=== PATIENT | female | born 1970 | race Caucasian/White ===

== ENCOUNTER 2019-04-25 20:12 | Emergency (ER) | payer OTHER ==
[~2019-04-25] VITALS: Ht 162.6 cm; Wt 77.1 kg
--- OUTSIDE RECORDS SUMMARY | ~2019-04-25 | XMS | Encounter Summary ---
Demographics + + + | Address | [address] | | | [place] [address] | + + + | Home Phone | | + + + | Preferred Language | Unknown | + + + | Marital Status | | + + + | Orthodox Affiliation | Unknown | + + + | Race | Unknown | + + + | Ethnic Group | Unknown | + + + Author + + + | Author | [facility] | | | and Srikanthana | + + + | Organization | [facility] | | | and Srikanthana | + + + | Address | Unknown | + + + | Phone | Unavailable | + + + Support + + + + + | Name | Relationship | Address | Phone | + + + + + | Arthur Mcduffie | ECON | [address] [facility] | | | | | [place] | | | | | [address] | | + + + + + | Uma Arellano | ECON | [address] | | | | | [place] [address] | | + + + + + Care Team Providers + +------+ + | Care Fish And Wildlife Biologist Name | Role | Phone | + +------+ + | Cuong Joe MD | PCP | | + +------+ + Reason for Visit + + + | Reason | Comments | + + + | Medication | | | Management | | + + + Encounter Details +--------+---------+ + + + | Date | Type | Department | Care Team | Description | +--------+---------+ + + + | 03/17/ | Office | [facility] | Cuong Joe, | Optic neuritis, | | 2019 | Visit | [facility] | [address] | right (Primary Dx) | | | | [address] | [place] | | | | | [place] | [address] | | | | | [address] | | | | | | [phone] | | | +--------+---------+ + + + Social History + +-------+ +--------+------+ | Tobacco Use | Types | Packs/Day | Years | Date | | | | | Used | | + +-------+ +--------+------+ | Never Smoker | | | | | + +-------+ +--------+------+ + +---+---+---+ | Smokeless Tobacco: | | | | | Never Used | | | | + +---+---+---+ + + +---------+ + | Alcohol Use | Drinks/Week | oz/Week | Comments | + + +---------+ + | Yes | | | Occasionally. 1 | | | | | drink once per month | | | | | or less. | + + +---------+ + + + + | Sex Assigned at | Date Recorded | | | | + + + | Not on file | | + + + + + + + | Job Start Date | Occupation | Industry | + + + + | Not on file | Not on file | Not on file | + + + + + + + + | Travel History | Travel Start | Travel End | + + + + + + | No recent travel history available. | + + documented as of this encounter Last Filed Vital Signs + + + + + | Vital Sign | Reading | Time Taken | Comments | + + + + + | Blood Pressure | 132/70 | 03/17/2019 4:12 PM | | | | | PST | | + + + + + | Pulse | 100 | 03/17/2019 4:12 PM | | | | | PST | | + + + + + | Temperature | 36.4 C (97.6 F) | 03/17/2019 4:12 PM | | | | | PST | | + + + + + | Respiratory Rate | 18 | 03/17/2019 4:12 PM | | | | | PST | | + + + + + | Oxygen Saturation | 97% | 03/17/2019 4:12 PM | | | | | PST | | + + + + + | Inhaled Oxygen | - | - | | | Concentration | | | | + + + + + | Weight | 77.3 kg (170 lb 6.7 | 03/17/2019 4:12 PM | | | | oz) | PST | | + + + + + | Height | - | - | | + + + + + | Body Mass Index | 29.25 | 03/07/2019 7:25 PM | | | | | PST | | + + + + + documented in this encounter Patient Instructions Patient Instructions Cuong Jeo MD - 03/17/2019 4:15 PM PSTKeep up the great work! Finish the prednisone as prescribed. I will follow-up with you regarding my conversation with Dr Caraballo - whether they want you to have a lumbar puncture prior to the appointment or to just wait until they evaluated. Recheck thyroid levels in April. Electronically signed by Cuong Joe MD at 019 5:10 PM PST documented in this encounter Progress Notes Cuong Joe MD - 03/17/2019 4:15 PM PSTFormatting of this note might be different fr om the original. Subjective: Patient ID: Tammy Mcduffie is a 48 y.o. female who is here today for Medication Man agement HPI She completed solumedrol and is taking prednisone as prescribed. Tolerating well without o bvious side effects. Her vision is "90% back." Eye pain almost completely resolved. Just mild pain if she forcefully looks up and to the right. She is caring for her stepfather who is dying of end stage cancer. So not getting much sle ep due to caregiving. He does have hospice. Her siblings and aunt are supportive. She sees Dr Brown 03/23/19 She returns to work tomorrow. No fever, paranoia, heartburn. Patient's medications, allergies, past medical, surgical, social and family histories were obtained and reviewed as appropriate. Current Outpatient Medications on File Prior to Visit Medication Sig Dispense Refill Elastic Bandages & Supports (KNEE BRACE) [facility] CTI PCL Knee Brace. GEE 99 months 1 each 0 levothyroxine (SYNTHROID) 75 mcg tablet Take 1 tablet by mouth every morning (before br eakfast). For low thyroid 60 tablet 0 predniSONE (DELTASONE) 10 mg tablet Starting 03/12/19: Take 7 tablets by mouth daily fo r 11 days, then take 2 tablets by mouth daily for 1 day, then take 1 tablet by mouth for 2 d ays, then stop 81 tablet 0 No current facility-administered medications on file prior to visit. Review of Systems Objective: BP 132/70 | Pulse 100 | Temp 36.4 C (97.6 F) (Temporal) | Resp 18 | Wt 77.3 kg (170 lb 6.7 oz) | LMP 02/25/2019 | SpO2 97% | No | BMI 29.25 kg/m Physical Exam Constitutional: Very pleasant, well developed, NAD Eyes: EOM are normal. Right eye exhibits no discharge. Left eye exhibits no discharge. Psychiatric: She has a normal mood and affect. Her behavior is normal. Thought content norm al. Assessment & Plan: 1. Optic neuritis, right: Improving s/p Solumedrol 1000 mg daily x 5 days (first dose was 03/07/19) and prednisone taper. Possibly postinfectious. No h/o DM. - Again educated on optic neuritis, treatment, complications, risk of recurrence, increase d risk of MS - Finish prednisone taper as prescribed: 1 mg/kg/day x 11 days, then 20 mg x 1 day, then 10 mg x 2 days, then stop. - I will reach out to [facility] to see if they desire LP prior to appointment and i f so, which labs. Art Joe MD documented in this e ncounter Plan of Treatment +--------+ + + + + | Date | Type | Specialty | Care Team | Description | +--------+ + + + + | 04/29/ | Hospital | Radiology | Cuong Joe, | | | 2019 | Encounter | | [address] | | | | | | [place] | | | | | | [address] | | | | | | | | +--------+ + + + + | 04/29/ | Appointment | Radiology | Cuong Joe, | | | 2019 | | | MD [address] | | | | | | [place], [place] | | | | | | [address] | | | | | | | | +--------+ + + + + | 05/11/ | Office | Neurology | Reina Caraballo, | | | 2019 | Visit | | [address] | | | | | | [place], [place] | | | | | | [address] | | | | | | [phone] | | | | | | | | +--------+ + + + + documented as of this encounter Visit Diagnoses + + | Diagnosis | + + | Optic neuritis, right - Primary Optic neuritis, unspecified | + + documented in this encounter
--- OUTSIDE RECORDS SUMMARY | ~2019-04-25 | XMS | Encounter Summary ---
Demographics + + + | Address | [address] | | | [place] [address] | + + + | Home Phone | | + + + | Preferred Language | Unknown | + + + | Marital Status | | + + + | Mandaeism Affiliation | Unknown | + + + | Race | Unknown | + + + | Ethnic Group | Unknown | + + + Author + + + | Author | [facility] | | | and Srikanthana | + + + | Organization | [facility] | | | and Srikanthana | + + + | Address | Unknown | + + + | Phone | Unavailable | + + + Support + + + + + | Name | Relationship | Address | Phone | + + + + + | Arthur Mcduffie | ECON | [address] [facility] | | | | | [place] | | | | | [address] | | + + + + + | Uma Arellano | ECON | [address] [facility] | | | | | [place] [address] | | + + + + + Care Team Providers + +------+ + | Care Direct Marketing Representative Name | Role | Phone | + +------+ + | No, Physician | PCP | Unavailable | + +------+ + Reason for Visit + + + | Reason | Comments | + + + | Pharyngitis | room 1/ sore throat x 3 days | + + + Encounter Details +--------+---------+ + + + | Date | Type | Department | Care Team | Description | +--------+---------+ + + + | 02/18/ | Office | [facility] | Luisa Torres | Dameonroyumiko (Primary | | 2011 | Visit | [facility] [address] | DO [address] | Dx) | | | | [facility] | [place], [place] | | | | | [place], [place] | [address] | | | | | [address] | | | | | | [phone] | | | +--------+---------+ + + + [...] Comments | + + +---------+ + | Not Asked | | | | + + +---------+ + + + [...] + + + | Blood Pressure | 121/78 | 02/19/2012 10:57 AM | | | | | PDT | | + + + + + | Pulse | 76 | 02/19/2012 10:57 AM | | | | | PDT | | + + + + + | Temperature | 37.3 C (99.2 F) | 02/19/2012 10:57 AM | | | | | PDT | | + + + + + | Respiratory Rate | 16 | 02/19/2012 10:57 AM | | | | | PDT | | + + + + + | Oxygen Saturation | 97% | 02/19/2012 10:57 AM | | | | | PDT | | + + + + + | Inhaled Oxygen | - | - | | | Concentration | | | | + + + + + | Weight | 74.8 kg (165 lb) | 02/19/2012 10:57 AM | | | | | PDT | | + + + + + | Height | 160 cm (5' 3") | 02/19/2012 10:57 AM | | | | | PDT | | + + + + + | Body Mass Index | 29.23 | 02/19/2012 10:57 AM | | | | | PDT | | + + + + + documented in this encounter Patient Instructions Patient Instructions Luisa Torres MD - 02/19/2012 11:28 AM PDTStrep negative Rx for amoxil and flonase sent to pharmacy Stay well hydrated A M PDT documented in this encounter Progress Notes Luisa Torres MD - 02/19/2012 1:43 PM PDTFormatting of this note might be diffe rent from the original. Subjective: Patient ID: Tammy Mcduffie is a 41 y.o. female. Pharyngitis This is a new problem. The current episode started in the past 7 days. The problem has been gradually worsening. Neither side of throat is experiencing more pain than the other. There has been no fever. The pain is at a severity of 1/10. The pain is mild. Associated symptoms include coughing and a hoarse voice. Pertinent negatives include no abdominal pain, congest ion, ear pain, headaches, shortness of breath or trouble swallowing. She has had exposure to strep. She has tried nothing for the symptoms. The treatment provided no relief. Patient's medications, allergies, past medical, surgical, social and family histories were reviewed and updated as appropriate. Review of Systems HENT: Positive for hoarse voice. Negative for ear pain, congestion and trouble swallowing. Respiratory: Positive for cough. Negative for shortness of breath. Cardiovascular: Negative. Gastrointestinal: Negative. Negative for abdominal pain. Genitourinary: Negative. Neurological: Negative. Negative for headaches. Psychiatric/Behavioral: Negative. Objective: Physical Exam Constitutional: She is oriented to person, place, and time. She appears well-developed and well-nourished. HENT: Right Ear: Tympanic membrane normal. Left Ear: Tympanic membrane normal. Nose: Nose normal. Mouth/Throat: Posterior oropharyngeal erythema present. No tonsillar abscesses. Cardiovascular: Regular rhythm. Pulmonary/Chest: Effort normal and breath sounds normal. Neurological: She is alert and oriented to person, place, and time. Skin: Skin is warm and dry. Assessment: pharyngitis Plan: Patient Instructions Strep negative Rx for amoxil and flonase sent to pharmacy Stay well hydrated documented in this encounter Plan of Treatment +--------+ + + + + | Date | Type | Specialty | Care Team | Description | +--------+ + + + + | 04/29/ | Hospital | Radiology | Cuong Joe, | | | 2019 | Encounter | | MD [address] | | | | | | [place] | | | | | | [address] | | | | | | | | +--------+ + + + + | 04/29/ | Appointment | Radiology | Cuong Joe, | | | 2019 | | | MD [address] | | | | | | [place] | | | | | | [address] | | | | | | | | +--------+ + + + + | 05/11/ | Office | Neurology | Reina Caraballo, | | | 2019 | Visit | | MD [address] | | | | | | [address] [place] | | | | | | [address] | | | | | | [phone] | | | | | | | | +--------+ + + + + documented as of this encounter Procedures + +--------+ + + + | Procedure Name | Priori | Date/Time | Associated Diagnosis | Comments | | | ty | | | | + +--------+ + + + | POCT RAPID STREP A | Routin | 02/19/2012 | Sorethroat | Results for this | | SCREEN | e | 11:16 AM | | procedure are in the | | | | PDT | | results section. | + +--------+ + + + documented in this encounter Results POCT Rapid Strep A Screen (02/19/2012 11:16 AM PDT) + + + + + + | Component | Value | Ref Range | Performed | Pathologist | | | | | At | Signature | + + + + + + | Rapid Strep | Negative | Negative | | | | A Screen | | | | | + + + + + + | Internal QC | Acceptable | (none) | | | + + + + + + + + | Specimen | + + | Respiratory sample | | (specimen) | + + documented in this encounter Visit Diagnoses + + | Diagnosis | + + | Sorethroat - Primary Acute pharyngitis | + + documented in this encounter
--- OUTSIDE RECORDS SUMMARY | ~2019-04-25 | XMS | Encounter Summary ---
Demographics + + + | Address | [address] | | | [place] [address] | + + + | Home Phone | | + + + | Preferred Language | Unknown | + + + | Marital Status | | + + + | Buddhism Affiliation | Unknown | + + + | Race | Unknown | + + + | Ethnic Group | Unknown | + + + Author + + + | Author | [facility] | | | and Srikanthana | + + + | Organization | [facility] | | | and Srikanthana | + + + | Address | Unknown | + + + | Phone | Unavailable | + + + Support + + + + + | Name | Relationship | Address | Phone | + + + + + | Arthur Mcduffie | ECON | [address] [facility] | | | | | [place] | | | | | [address] | | + + + + + | Uma Arellano | ECON | [address] | | | | | [place] [address] | | + + + + + Care Team Providers + +------+ + | Care Body Mechanic Name | Role | Phone | + +------+ + | Cuong Joe MD | PCP | | + +------+ + Reason for Visit +--------+ + | Reason | Comments | +--------+ + | Other | | +--------+ + Encounter Details +--------+ + + + + | Date | Type | Department | Care Team | Description | +--------+ + + + + | 09/13/ | Telephone | [facility] | Nick Cerrato | Other | | 2013 | | ORTHOPEDIC SURGERY | MD [address] [facility] | | | | | [address] [facility] | [place] | | | | | [place] | [address] | | | | | [address] | | | | | | [phone] | | | +--------+ + + + + Social History + +-------+ [...] | | | | drink once per | | | | | month. | + + +---------+ + + + [...] + + documented as of this encounter Plan of Treatment +--------+ + + + + | Date | Type | Specialty | Care Team | Description | +--------+ + + + + | 04/29/ | Hospital | Radiology | Cuong Joe, | | | 2019 | Encounter | | MD [address] | | | | | | [place] | | | | | | [address] | | | | | | | | +--------+ + + + + | 04/29/ | Appointment | Radiology | Cuong Joe, | | | 2019 | | | MD [address] | | | | | | [place] | | | | | | [address] | | | | | | | | +--------+ + + + + | 05/11/ | Office | Neurology | Reina Caraballo, | | | 2019 | Visit | | MD [address] | | | | | | [place] | | | | | | [address] | | | | | | [phone] | | | | | | | | +--------+ + + + + documented as of this encounter Visit Diagnoses Not on filedocumented in this encounter"
--- OUTSIDE RECORDS SUMMARY | ~2019-04-25 | XMS | Encounter Summary ---
Demographics + + + | Address | [address] | | | [place] [address] | + + + | Home Phone | | + + + | Preferred Language | Unknown | + + + | Marital Status | | + + + | Sabianism Affiliation | Unknown | + + + | Race | Unknown | + + + | Ethnic Group | Unknown | + + + Author + + + | Author | [facility] | | | and Srikanthana | + + + | Organization | [facility] | | | and Srikanthana | + + + | Address | Unknown | + + + | Phone | Unavailable | + + + Support + + + + + | Name | Relationship | Address | Phone | + + + + + | Arthur Mcduffie | ECON | [address] [facility] | | | | | [place] | | | | | [address] | | + + + + + | Uma Arellano | ECON | [address] [facility] | | | | | [place] [address] | | + + + + + Care Team Providers + +------+ + | Care Dairy Supplies Sales Representative Name | Role | Phone | + +------+ + | Cunog Joe MD | PCP | | + +------+ + Reason for Visit + + + | Reason | Comments | + + + | Lab Order | to Dr. Joe | + + + Encounter Details +--------+ + + + + | Date | Type | Department | Care Team | Description | +--------+ + + + + | 03/28/ | Telephone | [facility] | Darwin Sahu, | Lab Order (to | | 2019 | | NEUROLOGY [address] Heel Seat Flap Stapler | [place]) | | | | [place] | | | | | | [place], [place] | | | | | | [address] | | | | | | [phone] | | | +--------+ + + + [...] [place] | | | | | | [address] | | | | | | | | +--------+ + + + + | 04/29/ | Appointment | Radiology | Cuong Joe, | | | 2019 | | | [address] | | | | | | [place] | | | | | | [address] | | | | | | | | +--------+ + + + + | 05/11/ | Office | Neurology | Reina Caraballo, | | 2019 | Visit | | MD [address] | | | | | | [address] [place] | | | | | | [address] | | | | | | [phone] | | | | | | | | +--------+ + + + + documented as of this encounter Visit Diagnoses Not on filedocumented in this encounter"
--- OUTSIDE RECORDS SUMMARY | ~2019-04-25 | XMS | Encounter Summary ---
Demographics + + + | Address | [address] | | | [place] [address] | + + + | Home Phone | | + + + | Preferred Language | Unknown | + + + | Marital Status | | + + + | Rastafarian Affiliation | Unknown | + + + | Race | Unknown | + + + | Ethnic Group | Unknown | + + + Author + + + | Author | [facility] | | | and Srikanthana | + + + | Organization | [facility] | | | and Srikanth[place] | + + + | Address | Unknown | + + + | Phone | Unavailable | + + + Support + + + + + | Name | Relationship | Address | Phone | + + + + + | Arthur Mcduffie | ECON | [address] [facility] | | | | | [place] | | | | | [address] | | + + + + + | Uma Arellano | ECON | [address] | | | | | [place] [address] | | + + + + + Care Team Providers + +------+ + | Care Composition Floor Layer Name | Role | Phone | + +------+ + | Cuong Joe MD | PCP | | + +------+ + Reason for Visit +--------+ + | Reason | Comments | +--------+ + | DME | | +--------+ + Encounter Details +--------+ + + + + | Date | Type | Department | Care Team | Description | +--------+ + + + + | 08/11/ | Telephone | [facility] | Cuong Joe, | DME | | 2019 | | [facility] | [address] | | | | | [address] | [place] | | | | | [place] | [address] | | | | | [address] | | | | | | [phone] | | | +--------+ + + + [...] [place] | | | | | | [address] | | | | | | | | +--------+ + + + + | 04/29/ | Appointment | Radiology | Cuong Joe, | | | 2019 | | | MD [address] | | | | | | [place] | | | | | | [address] | | | | | | | | +--------+ + + + + | 05/11/ | Office | Neurology | Reina Caraballo, | | | 2019 | Visit | | MD [address] | | | | | | [place] | | | | | | [address] | | | | | | [phone] | | | | | | | | +--------+ + + + + documented as of this encounter Visit Diagnoses Not on filedocumented in this encounter"
--- OUTSIDE RECORDS SUMMARY | ~2019-04-25 | XMS | Encounter Summary ---
Demographics + + + | Address | [address] | | | [place] [address] | + + + | Home Phone | | + + + | Preferred Language | Unknown | + + + | Marital Status | | + + + | Jain Affiliation | Unknown | + + + | Race | Unknown | + + + | Ethnic Group | Unknown | + + + Author + + + | Author | [facility] | | | and Srikanthana | + + + | Organization | [facility] | | | and Srikanth[place] | + + + | Address | Unknown | + + + | Phone | Unavailable | + + + Support + + + + + | Name | Relationship | Address | Phone | + + + + + | Arthur Mcduffie | ECON | [address] [facility] | | | | | [place] | | | | | [address] | | + + + + + | Uma Arellano | ECON | [address] [facility] | | | | | [place] [address] | | + + + + + Care Team Providers + +------+ + | Care Interpretive Program Coordinator Name | Role | Phone | + +------+ + | Cuong Joe MD | PCP | | + +------+ + Reason for Referral Evaluate & Treat (Routine) +--------+ + + + + + | Status | Reason | Specialty | Diagnoses / | Referred By | Referred To | | | | | Procedures | Contact | Contact | +--------+ + + + + + | Closed | Specialty | Orthopedic | Diagnoses | [place], | [facility] | | | Services | Surgery | Wrist pain, | Cuong Corrales MD | Orthopedic | | | Required | | right | [address] | [address] | [address] | | | | | | [place], [place] | [place], | | | | | | [address] | [place] | | | | | | Phone: | [address] | | | | | | [phone] | Phone: | | | | | | Fax: | [phone] | | | | | | [phone] | Fax: | | | | | | | [phone] | +--------+ + + + + + Reason for Visit + + + | Reason | Comments | + + + | Wrist Pain | | + + + Encounter Details +--------+---------+ + + + | Date | Type | Department | Care Team | Description | +--------+---------+ + + + | 11/09/ | Office | [facility] | Cuong Joe, | Wrist pain, right | | 2013 | Visit | [facility] | [address] | (Primary Dx) | | | | [address] | [place] | | | | | [place] | [address] | | | | | [address] | | | | | | [phone] | | | +--------+---------+ + + + [...] + + + | Blood Pressure | 118/80 | 11/09/2013 8:59 AM | | | | | PDT | | + + + + + | Pulse | 64 | 11/09/2013 8:59 AM | | | | | PDT | | + + + + + | Temperature | 36.9 C (98.4 F) | 11/09/2013 8:59 AM | | | | | PDT | | + + + + + | Respiratory Rate | 16 | 11/09/2013 8:59 AM | | | | | PDT | | + + + + + | Oxygen Saturation | - | - | | + + + + + | Inhaled Oxygen | - | - | | | Concentration | | | | + + + + + | Weight | 79.1 kg (174 lb 4.8 | 11/09/2013 8:59 AM | | | | oz) | PDT | | + + + + + | Height | - | - | | + + + + + | Body Mass Index | 30.88 | 09/15/2013 4:31 PM | | | | | PDT | | + + + + + documented in this encounter Patient Instructions Patient Instructions Cuong Joe MD - 11/09/2013 9:19 AM PDTBP 118/80 | Pulse 64 | T emp 36.9 C (98.4 F) (Temporal) | Resp 16 | Wt 79.062 kg (174 lb 4.8 oz) | LMP 10/24/2013 documented in this encounter Progress Notes Cuong Joe MD - 11/09/2013 9:08 AM PDTFormatting of this note might be different fr om the original. Subjective: Patient ID: Tammy Mcduffie is a 43 y.o. female here for right wrist pain HPI Her right wrist pain is unchanged. She has been wearing a wrist brace without any improvem ent. Pain is only present with certain movements - ulnar deviation, wrist extension, typing . Also worse in the morning. Pressure on the ulnar aspect aggravates the pain. No pain if she is not using wrists or avoids certain movements. No clicking, popping, swelling, weakn ess. No new injuries. Patient's medications, allergies, past medical, surgical, social and family histories were reviewed and updated as appropriate. Review of Systems See HPI BP 118/80 | Pulse 64 | Temp 36.9 C (98.4 F) (Temporal) | Resp 16 | Wt 79.062 kg (174 lb 4.8 oz) | LMP 10/24/2013 Objective: Physical Exam Constitutional: Very pleasant, well developed, NAD Musculoskeletal: No wrist deformity. Mild tenderness along extensor carpi ulnaris. Mild pain with ext mariel ulnar and radial abduction. Negative quincy test, compression testing. 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 XR Right Wrist: No radiographic evidence of fracture or dislocation. Assessment: Tammy was seen today for wrist pain. Diagnoses and associated orders for this visit: Wrist pain, right: Chronic, has not improved with immobilization and rest x 4 weeks. No s igns of fracture. She is right handed. Appreciate orthopedic's evaluation. - * [facility] Orthopedic Surgery - AMB Referral Art Joe MD ANCraiCarlita arevalo LP N - 11/09/2013 8:55 AM PDTPatient is here for a follow-up on her wrist pain. documented in this encounter Plan of Treatment [...] [place] | | | | | | [address] | | | | | | | | +--------+ + + + + | 04/29/ | Appointment | Radiology | Cuong Joe, | | | 2019 | | | MD [address] | | | | | | [place] | | | | | | [address] | | | | | | | | +--------+ + + + + | 05/11/ | Office | Neurology | Reina Caraballo, | | | 2019 | Visit | | MD [address] | | | | | | [address] [place], [place] | | | | | | [address] | | | | | | [phone] | | | | | | | | +--------+ + + + + + + +--------+ + + | Name | Type | Priori | Associated Diagnoses | Order Schedule | | | | ty | | | + + +--------+ + + | * [facility] [place] | Outpatient | Routin | Wrist pain, right | Ordered: 11/09/2013 | | Orthopedic Surgery - | Referral | e | | | | AMB Referral | | | | | + + +--------+ + + documented as of this encounter Results XR Wrist Right 3 + Vw (11/09/2013 9:43 AM PDT) + + | Specimen | + + | | + + + + + | Narrative | Performed At | + + + | XR WRIST RIGHT 3 + VW. 11/09/2013 9:43 AM HISTORY: Chronic | MISCELANIOUS | | ulnar sided wrist pain. Suspect tendonitis. . COMPARISON: None | LAB | | available. FINDINGS: Joint spaces and alignment are maintained, | | | without evidence of fracture or dislocation. The overlying soft | | | tissues are unremarkable. IMPRESSION - No radiographic | | | evidence of fracture or dislocation. Dictated and Signed by: Dony | | | MD Bro Electronically signed: 11/09/2013 11:36 AM | | + + + + + | Procedure Note | + + | Howard, Rad Results In - 11/09/2013 11:39 AM PDT XR WRIST RIGHT 3 + VW. 11/09/2013 9:43 | | AMHISTORY: Chronic ulnar sided wrist pain. Suspect tendonitis. . COMPARISON: None | | available.FINDINGS:Joint spaces and alignment are maintained, without evidence of | | fracture ordislocation. The overlying soft tissues are unremarkable.IMPRESSION -No | | radiographic evidence of fracture or dislocation.Dictated and Signed by: Dony | | MD Bro Electronically signed: 11/09/2013 11:36 AM | |FINDINGS: | |Joint spaces and alignment are maintained, without evidence of fracture or | |dislocation. The overlying soft tissues are unremarkable. | | | | | |IMPRESSION - | |No radiographic evidence of fracture or dislocation. | | | |Dictated and Signed by: Dony Crabtree MD | | Electronically signed: 11/09/2013 11:36 AM | + + + +---------+ + + | Performing | Address | City/State/Zipcode | Phone Number | | Organization | | | | + +---------+ + + | [facility] LAB | | | [phone] | + +---------+ + + | MISCELANIOUS LAB | | | [phone] | + +---------+ + + documented in this encounter Visit Diagnoses + + | Diagnosis | + + | Wrist pain, right - Primary Pain in joint, forearm | + + documented in this encounter"
--- OUTSIDE RECORDS SUMMARY | ~2019-04-25 | XMS | Encounter Summary ---
Demographics + + + | Address | [address] | | | [place] [address] | + + + | Home Phone | | + + + | Preferred Language | Unknown | + + + | Marital Status | | + + + | Methodist Affiliation | Unknown | + + + | Race | Unknown | + + + | Ethnic Group | Unknown | + + + Author + + + | Author | [facility] | | | and Srikanthana | + + + | Organization | [facility] | | | and Srikanthana | + + + | Address | Unknown | + + + | Phone | Unavailable | + + + Support + + + + + | Name | Relationship | Address | Phone | + + + + + | Arthur Mcduffie | ECON | [address] [facility] | | | | | [place] | | | | | [address] | | + + + + + | Uma Arellano | ECON | [address] [facility] | | | | | [place] [address] | | + + + + + Care Team Providers + +------+ + | Care Biological Inspector Name | Role | Phone | + +------+ + | Cuong Joe MD | PCP | | + +------+ + Encounter Details +--------+ + + + + | Date | Type | Department | Care Team | Description | +--------+ + + + + | 03/28/ | Orders Only | [facility] | Cuong Joe, | Optic neuritis, | | 2019 | | [facility] [place] | [address] | right; Multiple | | | | [address] | [place] | sclerosis (HCC) | | | | [place] | [address] | | | | | [address] | | | | | | [phone] | | | +--------+ + + + [...] Radiology | Cuong Joe, | | | 2020 | Encounter | | MD [address]ina [address] | | | | | | [place] | | | | | | [address] | | | | | | | | +--------+ + + + + | 04/29/ | Appointment | Radiology | Cuong Joe, | | | 2019 | | | [address] | | | | | | [place] | | | | | | [address] | | | | | | | | +--------+ + + + + | 05/11/ | Office | Neurology | Reina Caraballo, | | | 2019 | Visit | | MD [address] | | | | | | [address] [place] | | | | | | [address] | | | | | | [phone] | | | | | | | | +--------+ + + + + documented as of this encounter Visit Diagnoses + + | Diagnosis | + + | Optic neuritis, right Optic neuritis, unspecified | + + | Multiple sclerosis (HCC) Multiple sclerosis | + + documented in this encounter"
--- OUTSIDE RECORDS SUMMARY | ~2019-04-25 | XMS | Encounter Summary ---
Demographics + + + | Address | [address] | | | [place] [address] | + + + | Home Phone | | + + + | Preferred Language | Unknown | + + + | Marital Status | | + + + | Restoration Affiliation | Unknown | + + + | Race | Unknown | + + + | Ethnic Group | Unknown | + + + Author + + + | Author | [facility] | | | and Srikanthana | + + + | Organization | [facility] | | | and Srikanth[place] | + + + | Address | Unknown | + + + | Phone | Unavailable | + + + Support + + + + + | Name | Relationship | Address | Phone | + + + + + | Arthur Mcduffie | ECON | [address] | | | | | [place] | | | | | [address] | | + + + + + | Uma Arellano | ECON | [address] [facility] | | | | | [place] [address] | | + + + + + Care Team Providers + +------+ + | Care Show Jumping Instructor Name | Role | Phone | + +------+ + PCP | Unavailable | + +------+ + Encounter Details +--------+ + + + + | Date | Type | Department | Care Team | Description | +--------+ + + + + | 10/27/ | Hospital | [facility] | Александр Sebastian, | | | 1996 | Encounter | MED CTR GENERIC OP | [id number] | | | | | CONV DEPT [address] | [place] | | | | | [place], | [place] [address] | | | | | [place] [address] | [phone] | | | | | [phone] | | | +--------+ + + + + Social History + +-------+ +--------+------+ | Tobacco Use | Types | Packs/Day | Years | Date | | | | | Used | | + +-------+ +--------+------+ | Never Assessed | | | | | + +-------+ +--------+------+ + + + | Sex Assigned at [...] [place] | | | | | | [address] | | | | | | | | +--------+ + + + + | 04/29/ | Appointment | Radiology | Cuong Joe, | | | 2019 | | | MD [address] | | | | | | [place] | | | | | | [address] | | | | | | | | +--------+ + + + + | 05/11/ | Office | Neurology | Reina Caraballo, | | | 2019 | Visit | | MD [address] | | | | | | [place] | | | | | | [address] | | | | | | [phone] | | | | | | | | +--------+ + + + + documented as of this encounter Visit Diagnoses Not on filedocumented in this encounter"
--- OUTSIDE RECORDS SUMMARY | ~2019-04-25 | XMS | Encounter Summary ---
Demographics + + + | Address | [address] | | | [place] [address] | + + + | Home Phone | | + + + | Preferred Language | Unknown | + + + | Marital Status | | + + + | Baptism Affiliation | Unknown | + + + | Race | Unknown | + + + | Ethnic Group | Unknown | + + + Author + + + | Author | [facility] | | | and Srikanthana | + + + | Organization | [facility] | | | and Srikanthana | + + + | Address | Unknown | + + + | Phone | Unavailable | + + + Support + + + + + | Name | Relationship | Address | Phone | + + + + + | Arthur Mcduffie | ECON | [address] [facility] | | | | | [place] | | | | | [address] | | + + + + + | Uma Arellano | ECON | [address] [facility] | | | | | [place] [address] | | + + + + + Care Team Providers + +------+ + | Care Quality Assurance Supervisor Final Name | Role | Phone | + +------+ + | Cuong Joe MD | PCP | | + +------+ + Reason for Visit Evaluate & Treat (Routine) + +--------+ + + + + | Status | Reason | Specialty | Diagnoses / | Referred By | Referred To | | | | | Procedures | Contact | Contact | + +--------+ + + + + | Authorized | | Infusion | Diagnoses | [place], | [facility] | | | | Therapy | Optic | Oneil | Infusion [address] | | | | | neuritis, | Edward | [address] | | | | | right DrWilly | MD Dominick | [place], | | | | | Tatyana | [address] | [place] [address] | | | | | Solumedrol | [facility] | Phone: | | | | | IV X 4 Days | [place] | [phone] | | | | | Optic | [address] | Fax: | | | | | Neuritis | Phone: | [phone] | | | | | Procedures | [phone] | | | | | | [place] | Fax: | | | | | | METHYLPREDNI | [phone] | | | | | | SOLONE | | | | | | | INJECTION, | | | | | | | 125 MG [address] | | | | | | | INJECTION,TH | | | | | | | ERAP/PROPH/D | | | | | | | IAROBERT, IM | | | | | | | OR SUBCUT | | | | | | | [facility] OP INF | | | + +--------+ + + + + Encounter Details +--------+ + + + + | Date | Type | Department | Care Team | Description | +--------+ + + + + | 03/28/ | Hospital | [facility] | Cuong Joe, | Optic neuritis, | | 2019 | Encounter | MED CTR OP INFUSION | MD [address] | right (Primary Dx) | | | | [address] | [place] | | | | | [place] | [address] | | | | | [address] | | | | | | [phone] | | | +--------+ + + + [...] this encounter Last Filed Vital Signs + +---------+ + + | Vital Sign | Reading | Time Taken | Comments | + +---------+ + + | Blood Pressure | 138/83 | 03/28/2019 5:20 PM | | | | | PST | | + +---------+ + + | Pulse | 70 | 03/28/2019 5:20 PM | | | | | PST | | + +---------+ + + | Temperature | - | - | | + +---------+ + + | Respiratory Rate | 16 | 03/28/2019 5:20 PM | | | | | PST | | + +---------+ + + | Oxygen Saturation | 100% | 03/28/2019 3:29 PM | | | | | PST | | + +---------+ + + | Inhaled Oxygen | - | - | | | Concentration | | | | + +---------+ + + | Weight | - | - | | + +---------+ + + | Height | - | - | | + +---------+ + + | Body Mass Index | - | - | | + +---------+ + + documented in this encounter Medications at Time of Discharge + + + +---------+ + + | Medication | Sig | Dispensed | Refills | Start | End Date | | | | | | Date | | + + + +---------+ + + | cholecalciferol | Take 2 tablets by | 180 | 3 | 03/28/20 | | | (VITAMIN D-3) 25 mcg | mouth Daily. Vitamin | each | | 19 | | | (1,000 units) | D supplement. | | | | | | tabletIndications: | | | | | | | Optic neuritis, | | | | | | | right, Multiple | | | | | | | sclerosis (HCC) | | | | | | + + + +---------+ + + | Elastic Bandages & | CTI PCL Knee Brace. | 1 each | 0 | 08/12/19 | | | Supports (KNEE | GEE 99 months | | | 19 | | | BRACE) | | | | | | | MISCIndications: PCL | | | | | | | injury, left, | | | | | | | sequela | | | | | | + + + +---------+ + + | levothyroxine | Take 1 tablet by | 90 | 3 | 03/28/20 | | | (SYNTHROID) 75 mcg | mouth every morning | tablet | | 19 | | | tabletIndications: | (before breakfast). | | | | | | Postoperative | For low thyroid | | | | | | hypothyroidism | | | | | | + + + +---------+ + + | methylPREDNISolone | Follow package | 21 | 0 | 03/28/20 | | | (MEDROL DOSEPAK) 4 | directions. | tablet | | 19 | | | mg | | | | | | | tabletIndications: | | | | | | | Optic neuritis, | | | | | | | right, Multiple | | | | | | | sclerosis (HCC) | | | | | | + + + +---------+ + + documented as of this encounter Progress Notes Dianna Brooke RN - 03/28/2019 3:15 PM PSTFormatting of this note might be diffe rent from the original. Vitals: 03/28/19 1529 03/28/19 1720 BP: 138/78 138/83 Pulse: 70 70 Resp: 16 16 SpO2: 100% Administrations This Visit methylPREDNISolone sodium succinate (solu-MEDROL) 1,000 mg in sodium chloride 0.9% 250 mL IVPB Admin Date 03/28/2019 Action New Bag Dose 1000 mg Rate 266 mL/hr Route Intravenous Administered By Dianna Brooke RN Monitored throughout treatment; treatment completed without untoward effects from medicatio n noted. Next visit tomorrow 1200. Verbalizes understanding of plan of care. VS stable. Disc harged ambulatory to home in stable condition. Electronically signed by: Dianna Brooke RN 03/28/2019 5:22 PM Dianna Villegas RN - 03/28 3:15 PM PST Vitals: 03/28/19 1529 BP: 138/78 Pulse: 70 Resp: 16 Tammy Benitezmatthew received into room 440, independent ambulation accompanied by self. States here for steroid infusion. Reports no change in condition, plan of care since last MD visit. Alert, oriented x 4, cooperative. Electronically signed by: Dianna Brooke RN 03/28/2019 3:40 PM documented in this encounter Plan of Treatment +--------+ + + + + | Date | Type | Specialty | Care Team | Description | +--------+ + + + + | 04/29/ | Hospital | Radiology | Cuong Joe, | | | 2019 | Encounter | | MD [address] | | | | | | [place] | | | | | | [address] | | | | | | | | +--------+ + + + + | 04/29/ | Appointment | Radiology | Cuong Joe, | | | 2019 | | | MD [address] | | | | | | [place] | | | | | | [address] | | | | | | | | +--------+ + + + + | 05/11/ | Office | Neurology | Renia Caraballo, | | | 2019 | Visit | | MD [address] | | | | | | [place], [place] | | | | | | [address] | | | | | | [phone] | | | | | | | | +--------+ + + + + documented as of this encounter Visit Diagnoses + + | Diagnosis | + + | Optic neuritis, right - Primary Optic neuritis, unspecified | + + documented in this encounter Administered Medications + +---------+ + +-------+------+ | Medication Order | MAR | Action | Dose | Rate | Site | | | Action | Date | | | | + +---------+ + +-------+------+ | methylPREDNISolone sodium | New Bag | 03/28/20 | 1,000 mg | 266 | | | succinate (solu-MEDROL) 1,000 mg | | 19 4:11 | | mL/hr | | | in sodium chloride 0.9% 250 mL | | PM PST | | | | | IVPB 1,000 mg, Intravenous, | | | | | | | Administer over 60 Minutes, ONCE, | | | | | | | 03/28/19 at 1545, For 1 dose | | | | | | + +---------+ + +-------+------+ +---+---+ | | | +---+---+ documented in this encounter"
--- OUTSIDE RECORDS SUMMARY | ~2019-04-25 | XMS | Encounter Summary ---
Demographics + + + | Address | [address] | | | [place] [address] | + + + | Home Phone | | + + + | Preferred Language | Unknown | + + + | Marital Status | | + + + | Quaker Affiliation | Unknown | + + + | Race | Unknown | + + + | Ethnic Group | Unknown | + + + Author + + + | Author | [facility] | | | and Srikanthana | + + + | Organization | [facility] | | | and Srikanthana | + + + | Address | Unknown | + + + | Phone | Unavailable | + + + Support + + + + + | Name | Relationship | Address | Phone | + + + + + | Arthur Mcduffie | ECON | [address] | | | | | [place] | | | | | [address] | | + + + + + | Uma Arellano | ECON | [address] [facility] [facility] | | | | | [place] [address] | | + + + + + Care Team Providers + +------+ + | Care Final Cleaner Name | Role | Phone | + [...] | | neuritis, | Edward | [address] | | | | | right DrWilly | MD Dominick | [place], | | | | | Tatyana | [address] | [place] [address] | | | | | Solumedrol | [facility] | Phone: | | | | | IV X 4 Days | [place] | [phone] | | | | | Optic | [address] | Fax: | | | | | Neuritis | Phone: | [phone] | | | | | Procedures | [phone] | | | | | | [place] | Fax: | | | | | | METHYLPREDNI | [phone] | | | | | | SOLONE | | | | | | | INJECTION, | | | | | | | 125 MG [place] | | | | | | | [...] | +--------+ + + + + | 03/09/ | Hospital | [facility] | Oneil Rosas | Optic neuritis, | | 2019 | Encounter | MED [facility] OP INFUSION | Fredrick Tan MD | right (Primary Dx) | | | | [address] | [address] | | | | | [place] | [place] | | | | | [address] | [phone] | | | | | [phone] | | | +--------+ + + + [...] + + + | Blood Pressure | 132/67 | 03/09/2019 12:57 PM | | | | | PST | | + + + + + | Pulse | 69 | 03/09/2019 12:57 PM | | | | | PST | | + + + + + | Temperature | 36.4 C (97.5 F) | 03/09/2019 12:57 PM | | | | | PST | | + + + + + | Respiratory Rate | 18 | 03/09/2019 12:57 PM | | | | | PST | | + + + + + | Oxygen Saturation | 98% | 03/09/2019 12:57 PM | | | | | PST | | + + + + + | Inhaled Oxygen | - | - | | | Concentration | | | | + + + + + | Weight | - | - | | + + + + + | Height | - | - | | + + + + + | Body Mass Index | - | - | | + + + + + documented in this encounter Medications [...] + + + +---------+ + + | clonazePAM | Take 1 tablet by | 21 | 0 | 03/08/20 | | | (KLONOPIN) 0.5 mg | mouth nightly as | tablet | | 19 | 9 | | tabletIndications: | needed for Anxiety | | | | | | Optic neuritis, | or Insomnia for up | | | | | | right, Insomnia, | to 21 days. While on | | | | | | unspecified type | steroids | | | | | + + + +---------+ + + | levothyroxine | Take 1 tablet by | 60 | 0 | 03/03/20 | | | (SYNTHROID) 75 mcg | mouth every morning | tablet | | 19 | 9 | | tabletIndications: | (before breakfast). | | | | | | Postoperative | For low thyroid | | | | | | hypothyroidism | | | | | | + + + +---------+ + + | omeprazole | Take 1 capsule by | 21 | 0 | 03/08/20 | | | (PRILOSEC) 20 mg | mouth every morning | capsule | | 19 | 9 | | capsuleIndications: | (before breakfast) | | | | | | Gastroesophageal | for 21 days. To be | | | | | | reflux disease, | taken while on | | | | | | esophagitis presence | steroids | | | | | | not specified | | | | | | + + + +---------+ + + | predniSONE | Starting 03/12/19: | 81 | 0 | 03/08/20 | | | (DELTASONE) 10 mg | Take 7 tablets by | tablet | | 19 | 9 | | tabletIndications: | mouth daily for 11 | | | | | | Optic neuritis, | days, then take 2 | | | | | | right | tablets by mouth | | | | | | | daily for 1 day, | | | | | | | then take 1 tablet | | | | | | | by mouth for 2 days, | | | | | | | then stop | | | | | + + + +---------+ + + documented as of this encounter Progress Notes Marika Sevilla RN - 03/09/2019 11:00 AM PST Vitals: 03/09/19 1050 BP: 148/72 Pulse: 75 Temp: 36.4 C (97.5 F) TempSrc: Oral SpO2: 99% Administrations This Visit methylPREDNISolone sodium succinate (solu-MEDROL) 1,000 mg in sodium chloride 0.9% 250 mL IVPB Admin Date 03/09/2019 Action New Bag Dose 1000 mg Rate 266 mL/hr Route Intravenous Administered By Marika Sevilla RN Monitored throughout treatment; treatment completed without untoward effects from medicatio n noted. Next visit tomorrow. Verbalizes understanding of plan of care. VS stable. Discharge d ambulatory to home in stable condition. IV left in place at her request for tomorrows infu nadja Electronically signed by: Marika Sevilla RN 03/09/2019 12:47 PM Marika Govea RN - 1 05/09/2018 11:00 AM PST Vitals: 03/09/19 1050 BP: 148/72 Pulse: 75 Temp: 36.4 C (97.5 F) Tammy Chino Emmanuelmatthew received into room 441, independent ambulation . States here for Lynda umedrol infusion. Reports no change in condition, plan of care since last MD visit. Alert, o riented x 4, cooperative. Electronically signed by: Marika Sevilla RN 03/09/2019 11:03 AM documented in this enc ounter Plan of Treatment +--------+ + + + + | Date | Type | Specialty | Care Team | Description | +--------+ + + + + | 04/29/ | Hospital | Radiology | Cuong Joe, | | | 2019 | Encounter | | MD [address] | | | | | | [place] | | | | | | [address] | | | | | | | | +--------+ + + + + | 04/29/ | Appointment | Radiology | Cuong Joe, | | | 2019 | | | MD [address] | | | | | | [place] | | | | | | [address] | | | | | | | | +--------+ + + + + | 05/11/ | Office | Neurology | Reina Caraballo, | | | 2019 | Visit | | MD [address] | | | | | | [place] | | | | | | [address] | | | | | | [phone] | | | | | | | [...] | methylPREDNISolone sodium | New Bag | 03/09/20 | 1,000 mg | 266 | | | succinate (solu-MEDROL) 1,000 mg | | 19 11:33 | | mL/hr | | | in sodium chloride 0.9% 250 mL | | AM PST | | | | | IVPB 1,000 mg, Intravenous, | | | | | | | Administer over 60 Minutes, ONCE, | | | | | | | 03/09/19 at 1120, For 1 dose | | | | | | + +---------+ + +-------+------+ +---+---+ | | | +---+---+ documented in this encounter"
--- OUTSIDE RECORDS SUMMARY | ~2019-04-25 | XMS | Encounter Summary ---
Demographics + + + | Address | [address] | | | [place] [address] | + + + | Home Phone | | + + + | Preferred Language | Unknown | + + + | Marital Status | | + + + | Taoism Affiliation | Unknown | + + + | Race | Unknown | + + + | Ethnic Group | Unknown | + + + Author + + + | Author | [facility] | | | and Srikanthana | + + + | Organization | [facility] | | | and Srikanthana | + + + | Address | Unknown | + + + | Phone | Unavailable | + + + Support + + + + + | Name | Relationship | Address | Phone | + + + + + | Arthur Mcduffie | ECON | [address] [facility] | | | | | [place] | | | | | [address] | | + + + + + | Uma Arellano | ECON | [address] | | | | | [place] [address] | | + + + + + Care Team Providers + +------+ + | Care Carpet Inspector Name | Role | Phone | [...] | +--------+ + + + + | 08/26/ | Telephone | [facility] | Jared Wilson, | Other | | 2018 | | ORTHOPEDIC SURGERY | [address] [facility] | | | | | [address] [facility] | [place] | | | | | [place] | [address] | | | | | [address] | | | | | | [phone] | | | +--------+ + + + [...] [place] | | | | | | [address] | | | | | | | | +--------+ + + + + | 04/29/ | Appointment | Radiology | Cuong Joe, | | | 2019 | | | MD [address] | | | | | | [place] | | | | | | [address] | | | | | | | | +--------+ + + + + | 05/11/ | Office | Neurology | Reina Caraballo, | | | 2019 | Visit | | MD [address] | | | | | | [place] | | | | | | [address] | | | | | | [phone] | | | | | | | | +--------+ + + + + documented as of this encounter Visit Diagnoses Not on filedocumented in this encounter"
--- OUTSIDE RECORDS SUMMARY | ~2019-04-25 | XMS | Encounter Summary ---
Demographics + + + | Address | [address] | | | [place] [address] | + + + | Home Phone | | + + + | Preferred Language | Unknown | + + + | Marital Status | | + + + | Latter Day Affiliation | Unknown | + + + | Race | Unknown | + + + | Ethnic Group | Unknown | + + + Author + + + | Author | [facility] | | | and Srikanthana | + + + | Organization | [facility] | | | and Srikanthana | + + + | Address | Unknown | + + + | Phone | Unavailable | + + + Support + + + + + | Name | Relationship | Address | Phone | + + + + + | Arthur Mcduffie | ECON | [address] [facility] | | | | | [place] | | | | | [address] | | + + + + + | Uma Arellano | ECON | [address] [facility] | | | | | [place] [address] | | + + + + + Care Team Providers + +------+ + | Care Footwear Sales Leader Name | Role | Phone | + +------+ + | Cuong Joe MD | PCP | | + +------+ + Reason for Visit + + + | Reason | Comments | + + + | Referral | Neurology | | (PreAuthorization) | | + + + Encounter Details +--------+ + + + + | Date | Type | Department | Care Team | Description | +--------+ + + + + | 03/09/ | Telephone | [facility] | Cuong Joe, | Referral | | 2019 | | MEDICINE [place] | [address] | (PreAuthorization) | | | | [address] | [place], [place] | (Neurology) | | | | [place], [place] | [address] | | | | | [address] | | | | | | [phone] | | | +--------+ + + + [...] [place] | | | | | | [address] | | | | | | | | +--------+ + + + + | 04/29/ | Appointment | Radiology | Cuong Joe, | | | 2019 | | | MD [address] | | | | | | [place] | | | | | | [address] | | | | | | | | +--------+ + + + + | 05/11/ | Office | Neurology | Reina Caraballo, | | | 2019 | Visit | | MD [address] | | | | | | [place] | | | | | | [address] | | | | | | [phone] | | | | | | | | +--------+ + + + + documented as of this encounter Visit Diagnoses Not on filedocumented in this encounter"
--- OUTSIDE RECORDS SUMMARY | ~2019-04-25 | XMS | Encounter Summary ---
Demographics + + + | Address | [address] | | | [place] [address] | + + + | Home Phone | | + + + | Preferred Language | Unknown | + + + | Marital Status | | + + + | Yazdanism Affiliation | Unknown | + + + | Race | Unknown | + + + | Ethnic Group | Unknown | + + + Author + + + | Author | [facility] | | | and Srikanthana | + + + | Organization | [facility] | | | and Srikanthana | + + + | Address | Unknown | + + + | Phone | Unavailable | + + + Support + + + + + | Name | Relationship | Address | Phone | + + + + + | Arthur Mcduffie | ECON | [address] [facility] | | | | | [place] | | | | | [address] | | + + + + + | Uma Arellano | ECON | [address] [facility] | | | | | [place] [address] | | + + + + + Care Team Providers + +------+ + | Care Dental Sales Representative Name | Role | Phone | + +------+ + | Cuong Joe MD | PCP | | + +------+ + Reason for Visit + + + | Reason | Comments | + + + | Recall For Services | | | (DMST) | | + + + | Pap Test | | + + + Encounter Details +--------+ + + + + | Date | Type | Department | Care Team | Description | +--------+ + + + + | 07/12/ | Patient | [facility] | Cuong Joe, | Preventive | | 2019 | Outreach | MEDICINE [place] | [address] | Screening, Cervical | | | | [address] | [place] | Cancer Screening | | | | [place] | [address] | | | | | [address] | | | | | | [phone] | | | +--------+ + + + [...] [place] | | | | | | [address] | | | | | | | | +--------+ + + + + | 04/29/ | Appointment | Radiology | Cuong Joe, | | | 2019 | | | MD [address] | | | | | | [place] | | | | | | [address] | | | | | | | | +--------+ + + + + | 05/11/ | Office | Neurology | Reina Caraballo, | | | 2019 | Visit | | MD [address] | | | | | | [place], [place] | | | | | | [address] | | | | | | [phone] | | | | | | | | +--------+ + + + + documented as of this encounter Visit Diagnoses Not on filedocumented in this encounter"
--- OUTSIDE RECORDS SUMMARY | ~2019-04-25 | XMS | Encounter Summary ---
Demographics + + + | Address | [address] | | | [place] [address] | + + + | Home Phone | | + + + | Preferred Language | Unknown | + + + | Marital Status | | + + + | Buddhism Affiliation | Unknown | + + + | Race | Unknown | + + + | Ethnic Group | Unknown | + + + Author + + + | Author | [facility] | | | and Srikanthana | + + + | Organization | [facility] | | | and Srikanthana | + + + | Address | Unknown | + + + | Phone | Unavailable | + + + Support + + + + + | Name | Relationship | Address | Phone | + + + + + | Arthur Mcduffie | ECON | [address] [facility] | | | | | [place] | | | | | [address] | | + + + + + | Uma Arellano | ECON | [address] | | | | | [place] [address] | | + + + + + Care Team Providers + +------+ + | Care Java Software Engineer Name | Role | Phone | + +------+ + | Cuong Joe MD | PCP | | + +------+ + Reason for Visit +---------+ + | Reason | Comments | +---------+ + | Results | | +---------+ + Encounter Details +--------+ + + + + | Date | Type | Department | Care Team | Description | +--------+ + + + + | 09/21/ | Telephone | [facility] | Alba Rondon, | Results | | 2014 | | CARE [address] | MD [address] | | | | | [place] | [place] | | | | | [address] | [address] | | | | | [phone] | | | +--------+ + + + [...] [place] | | | | | | [address] | | | | | | | | +--------+ + + + + | 04/29/ | Appointment | Radiology | Cuong Joe, | | | 2019 | | | MD [address] | | | | | | [place] | | | | | | [address] | | | | | | | | +--------+ + + + + | 05/11/ | Office | Neurology | Reina Caraballo, | | | 2019 | Visit | | MD Arnel [address] | | | | | | [place] | | | | | | [address] | | | | | | [phone] | | | | | | | | +--------+ + + + + documented as of this encounter Visit Diagnoses Not on filedocumented in this encounter"
--- OUTSIDE RECORDS SUMMARY | ~2019-04-25 | XMS | Encounter Summary ---
Demographics + + + | Address | [address] | | | [place] [address] | + + + | Home Phone | | + + + | Preferred Language | Unknown | + + + | Marital Status | | + + + | Rastafari Affiliation | Unknown | + + + | Race | Unknown | + + + | Ethnic Group | Unknown | + + + Author + + + | Author | [facility] | | | and Srikanthana | + + + | Organization | [facility] | | | and Srikanthana | + + + | Address | Unknown | + + + | Phone | Unavailable | + + + Support + + + + + | Name | Relationship | Address | Phone | + + + + + | Arthur Mcduffie | ECON | [address] [facility] | | | | | [place] | | | | | [address] | | + + + + + | Uma Arellano | ECON | [address] [facility] | | | | | [place] [address] | | + + + + + Care Team Providers + +------+ + | Care Biological Lab Technician Name | Role | Phone | + +------+ + | Cuong Joe MD | PCP | | + +------+ + Reason for Visit + + + | Reason | Comments | + + + | Referral | | + + + Encounter Details +--------+ + + + + | Date | Type | Department | Care Team | Description | +--------+ + + + + | 11/23/ | Telephone | [facility] | Cuong Joe, | Referral | | 2013 | | MEDICINE [place] | [address] | | | | | [address] | [place] | | | | | [place] | [address] | | | | | [address] | | | | | | [phone] | | | +--------+ + + + [...] [place] | | | | | | [address] | | | | | | | | +--------+ + + + + | 04/29/ | Appointment | Radiology | Cuong Joe, | | | 2019 | | | MD [address] | | | | | | [place] | | | | | | [address] | | | | | | | | +--------+ + + + + | 05/11/ | Office | Neurology | Reina Caraballo, | | | 2019 | Visit | | MD Arnel [address] | | | | | | [place] | | | | | | [address] | | | | | | [phone] | | | | | | | | +--------+ + + + + documented as of this encounter Visit Diagnoses Not on filedocumented in this encounter"
--- OUTSIDE RECORDS SUMMARY | ~2019-04-25 | XMS | Encounter Summary ---
Demographics + + + | Address | [address] | | | [place] [address] | + + + | Home Phone | | + + + | Preferred Language | Unknown | + + + | Marital Status | | + + + | Oriental Orthodox Affiliation | Unknown | + + + | Race | Unknown | + + + | Ethnic Group | Unknown | + + + Author + + + | Author | [facility] | | | and Srikanthana | + + + | Organization | [facility] | | | and Srikanthana | + + + | Address | Unknown | + + + | Phone | Unavailable | + + + Support + + + + + | Name | Relationship | Address | Phone | + + + + + | Arthur Mcduffie | ECON | [address] [facility] [facility] | | | | | [place] | | | | | [address] | | + + + + + | Uma Arellano | ECON | [address] [facility] | | | | | [place] [address] | | + + + + + Care Team Providers + +------+ + | Care Electric Motor Repair Supervisor Name | Role | Phone | + +------+ + | Cuong Joe MD | PCP | | + +------+ + Reason for Visit + + + | Reason | Comments | + + + | Knee Problem | needs prescription for knee brace. Rm3 | + + + Encounter Details +--------+---------+ + + + | Date | Type | Department | Care Team | Description | +--------+---------+ + + + | 09/15/ | Office | [facility] | Colin Bender MD | Tear of PCL | | 2013 | Visit | CARE [address] | [address] | (posterior cruciate | | | | [place] | [place] [address] | ligament) of knee, | | | | [address] | [phone] | left, subsequent | | | | [phone] | | encounter (Primary | | | | | | Dx) | +--------+---------+ + + + Social History [...] + + + | Blood Pressure | 140/80 | 09/15/2013 4:31 PM | | | | | PDT | | + + + + + | Pulse | 87 | 09/15/2013 4:31 PM | | | | | PDT | | + + + + + | Temperature | 37.4 C (99.3 F) | 09/15/2013 4:31 PM | | | | | PDT | | + + + + + | Respiratory Rate | 16 | 09/15/2013 4:31 PM | | | | | PDT | | + + + + + | Oxygen Saturation | 99% | 09/15/2013 4:31 PM | | | | | PDT | | + + + + + | Inhaled Oxygen | - | - | | | Concentration | | | | + + + + + | Weight | 77.6 kg (171 lb) | 09/15/2013 4:31 PM | | | | | PDT | | + + + + + | Height | 160 cm (5' 3") | 09/15/2013 4:31 PM | | | | | PDT | | + + + + + | Body Mass Index | 30.29 | 09/15/2013 4:31 PM | | | | | PDT | | + + + + + documented in this encounter Progress Notes Colin Bender MD - 09/15/2013 4:37 PM PDT Subjective: Chief Complaint: Knee Problem Tammy is a 43 y.o. female who comes in for above concern. No other complaints. Patient's medications, allergies, past medical, surgical, social and family histories were reviewed and updated as appropriate. Objective: BP 140/80 | Pulse 87 | Temp 37.4 C (99.3 F) (Temporal) | Resp 16 | Ht 1.6 m (5' 3") | W t 77.565 kg (171 lb) | BMI 30.30 kg/m2 | SpO2 99% | ? No General Appearance: Alert, cooperative, no distress, appears stated age No effusion, knee pain free ROM Obvious considerable PCL laxity on L side. Assessment and Plans: Complete PCL tear Replacement brace prescribed. documented in this enc ounter Plan of [...] [place] | | | | | | [address] | | | | | | | | +--------+ + + + + | 04/29/ | Appointment | Radiology | Cuong Joe, | | | 2019 | | | MD [address] | | | | | | [place] | | | | | | [address] | | | | | | | | +--------+ + + + + | 05/11/ | Office | Neurology | Reina Caraballo, | | | 2019 | Visit | | MD [address]nel [address] | | | | | | [address] [place] | | | | | | [address] | | | | | | [phone] | | | | | | | | +--------+ + + + + documented as of this encounter Visit Diagnoses + + | Diagnosis | + + | Tear of PCL (posterior cruciate ligament) of knee, left, subsequent encounter - | | Primary | + + documented in this encounter
--- OUTSIDE RECORDS SUMMARY | ~2019-04-25 | XMS | Encounter Summary ---
Demographics + + + | Address | [address] | | | [place] [address] | + + + | Home Phone | | + + + | Preferred Language | Unknown | + + + | Marital Status | | + + + | Episcopalian Affiliation | Unknown | + + + | Race | Unknown | + + + | Ethnic Group | Unknown | + + + Author + + + | Author | [facility] | | | and Srikanthana | + + + | Organization | [facility] | | | and Srikanthana | + + + | Address | Unknown | + + + | Phone | Unavailable | + + + Support + + + + + | Name | Relationship | Address | Phone | + + + + + | Arthur Mcduffie | ECON | [address] | | | | | [place] | | | | | [address] | | + + + + + | Uma Arellano | ECON | [address] [facility] | | | | | [place] [address] | | + + + + + Care Team Providers + +------+ + | Care Diffuser Operator Name | Role | Phone | + +------+ + PCP | Unavailable | + +------+ + Encounter Details +--------+ + + + + | Date | Type | Department | Care Team | Description | +--------+ + + + + | 04/21/ | Hospital | [facility] | Александр Sebastian, | | | 1994 - | Encounter | [facility] | [address] | | | | | [facility] [address] | [place] | | | 04/22/ | | [place], | [place] [address] | | | 1994 | | [place] [address] | [phone] | | | | | [phone] | | | +--------+ + + + [...] [place] | | | | | | [address] | | | | | | | | +--------+ + + + + | 04/29/ | Appointment | Radiology | Cuong Joe, | | | 2019 | | | MD [address] | | | | | | [place] | | | | | | [address] | | | | | | | | +--------+ + + + + | 05/11/ | Office | Neurology | Reina Caraballo, | | | 2019 | Visit | | MD [address]nel [place] | | | | | | [place], [place] | | | | | | [address] | | | | | | [phone] | | | | | | | | +--------+ + + + + documented as of this encounter Visit Diagnoses Not on filedocumented in this encounter"
--- OUTSIDE RECORDS SUMMARY | ~2019-04-25 | XMS | Encounter Summary ---
Demographics + + + | Address | [address] | | | [place] [address] | + + + | Home Phone | | + + + | Preferred Language | Unknown | + + + | Marital Status | Unknown | + + + | Orthodox Affiliation | Unknown | + + + | Race | Unknown | + + + | Ethnic Group | Unknown | + + + Author + + + | Author | [facility] | + + + | Organization | [facility] | + + + | Address | Unknown | + + + | Phone | Unavailable | + + + Care Team Providers + +------+ + | Care Inventory Specialist Manager Name | Role | Phone | + +------+ + PCP | Unavailable | + +------+ + Reason for Visit + + + | Reason | Comments | + + + | Optic neuritis | | + + + Encounter Details +--------+ + + + + | Date | Type | Department | Care Team | Description | +--------+ + + + + | 03/07/ | Telephone | Neurology at | [place], | Optic neuritis | | 2019 | | [facility] & | MD Mario | | | | | [facility] [address] | [address] | | | | | [place] Mailcode: | [address] [place], | | | | | [facility] | [place] [address] | | | | | Health [facility], | [phone] | | | | | [facility] | | | | | | [place], [place] | | | | | | [address] | | | | | | [phone] | | | +--------+ + + + [...] as of this encounter Plan of Treatment Not on filedocumented as of this encounter Visit Diagnoses Not on filedocumented in this encounter"
--- OUTSIDE RECORDS SUMMARY | ~2019-04-25 | XMS | Encounter Summary ---
Demographics + + + | Address | [address] | | | [place] [address] | + + + | Home Phone | | + + + | Preferred Language | Unknown | + + + | Marital Status | | + + + | Mormon Affiliation | Unknown | + + + | Race | Unknown | + + + | Ethnic Group | Unknown | + + + Author + + + | Author | [facility] | | | and Srikanthana | + + + | Organization | [facility] | | | and Srikanthana | + + + | Address | Unknown | + + + | Phone | Unavailable | + + + Support + + + + + | Name | Relationship | Address | Phone | + + + + + | Arthur Mcduffie | ECON | [address] | | | | | [place] | | | | | [address] | | + + + + + | Uma Arellano | ECON | [address] [facility] | | | | | [place] [address] | | + + + + + Care Team Providers + +------+ + | Care Monotype Operator Name | Role | Phone | [...] + + | Closed | Specialty | Physical | Diagnoses | [place], | [facility] | | | Services | Therapy | Right | Cuong Corrales MD | [place] | | | Required | | shoulder | [address] | PHYSICAL | | | | | pain, | [address] [place] | THERAPY - | | | | | unspecified | [place] | [place] | | | | | chronicity | [id number] | [address] | | | | | | Phone: | IMAN PERDUE | | | | | | [phone] | 15 | | | | | | Fax: | [place] | | | | | | [phone] | [address] | | | | | | | Phone: | | | | | | | [phone] | | | | | | | Fax: | | | | | | | [phone] | +--------+ + + + + + Reason for Visit + + + | Reason | Comments | + + + | Shoulder Pain | | + + + | Knee Injury | | + + + Encounter Details +--------+---------+ + + + | Date | Type | Department | Care Team | Description | +--------+---------+ + + + | 03/02/ | Office | [facility] | Cuong Joe, | Right shoulder pain, | | 2017 | Visit | [facility] | [address] | unspecified | | | | [address] | [place] | chronicity (Primary | | | | [place] | [id number] | Dx); Left anterior | | | | [address] | | knee pain; | | | | [phone] | | Postoperative | | | | | | hypothyroidism; | | | | | | Preventative health | | | | | | care | +--------+---------+ + + + Social History [...] + + + | Blood Pressure | 112/80 | 03/02/2017 11:22 AM | | | | | PST | | + + + + + | Pulse | 76 | 03/02/2017 11:22 AM | | | | | PST | | + + + + + | Temperature | 37 C (98.6 F) | 03/02/2017 11:22 AM | | | | | PST | | + + + + + | Respiratory Rate | 16 | 03/02/2017 11:22 AM | | | | | PST | | + + + + + | Oxygen Saturation | 100% | 03/02/2017 11:22 AM | | | | | PST | | + + + + + | Inhaled Oxygen | - | - | | | Concentration | | | | + + + + + | Weight | 78.4 kg (172 lb 13.5 | 03/02/2017 11:22 AM | | | | oz) | PST | | + + + + + | Height | 162.6 cm (5' 4.02") | 03/02/2017 11:22 AM | | | | | PST | | + + + + + | Body Mass Index | 29.65 | 03/02/2017 11:22 AM | | | | | PST | | + + + + + documented in this encounter Patient Instructions Patient Instructions Cuong Joe MD - 03/02/2017 11:30 AM PSTStart physical therapy t o help your right shoulder pain. If the pain worsens or does not improve after 4-6 weeks of physical therapy - please get an x-ray of your shoulder (it has been ordered and you can coronado ve the XRay done at [facility]) Please stop by the lab for blood work in April as directed by Dr Lo. You need to be fasting - nothing to eat or drink other than water or black coffee for 10 hours. No alcoho l for 24 hours. documented in this encounter Progress Notes Cuong Joe MD - 03/02/2017 11:30 AM PSTFormatting of this note might be different fr om the original. Subjective: Patient ID: Tammy Mcduffie is a 46 y.o. female here for right shoulder pain, left k nee crunching. HPI ~6 weeks ago she developed right shoulder pain. Located anterior and radiated down front o f arm. Described as "like when my sciatica was irritated. Like a dull hurt." Rates 2/10 a t worst. Worse first thing in AM, particularly with sleeping arm across chest; lowering arm from a raised position. It is getting better. No injuries. No decreased ROM. She does coronado ve h/o neck pain for which she sees PT. She developed left knee crunching 1 month ago after doing a lot of home remodeling (removed carpet). No pain. Crunching is located below kneecap. Worse with standing from squatting position. No swelling, injury, weakness. She has h/o left PCL and MCL injury treated cons ervatively. Had goiter identified by Dr Sebastian. Right tali-thyroidectomy 5 months ago revealing follicu lar adenoma. She is taking levothyroxine 75 mcg daily as prescribed by Dr Lo. Patient's medications, allergies, past medical, surgical, social and family histories were obtained and reviewed as appropriate. Review of Systems Objective: BP 112/80 | Pulse 76 | Temp 37 C (98.6 F) (Temporal) | Resp 16 | Ht 1.626 m (5' 4.0 2") | Wt 78.4 kg (172 lb 13.5 oz) | SpO2 100% | BMI 29.65 kg/m Physical Exam Constitutional: Very pleasant, well developed, NAD Neck: Normal range of motion. Neck supple. Musculoskeletal: Right SHOULDER Observation/inspection: Effusion: no Ecchymosis: No Erythema: No Atrophy (rotator cuff): No Scapular winging: No Clavicular deformity: No AC deformity: no Palpation: No sternoclavicular joint tenderness No clavicle tenderness NO acromioclavicular tenderness No trapezius tenderness Mild bicepital groove tenderness No greater tuberosity Range of motion: Active Range of Motion: R L Abduction 170 170 Ext. Rotation 50 50 Int. Rotation T12 T12 Forward flexion 170 170 Strength: Abduction (supraspinatus): 5 External rotation (teres minor/infraspinatus): 5 Internal rotation (subscapularis): 5 Impingement Tests: Peacock: Weakly positive Empty can: Neg Biceps: Speed's: Neg Yergason's: NEg AC joint: Crossover: Neg Cervical spine: Spurling's: Neg Skin: No lesions identified; clean, dry, intact Neurologic: Sensation and motor strength is grossly normal and nonfocal Vascular: Radial pulses 2+, brisk capillary refill Left KNEE Observation/inspection: Effusion: No Atrophy (quadriceps): No Palpation: No medial joint line tenderness No lateral joint line tenderness No posterior tenderness No peripatellar tenderness No hamstring tenderness No pes anserine bursal tenderness No proximal fibular tenderness No patellar tendon tenderness or defect No quadricep tendon tenderness or defect No popliteal masses Range of motion: Hip IR: 35 degrees (nl 35 degrees) Hip ER: 45 degrees (nl 45 degrees) Knee extension-flexion: 0-135 degrees (nl 0-135 degrees) Ligaments: Anterior drawer: intact Posterior drawer: appears intact to my exam today MCL (0/30 degrees): Intact LCL: Intact Meniscus: Cherie's: Neg Patellar: Apprehension: Neg Neurologic: Sensation and motor strength is grossly normal and nonfocal Assessment: Tammy was seen today for shoulder pain and knee injury. Diagnoses and all orders for this visit: Right shoulder pain, unspecified chronicity: Possible subacromial bursitis or impingement. Does not seem to have significant biceps tendonitis on my exam today - Start PT - XR if worsens or does not improve - Educated on warning signs - XR Shoulder Right 2 + Vw; Future - Physical Therapy - Ambulatory Referral Left anterior knee pain: Suspect patellofemoral pain syndrome with no real pain - Monitor Postoperative hypothyroidism: Doing well - Continue levothyroxine and TSH monitoring per Dr Lo [facility] - Lipid Panel; Future Return in about 6 weeks (around 04/13/2017), or if symptoms worsen or fail to improve. Art Joe MD Ruby Gaitan LP N - 03/02/2017 11:30 AM PSTPatient is here to be evaluated for right shoulder pain. No know n injury, comes with certain movement but more after movement x6 wks. Complains of crunching sound in knee. No longer has a MCL or PCL documented in this encounter Plan of Treatment [...] [place] | | | | | | [address] | | | | | | | | +--------+ + + + + | 04/29/ | Appointment | Radiology | Cuong Joe, | | | 2019 | | | [address] | | | | | | [place], [place] | | | | | | [address] | | | | | | | | +--------+ + + + + | 05/11/ | Office | Neurology | Reina Caraballo, | | | 2019 | Visit | | [address] | | | | | | [address] [place], [place] | | | | | | [address] | | | | | | [phone] | | | | | | | | +--------+ + + + + + +---------+--------+ + + | Name | Type | Priori | Associated Diagnoses | Order Schedule | | | | ty | | | + +---------+--------+ + + | XR Shoulder Right 2 | Imaging | Routin | Right shoulder | Expected: | | + Vw | | e | pain, unspecified | 03/02/2017, Expires: | | | | | chronicity | 03/03/2018 | + +---------+--------+ + + + + +--------+ + + | Name | Type | Priori | Associated Diagnoses | Order Schedule | | | | ty | | | + + +--------+ + + | Physical Therapy - | Outpatient | Routin | Right shoulder | Ordered: 03/02/2017 | | Ambulatory Referral | Referral | e | pain, unspecified | | | | | | chronicity | | + + +--------+ + + documented as of this encounter Visit Diagnoses + + | Diagnosis | + + | Right shoulder pain, unspecified chronicity - Primary | + + | Left anterior knee pain Pain in joint, lower leg | + + | Postoperative hypothyroidism Postsurgical hypothyroidism | + + | Preventative health care Routine general medical examination at a [facility] | | facility | + + documented in this encounter
--- OUTSIDE RECORDS SUMMARY | ~2019-04-25 | XMS | Encounter Summary ---
Demographics + + + | Address | [address] | | | [place] [address] | + + + | Home Phone | | + + + | Preferred Language | Unknown | + + + | Marital Status | | + + + | Latter-Day Affiliation | Unknown | + + + | Race | Unknown | + + + | Ethnic Group | Unknown | + + + Author + + + | Author | [facility] | | | and [facility] | + + + | Organization | [facility] | | | and [facility] | + + + | Address | Unknown | + + + | Phone | Unavailable | + + + Support + + + + + | Name | Relationship | Address | Phone | + + + + + | Arthur Mcduffie | ECON | [address] [facility] | | | | | [place] | | | | | [address] | | + + + + + | Uma Arellano | ECON | [address] [facility] | | | | | [place] [address] | | + + + + + Care Team Providers + +------+ + | Care Entertainment Musician Name | Role | Phone | + +------+ + | Cuong Joe MD | PCP | | + +------+ + Reason for Visit Auth/Cert +--------+--------+ + + + + | Status | Reason | Specialty | Diagnoses / | Referred By | Referred To | | | | | Procedures | Contact | Contact | +--------+--------+ + + + + | | | | Diagnoses | | Teresita | | | | | | | Everett Del Valle MD | | | | | 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 | | [place], | | | | | thyroid | | [place] [address] | | | | | nodule and | | Phone: | | | | | without | | [phone] | | | | | thyroid | | Fax: | | | | | storm | | [phone] | | | | | Thyrotoxicos | | | | | | | is with | | | | | | | toxic single | | | | | | | thyroid | | | | | | | nodule and | | | | | | | without | | | | | | | thyroid | | | | | | | storm | | | | | | | [E05.10] | | | | | | | Procedures | | | | | | | NV THYROID | | | | | | | LOBECTOMY,UN | | | | | | | ILAT | | | +--------+--------+ + + + + Encounter Details +--------+---------+ + + + | Date | Type | Department | Care Team | Description | +--------+---------+ + + + | 10/15/ | Surgery | [facility] | Everett Lo | Right | | 2017 | | [facility] | MD Eligio [address] | [place]-Thyroidectomy | | | | [address] | [place] | | | | | [place] | [address] | | | | | [address] | | | | | | [phone] | | | +--------+---------+ + + + [...] + + + | Blood Pressure | 145/78 | 10/15/2016 2:46 PM | | | | | PDT | | + + + + + | Pulse | 69 | 10/15/2016 3:21 PM | | | | | PDT | | + + + + + | Temperature | 36.7 C (98.1 F) | 10/15/2016 1:51 PM | | | | | PDT | | + + + + + | Respiratory Rate | 14 | 10/15/2016 2:20 PM | | | | | PDT | | + + + + + | Oxygen Saturation | 97% | 10/15/2016 3:21 PM | | | | | PDT | | + + + + + | Inhaled Oxygen | - | - | | | Concentration | | | | + + + + + | Weight | 72.6 kg (160 lb) | 10/15/2016 10:17 AM | | | | | PDT | | + + + + + | Height | 162.6 cm (5' 4") | 10/15/2016 10:17 AM | | | | | PDT | | + + + + + | Body Mass Index | 27.46 | 10/15/2016 10:17 AM | | | | | PDT | | + + + + + documented in this encounter Discharge Instructions Instructions Lavinia Manning RN - 10/15/2016Formatting of this note might be different fr om the original. After Thyroid Surgery You should be able to get back to your normal life in a few weeks. Your doctor will monitor your recovery to be sure you re healing correctly and that your thyroid problem is under control. While you re healing Your surgeon may ask you not to get your incision area wet for a few days after your surger y. Avoid strenuous physical activity for a few weeks, and don t return to work until your doctor says it s OK. Within a week or so, you ll visit the surgeon or another health car e provider to have your incision checked. If you still have clips or sutures, they may be re moved then. Your incision will be red and raised at first, but it will probably flatten out and fade in about 6 months. After your surgery, you may need to take thyroid hormone pills. These pills replace the hormone that your thyroid used to make. Your doctor will adjust the dosage of this hormone until it s right for you. It's also possible that your parathyroi d glands don't work properly, and you may be asked to take calcium and/or vitamin D suppleme nts the first week or two after surgery. Back to feeling good After you re feeling better, the right care can keep you feeling good. If you ve been g iven thyroid hormone or other medicines, take your pills regularly to help keep your thyroid hormone at the right levels and your body running smoothly. See your doctor as directed for regular blood tests. These tests confirm that your hormone pills or medicines are still at a dose that s right for you. If you ve had treatment for cancer, regular exams help catc h it early if it returns. No matter what the cause, thyroid problems don t have to keep yo u from feeling good and doing what you like. When to call your doctor Contact your doctor right away if you have any of the following: Swelling at the incision site Bleeding at the incision site Warmth, redness, or tenderness at the incision site. These are signs of infection. Fever of100.4F (38C)for 24 hoursto 48 hours despite taking medicines like acet aminophen to decrease it A sore throat that continues beyond3 weeks Tingling or cramps in the hands, feet, or lips. These are signs of a problem with the pa rathyroid glands. Date Last Reviewed: 12/09/201319993392-6792 [employer]. [address] [place] [address], [place] [address]. All righ ts reserved. This information is not intended as a substitute for professional medical care. Always follow your healthcare professional's instructions. Follow Dr Cheek verbal instructions for post procedure dressing and wound care and showe ring. documented in this encounter Medications at Time of Discharge + + + +---------+ + + | Medication | Sig | Dispensed | Refills | Start | End Date | | | | | | Date | | + + + +---------+ + + | Calcium Carbonate | Take 2 tablets by | | 0 | | | | Antacid (TUMS ULTRA | mouth Daily. | | | | 9 | | 1000 PO)Indications: | | | | | | | Sacroiliac | | | | | | | dysfunction | | | | | | + + + +---------+ + + | | Take 1 tablet by | 30 | 0 | 10/16/19 | | | oxyCODONE-acetaminop | mouth every 4 hours | tablet | | 17 | 7 | | hen (PERCOCET) 5-325 | as needed for Pain. | | | | | | mg per tablet | | | | | | + + + +---------+ + + | | Take 1 tablet by | 30 | 0 | 10/16/19 | | | oxyCODONE-acetaminop | mouth every 4 hours | tablet | | 17 | 7 | | hen (PERCOCET) 5-325 | as needed for Pain. | | | | | | mg per tablet | | | | | | + + + +---------+ + + documented as of this encounter Plan of Treatment +--------+ + + + + | Date | Type | Specialty | Care Team | Description | +--------+ + + + + | 04/29/ | Hospital | Radiology | Cuong Joe, | | | 2020 | Encounter | | MD Angelina De La Cruz [address] | | | | | | [place] | | | | | | [id number] | | | | | | | | +--------+ + + + + | 04/29/ | Appointment | Radiology | Cuong Joe, | | | 2019 | | | [address] | | | | | | [place], [place] | | | | | | [address] | | | | | | | | +--------+ + + + + | 05/11/ | Office | Neurology | Reina Caraballo, | | | 2019 | Visit | | [address] | | | | | | [address] [place], [place] | | | | | | [address] | | | | | | [phone] | | | | | | | | +--------+ + + + + documented as of this encounter Procedures + +--------+ + + + | Procedure Name | Priori | Date/Time | Associated Diagnosis | Comments | | | ty | | | | + +--------+ + + + | THYROIDECTOMY | | 10/15/2016 | Thyrotoxicosis | | | | | 11:46 AM | with toxic single | | | | | PDT | thyroid nodule and | | | | | | without thyroid | | | | | | storm | | | | | | Thyrotoxicosis | | | | | | without thyroid | | | | | | storm, unspecified | | | | | | thyrotoxicosis type | | + +--------+ + + + | POCT TEST, | STAT | 10/15/2016 | | Results for this | | URINE, QUAL | | 11:34 AM | | procedure are in the | | | | PDT | | results section. | + +--------+ + + + | SURGICAL PATHOLOGY | Routin | 10/15/2016 | | Results for this | | EXAM | e | 12:00 AM | | procedure are in the | | | | PDT | | results section. | + +--------+ + + + documented in this encounter Results POCT Test, Urine, QUAL (10/15/2016 11:34 AM PDT) + + + + + + | Component | Value | Ref Range | Performed | Pathologist | | | | | At | Signature | + + + + + + | | Negative | Negative | | | | Test, | | | | | | Urine, POC | | | | | + + + + + + | Internal QC | Acceptable | Acceptable | | | + + + + + + | Specific | | 1.010, 1.015, | | | | [place], | | 1.020, 1.025 | | | | POC | | | | | + + + + + + | Lot Number | [id number] | | | | + + + + + + | Expiration | 03/10/2018 | | | | | Date | | | | | + + + + + + + + | Specimen | + + | Urine | + + Surgical Pathology Exam (10/15/2016 12:00 AM PDT) + + | Specimen | + + | | + + + + + | Narrative | Performed At | + + + | SPECIMEN(S): A RIGHT THYROID LOBE SPECIMEN SOURCE: AWilly RIGHT | [facility] | | THYROID LOBE CLINICAL HISTORY: E05.10 (Thyrotoxicosis with toxic | [facility] | | single thyroid nodule without thyrotoxic crisis or storm), E05.90 | | | (Thyrotoxicosis, unspecified without thyrotoxic crisis or storm) | | | FINAL PATHOLOGIC DIAGNOSIS: Thyroid, right lobe, excision: - | | | 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 (see comment) | | | - Size: 3 cm in greatest dimension. - Benign parathyroid | | | tissue present. COMMENT: The specimen is submitted in its entirety | | | to reveal a dominant encapsulated follicular nodule with large areas | | | of Hurthle cell change. There is no evidence of capsular or vascular | | | invasion. While some foci of vaguely papillary architecture are | | | identified, cytologic features of papillary thyroid carcinoma are not | | | seen. As part of [facility] Quality Improvement Program, | | | this case was reviewed by another member of our pathology staff. | | | CLR:AMILCAR:[place]:C2NR GROSS DESCRIPTION: The specimen is received in | | | formalin in a container labeled "Tammy Mcduffie, right thyroid | | | lobe, stitch larsen superior". Received is a single specimen consistent | | | with thyroid lobe that measures 4.1 x 2.5 x 2.5 cm. There is a | | | stitch at one aspect indicating superior. The specimen weighs 11 gm. | | | The specimen is inked black and serially sectioned to reveal a | | | dominant somewhat cystic nodular lesion which is well circumscribed | | | and appears to approach but not definitively involve the inked tissue | | | edges that occupies the mid to lower portion of the specimen and | | | measures 3 cm in greatest dimension. The specimen is submitted in | | | its entirety from superior to inferior in cassettes (A1-A7) with the | | | dominant nodule present in cassettes (A2-A7). CLR:[place] MICROSCOPIC | | | EXAMINATION: Histologic sections of all submitted blocks are examined | | | by light microscopy. These findings, together with the gross | | | examination, support the pathologic diagnosis. PERFORMING LABORATORY: | | | Tissue processing and slide preparation were performed by [facility] | | | [email or web address], [facility] [address], [place] [address] | | | (Health Sciences Manager: Keith Baer M.D.; IA#: [id number]). | | | Professional interpretation was performed by [facility], [address] | [address], [place] [address] (Health Sciences Manager: Keith | | | Mir Baer; RENEE#: [id number]). 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 | + + | Thyrotoxicosis without thyroid storm, unspecified thyrotoxicosis type | + + documented in this encounter Administered Medications + +--------+ +--------+------+------+ | Medication Order | MAR | Action | Dose | Rate | Site | | | Action | Date | | | | + +--------+ +--------+------+------+ | acetaminophen (TYLENOL) tablet | Given | 10/16/19 | 975 mg | | | | 975 mg 975 mg (rounded from | | 17 10:53 | | | | | 1,000 mg), Oral, ONCE, Wed | | AM PDT | | | | | 10/15/16 at 1045, For 1 dose, | | | | | | | Pre-op | | | | | | + +--------+ +--------+------+------+ + +---+ | | | + +---+ | albuterol 2.5 mg/3 mL nebulizer | | | solution 2.5 mg 2.5 mg, | | | Nebulization, ONCE PRN, Wheezing, | | | Starting 10/15/16 at 1328, | | | For 1 dose, Notify anesthesia if | | | patient is wheezing and does not | | | have a history of asthma or COPD | | | or current smoking., | | | Recovery/Phase I | | + +---+ | | | + +---+ + +-------+ +---------+---+ + | bupivacaine 0.25%-EPINEPHrine | Given | 10/16/19 | 7.5 mLs | | Surgical | | 1:200,000 injection PRN, | | 17 12:31 | | | Site | | Starting Thu10/15/16 at 1231, | | PM PDT | | | | | Intra-op | | | | | | + +-------+ +---------+---+ + + +---+ | | | + +---+ | dextrose 50% injection 12.5-25 | | | g 12.5-25 g, Intravenous, EVERY | | | 15 MIN PRN, Low Blood Sugar, Give | | | 12.5g (25 mL) IV if blood | | | glucose 50-69 mg/dL. Give 25g | | | (50 mL) IV if blood glucose < 50, | | | Starting Thu10/15/16 at 1016, | | | Repeat in 15 min if blood glucose | | | remains < 70 mg/dL. Repeat | | | blood glucose in 30 min once | | | blood glucose > 70., Pre-op | | + +---+ | | | + +---+ | dextrose 50% injection 12.5-25 | | | g 12.5-25 g, Intravenous, EVERY | | | 15 MIN PRN, Low Blood Sugar, For | | | hypoglycemia. Give 12.5g (25ml) | | | IV if blood glucose 50-69 | | | mg/dL. Give 25g (50ml) IV if | | | blood glucose < 50, Starting Wed | | | 10/15/16 at 1328, Give over 2 min. | | | Repeat in 15 min if blood | | | glucose remains < 70 mg/dL. | | | Repeat blood glucose in 30 min | | | once blood glucose > 70., | | | Recovery/Phase I | | + +---+ | | | + +---+ | ePHEDrine 50 mg/mL injection 5 | | | mg 5 mg, Intravenous, EVERY 5 | | | MIN PRN, if SBP <90., Starting | | | 10/15/16 at 1328, Hold if HR > | | | 100. Maximum total dose 20mg., | | | Recovery/Phase I | | + +---+ | | | + +---+ | glycopyrrolate (SANDRAINUL) | | | injection 0.2 mg 0.2 mg, | | | Intravenous, PRN, Bradycardia, | | | For HR <50, Starting 10/15/16 | | | at 1328, For 2 doses, May repeat | | | one time after 1min, | | | Recovery/Phase I | | + +---+ | | | + +---+ | HYDROmorphone (DILAUDID) | | | injection 0.2-0.5 mg 0.2-0.5 mg, | | | Intravenous, EVERY 5 MIN PRN, | | | Pain, Starting Thu10/15/16 at | | | 1328, Maximum total dose 4 mg. | | | PACU IV Narcotic Priority: Only | | | use fentanyl for immediate | | | post-op pain (one dose) or | | | breakthrough pain when any other | | | IV narcotics ordered have been | | | ineffective (if ordered). If | | | both morphine and hydromorphone | | | are ordered, use morphine first, | | | and use hydromorphone if morphine | | | ineffective., Recovery/Phase I | | + +---+ | | | + +---+ | labetalol (TRANDATE) 5 mg/mL | | | injection 5 mg 5 mg, | | | Intravenous, EVERY 5 MIN PRN, For | | | SBP > 180, DBP > 100, Starting | | | Thu10/15/16 at 1328, Hold if HR < | | | 60. Maximum total dose 300mg. | | | Notify anesthesia if patient | | | requires more than 50mg., | | | Recovery/Phase I | | + +---+ | | | + +---+ + +---------+ +---+-------+---+ | lactated ringers (LR) infusion | New Bag | 10/16/19 | | 100 | | | at 10-100 mL/hr, Intravenous, | | 17 2:10 | | mL/hr | | | CONTINUOUS, Starting Thu10/15/16 | | PM PDT | | | | | at 1045, TKO., Pre-op | | | | | | + +---------+ +---+-------+---+ +---------+ +--------+-------+ + | New Bag | 10/16/19 | 1,000 | 100 | Left Arm | | | 17 10:50 | mLs | mL/hr | | | | AM PDT | | | | +---------+ +--------+-------+ + +---+---+ | | | +---+---+ + +-------+ +------+---+---+ | ondansetron (ZOFRAN) injection | Given | 10/16/19 | 4 mg | | | | 4 mg 4 mg, Intravenous, ONCE | | 17 2:57 | | | | | PRN, Nausea, Starting Thu10/15/16 | | PM PDT | | | | | at 1328, For 1 dose, | | | | | | | Recovery/Phase I | | | | | | + +-------+ +------+---+---+ + +---+ | | | + +---+ | promethazine (PHENERGAN) (IV | | | ONLY) injection 6.25 mg 6.25 mg, | | | Intravenous, EVERY 15 MIN PRN, | | | Nausea, Vomiting, Starting Wed | | | 10/15/16 at 1328, For 4 doses, | | | TAKE PRECAUTIONS WHEN | | | ADMINISTERING Dilute to 10-20mL | | | with NS. Give over 2-3 minutes | | | into large vein. Use ondansetron | | | first if both are ordered., | | | Recovery/Phase I | | + +---+ | | | + +---+ documented in this encounter
--- OUTSIDE RECORDS SUMMARY | ~2019-04-25 | XMS | Encounter Summary ---
Demographics + + + | Address | [address] | | | [place] [address] | + + + | Home Phone | | + + + | Preferred Language | Unknown | + + + | Marital Status | | + + + | Methodist Affiliation | Unknown | + + + | Race | Unknown | + + + | Ethnic Group | Unknown | + + + Author + + + | Author | [facility] | | | and Srikanthana | + + + | Organization | [facility] | | | and Srikanthana | + + + | Address | Unknown | + + + | Phone | Unavailable | + + + Support + + + + + | Name | Relationship | Address | Phone | + + + + + | Arthur Mcduffie | ECON | [address] [facility] | | | | | [place] | | | | | [address] | | + + + + + | Uma Arellano | ECON | [address] [facility] | | | | | [place] [address] | | + + + + + Care Team Providers + +------+ + | Care Script Worker Name | Role | Phone | + +------+ + | Cuong Joe MD | PCP | | + +------+ + Reason for Visit + + + | Reason | Comments | + + + | Abdominal Pain | room 1/bloody diarrhea x 3 day | + + + Encounter Details +--------+---------+ + + + | Date | Type | Department | Care Team | Description | +--------+---------+ + + + | 09/19/ | Office | [facility] | Luisa Torres | Diarrhea (Primary | | 2014 | Visit | CARE [address] | DO Efrain Sosa | Dx) | | | | [place], [place] | [place], [place] | | | | | [address] | [address] | | | | | [phone] | | | +--------+---------+ + + + [...] + + + | Blood Pressure | 120/84 | 09/19/2014 10:41 AM | | | | | PDT | | + + + + + | Pulse | 77 | 09/19/2014 10:41 AM | | | | | PDT | | + + + + + | Temperature | 37.3 C (99.2 F) | 09/19/2014 10:41 AM | | | | | PDT | | + + + + + | Respiratory Rate | 12 | 09/19/2014 10:41 AM | | | | | PDT | | + + + + + | Oxygen Saturation | 99% | 09/19/2014 10:41 AM | | | | | PDT | | + + + + + | Inhaled Oxygen | - | - | | | Concentration | | | | + + + + + | Weight | 75.5 kg (166 lb 6.4 | 09/19/2014 10:41 AM | | | | oz) | PDT | | + + + + + | Height | - | - | | + + + + + | Body Mass Index | 29.48 | 09/15/2013 4:31 PM | | | | | PDT | | + + + + + documented in this encounter Patient Instructions Patient Instructions Luisa Torres MD - 09/19/2014 12:02 PM PDTPrescription for Bentyl and for Zofran sent to pharmacy in [place] Bentyl is anti-spasmodic and Zofran is for nausea Clear liquids and Carmella diet increase as tolerated Your blood work appears normal Your stool labs are pending We will notify you of any abnormal tests Should you have high fever or continuous severe abdominal pain or intractable vomiting or p ersistent bloody stool, go to the ER Call and set up follow-up with your primary care provider in a week documented in this encounter Progress Notes Luisa Torres MD - 09/20/2014 6:34 AM PDTFormatting of this note might be diffe rent from the original. Subjective: Patient ID: Tammy Mcduffie is a 44 y.o. female. HPI Comments: Pt here for several days of abdominal pain and diarrhea. She states it start ed out with stools every 30-60 minutes that persisted through the night. She states she is till stooling frequently but not as often and not as much each time. 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 She has had no vomiting but slight nausea. No appetite. No fever or chills. She has had no unusual food and no travel and no recent antibiotics. No one around her is sick. She has never had any intestinal pr oblems. She states that she has noted some blood but was on her period and doesn't know if that contributed. She is now having liquid stool with stringy red bits in it. No urinary s ymptoms Patient's medications, allergies, past medical, surgical, social and family histories were reviewed and updated as appropriate. Review of Systems All other systems reviewed and are negative. Objective: Physical Exam Constitutional: She is oriented to person, place, and time. She appears well-developed and well-nourished. Cardiovascular: Normal rate, regular rhythm and normal heart sounds. Pulmonary/Chest: Effort normal and breath sounds normal. Abdominal: Soft. She exhibits no distension. There is tenderness. There is no rebound and n o guarding. Very mild LLQ tenderness and very active bowel sounds. Rectal exam reveals no hemorroids Neurological: She is alert and oriented to person, place, and time. Skin: Skin is warm and dry. Psychiatric: She has a normal mood and affect. Nursing note and vitals reviewed. Assessment: Diarrhea Plan: Pt seen and examined and has relatively benign abdominal exam. She had labs that showed sl ight elevated WBC at 13 but no anemia. Rest of labs were normal. Was able to give stool sa mple that was guai postive. Stool sent for micro. Pt lives in [place] and wants to go h ome instead of waiting for micro. Pt was given rx for bentyl and zofran. Advised to stay w ell hydrated and have clear liquid diet for 24 then advance to BRAT diet as tolerated. We w ill notifiy her of any abnormal studies. If all studies are negative then it is likely iglesia l and will improve with time. If any worse symptoms, increased pain, hheavy bleeding or hig h fever, she should go to ER. Pt comfortable with plan documented in this encounter Plan of Treatment [...] [place] | | | | | | [address] | | | | | | | | +--------+ + + + + | 04/29/ | Appointment | Radiology | Cuong Joe, | | | 2019 | | | MD Angelina [facility] | | | | | | [facility] [place] | | | | | | [address] | | | | | | | | +--------+ + + + + | 05/11/ | Office | Neurology | Reina Caraballo, | | | 2019 | Visit | | [address] | | | | | | [place] | | | | | | [address] | | | | | | [phone] | | | | | | | | +--------+ + + + + documented as of this encounter Procedures + +--------+ + + + | Procedure Name | Priori | Date/Time | Associated Diagnosis | Comments | | | ty | | | | + +--------+ + + + | CAMPYLOBACTER | Routin | 09/19/2014 | Diarrhea | Results for this | | AG,QUAL | e | 11:23 AM | | procedure are in the | | | | PDT | | results section. | + +--------+ + + + | CULTURE, STOOL | Routin | 09/19/2014 | Diarrhea | Results for this | | RESULT | e | 11:23 AM | | procedure are in the | | | | PDT | | results section. | + +--------+ + + + | SHIGATOXIN 1 AND 2 | Routin | 09/19/2014 | Diarrhea | Results for this | | | e | 11:23 AM | | procedure are in the | | | | PDT | | results section. | + +--------+ + + + | CULTURE, STOOL | Routin | 09/19/2014 | Diarrhea | Results for this | | | e | 11:23 AM | | procedure are in the | | | | PDT | | results section. | + +--------+ + + + | CBC WITH | STAT | 09/19/2014 | Diarrhea | Results for this | | DIFFERENTIAL | | 11:20 AM | | procedure are in the | | | | PDT | | results section. | + +--------+ + + + | BASIC METABOLIC | STAT | 09/19/2014 | Diarrhea | Results for this | | PANEL | | 11:20 AM | | procedure are in the | | | | PDT | | results section. | + +--------+ + + + documented in this encounter Results Campylobacter Meet Whelan (09/19/2014 11:23 AM PDT) + + + + + + | Component | Value | Ref Range | Performed | Pathologist | | | | | At | Signature | + + + + + + | Campylobact | Negative | Negative | [facility] | | | er AG, Qual | | | [facility] | | | | | | MEDICAL | | | | | | CENTER - | | | | | | LABORATORY | | + + + + + + + + | Specimen | + + | Stool - Stool | | specimen (specimen) | + + + + + + + | Performing | Address | City/State/Zipcode | Phone Number | | Organization | | | | + + + + + | [facility] | [address] | [place] | [phone] | | [facility] | | [address] | | | - LABORATORY | | | | + + + + + Culture, Stool Result (09/19/2014 11:23 AM PDT) + + + + + + | Component | Value | Ref Range | Performed | Pathologist | | | | | At | Signature | + + + + + + | Culture | 3+ Shiga-toxin producing | | [facility] | | | | E.coliComment: Sent to | | [facility] | | | | [facility] for | | MEDICAL | | | | confirmation | | CENTER - | | | | | | LABORATORY | | + + + + + + + + | Specimen | + + | Stool - Stool | | specimen (specimen) | + + + + + | Narrative | Performed At | + + + | 10/06 Isolate | [facility] | | confirmed as E.coli 0157:H7 by ELEUTERIO, Shiga Toxin 2 positive by PCR. | [facility] | | [place] | [facility] | | | - LABORATORY | + + + + + + + + | Performing | Address | City/State/Zipcode | Phone Number | | Organization | | | | + + + + + | [facility] | [address] | [place] | [phone] | | [facility] | | [address] | | | - LABORATORY | | | | + + + + + Shigatoxin 1 and 2 (09/19/2014 11:23 AM PDT) + + + + + + | Component | Value | Ref Range | Performed | Pathologist | | | | | At | Signature | + + + + + + | Shigatoxin | Negative | Negative | [facility] | | | 1 | | | [facility] | | | | | | MEDICAL | | | | | | CENTER - | | | | | | LABORATORY | | + + + + + + | Shigatoxin | Negative | Negative | [facility] | | | 2 | | | [facility] | | | | | | MEDICAL | | | | | | CENTER - | | | | | | LABORATORY | | + + + + + + + + | Specimen | + + | Stool - Stool | | specimen (specimen) | + + + + + + + | Performing | Address | City/State/Zipcode | Phone Number | | Organization | | | | + + + + + | [facility] | [address] | [place] | [phone] | | [facility] | | [address] | | | - LABORATORY | | | | + + + + + Basic Metabolic Panel (09/19/2014 11:20 AM PDT) + + + + + + | Component | Value | Ref Range | Performed | Pathologist | | | | | At | Signature | + + + + + + | Na | 135 (L) | 136 - 149 | [facility] | | | | | mmol/L | [facility] | | | | | | MEDICAL | | | | | | CENTER - | | | | | | LABORATORY | | + + + + + + | K | 3.7 | 3.5 - 5.1 | [facility] | | | | | mmol/L | [facility] | | | | | | MEDICAL | | | | | | CENTER - | | | | | | LABORATORY | | + + + + + + | Cl | 100 | 98 - 109 mmol/L | [facility] | | | | | | [facility] | | | | | | MEDICAL | | | | | | CENTER - | | | | | | LABORATORY | | + + + + + + | CO2 | 26 | 24 - 31 mmol/L | [facility] | | | | | | [facility] | | | | | | MEDICAL | | | | | | CENTER - | | | | | | LABORATORY | | + + + + + + | Anion Gap | 9 | 3 - 16 mmol/L | [facility] | | | | | | [facility] | | | | | | MEDICAL | | | | | | CENTER - | | | | | | LABORATORY | | + + + + + + | Glucose | 111 (H) | 70 - 109 mg/dL | [facility] | | | | | | [facility] | | | | | | MEDICAL | | | | | | CENTER - | | | | | | LABORATORY | | + + + + + + | BUN | 7 | 7 - 18 mg/dL | [facility] | | | | | | [facility] | | | | | | MEDICAL | | | | | | CENTER - | | | | | | LABORATORY | | + + + + + + | Creatinine | 0.74 | 0.60 - 1.30 | [facility] | | | | | mg/dL | [facility] | | | | | | MEDICAL | | | | | | CENTER - | | | | | | LABORATORY | | + + + + + + | eGFR if not | >60Comment: GLOMERULAR | >=60 | [facility] | | | | FILTRATION | mL/min/1.73m2 | [facility] | | | [place] | RATE,ESTIMATED | | MEDICAL | | | | mL/min/1.51z5Lego than | | CENTER - | | | | 60 Chronic kidney | | LABORATORY | | | | disease,if found over a | | | | | | 3-month period.Less than | | | | | | 15 Kidney failureFor | | | | | | | | | | | | Americans,multiply the | | | | | | calculated GFR by 1.21. | | | | | | | | | | + + + + + + | Calcium | 9.1 | 8.3 - 10.5 | [facility] | | | | | mg/dL | [facility] | | | | | | MEDICAL | | | | | | CENTER - | | | | | | LABORATORY | | + + + + + + | BUN/Creatin | 9.5 | | [facility] | | | ine Ratio | | | [facility] | | | | | | MEDICAL | | | | | | CENTER - | | | | | | LABORATORY | | + + + + + + + + | Specimen | + + | Blood - Right upper | | arm structure (body | | structure) | + + + + + + + | Performing | Address | City/State/Zipcode | Phone Number | | Organization | | | | + + + + + | [facility] | [address] | [place] | [phone] | | [facility] | | [address] | | | - LABORATORY | | | | + + + + + CBC with Differential (09/19/2014 11:20 AM PDT) + + + + + + | Component | Value | Ref Range | Performed | Pathologist | | | | | At | Signature | + + + + + + | WBC | 13.9 (H) | 4.0 - 11.0 K/uL | [facility] | | | | | | [facility] | | | | | | MEDICAL | | | | | | CENTER - | | | | | | LABORATORY | | + + + + + + | RBC | 5.39 (H) | 3.70 - 5.20 | [facility] | | | | | M/uL | [facility] | | | | | | MEDICAL | | | | | | CENTER - | | | | | | LABORATORY | | + + + + + + | Hemoglobin | 12.7 | 11.5 - 16.0 | [facility] | | | | | g/dL | [facility] | | | | | | MEDICAL | | | | | | CENTER - | | | | | | LABORATORY | | + + + + + + | Hematocrit | 40.6 | 34.0 - 47.0 % | [facility] | | | | | | [facility] | | | | | | MEDICAL | | | | | | CENTER - | | | | | | LABORATORY | | + + + + + + | MCV | 75.4 (L) | 83.0 - 101.0 fL | [facility] | | | | | | [facility] | | | | | | MEDICAL | | | | | | CENTER - | | | | | | LABORATORY | | + + + + + + | MCH | 23.6 (L) | 28.0 - 35.0 pg | [facility] | | | | | | [facility] | | | | | | MEDICAL | | | | | | CENTER - | | | | | | LABORATORY | | + + + + + + | MCHC | 31.3 (L) | 32.0 - 36.0 | [facility] | | | | | g/dL | [facility] | | | | | | MEDICAL | | | | | | CENTER - | | | | | | LABORATORY | | + + + + + + | RDW-CV | 19.3 (H) | <15.0 % | [facility] | | | | | | [facility] | | | | | | MEDICAL | | | | | | CENTER - | | | | | | LABORATORY | | + + + + + + | Platelet | 291 | 140 - 440 K/uL | [facility] | | | Count | | | [facility] | | | | | | MEDICAL | | | | | | CENTER - | | | | | | LABORATORY | | + + + + + + | MPV | 8.9 | fL | [facility] | | | | | | [facility] | | | | | | MEDICAL | | | | | | CENTER - | | | | | | LABORATORY | | + + + + + + | % | 83.4 (H) | 45.0 - 82.0 % | [facility] | | | Neutrophils | | | [facility] | | | | | | MEDICAL | | | | | | CENTER - | | | | | | LABORATORY | | + + + + + + | % | 10.3 (L) | 20.0 - 45.0 % | [facility] | | | Lymphocytes | | | [facility] | | | | | | MEDICAL | | | | | | CENTER - | | | | | | LABORATORY | | + + + + + + | % Monocytes | 5.5 | 4.0 - 12.0 % | [facility] | | | | | | [facility] | | | | | | MEDICAL | | | | | | CENTER - | | | | | | LABORATORY | | + + + + + + | % | 0.3 | 0.0 - 5.0 % | [facility] | | | Eosinophils | | | [facility] | | | | | | MEDICAL | | | | | | CENTER - | | | | | | LABORATORY | | + + + + + + | % Basophils | 0.5 | 0.0 - 1.0 % | [facility] | | | | | | [facility] | | | | | | MEDICAL | | | | | | CENTER - | | | | | | LABORATORY | | + + + + + + | Absolute | 11.50 (H) | 1.80 - 8.50 | [facility] | | | Neutrophils | | K/uL | [facility] | | | | | | MEDICAL | | | | | | CENTER - | | | | | | LABORATORY | | + + + + + + | Absolute | 1.40 | 0.60 - 3.20 | [facility] | | | Lymphocytes | | K/uL | [facility] | | | | | | MEDICAL | | | | | | CENTER - | | | | | | LABORATORY | | + + + + + + | Absolute | 0.80 | 0.00 - 1.00 | [facility] | | | Monocytes | | K/uL | [facility] | | | | | | MEDICAL | | | | | | CENTER - | | | | | | LABORATORY | | + + + + + + | Absolute | 0.00 | 0.00 - 0.40 | [facility] | | | Eosinophils | | K/uL | [facility] | | | | | | MEDICAL | | | | | | CENTER - | | | | | | LABORATORY | | + + + + + + | Absolute | 0.10 | 0.00 - 0.10 | [facility] | | | Basophils | | K/uL | [facility] | | | | | | MEDICAL | | | | | | CENTER - | | | | | | LABORATORY | | + + + + + + + + | Specimen | + + | Blood - Right upper | | arm structure (body | | structure) | + + + + + + + | Performing | Address | City/State/Zipcode | Phone Number | | Organization | | | | + + + + + | [facility] | [address] | [place] | [phone] | | [facility] | | [address] | | | - LABORATORY | | | | + + + + + documented in this encounter Visit Diagnoses + + | Diagnosis | + + | Diarrhea - Primary | + + documented in this encounter"
--- OUTSIDE RECORDS SUMMARY | ~2019-04-25 | XMS | Encounter Summary ---
Demographics + + + | Address | [address] | | | [place] [address] | + + + | Home Phone | | + + + | Preferred Language | Unknown | + + + | Marital Status | | + + + | Roman Catholic Affiliation | Unknown | + + + | Race | Unknown | + + + | Ethnic Group | Unknown | + + + Author + + + | Author | [facility] | | | and S[facility]anth[facility] | + + + | Organization | [facility] | | | and S[facility]anth[facility] | + + + | Address | Unknown | + + + | Phone | Unavailable | + + + Support + + + + + | Name | Relationship | Address | Phone | + + + + + | Arthur Mcduffie | ECON | [address] | | | | | [place] | | | | | [address] | | + + + + + | mUa Arellano | ECON | [address] [facility] | | | | | [place] [address] | | + + + + + Care Team Providers + +------+ + | Care Lemon Grower Name | Role | Phone | + +------+ + PCP | Unavailable | + +------+ + Encounter Details +--------+ + + + + | Date | Type | Department | Care Team | Description | +--------+ + + + + | 05/15/ | Hospital | [facility] | Nick Cerrato | | | 2008 | Encounter | MED CTR XRAY [address] [facility] | | | | | [place] | [place], [place] | | | | | [place] [address] | [address] | | | | | [phone] | | | +--------+ + + + [...] [place] | | | | | | [address] | | | | | | | | +--------+ + + + + | 04/29/ | Appointment | Radiology | Cuong oJe, | | | 2019 | | | MD Angelina De La [address] | | | | | | [place] | | | | | | [address] | | | | | | | | +--------+ + + + + | 05/11/ | Office | Neurology | Reina Caraballo, | | | 2019 | Visit | | MD [address] | | | | | | [place], [place] | | | | | | [address] | | | | | | [phone] | | | | | | | | +--------+ + + + + documented as of this encounter Visit Diagnoses Not on filedocumented in this encounter"
--- OUTSIDE RECORDS SUMMARY | ~2019-04-25 | XMS | Encounter Summary ---
Demographics + + + | Address | [address] | | | [place] [address] | + + + | Home Phone | | + + + | Preferred Language | Unknown | + + + | Marital Status | | + + + | Yazidism Affiliation | Unknown | + + + | Race | Unknown | + + + | Ethnic Group | Unknown | + + + Author + + + | Author | [facility] | | | and Srikanthana | + + + | Organization | [facility] | | | and Srikanthana | + + + | Address | Unknown | + + + | Phone | Unavailable | + + + Support + + + + + | Name | Relationship | Address | Phone | + + + + + | Arthur Mcduffie | ECON | [address] [facility] | | | | | [place] | | | | | [address] | | + + + + + | Uma Arellano | ECON | [address] [facility] | | | | | [place] [address] | | + + + + + Care Team Providers + +------+ + | Care Monument Carver Name | Role | Phone | + [...] | | neuritis, | Edward | [address] | | | | | right DrWilly | MD Dominick | [place], | | | | | Tatyana | [address] | [place] [address] | | | | | Solumedrol | [facility] | Phone: | | | | | IV X 4 Days | [place] | [phone] | | | | | Optic | [address] | Fax: | | | | | Neuritis | Phone: | [phone] | | | | | Procedures | [phone] | | | | | | [place] | Fax: | | | | | | METHYLPREDNI | [phone] | | | | | | SOLONE | | | | | | | INJECTION, | | | | | | | 125 MG [place] | | | | | | | [...] | +--------+ + + + + | 03/30/ | Hospital | [facility] | Cuong Joe, | Optic neuritis, | | 2019 | Encounter | MED CTR OP INFUSION | MD [address]ina [address] | right (Primary Dx); | | | | [address] | [place] | Multiple sclerosis | | | | [place] | [address] | ([facility]); Screen for | | | | [address] | | sexually transmitted | | | | [phone] | | diseases | +--------+ + + + + Social [...] + + + | Blood Pressure | 134/79 | 03/30/2019 11:21 AM | | | | | PST | | + + + + + | Pulse | 70 | 03/30/2019 11:21 AM | | | | | PST | | + + + + + | Temperature | 35.6 C (96.1 F) | 03/30/2019 9:00 AM | | | | | PST | | + + + + + | Respiratory Rate | 16 | 03/30/2019 9:00 AM | | | | | PST | | + + + + + | Oxygen Saturation | 97% | 03/30/2019 11:21 AM | | | | | PST [...] encounter Progress Notes Marika Sevilla RN - 03/30/2019 10:00 AM PST Vitals: 03/30/19 0900 03/30/19 1121 BP: 137/78 134/79 Pulse: 75 70 Resp: 16 Temp: 35.6 C (96.1 F) TempSrc: Oral SpO2: 98% 97% Administrations This Visit methylPREDNISolone sodium succinate (solu-MEDROL) 1,000 mg in sodium chloride 0.9% 250 mL IVPB Admin Date 03/30/2019 Action New Bag Dose 1000 mg Rate 266 mL/hr Route Intravenous Administered By Hamida Klein RN Monitored throughout treatment; treatment completed without untoward effects from medicatio n noted. Therapy plan completed, no appts needed at this time. Verbalizes understanding of p mike of care. VS stable. Discharged ambulatory to home in stable condition. Electronically signed by: Marika Sevilla RN 03/30/2019 4:06 PM Marika Govea RN - 1 05/31/2018 10:00 AM PST Vitals: 03/30/19 0900 BP: 137/78 Pulse: 75 Resp: 16 Temp: 35.6 C (96.1 F) Tammy Mcduffie received into room 440, independent ambulation . States here for Lynda umedrol infusion. Reports no change in condition, plan of care since last MD visit. Alert, o riented x 4, cooperative. Electronically signed by: Marika Sevilla RN 03/30/2019 9:14 AM documented in this enc ounter Plan [...] [place] | | | | | | [id number] | | | | | | | | +--------+ + + + + | 04/29/ | Appointment | Radiology | Cuong Joe, | | | 2019 | | | [address] | | | | | | [place], [place] | | | | | | [address] | | | | | | | | +--------+ + + + + | 05/11/ | Office | Neurology | Reina Caraballo, | | | 2019 | Visit | | [address] | | | | | | [place], [place] | | | | | | [address] | | | | | | [phone] | | | | | | | | +--------+ + + + + documented as of this encounter Procedures + +--------+ + + + | Procedure Name | Priori | Date/Time | Associated Diagnosis | Comments | | | ty | | | | + +--------+ + + + | HIV AG/AB, 4TH GEN, | Routin | 03/30/2019 | Optic neuritis, | Results for this | | REFLEX | e | 9:46 AM | right Multiple | procedure are in the | | | | PST | sclerosis ([facility]) | results section. | | | | | Screen for sexually | | | | | | transmitted diseases | | + +--------+ + + + | ARI PANEL, QUANT | Routin | 03/30/2019 | Optic neuritis, | Results for this | | | e | 9:46 AM | right Multiple | procedure are in the | | | | PST | sclerosis ([facility]) | results section. | + +--------+ + + + | VITAMIN B-12 | Routin | 03/30/2019 | Optic neuritis, | Results for this | | | e | 9:46 AM | right Multiple | procedure are in the | | | | PST | sclerosis ([facility]) | results section. | + +--------+ + + + | VITAMIN D, | Routin | 03/30/2019 | Optic neuritis, | Results for this | | DEFICIENCY SCREEN | e | 9:46 AM | right Multiple | procedure are in the | | (25-HYDROXY) | | PST | sclerosis (HCC) | results section. | + +--------+ + + + | BORRELIA BURGDORFERI | Routin | 03/30/2019 | Optic neuritis, | Results for this | | AB, WESTERN BLOT | e | 9:46 AM | right Multiple | procedure are in the | | | | PST | sclerosis ([facility]) | results section. | + +--------+ + + + | DNA DOUBLE-STRANDED | Routin | 03/30/2019 | Optic neuritis, | Results for this | | AB, IGG | e | 9:46 AM | right Multiple | procedure are in the | | | | PST | sclerosis ([facility]) | results section. | + +--------+ + + + | RAPID PLASMA REAGIN, | Routin | 03/30/2019 | Optic neuritis, | Results for this | | QUAL | e | 9:46 AM | right Multiple | procedure are in the | | | | PST | sclerosis ([facility]) | results section. | | | | | Screen for sexually | | | | | | transmitted diseases | | + +--------+ + + + | ANGIOTENSIN I | Routin | 03/30/2019 | Optic neuritis, | Results for this | | CONVERTING ENZYME | e | 9:46 AM | right Multiple | procedure are in the | | | | PST | sclerosis ([facility]) | results section. | + +--------+ + + + | MISC LAB REFERRAL | Routin | 03/30/2019 | | Results for this | | | e | 9:45 AM | | procedure are in the | | | | PST | | results section. | + +--------+ + + + documented in this encounter Results Borrelia Burgdorferi Ab, w/Reflex to Western Blot (03/30/2019 9:46 AM PST) + + + + + + | Component | Value | Ref Range | Performed | Pathologist | | | | | At | Signature | + + + + + + | Lyme | <0.91Comment: | 0.00 - 0.90 ISR | REFERENCE | | | IgG/IgM EIA | | | LAB [facility] | | | | Negative | | - BKR | | | | <0.91 | | | | | | | | | | | | | | | | | | Equivocal 0.91 - | | | | | | 1.09 | | | | | | | | | | | | Positive | | | | | | >1.09 | | | | + + + + + + | Lyme | <0.80Comment: | 0.00 - 0.79 | REFERENCE | | | Disease Ab, | | index | LAB [facility] | | | Quant, IgM | Negative | | - BKR | | | | <0.80 | | | | | | | | | | | | | | | | | | Equivocal 0.80 - | | | | | | 1.19 | | | | | | | | | | | | Positive | | | | | | >1.19 IgM levels may | | | | | | peak at 3-6 weeks post | | | | | | infection, then | | | | | | gradually decline. | | | | + + + + + + + + | Specimen | + + | Blood | + + + + + | Narrative | Performed At | + + + | Performed at: 01 - [facility] [address], | REFERENCE LAB | | [place], [place] [id number] Plasterer Maintenance: Zach Patterson MD, Phone: | [facility] | | [phone] | | + + + + + + + + | Performing | Address | City/State/Zipcode | Phone Number | | Organization | | | | + + + + + | REFERENCE LAB | [address] | [place] [address] | [phone] | | [facility] | [address] | | | + + + + + DNA Double-Stranded Ab, IgG (03/30/2019 9:46 AM PST) + + + + + + | Component | Value | Ref Range | Performed | Pathologist | | | | | At | Signature | + + + + + + | DS DNA AB | <1Comment: | 0 - 9 IU/mL | REFERENCE | | | | | | LAB [facility] | | | | Negative | | - BKR | | | | <5 | | | | | | | | | | | | Equivocal | | | | | | 5 - 9 | | | | | | | | | | | | Positive | | | | | | >9 | | | | + + + + + + + + | Specimen | + + | Blood | + + + + + | Narrative | Performed At | + + + | Performed at: 01 - [facility] [address], | REFERENCE LAB | | [place] [id number] Plasterer Maintenance: Perlita Dunn MD, Phone: | [facility] | | [phone] | | + + + + + + + + | Performing | Address | City/State/Zipcode | Phone Number | | Organization | | | | + + + + + | REFERENCE LAB | [address] | [place] [address] | [phone] | | [facility] | [address] | | | + + + + + HIV AG/AB, 4th Gen, Reflex (03/30/2019 9:46 AM PST) + + + + + + | Component | Value | Ref Range | Performed | Pathologist | | | | | At | Signature | + + + + + + | HIV 1/2 Ab | Non Reactive | Non Reactive | REFERENCE | | | and P24 Ag | | | LAB [facility] | | | | | | - BKR | | + + + + + + + + | Specimen | + + | Blood | + + + + + | Narrative | Performed At | + + + | Performed at: 01 - [facility] [place] [address], | REFERENCE LAB | | [place], [place] [id number] Plasterer Maintenance: Chacorta Vela MD, Phone: | [facility] | | [phone] | | + + + + + + + + | Performing | Address | City/State/Zipcode | Phone Number | | Organization | | | | + + + + + | REFERENCE LAB | [address] | [place] [address] | [phone] | | [facility] | [address] | | | + + + + + Rapid Meet Cobb (03/30/2019 9:46 AM PST) + + + + + + | Component | Value | Ref Range | Performed | Pathologist | | | | | At | Signature | + + + + + + | Rapid | Non-Reactive | Non-Reactive | [facility] | | | Plasma | | | [facility] | | | [facility] | | | MEDICAL | | | | | | CENTER - | | | | | | LABORATORY | | + + + + + + + + | Specimen | + + | Blood | + + + + + + + | Performing | Address | City/State/Zipcode | Phone Number | | Organization | | | | + + + + + | [facility] | [address] | [place] | [phone] | | [facility] | | [address] | | | - LABORATORY | | | | + + + + + Vitamin B-12 (03/30/2019 9:46 AM PST) + + + + + + | Component | Value | Ref Range | Performed | Pathologist | | | | | At | Signature | + + + + + + | VITAMIN | 435Comment: DEFICIENT: | 156 - 672 pg/mL | [facility] | | | B-12 | <145 | | [facility] | | | | pg/mLINDETERMINATE: | | MEDICAL | | | | 145-180 pg/mL | | CENTER - | | | | | | LABORATORY | | + + + + + + + + | Specimen | + + | Blood | + + + + + + + | Performing | Address | City/State/Zipcode | Phone Number | | Organization | | | | + + + + + | [facility] | [address] | [place] | [phone] | | [facility] | | [address] | | | - LABORATORY | | | | + + + + + Vitamin D, Deficiency Screen (25-Hydroxy) (03/30/2019 9:46 AM PST) + +--------+ + + + | Component | Value | Ref Range | Performed | Pathologist | | | | | At | Signature | + +--------+ + + + | Vitamin D, | 29 (L) | 30 - 100 ng/mL | [facility] | | | 25 Hydroxy | | | [facility] | | | | | | MEDICAL | | | | | | CENTER - | | | | | | LABORATORY | | + +--------+ + + + + + | Specimen | + + | Blood | + + + + + + + | Performing | Address | City/State/Zipcode | Phone Number | | Organization | | | | + + + + + | [facility] | [address] | [place] | [phone] | | [facility] | | [address] | | | - LABORATORY | | | | + + + + + Angiotensin I Converting Enzyme (03/30/2019 9:46 AM PST) + +--------+ + + + | Component | Value | Ref Range | Performed | Pathologist | | | | | At | Signature | + +--------+ + + + | Angiotensin | 12 (L) | 14 - 82 U/L | REFERENCE | | | Converting | | | LAB [facility] | | | Enzyme | | | - BKR | | + +--------+ + + + + + | Specimen | + + | Blood | + + + + + | Narrative | Performed At | + + + | Performed at: 01 - [facility] [address], | REFERENCE LAB | | [place] [id number] Plasterer Maintenance: Zach Patterson MD, Phone: | [facility] | | [phone] | | + + + + + + + + | Performing | Address | City/State/Zipcode | Phone Number | | Organization | | | | + + + + + | REFERENCE LAB | [address] | [place] [address] | [phone] | | [facility] | [address] | | | + + + + + Leyda Florentino (03/30/2019 9:46 AM PST) + + + + + + | Component | Value | Ref Range | Performed | Pathologist | | | | | At | Signature | + + + + + + | Centromere | <0.2 | 0.0 - 0.9 AI | REFERENCE | | | B | | | LAB [facility] | | | Autoantibod | | | - BKR | | | y | | | | | + + + + + + | DS DNA AB | <1Comment: | 0 - 9 IU/mL | REFERENCE | | | | | | LAB [facility] | | | | Negative | | - BKR | | | | <5 | | | | | | | | | | | | Equivocal | | | | | | 5 - 9 | | | | | | | | | | | | Positive | | | | | | >9 | | | | + + + + + + | PHYSICIAN INTENSIVIST | <0.2 | 0.0 - 0.9 AI | REFERENCE | | | Autoantibod | | | LAB [facility] | | | y | | | - BKR | | + + + + + + | PERLA | <0.2 | 0.0 - 0.9 AI | REFERENCE | | | ANTIBODY | | | LAB [facility] | | | | | | - BKR | | + + + + + + | Perla PHYSICIAN INTENSIVIST | <0.2 | 0.0 - 0.9 AI | REFERENCE | | | Antibodies | | | LAB [facility] | | | | | | - BKR | | + + + + + + | Scleroderma | <0.2 | 0.0 - 0.9 AI | REFERENCE | | | SCL-70 | | | LAB [facility] | | | | | | - BKR | | + + + + + + | SS-A | <0.2 | 0.0 - 0.9 AI | REFERENCE | | | Autoantibod | | | LAB [facility] | | | y | | | - BKR | | + + + + + + | SS-B | <0.2 | 0.0 - 0.9 AI | REFERENCE | | | Autoantibod | | | LAB [facility] | | | y | | | - BKR | | + + + + + + | Antichromat | <0.2 | 0.0 - 0.9 AI | REFERENCE | | | in IgG, | | | LAB [facility] | | | Antibodies | | | - BKR | | + + + + + + | Ribosomal P | <0.2 | 0.0 - 0.9 AI | REFERENCE | | | | | | LAB [facility] | | | Autoantibod | | | - BKR | | | y | | | | | + + + + + + | SERGIO-1 | <0.2 | 0.0 - 0.9 AI | REFERENCE | | | ANTIBODY | | | LAB [facility] | | | IGG | | | - BKR | | + + + + + + | See below: | CommentComment: | | REFERENCE | | | | Autoantibody | | LAB [facility] | | | | | | - BKR | | | | Disease | | | | | | Association | | | | | | | | | | | | | | | | | | | | | | | | Condition | | | | | | | | | | | | Frequency | | | | | | | | | | | | | | | | | | Antinuclear | | | | | | Antibody, SLE, | | | | | | mixed connectiveDirect | | | | | | (ARI-D) | | | | | | tissue | | | | | | diseases | | | | | | | | | | | | | | | | | | dsDNA | | | | | | | | | | | | SLE | | | | | | 40 - | | | | | | 60% | | | | | | | | | | | | | | | | | | Chromatin | | | | | | | | | | | | Drug induced SLE | | | | | | 90% | | | | | | | | | | | | SLE | | | | | | | | | | | | 48 - | | | | | | 97% | | | | | | | | | | | | | | | | | | SSA (Ro) | | | | | | | | | | | | SLE | | | | | | 25 - 35% | | | | | | | | | | | | Sjogren's | | | | | | Syndrome 40 | | | | | | - 70% | | | | | | | | | | | | Lupus | | | | | | | | | | | | 100% | | | | | | _ | | | | | | | | | | | | SSB (La) | | | | | | | | | | | | SLE | | | | | | | | | | | | 10% | | | | | | | | | | | | Sjogren's Syndrome | | | | | | | | | | | | 30% | | | | | | __ | | | | | | | | | | | | Sm | | | | | | (anti-Perla) | | | | | | SLE | | | | | | 15 - | | | | | | 30% | | | | | | | | | | | | | | | | | | RNP | | | | | | | | | | | | Mixed Connective | | | | | | Tissue | | | | | | | | | | | | Disease | | | | | | | | | | | | 95%(U1 nRNP, | | | | | | SLE | | | | | | | | | | | | 30 - | | | | | | 50%anti-ribonucleoprotei | | | | | | n) Polymyositis and/or | | | | | | | | | | | | | | | | | | Dermatomyositis | | | | | | | | | | | | 20% | | | | | | | | | | | | | | | | | | Scl-70 | | | | | | (antiDNA | | | | | | Scleroderma (diffuse) | | | | | | 20 - | | | | | | 35%topoisomerase) | | | | | | Crest | | | | | | | | | | | | | | | | | | 13% | | | | | | | | | | | | | | | | | | Jo-1 | | | | | | | | | | | | Polymyositis and/or | | | | | | | | | | | | Dermatomyositis | | | | | | 20 - | | | | | | 40% | | | | | | | | | | | | | | | | | | Centromere | | | | | | B | | | | | | Scleroderma - Crest | | | | | | | | | | | | variant | | | | | | | | | | | | | | | | | | 80% | | | | | | | | | | | | | | | | | | Ribosomal P | | | | | | SLE | | | | | | | | | | | | 10 - 20% | | | | + + + + + + + + | Specimen | + + | Blood | + + + + + | Narrative | Performed At | + + + | Performed at: 01 - [facility] [address], | REFERENCE LAB | | [place] [id number] Plasterer Maintenance: Perlita Dunn MD, Phone: | [facility] | | [phone] | | + + + + + + + + | Performing | Address | City/State/Zipcode | Phone Number | | Organization | | | | + + + + + | REFERENCE LAB | [address] [facility] | [place] [address] | [phone] | | [facility] | Drive [facility] | | | + + + + + [facility] Lab Referral (03/30/2019 9:45 AM PST) + +-------+ + + + | Component | Value | Ref Range | Performed | Pathologist | | | | | At | Signature | + +-------+ + + + | Result | | | REFERENCE | | | | | | LAB [facility] | | | | | | - BKR | | + +-------+ + + + + + | Specimen | + + | Blood | + + + + + | Narrative | Performed At | + + + | | | + + + + + + + + | Performing | Address | City/State/Zipcode | Phone Number | | Organization | | | | + + + + + | [facility] | [address] | [place] [address] | [phone] | | [facility] | [address] | | | + + + + + documented in this encounter Visit Diagnoses + + | Diagnosis | + + | Optic neuritis, right - Primary Optic neuritis, unspecified | + + | Multiple sclerosis (HCC) Multiple sclerosis | + + | Screen for sexually transmitted diseases Screening examination for venereal disease | + + documented in this encounter Administered Medications + +---------+ + +-------+------+ | Medication Order | MAR | Action | Dose | Rate | Site | | | Action | Date | | | | + +---------+ + +-------+------+ | methylPREDNISolone sodium | New Bag | 03/30/20 | 1,000 mg | 266 | | | succinate (solu-MEDROL) 1,000 mg | | 19 10:11 | | mL/hr | | | in sodium chloride 0.9% 250 mL | | AM PST | | | | | IVPB 1,000 mg, Intravenous, | | | | | | | Administer over 60 Minutes, ONCE, | | | | | | | 03/30/19 at 0955, For 1 dose | | | | | | + +---------+ + +-------+------+ +---+---+ | | | +---+---+ documented in this encounter"
--- OUTSIDE RECORDS SUMMARY | ~2019-04-25 | XMS | Encounter Summary ---
Demographics + + + | Address | [address] | | | [place] [address] | + + + | Home Phone | | + + + | Preferred Language | Unknown | + + + | Marital Status | | + + + | Anabaptist Affiliation | Unknown | + + + | Race | Unknown | + + + | Ethnic Group | Unknown | + + + Author + + + | Author | [facility] | | | and Srikanthana | + + + | Organization | [facility] | | | and S[place]anth[place] | + + + | Address | Unknown | + + + | Phone | Unavailable | + + + Support + + + + + | Name | Relationship | Address | Phone | + + + + + | Arthur Mcduffie | ECON | [address] [facility] | | | | | [place] | | | | | [address] | | + + + + + | Uma Arellano | ECON | [address] [facility] | | | | | [place] [address] | | + + + + + Care Team Providers + +------+ + | Care Internal Control Specialist Name | Role | Phone | + +------+ + | Cuong Joe MD | PCP | | + +------+ + Reason for Referral Evaluate & Treat (Urgent) + + + + + + + | Status | Reason | Specialty | Diagnoses / | Referred By | Referred To | | | | | Procedures | Contact | Contact | + + + + + + + | Authorized | Specialty | Neurology | Diagnoses | [place], | Chan | | | Services | | Optic | Cuong Corrales MD | Neurology | | | Required | | neuritis, | [address] | [address] | | | | | right | [address] | [address] | | | | | | [place] | [place], [place] | | | | | | [address] | [address] | | | | | | Phone: | Phone: | | | | | | [phone] | [phone] | | | | | | Fax: | Fax: | | | | | | [phone] | [phone] | + + + + + + + Reason for Visit + + + | Reason | Comments | + + + | Referral (Follow up) | | + + + Encounter Details +--------+ + + + + | Date | Type | Department | Care Team | Description | +--------+ + + + + | 03/11/ | Telephone | [facility] | Cuong Joe, | Referral (Follow up) | | 2019 | | [facility] | [address] | | | | | [address] | [place] | | | | | [place] | [address] | | | | | [address] | | | | | | [phone] | | | +--------+ + + + [...] [place] | | | | | | [address] | | | | | | | | +--------+ + + + + | 04/29/ | Appointment | Radiology | Cuong Joe, | | | 2019 | | | MD [address] | | | | | | [place] | | | | | | [address] | | | | | | | | +--------+ + + + + | 05/11/ | Office | Neurology | Reina Caraballo, | | | 2019 | Visit | | MD [address] | | | | | | [place] | | | | | | [address] | | | | | | [phone] | | | | | | | | +--------+ + + + + + + +--------+ + + | Name | Type | Priori | Associated Diagnoses | Order Schedule | | | | ty | | | + + +--------+ + + | [facility] Neurology | Outpatient | Routin | Optic neuritis, | Ordered: 03/12/2019 | | - AMB Referral | Referral | e | right | | + + +--------+ + + documented as of this encounter Visit Diagnoses + + | Diagnosis | + + | Optic neuritis, right - Primary Optic neuritis, unspecified | + + documented in this encounter"
--- OUTSIDE RECORDS SUMMARY | ~2019-04-25 | XMS | Encounter Summary ---
Demographics + + + | Address | [address] | | | [place] [address] | + + + | Home Phone | | + + + | Preferred Language | Unknown | + + + | Marital Status | | + + + | Congregational Affiliation | Unknown | + + + | Race | Unknown | + + + | Ethnic Group | Unknown | + + + Author + + + | Author | [facility] | | | and Srikanth[place] | + + + | Organization | [facility] | | | and S[place]anth[place] | + + + | Address | Unknown | + + + | Phone | Unavailable | + + + Support + + + + + | Name | Relationship | Address | Phone | + + + + + | rAthur Mcduffie | ECON | [address] | | | | | [place] | | | | | [address] | | + + + + + | Uma Arellano | ECON | [address] | | | | | [place] [address] | | + + + + + Care Team Providers + +------+ + | Care Coding Compliance Specialist Name | Role | Phone | + +------+ + | Cuong Joe MD | PCP | | + +------+ + Encounter Details +--------+ + + + + | Date | Type | Department | Care Team | Description | +--------+ + + + + | 03/08/ | Abstract | [facility] | Cuong Joe, | | | 2018 | | [facility] | [address] | | | | | [address] | [place] | | | | | [place] | [address] | | | | | [address] | | | | | | [phone] | | | +--------+ + + + [...] [place] | | | | | | [id number] | | | | | | | | +--------+ + + + + | 04/29/ | Appointment | Radiology | Cuong Joe, | | 2019 | | | [address] | | | | | | [place], [place] | | | | | | [address] | | | | | | | | +--------+ + + + + | 05/11/ | Office | Neurology | Reina Caraballo, | | | 2019 | Visit | | [address] | | | | | | [place], [place] | | | | | | [address] | | | | | | [phone] | | | | | | | | +--------+ + + + + documented as of this encounter Procedures + +--------+ + + + | Procedure Name | Priori | Date/Time | Associated Diagnosis | Comments | | | ty | | | | + +--------+ + + + | EXTERNAL LAB: CBC | Routin | 02/24/2019 | | Results for this | | | e | | | procedure are in the | | | | | | results section. | + +--------+ + + + | CBC NO DIFFERENTIAL | Routin | 02/24/2019 | | Results for this | | | e | | | procedure are in the | | | | | | results section. | + +--------+ + + + | EXTERNAL LAB: QUYNH | Routin | 02/22/2019 | | Results for this | | | e | | | procedure are in the | | | | | | results section. | + +--------+ + + + | EXTERNAL LAB: | Routin | 02/22/2019 | | Results for this | | GLUCOSE | e | | | procedure are in the | | | | | | results section. | + +--------+ + + + | EXTERNAL LAB: ALT | Routin | 02/22/2019 | | Results for this | | | e | | | procedure are in the | | | | | | results section. | + +--------+ + + + | EXTERNAL LAB: AST | Routin | 02/22/2019 | | Results for this | | | e | | | procedure are in the | | | | | | results section. | + +--------+ + + + | EXTERNAL LAB: | Routin | 02/22/2019 | | Results for this | | ALKALINE PHOSPHATASE | e | | | procedure are in the | | | | | | results section. | + +--------+ + + + | EXTERNAL LAB: | Routin | 02/22/2019 | | Results for this | | BILIRUBIN, TOTAL | e | | | procedure are in the | | | | | | results section. | + +--------+ + + + | EXTERNAL LAB: | Routin | 02/22/2019 | | Results for this | | ALBUMIN | e | | | procedure are in the | | | | | | results section. | + +--------+ + + + | EXTERNAL LAB: | Routin | 02/22/2019 | | Results for this | | PROTEIN, TOTAL | e | | | procedure are in the | | | | | | results section. | + +--------+ + + + | EXTERNAL LAB: | Routin | 02/22/2019 | | Results for this | | CALCIUM | e | | | procedure are in the | | | | | | results section. | + +--------+ + + + | EXTERNAL LAB: CARBON | Routin | 02/22/2019 | | Results for this | | DIOXIDE | e | | | procedure are in the | | | | | | results section. | + +--------+ + + + | EXTERNAL LAB: | Routin | 02/22/2019 | | Results for this | | CHLORIDE | e | | | procedure are in the | | | | | | results section. | + +--------+ + + + | EXTERNAL LAB: | Routin | 02/22/2019 | | Results for this | | POTASSIUM | e | | | procedure are in the | | | | | | results section. | + +--------+ + + + | EXTERNAL LAB: SODIUM | Routin | 02/22/2019 | | Results for this | | | e | | | procedure are in the | | | | | | results section. | + +--------+ + + + | EXTERNAL LAB: TSH | Routin | 02/22/2019 | | Results for this | | | e | | | procedure are in the | | | | | | results section. | + +--------+ + + + | EXTERNAL LAB: EGFR | Routin | 02/22/2019 | | Results for this | | | e | | | procedure are in the | | | | | | results section. | + +--------+ + + + | EXTERNAL LAB: | Routin | 02/22/2019 | | Results for this | | CREATININE | e | | | procedure are in the | | | | | | results section. | + +--------+ + + + | COMPREHENSIVE | Routin | 02/22/2019 | | Results for this | | METABOLIC PANEL | e | | | procedure are in the | | | | | | results section. | + +--------+ + + + documented in this encounter Results CBC no Differential (02/24/2019) + +-------+ + + + | Component | Value | Ref Range | Performed | Pathologist | | | | | At | Signature | + +-------+ + + + | MCH | 30.0 | 27.0 - 33.0 pg | | | + +-------+ + + + | MCHC | 34.0 | 30.0 - 36.0 | | | | | | g/dL | | | + +-------+ + + + + + | Specimen | + + | Blood | + + External Lab: CBC (02/24/2019) + +-------+ + + + | Component | Value | Ref Range | Performed | Pathologist | | | | | At | Signature | + +-------+ + + + | WBC, | 6.5 | 4.5 - 11 | REFERENCE | | | External | | | LAB | | | | | | [facility] | | + +-------+ + + + | HGB, | 13.2 | 12 - 16 | REFERENCE | | | External | | | LAB | | | | | | [facility] | | + +-------+ + + + | HCT, | 39.4 | 35 - 45 | REFERENCE | | | External | | | LAB | | | | | | [facility] | | + +-------+ + + + | PLT, | 283 | 140 - 440 | REFERENCE | | | External | | | LAB | | | | | | [facility] | | + +-------+ + + + | RBC, | 4.47 | 3.8 - 5.1 | REFERENCE | | | External | | | LAB | | | | | | [facility] | | + +-------+ + + + | MCV, | 88 | 81 - 99 | REFERENCE | | | External | | | LAB | | | | | | [facility] | | + +-------+ + + + | RDW, | 13.9 | 10.5 - 15 | REFERENCE | | | External | | | LAB | | | | | | [facility] | | + +-------+ + + + + + + + + | Performing | Address | City/State/Zipcode | Phone Number | | Organization | | | | + + + + + | REFERENCE LAB | [address] | [place] [address] | [phone] | | [facility] | | | | + + + + + | REFERENCE LAB | [address] | [place] [address] | [phone] | | [facility] | | | | + + + + + Comprehensive Metabolic Panel (02/22/2019) + +-------+ + + + | Component | Value | Ref Range | Performed | Pathologist | | | | | At | Signature | + +-------+ + + + | Anion Gap | 11 | 7 - 21 mmol/L | | | + +-------+ + + + | Bun/Creatin | 15.4 | 6.0 - 28.6 | | | | ine | | | | | + +-------+ + + + | Globulin | 2.7 | 1.8 - 3.5 | | | + +-------+ + + + | Albumin/Preethi | 1.4 | 1.1 - 2.4 | | | | bulin Ratio | | | | | + +-------+ + + + + + | Specimen | + + | Blood | + + External Lab: QUYNH (02/22/2019) + +-------+ + + + | Component | Value | Ref Range | Performed | Pathologist | | | | | At | Signature | + +-------+ + + + | BUN, | 12 | 6 - 23 | REFERENCE | | | External | | | LAB | | | | | | [facility] | | + +-------+ + + + + + + + + | Performing | Address | City/State/Zipcode | Phone Number | | Organization | | | | + + + + + | REFERENCE LAB | [address] [place] [address] | [place] [address] | [phone] | | [facility] | | | | + + + + + | REFERENCE LAB | [address] [place] [address] | [place] [address] | [phone] | | [facility] | | | | + + + + + External Lab: Glucose (02/22/2019) + +-------+ + + + | Component | Value | Ref Range | Performed | Pathologist | | | | | At | Signature | + +-------+ + + + | Glucose, | 84 | 70 - 100 | REFERENCE | | | External | | | LAB | | | | | | [facility] | | + +-------+ + + + + + + + + | Performing | Address | City/State/Zipcode | Phone Number | | Organization | | | | + + + + + | REFERENCE LAB | [address] | [place] [address] | [phone] | | [facility] | | | | + + + + + | REFERENCE LAB | [address] | [place] [address] | [phone] | | [facility] | | | | + + + + + External Lab: ALT (02/22/2019) + +-------+ + + + | Component | Value | Ref Range | Performed | Pathologist | | | | | At | Signature | + +-------+ + + + | ALT, | 10 | 7 - 52 | REFERENCE | | | External | | | LAB | | | | | | [facility] | | + +-------+ + + + + + + + + | Performing | Address | City/State/Zipcode | Phone Number | | Organization | | | | + + + + + | REFERENCE LAB | [address] | [place] [address] | [phone] | | [facility] | | | | + + + + + | REFERENCE LAB | [address] | [place] [address] | [phone] | | [facility] | | | | + + + + + External Lab: SLY (02/22/2019) + +-------+ + + + | Component | Value | Ref Range | Performed | Pathologist | | | | | At | Signature | + +-------+ + + + | SLY, | 13 | 13 - 39 | REFERENCE | | | External | | | LAB | | | | | | [facility] | | + +-------+ + + + + + + + + | Performing | Address | City/State/Zipcode | Phone Number | | Organization | | | | + + + + + | REFERENCE LAB | [address] | [place] [address] | [phone] | | [facility] | | | | + + + + + | REFERENCE LAB | [address] | [place] [address] | [phone] | | [facility] | | | | + + + + + External Lab: Alkaline Phosphatase (02/22/2019) + +-------+ + + + | Component | Value | Ref Range | Performed | Pathologist | | | | | At | Signature | + +-------+ + + + | ALP, | 49 | 31 - 130 | REFERENCE | | | External | | | LAB | | | | | | [facility] | | + +-------+ + + + + + + + + | Performing | Address | City/State/Zipcode | Phone Number | | Organization | | | | + + + + + | REFERENCE LAB | [address] | [place] [address] | [phone] | | [facility] | | | | + + + + + | REFERENCE LAB | [address] | [place] [address] | [phone] | | [facility] | | | | + + + + + External Lab: Bilirubin, Total (02/22/2019) + +-------+ + + + | Component | Value | Ref Range | Performed | Pathologist | | | | | At | Signature | + +-------+ + + + | Bilirubin, | 0.7 | 0 - 1.2 | REFERENCE | | | Total, | | | LAB | | | External | | | [facility] | | + +-------+ + + + + + + + + | Performing | Address | City/State/Zipcode | Phone Number | | Organization | | | | + + + + + | REFERENCE LAB | [address] | [place] [address] | [phone] | | [facility] | | | | + + + + + | REFERENCE LAB | [address] | [place] [address] | [phone] | | [facility] | | | | + + + + + External Lab: Albumin (02/22/2019) + +-------+ + + + | Component | Value | Ref Range | Performed | Pathologist | | | | | At | Signature | + +-------+ + + + | Albumin, | 3.9 | 3.5 - 5 | REFERENCE | | | External | | | LAB | | | | | | [facility] | | + +-------+ + + + + + + + + | Performing | Address | City/State/Zipcode | Phone Number | | Organization | | | | + + + + + | REFERENCE LAB | [address] | [place] [address] | [phone] | | [facility] | | | | + + + + + | REFERENCE LAB | [address] | [place] [address] | [phone] | | [facility] | | | | + + + + + External Lab: Protein, Total (02/22/2019) + +-------+ + + + | Component | Value | Ref Range | Performed | Pathologist | | | | | At | Signature | + +-------+ + + + | Protein, | 6.6 | 6 - 8.3 | REFERENCE | | | Total, | | | LAB | | | External | | | [facility] | | + +-------+ + + + + + + + + | Performing | Address | City/State/Zipcode | Phone Number | | Organization | | | | + + + + + | REFERENCE LAB | [address] | [place] [address] | [phone] | | [facility] | | | | + + + + + | REFERENCE LAB | [address] | [place] [address] | [phone] | | [facility] | | | | + + + + + External Lab: Calcium (02/22/2019) + +-------+ + + + | Component | Value | Ref Range | Performed | Pathologist | | | | | At | Signature | + +-------+ + + + | Calcium, | 8.9 | 8.5 - 10.3 | REFERENCE | | | External | | | LAB | | | | | | [facility] | | + +-------+ + + + + + + + + | Performing | Address | City/State/Zipcode | Phone Number | | Organization | | | | + + + + + | REFERENCE LAB | [address] | [place] [address] | [phone] | | [facility] | | | | + + + + + | REFERENCE LAB | [address] | [place] [address] | [phone] | | [facility] | | | | + + + + + External Lab: Carbon Dioxide (02/22/2019) + +-------+ + + + | Component | Value | Ref Range | Performed | Pathologist | | | | | At | Signature | + +-------+ + + + | Carbon | 27 | 19 - 31 | REFERENCE | | | Dioxide, | | | LAB | | | External | | | [facility] | | + +-------+ + + + + + + + + | Performing | Address | City/State/Zipcode | Phone Number | | Organization | | | | + + + + + | REFERENCE LAB | [address] | [place] [address] | [phone] | | [facility] | | | | + + + + + | REFERENCE LAB | [address] | [place] [address] | [phone] | | [facility] | | | | + + + + + External Lab: Chloride (02/22/2019) + +-------+ + + + | Component | Value | Ref Range | Performed | Pathologist | | | | | At | Signature | + +-------+ + + + | Chloride, | 104 | 95 - 112 | REFERENCE | | | External | | | LAB | | | | | | [facility] | | + +-------+ + + + + + + + + | Performing | Address | City/State/Zipcode | Phone Number | | Organization | | | | + + + + + | REFERENCE LAB | [address] | [place] [address] | [phone] | | [facility] | | | | + + + + + | REFERENCE LAB | [address] | [place] [address] | [phone] | | [facility] | | | | + + + + + External Lab: Potassium (02/22/2019) + +-------+ + + + | Component | Value | Ref Range | Performed | Pathologist | | | | | At | Signature | + +-------+ + + + | Potassium, | 4.2 | 3.6 - 5.1 | REFERENCE | | | External | | | LAB | | | | | | [facility] | | + +-------+ + + + + + + + + | Performing | Address | City/State/Zipcode | Phone Number | | Organization | | | | + + + + + | REFERENCE LAB | [address] | [place] [address] | [phone] | | [facility] | | | | + + + + + | REFERENCE LAB | [address] | [place] [address] | [phone] | | [facility] | | | | + + + + + External Lab: Sodium (02/22/2019) + +-------+ + + + | Component | Value | Ref Range | Performed | Pathologist | | | | | At | Signature | + +-------+ + + + | Sodium, | 138 | 132 - 143 | REFERENCE | | | External | | | LAB | | | | | | [facility] | | + +-------+ + + + + + + + + | Performing | Address | City/State/Zipcode | Phone Number | | Organization | | | | + + + + + | REFERENCE LAB | [address] | [place] [address] | [phone] | | [facility] | | | | + + + + + | REFERENCE LAB | [address] | [place] [address] | [phone] | | [facility] | | | | + + + + + External Lab: TSH (02/22/2019) + + + + + + | Component | Value | Ref Range | Performed | Pathologist | | | | | At | Signature | + + + + + + | TSH, | 8.74 (A) | 0.27 - 4.2 | REFERENCE | | | External | | | LAB | | | | | | [facility] | | + + + + + + + + | Specimen | + + | Blood | + + + + + + + | Performing | Address | City/State/Zipcode | Phone Number | | Organization | | | | + + + + + | REFERENCE LAB | [address] | [place] [address] | [phone] | | [facility] | | | | + + + + + | REFERENCE LAB | [address] | [place] [address] | [phone] | | [facility] | | | | + + + + + External Lab: eGFR (02/22/2019) + +-------+ + + + | Component | Value | Ref Range | Performed | Pathologist | | | | | At | Signature | + +-------+ + + + | eGFR, | 79 | | REFERENCE | | | External | | | LAB | | | | | | [facility] | | + +-------+ + + + + + | Specimen | + + | Blood | + + + + + + + | Performing | Address | City/State/Zipcode | Phone Number | | Organization | | | | + + + + + | REFERENCE LAB | [address] | [place] [address] | [phone] | | [facility] | | | | + + + + + | REFERENCE LAB | [address] | [place] [address] | [phone] | | [facility] | | | | + + + + + External Lab: Creatinine (02/22/2019) + +-------+ + + + | Component | Value | Ref Range | Performed | Pathologist | | | | | At | Signature | + +-------+ + + + | Creatinine, | 0.78 | 0.6 - 1.35 | REFERENCE | | | External | | | LAB | | | | | | [facility] | | + +-------+ + + + + + | Specimen | + + | Blood | + + + + + + + | Performing | Address | City/State/Zipcode | Phone Number | | Organization | | | | + + + + + | REFERENCE LAB | [facility] | [place] [address] | [phone] | | [facility] | | | | + + + + + | REFERENCE LAB | [address] [place] [address] [address] | [place] [address] | [phone] | | [facility] | | | | + + + + + documented in this encounter Visit Diagnoses Not on filedocumented in this encounter"
--- OUTSIDE RECORDS SUMMARY | ~2019-04-25 | XMS | Encounter Summary ---
Demographics + + + | Address | [address] | | | [place] [address] | + + + | Home Phone | | + + + | Preferred Language | Unknown | + + + | Marital Status | | + + + | Adventist Affiliation | Unknown | + + + | Race | Unknown | + + + | Ethnic Group | Unknown | + + + Author + + + | Author | [facility] | | | and [place] | + + + | Organization | [facility] | | | and [place] | + + + | Address | Unknown | + + + | Phone | Unavailable | + + + Support + + + + + | Name | Relationship | Address | Phone | + + + + + | Arthur Mcduffie | ECON | [address] | | | | | [place] | | | | | [address] | | + + + + + | Uma Arellano | ECON | [address] | | | | | [place] [address] | | + + + + + Care Team Providers + +------+ + | Care Cut Off Saw Tender Metal Name | Role | Phone | + +------+ + | Cuong Joe MD | PCP | | + +------+ + Reason for Visit +--------+ + | Reason | Comments | +--------+ + | Other | optic neuritis | +--------+ + Encounter Details +--------+ + + + + | Date | Type | Department | Care Team | Description | +--------+ + + + + | 03/28/ | Telephone | [facility] | Cuong Joe, | Other (optic | | 2019 | | [facility]IC[facility] [place] | [address] | neuritis) | | | | [address] | [place] | | | | | [place] | [address] | | | | | [address] | | | | | | [phone] | | | +--------+ + + + [...] [place] | | | | | | [address] | | | | | | | | +--------+ + + + + | 04/29/ | Appointment | Radiology | Cuong Joe, | | | 2019 | | | [address] | | | | | | [place] | | | | | | [address] | | | | | | | | +--------+ + + + + | 05/11/ | Office | Neurology | Reina Caraballo, | | 2019 | Visit | | [address] | | | | | | [place], [place] | | | | | | [address] | | | | | | [phone] | | | | | | | | +--------+ + + + + documented as of this encounter Visit Diagnoses Not on filedocumented in this encounter"
--- OUTSIDE RECORDS SUMMARY | ~2019-04-25 | XMS | Encounter Summary ---
Demographics + + + | Address | [address] | | | [place] [address] | + + + | Home Phone | | + + + | Preferred Language | Unknown | + + + | Marital Status | | + + + | Hoahaoism Affiliation | Unknown | + + + | Race | Unknown | + + + | Ethnic Group | Unknown | + + + Author + + + | Author | [facility] | | | and Srikanthana | + + + | Organization | [facility] | | | and Srikanthana | + + + | Address | Unknown | + + + | Phone | Unavailable | + + + Support + + + + + | Name | Relationship | Address | Phone | + + + + + | Arthur Mcduffie | ECON | [address] | | | | | [place] | | | | | [address] | | + + + + + | Uma Arellano | ECON | [address] | | | | | [place] [address] | | + + + + + Care Team Providers + +------+ + | Care Big Data Developer Name | Role | Phone | + [...] | | | | Diagnoses | | Romulo, | | | | | History of | | Александр Castillo MD | | | | | menorrhagia | | [address] | | | | | History of | | [place] | | | | | menorrhag[place] | | [place] | | | | | [[id number]] | | [place] | | | | | Procedures | | [address] | | | | | [place] | | Phone: | | | | | HYSTEROSCOPY | | [phone] | | | | | ,W/RONY BX | | Fax: | | | | | | | [phone] | +--------+--------+ + + + + Encounter Details +--------+ + + + + | Date | Type | Department | Care Team | Description | +--------+ + + + + | 03/21/ | Anesthesia | [facility] | Randy Michael | | | 2016 | Event | MED CTR OR INTRA OP | MD Jarvis [address] | | | | | [address] | [address] [place] | | | | | [place], [place] | [place] [address] | | | | | [address] | [phone] | | | | | [phone] | | | +--------+ + + + + Anesthesia Record + + + + + | Procedure Name | Responsible | Anesthesia Start | Anesthesia Stop Time | | | Anesthesiologist | Time | | + + + + + | Hysteroscopy D&C + | Randy Michael, | 07/16/15 1117 | 07/16/15 1201 | | (N/A Augustin) | | | | + + + + + +----+---+ + + | Da | T | Event | Comment | | te | i | | | | | m | | | | | e | | | +----+---+ + + | 03 | 1 | | | | /2 | 0 | | | | 1/ | 4 | | | | 20 | 1 | | | | 16 | | | | +----+---+ + + | | 1 | An Checkout | Pre-use anesthesia machine/equipment checkout. | | | 1 | | | | | 1 | | | | | 6 | | | +----+---+ + + | | 1 | An Start | Reassessment prior to anesthesia induction/procedure. | | | 1 | | | | | 1 | | | | | 7 | | | +----+---+ + + | | 1 | AN | Per surgeon request | | | 1 | Antibiotic | | | | 1 | declined | | | | 7 | | | +----+---+ + + | | 1 | an arthur now | In OR4 | | | 1 | | | | | 2 | | | | | 2 | | | +----+---+ + + | | 1 | Preoxygenat | | | | 1 | ed | | | | 2 | | | | | 4 | | | +----+---+ + + | | 1 | An | | | | 1 | Induction | | | | 2 | | | | | 6 | | | +----+---+ + + | | 1 | An | | | | 1 | Intubation | | | | 2 | | | | | 8 | | | +----+---+ + + | | 1 | [place]ford | | | | 1 | 43-degrees | | | | 3 | | | | | 4 | | | +----+---+ + + | | 1 | an arthur now | incision | | | 1 | | | | | 3 | | | | | 6 | | | +----+---+ + + | | 1 | First | | | | 1 | Inc/Proc St | | | | 3 | | | | | 6 | | | +----+---+ + + | | 1 | [place] off | | | | 1 | | | | | 5 | | | | | 5 | | | +----+---+ + + | | 1 | Quick Note | Spont vent, good RR and Vt. To PACU with LMA. | | | 1 | | | | | 5 | | | | | 5 | | | +----+---+ + + | | 1 | an stop | | | | 1 | data | | | | 5 | | | | | 6 | | | +----+---+ + + | | 1 | An Stop | Patient handed off to recovery nurse. | | | 0 | | | | | 1 | | | +----+---+ + + +------+ | Meds | +------+ + +---------+ | Name | Total | + +---------+ | midazolam | 2 mg | + +---------+ | fentaNYL | 100 mcg | + +---------+ | propofol | 200 mg | + +---------+ | lidocaine 2% (PF) | 100 mg | + +---------+ | dexamethasone | 10 mg | + +---------+ | ondansetron | 4 mg | + +---------+ | ketorolac | 30 mg | + +---------+ + + | Name | + + | N2O Flow Rate (L/Min) | + + | O2 Flow Rate (L/Min) | + + | Insp O2 | + + | Exp SEV | + + | Exp PRINCESS | + + | Air Flow Rate (L/Min) | + + + + | No blood administrations on file. | + + +--------+ + + + | Type | Details | Placement | Removal | +--------+ + + + | Periph | 03/21/16; 0906; [id number] | 07/16/15 0906 by | 07/16/15 1321 by | | eral | catheter system; 20 gauge, 1 04/30 | Danika Reyes, | Danika Reyes, | | IV | in length; Hematology; | RN | RN | | | intradermal injection; no longer | | | | | indicated, catheter/device | | | | | intact, removed per | | | | | policy/procedure; 07/16/15; 1321 | | | +--------+ + + + | Airway | Placement Date: 07/16/15; | 07/16/15 1128 by Tor | 07/16/15 1214 by | | | Placement Time: 1128; Mask | Jarvis Michael MD | Migdalia Ellis RN | | | Ventilation: EZ; Attempts: 1; | | | | | Airway Type: laryngeal mask, | | | | | oral; Size: 3; Placement Check: | | | | | exhaled CO2 detection device; | | | | | Removal: per protocol, removed by | | | | | RN; Removal Date: 07/16/15; | | | | | Removal Time: 1214 | | | +--------+ + + + | Urethr | 07/16/15; 1130; indicated due to | 07/16/15 1130 by | 07/16/15 1131 by | | al | specific surgical procedure; | Cuong Colmenares RN | Cuong Colmenares RN | | Cathet | intermittent catheter; latex; 14; | | | | er | 1; 0; 0; other (see comments) | | | | | (anesthesia); other (see | | | | | comments) (in and out cath); | | | | | urethral catheter removed, tubing | | | | | intact; 125mL urinary output; | | | | | short term use; 07/16/15; 1131 | | | +--------+ + + + | Read | 07/16/15; 1157; vagina; no | 07/16/15 1157 by | 07/16/15 1322 by | | only - | dressing; expected removal post | Cuong Colmenares RN | Danika Reyes, | | | discharge; 07/16/15; 1322 | | RN | | Incisi | | | | | on | | | | +--------+ + + + | Read | 07/16/15; 1157; perineum; no | 07/16/15 1157 by | 07/16/15 1208 by | | only - | dressing; short term use; | Cuong Colmenares RN | Migdalia Ellis RN | | | 07/16/15 (no incision present on | | | | Incisi | perineum); 1208 | | | | on | | | | +--------+ + + + documented in this encounter Social History + +-------+ +--------+------+ | Tobacco [...] Neurology | Reina Caraballo, | | | 2020 | Visit | | [address] | | | | | | [place], [place] | | | | | | [address] | | | | | | [phone] | | | | | | | | +--------+ + + + + documented as of this encounter Visit Diagnoses Not on filedocumented in this encounter Administered Medications + +--------+ +-------+------+------+ | Medication Order | MAR | Action | Dose | Rate | Site | | | Action | Date | | | | + +--------+ +-------+------+------+ | dexamethasone (DECADRON) 10 | Given | 07/16/19 | 10 mg | | | | mg/mL injection Intravenous, | | 16 11:32 | | | | | PRN, Starting 07/16/15 at | | AM PDT | | | | | 1132, Anesthesia Intra-op | | | | | | + +--------+ +-------+------+------+ +---+---+ | | | +---+---+ + +-------+ +--------+---+---+ | fentaNYL injection PRN, Pain, | Given | 07/16/19 | 50 mcg | | | | Starting Thu07/16/15 at 1129, | | 16 11:33 | | | | | Anesthesia Intra-op | | AM PDT | | | | + +-------+ +--------+---+---+ +-------+ +--------+---+---+ | Given | 07/16/19 | 50 mcg | | | | | 16 11:29 | | | | | | AM PDT | | | | +-------+ +--------+---+---+ +---+---+ | | | +---+---+ + +-------+ +-------+---+---+ | ketorolac (TORADOL) injection | Given | 07/16/19 | 30 mg | | | | Intravenous, PRN, Pain, Starting | | 16 11:51 | | | | | 07/16/15 at 1151, Anesthesia | | AM PDT | | | | | Intra-op | | | | | | + +-------+ +-------+---+---+ +---+---+ | | | +---+---+ + +-------+ +--------+---+---+ | lidocaine (PF) 2% injection | Given | 07/16/19 | 100 mg | | | | PRN, Starting Thu07/16/15 at | | 16 11:26 | | | | | 1126, Anesthesia Intra-op | | AM PDT | | | | + +-------+ +--------+---+---+ +---+---+ | | | +---+---+ + +-------+ +------+---+---+ | midazolam (VERSED) 1 mg/mL | Given | 07/16/19 | 2 mg | | | | injection Intravenous, PRN, | | 16 11:17 | | | | | Anxiety, Starting Thu07/16/15 at | | AM PDT | | | | | 1117, Anesthesia Intra-op | | | | | | + +-------+ +------+---+---+ +---+---+ | | | +---+---+ + +-------+ +------+---+---+ | ondansetron (ZOFRAN) injection | Given | 07/16/19 | 4 mg | | | | PRN, Nausea, Vomiting, Starting | | 16 11:32 | | | | | 07/16/15 at 1132, Anesthesia | | AM PDT | | | | | Intra-op | | | | | | + +-------+ +------+---+---+ +---+---+ | | | +---+---+ + +-------+ +-------+---+---+ | propofol (DIPRIVAN) injection | Given | 07/16/19 | 50 mg | | | | PRN, Starting 07/16/15 at | | 16 11:32 | | | | | 1126, Anesthesia Intra-op | | AM PDT | | | | + +-------+ +-------+---+---+ +-------+ +--------+---+---+ | Given | 07/16/19 | 150 mg | | | | | 16 11:26 | | | | | | AM PDT | | | | +-------+ +--------+---+---+ +---+---+ | | | +---+---+ documented in this encounter"
--- OUTSIDE RECORDS SUMMARY | ~2019-04-25 | XMS | Encounter Summary ---
Demographics + + + | Address | [address] | | | [place] [address] | + + + | Home Phone | | + + + | Preferred Language | Unknown | + + + | Marital Status | | + + + | Judaism Affiliation | Unknown | + + + | Race | Unknown | + + + | Ethnic Group | Unknown | + + + Author + + + | Author | [facility] | | | and Srikanthana | + + + | Organization | [facility] | | | and Srikanthana | + + + | Address | Unknown | + + + | Phone | Unavailable | + + + Support + + + + + | Name | Relationship | Address | Phone | + + + + + | Arthur Mcduffie | ECON | [address] [facility] | | | | | [place] | | | | | [address] | | + + + + + | Uma Arellano | ECON | [address] | | | | | [place] [address] | | + + + + + Care Team Providers + +------+ + | Care Global Product Manager Name | Role | Phone | + +------+ + | Cuong Joe MD | PCP | | + +------+ + Reason for Visit +--------+ + | Reason | Comments | +--------+ + | LABS | | +--------+ + Encounter Details +--------+ + + + + | Date | Type | Department | Care Team | Description | +--------+ + + + + | 02/24/ | Telephone | [facility] | Cuong Joe, | LABS | | 2018 | | [facility] | [address] | | | | | [address] | [place] | | | | | [place] | [address] | | | | | [address] | | | | | | [phone] | | | +--------+ + + + [...] [place] | | | | | | [address] | | | | | | | | +--------+ + + + + | 04/29/ | Appointment | Radiology | Cuong Joe, | | | 2019 | | | MD [address] | | | | | | [place] | | | | | | [address] | | | | | | | | +--------+ + + + + | 05/11/ | Office | Neurology | Reina Caraballo, | | | 2019 | Visit | | MD [address] | | | | | | [place] | | | | | | [address] | | | | | | [phone] | | | | | | | | +--------+ + + + + documented as of this encounter Visit Diagnoses Not on filedocumented in this encounter"
--- OUTSIDE RECORDS SUMMARY | ~2019-04-25 | XMS | Encounter Summary ---
Demographics + + + | Address | [address] | | | [place] [address] | + + + | Home Phone | | + + + | Preferred Language | Unknown | + + + | Marital Status | | + + + | Jew Affiliation | Unknown | + + + | Race | Unknown | + + + | Ethnic Group | Unknown | + + + Author + + + | Author | [facility] | | | and Srikanthana | + + + | Organization | [facility] | | | and Srikanthana | + + + | Address | Unknown | + + + | Phone | Unavailable | + + + Support + + + + + | Name | Relationship | Address | Phone | + + + + + | Arthur Mcduffie | ECON | [address] [facility] [address] [facility] | | | | | [place] | | | | | [address] | | + + + + + | Uma Arellano | ECON | [address] | | | | | [place] [address] | | + + + + + Care Team Providers + +------+ + | Care Spray Painting Machine Operator Name | Role | Phone | + +------+ + | Cuong Joe MD | PCP | | + +------+ + Reason for Visit +--------+ + | Reason | Comments | +--------+ + | Other | Imaging request | +--------+ + Encounter Details +--------+ + + + + | Date | Type | Department | Care Team | Description | +--------+ + + + + | 12/20/ | Telephone | [facility] | Cuong Joe, | Other (Imaging | | 2013 | | MEDICINE [place] | [address] | request) | | | | [address] | [place] | | | | | [place] | [address] | | | | | [address] | | | | | | [phone] | | | +--------+ + + + [...] [place] | | | | | | [address] | | | | | | | | +--------+ + + + + | 04/29/ | Appointment | Radiology | Cuong Joe, | | | 2019 | | | MD [address] | | | | | | [place] | | | | | | [address] | | | | | | | | +--------+ + + + + | 05/11/ | Office | Neurology | Reina Caraballo, | | 2019 | Visit | | MD [address] | | | | | | [place], [place] | | | | | | [address] | | | | | | [phone] | | | | | | | | +--------+ + + + + documented as of this encounter Visit Diagnoses Not on filedocumented in this encounter"
--- OUTSIDE RECORDS SUMMARY | ~2019-04-25 | XMS | Encounter Summary ---
Demographics + + + | Address | [address] | | | [place] [address] | + + + | Home Phone | | + + + | Preferred Language | Unknown | + + + | Marital Status | | + + + | Rastafari Affiliation | Unknown | + + + | Race | Unknown | + + + | Ethnic Group | Unknown | + + + Author + + + | Author | [facility] | | | and Srikanthana | + + + | Organization | [facility] | | | and Srikanthana | + + + | Address | Unknown | + + + | Phone | Unavailable | + + + Support + + + + + | Name | Relationship | Address | Phone | + + + + + | Arthur Adan | ECON | [address] | | | | | [place] | | | | | [address] | | + + + + + | Uma Arellano | ECON | [address] | | | | | [place] [address] | | + + + + + Care Team Providers + +------+ + | Care Sound Controller Name | Role | Phone | + +------+ + | No, Physician | PCP | Unavailable | + +------+ + Encounter Details +--------+ + + + + | Date | Type | Department | Care Team | Description | +--------+ + + + + | 11/17/ | Hospital | [facility] | | | | 2012 | Encounter | MED CTR XRAY [address] | | | | | | [place] | | | | | | [place] [address] | | | | | | [phone] | | | +--------+ + + + [...] + + documented as of this encounter Medications at Time of Discharge + + + +---------+ + + | Medication | Sig | Dispensed | Refills | Start | End Date | | | | | | Date | | + + + +---------+ + + | fluticasone | 1 spray by Nasal | 16 g | 12 | 02/19/20 | | | (FLONASE) 50 | route 2 times daily. | | | 12 | 3 | | mcg/nasal spray | | | | | | + [...] [place] | | | | | | [address] | | | | | | | | +--------+ + + + + | 04/29/ | Appointment | Radiology | Cuong Joe, | | | 2019 | | | MD [address] | | | | | | [place] | | | | | | [address] | | | | | | | | +--------+ + + + + | 05/11/ | Office | Neurology | Reina Caraballo, | | | 2019 | Visit | | MD [address] | | | | | | [place], [place] | | | | | | [address] | | | | | | [phone] | | | | | | | | +--------+ + + + + documented as of this encounter Procedures + +--------+ + + + | Procedure Name | Priori | Date/Time | Associated Diagnosis | Comments | | | ty | | | | + +--------+ + + + | XR LUMBAR SPINE 4 + | Routin | 11/17/2012 | | Results for this | | VW | e | 12:12 PM | | procedure are in the | | | | PDT | | results section. | + +--------+ + + + documented in this encounter Results XR Lumbar Spine 4 + Vw (11/17/2012 12:12 PM PDT) + + | Specimen | + + | | + + + + + | Narrative | Performed At | + + + | [place] [facility] | [place] | | Department [address] [place] [address] | [facility] | | [ rep [address]] [ rep [facility] | | st zip] Signed | - IMAGING | | | | | Patient Name: TAMMY ADAN | | | Physician: BRUNO : 1970 Age: 42 Sex: F Unit | | | #: [id number] Exam Date: 11/17/12 Location: | | | [facility] Report #: [id number] Page: | | | %(RAD)RES..mtdd.print.filter("pg") of %(RAD) | | | RES..mtdd.print.filter("tpg") | | | | | | Accession Number: [id number] | | | LUMBAR SPINE X-RAY CLINICAL HISTORY: LOW BACK PAIN | | | WITH RADIATION TO THE RIGHT SI JOINT AND GLUTEAL REGION | | | COMPARISON: None. FINDINGS: Five views of the lumbar | | | spine were obtained. Vertebral body height are preserved with no | | | evidence for compression fractures. Small anterior osteophytes are | | | visualized at multiple levels of the lower thoracic spine and lumbar | | | spine. Disk heights are maintained. Facet joints are intact with | | | no evidence for spondylolysis. IMPRESSION: 1. | | | MINIMAL SPONDYLOSIS. IF SYMPTOMS PERSIST, MRI CAN BE CONSIDER FOR | | | FURTHER EVALUATION. Dictated Date/Time: 11/17/2012 | | | 12:12 Transcribed Date/Time: 11/17/2012 12:22 | | | Coil Winding Machines Set Up Mechanic: <<Signature on File>> | | | | | | Stevie Queen MD11/17/12 1349 <Electronically signed by Stevie Queen | | | MD> Stevie Queen MD 11/17/12 1212 [employer] Set Up Mechanic: | | | [employer] Zlgngrunsydtj62/24/13 1222 [place] | | | | | + + + + + + + + | Performing | Address | City/State/Zipcode | Phone Number | | Organization | | | | + + + + + | [address] | [address] | [place] | [phone] | | [facility] | | [address] | | | - IMAGING | | | | + + + + + documented in this encounter Visit Diagnoses Not on filedocumented in this encounter
--- OUTSIDE RECORDS SUMMARY | ~2019-04-25 | XMS | Encounter Summary ---
Demographics + + + | Address | [address] | | | [place] [address] | + + + | Home Phone | | + + + | Preferred Language | Unknown | + + + | Marital Status | | + + + | Mormon Affiliation | Unknown | + + + | Race | Unknown | + + + | Ethnic Group | Unknown | + + + Author + + + | Author | [facility] | | | and Srikanthana | + + + | Organization | [facility] | | | and S[place]anth[place] | + + + | Address | Unknown | + + + | Phone | Unavailable | + + + Support + + + + + | Name | Relationship | Address | Phone | + + + + + | Arthur Mcduffie | ECON | [address] | | | | | [place] | | | | | [address] | | + + + + + | Uma Arellano | ECON | [address] [facility] | | | | | [place] [address] | | + + + + + Care Team Providers + +------+ + | Care Client Care Specialist Name | Role | Phone | + +------+ + PCP | Unavailable | + +------+ + Encounter Details +--------+ + + + + | Date | Type | Department | Care Team | Description | +--------+ + + + + | 01/13/ | Hospital | [facility] | Александр Sebastian, | | | 1994 | Encounter | MED CTR GENERIC OP | [id number] | | | | | CONV DEPT [address] | [place] | | | | | [place], | [place] [address] | | | | | [place] [address] | [phone] | | | | | [phone] | | | +--------+ + + + [...] [place] | | | | | | [address] | | | | | | | | +--------+ + + + + | 04/29/ | Appointment | Radiology | Cuong Joe, | | | 2019 | | | MD [address] | | | | | | [place] | | | | | | [address] | | | | | | | | +--------+ + + + + | 05/11/ | Office | Neurology | Reina Caraballo, | | | 2019 | Visit | | MD [address] | | | | | | [place] | | | | | | [address] | | | | | | [phone] | | | | | | | | +--------+ + + + + documented as of this encounter Visit Diagnoses Not on filedocumented in this encounter"
--- OUTSIDE RECORDS SUMMARY | ~2019-04-25 | XMS | Encounter Summary ---
Demographics + + + | Address | [address] | | | [place] [address] | + + + | Home Phone | | + + + | Preferred Language | Unknown | + + + | Marital Status | | + + + | Yazidism Affiliation | Unknown | + + + | Race | Unknown | + + + | Ethnic Group | Unknown | + + + Author + + + | Author | [facility] | | | and Srikanthana | + + + | Organization | [facility] | | | and Srikanthana | + + + | Address | Unknown | + + + | Phone | Unavailable | + + + Support + + + + + | Name | Relationship | Address | Phone | + + + + + | Arthur Mcduffie | ECON | [address] | | | | | [place] | | | | | [address] | | + + + + + | Uma Arellano | ECON | [address] | | | | | [place] [address] | | + + + + + Care Team Providers + +------+ + | Care Riding Coach Name | Role | Phone | + +------+ + | Cuong Joe MD | PCP | | + +------+ + Reason for Visit +---------+ + | Reason | Comments | +---------+ + | Results | | +---------+ + Encounter Details +--------+ + + + + | Date | Type | Department | Care Team | Description | +--------+ + + + + | 11/09/ | Telephone | [facility] | Cuong Joe, | Results | | 2013 | | MEDICINE [place] | [address] | | | | | [address] | [place] | | | | | [place] | [address] | | | | | [address] | | | | | | [phone] | | | +--------+ + + + [...] [place] | | | | | | [address] | | | | | | | | +--------+ + + + + | 04/29/ | Appointment | Radiology | Cuong Joe, | | | 2019 | | | MD [address] | | | | | | [place] | | | | | | [address] | | | | | | | | +--------+ + + + + | 05/11/ | Office | Neurology | Reina Caraballo, | | | 2019 | Visit | | MD [address] | | | | | | [place] | | | | | | [address] | | | | | | [phone] | | | | | | | | +--------+ + + + + documented as of this encounter Visit Diagnoses Not on filedocumented in this encounter"
--- OUTSIDE RECORDS SUMMARY | ~2019-04-25 | XMS | Encounter Summary ---
Demographics + + + | Address | [address] | | | [place] [address] | + + + | Home Phone | | + + + | Preferred Language | Unknown | + + + | Marital Status | | + + + | Advent Affiliation | Unknown | + + + | Race | Unknown | + + + | Ethnic Group | Unknown | + + + Author + + + | Author | [facility] | | | and Srikanthana | + + + | Organization | [facility] | | | and Srikanthana | + + + | Address | Unknown | + + + | Phone | Unavailable | + + + Support + + + + + | Name | Relationship | Address | Phone | + + + + + | Arthur Mcduffie | ECON | [address] | | | | | [place] | | | | | [address] | | + + + + + | Uma Arellano | ECON | [address] [facility] | | | | | [place] [address] | | + + + + + Care Team Providers + +------+ + | Care Engraver Copperplate Name | Role | Phone | + [...] + + | Closed | Specialty | | Diagnoses | Tatyana, | Chato, | | | Services | | Ellis, | Cuong Corrales MD | Eleazar Torres, | | | Required | | unspecified | [address] | [address] | | | | | laterality | [address] | [address] | | | | | | [place] | [address] | | | | | | [address] | [place] | | | | | | Phone: | [phone] | | | | | | [phone] | Phone: | | | | | | Fax: | [phone] | | | | | | [phone] | Fax: | | | | | | | [phone] | +--------+ + + + + + Reason for Visit + + + | Reason | Comments | + + + | Referral | | + + + Encounter Details +--------+ + + + + | Date | Type | Department | Care Team | Description | +--------+ + + + + | 11/24/ | Telephone | [facility] | Cuong Joe, | Referral | | 2014 | | [facility] | [address] | | | | | [address] | [place] | | | | | [place], [place] | [address] | | | | | [address] | | | | | | [phone] | | | +--------+ + + + [...] [place] | | | | | | [address] | | | | | | | | +--------+ + + + + | 04/29/ | Appointment | Radiology | Cuong Joe, | | | 2019 | | | [address] | | | | | | [place] | | | | | | [address] | | | | | | | | +--------+ + + + + | 05/11/ | Office | Neurology | Reina Caraballo, | | | 2019 | Visit | | [address] | | | | | | [address] [place] | | | | | | [address] | | | | | | [phone] | | | | | | | | +--------+ + + + + + + +--------+ + + | Name | Type | Priori | Associated Diagnoses | Order Schedule | | | | ty | | | + + +--------+ + + | Podiatry, External - | Outpatient | Routin | Ellis, | Ordered: 11/27/2014 | | AMB Referral | Referral | e | unspecified | | | | | | laterality | | + + +--------+ + + documented as of this encounter Visit Diagnoses + + | Diagnosis | + + | Bunion, unspecified laterality - Primary | + + documented in this encounter"
--- OUTSIDE RECORDS SUMMARY | ~2019-04-25 | XMS | Encounter Summary ---
Demographics + + + | Address | [address] | | | [place] [address] | + + + | Home Phone | | + + + | Preferred Language | Unknown | + + + | Marital Status | | + + + | Zoroastrianism Affiliation | Unknown | + + + | Race | Unknown | + + + | Ethnic Group | Unknown | + + + Author + + + | Author | [facility] | | | and Srikanthana | + + + | Organization | [facility] | | | and Srikanthana | + + + | Address | Unknown | + + + | Phone | Unavailable | + + + Support + + + + + | Name | Relationship | Address | Phone | + + + + + | Arthur Mcduffie | ECON | [address] | | | | | [place] | | | | | [address] | | + + + + + | Uma Arellano | ECON | [address] [facility] | | | | | [place] [address] | | + + + + + Care Team Providers + +------+ + | Care Regulatory Consultant Name | Role | Phone | + +------+ + PCP | Unavailable | + +------+ + Encounter Details +--------+ + + + + | Date | Type | Department | Care Team | Description | +--------+ + + + + | 11/19/ | Hospital | [facility] | Александр Sebastian, | | | 1994 | Encounter | MED CTR GENERIC OP | [id number] | | | | | CONV DEPT [address] | [place] | | | | | [place], | [place] [address] | | | | | [place] [address] | [phone] | | | | | [phone] | | | +--------+ + + + [...] [place] | | | | | | [address] | | | | | | | | +--------+ + + + + | 04/29/ | Appointment | Radiology | Cuong Joe, | | | 2019 | | | MD [address] | | | | | | [place] | | | | | | [address] | | | | | | | | +--------+ + + + + | 05/11/ | Office | Neurology | Reina Caraballo, | | | 2019 | Visit | | MD [address] | | | | | | [place] | | | | | | [address] | | | | | | [phone] | | | | | | | | +--------+ + + + + documented as of this encounter Visit Diagnoses Not on filedocumented in this encounter"
--- OUTSIDE RECORDS SUMMARY | ~2019-04-25 | XMS | Encounter Summary ---
Demographics + + + | Address | [address] | | | [place] [address] | + + + | Home Phone | | + + + | Preferred Language | Unknown | + + + | Marital Status | | + + + | Jain Affiliation | Unknown | + + + | Race | Unknown | + + + | Ethnic Group | Unknown | + + + Author + + + | Author | [facility] | | | and Srikanthana | + + + | Organization | [facility] | | | and Srikanthana | + + + | Address | Unknown | + + + | Phone | Unavailable | + + + Support + + + + + | Name | Relationship | Address | Phone | + + + + + | Arthur Mcduffie | ECON | [address] [facility] [address] [facility] | | | | | [place] | | | | | [address] | | + + + + + | Uma Arellano | ECON | [address] [facility] | | | | | [place] [address] | | + + + + + Care Team Providers + +------+ + | Care Bearing Inspector Name | Role | Phone | + +------+ + | Cuong Joe MD | PCP | | + +------+ + Reason for Visit + + + | Reason | Comments | + + + | Abdominal Cramping | | + + + | Diarrhea | | + + + Encounter Details +--------+ + + + + | Date | Type | Department | Care Team | Description | +--------+ + + + + | 09/19/ | Telephone | [facility] | Cuong Joe, | Abdominal Cramping; | | 2014 | | [facility] | [address] | Diarrhea | | | | [address] | [place], [place] | | | | | [place], [place] | [address] | | | | | [address] | | | | | | [phone] | | | +--------+ + + + [...] [place] | | | | | | [address] | | | | | | | | +--------+ + + + + | 04/29/ | Appointment | Radiology | Cuong Joe, | | | 2019 | | | MD [address] | | | | | | [place] | | | | | | [address] | | | | | | | | +--------+ + + + + | 05/11/ | Office | Neurology | Reina Caraballo, | | | 2019 | Visit | | MD [address] | | | | | | [place], [place] | | | | | | [address] | | | | | | [phone] | | | | | | | | +--------+ + + + + documented as of this encounter Visit Diagnoses Not on filedocumented in this encounter"
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
--- OUTSIDE RECORDS SUMMARY | ~2019-04-25 | XMS | Encounter Summary ---
Demographics + + + | Address | [address] | | | [place] [address] | + + + | Home Phone | | + + + | Preferred Language | Unknown | + + + | Marital Status | | + + + | Protestant Affiliation | Unknown | + + + | Race | Unknown | + + + | Ethnic Group | Unknown | + + + Author + + + | Author | [facility] | | | and Srikanth[place] | + + + | Organization | [facility] | | | and [place] | + + + | Address | Unknown | + + + | Phone | Unavailable | + + + Support + + + + + | Name | Relationship | Address | Phone | + + + + + | Arthur Mcduffie | ECON | [address] | | | | | [place] | | | | | [address] | | + + + + + | Uma Arellano | ECON | [address] [facility] | | | | | [place] [address] | | + + + + + Care Team Providers + +------+ + | Care Care Process Manager Name | Role | Phone | + +------+ + | Cuong Joe MD | PCP | | + +------+ + Reason for Visit Evaluate & Treat (Emergency) + + + + + + + | Status | Reason | Specialty | Diagnoses / | Referred By | Referred To | | | | | Procedures | Contact | Contact | + + + + + + + | Authorized | Specialty | Pharmacist / | Diagnoses | Rosas, | Deanna, | | | Services | Infusion | Optic | Oneil | Rao W, | | | Required | Therapy | neuritis, | Fredrick | PharmD [address] | | | | | right | MD Dominick | [address] | | | | | Procedures | [address] | [place], | | | | | [place] | [place] | [place] [address] | | | | | [place] | [place], [place] | Phone: | | | | | [place] | [address] | [phone] | | | | | INJECTION, | Phone: | Fax: | | | | | [address] [place] | [phone] | [phone] | | | | | INJECTION,TH | Fax: | | | | | | ERAP/PROPH/D | [phone] | | | | | | JACOB PENA | | | | | | | OR SUBCUT | | | + + + + + + + Encounter Details +--------+ + + + + | Date | Type | Department | Care Team | Description | +--------+ + + + + | 03/08/ | Hospital | [facility] | Oneil Rosas | Optic neuritis, | | 2018 | Encounter | [facility]ION | Fredrick Tan MD | right (Primary Dx) | | | | [address] | [address] | | | | | [place] | [place] | | | | | [address] | [address] | | | | | [phone] | | | +--------+ + + + [...] + + + | Blood Pressure | 140/75 | 03/08/2019 12:18 PM | | | | | PST | | + + + + + | Pulse | 90 | 03/08/2019 12:18 PM | | | | | PST | | + + + + + | Temperature | 35.4 C (95.7 F) | 03/08/2019 12:18 PM | | | | | PST | | + + + + + | Respiratory Rate | 18 | 03/08/2019 12:18 PM | | | | | PST | | + + + + + | Oxygen Saturation | 97% | 03/08/2019 12:18 PM | | | | | PST [...] encounter Progress Notes Marika Sevilla RN - 03/08/2019 11:00 AM PST Vitals: 03/08/19 1033 03/08/19 1218 BP: 142/74 140/75 Pulse: 86 90 Resp: 18 18 Temp: 35.7 C (96.3 F) 35.4 C (95.7 F) TempSrc: Oral Oral SpO2: 96% 97% Administrations This Visit methylPREDNISolone sodium succinate (solu-MEDROL) 1,000 mg in sodium chloride 0.9% 250 mL IVPB Admin Date 03/08/2019 Action New Bag Dose 1000 mg Rate 266 mL/hr Route Intravenous Administered By Marika Sevilla RN Monitored throughout treatment; treatment completed without untoward effects from medicatio n noted. Next visit tomorrow. Verbalizes understanding of plan of care. VS stable. Discharge d ambulatory to home in stable condition. IV removed at pts request Electronically signed b y: Marika Sevilla RN 03/08/2019 12:43 PM eccYari gar RN - 1 05/08/2018 11:00 AM PST Vitals: 03/08/19 1033 BP: 142/74 Pulse: 86 Resp: 18 Temp: 35.7 C (96.3 F) Tammy Chino Mcduffie received into room 442, independent ambulation accompanied by friend . States here for Solumedrol infusion. Reports no change in condition, plan of care since esa ESPINO visit. Alert, oriented x 4, cooperative. Electronically signed by: Yari Patricio RN 03/08/2019 10:58 AM documented in this enc ounter Plan [...] [place] | | | | | | [address] | | | | | | | | +--------+ + + + + | 04/29/ | Appointment | Radiology | Cuong Joe, | | | 2019 | | | MD [address] | | | | | | [place] | | | | | | [address] | | | | | | | | +--------+ + + + + | 05/11/ | Office | Neurology | Reina Caraballo, | | | 2019 | Visit | | MD [address] | | | | | | [place] | | | | | | [address] | | | | | | [phone] | | | | | | | [...] | methylPREDNISolone sodium | New Bag | 03/08/20 | 1,000 mg | 266 | | | succinate (solu-MEDROL) 1,000 mg | | 19 11:12 | | mL/hr | | | in sodium chloride 0.9% 250 mL | | AM PST | | | | | IVPB 1,000 mg, Intravenous, | | | | | | | Administer over 60 Minutes, ONCE, | | | | | | | 03/08/19 at 1100, For 1 dose | | | | | | + +---------+ + +-------+------+ +---+---+ | | | +---+---+ documented in this encounter"
--- OUTSIDE RECORDS SUMMARY | ~2019-04-25 | XMS | Encounter Summary ---
Demographics + + + | Address | [address] | | | [place] [address] | + + + | Home Phone | | + + + | Preferred Language | Unknown | + + + | Marital Status | | + + + | Adventism Affiliation | Unknown | + + + | Race | Unknown | + + + | Ethnic Group | Unknown | + + + Author + + + | Author | [facility] | | | and [place]anth[place] | + + + | Organization | [facility] | | | and [place] | + + + | Address | Unknown | + + + | Phone | Unavailable | + + + Support + + + + + | Name | Relationship | Address | Phone | + + + + + | Arthur Mcduffie | ECON | [address] [facility] | | | | | [place] | | | | | [address] | | + + + + + | Uma Arellano | ECON | [address] | | | | | [place] [address] | | + + + + + Care Team Providers + +------+ + | Care Excavating Contractor Name | Role | Phone | + +------+ + | Cuong Joe MD | PCP | | + +------+ + Reason for Visit + + + | Reason | Comments | + + + | Lab Order | | + + + Encounter Details +--------+ + + + + | Date | Type | Department | Care Team | Description | +--------+ + + + + | 03/28/ | Telephone | [facility] | Darwin Sahu, | Lab Order | | 2019 | | NEUROLOGY [address] | Survey Project Manager | | | | | [place] | | | | | | [place] | | | | | | [address] | | | | | | [phone] | | | +--------+ + + + [...] | 2020 | Encounter | | MD [address] | | | | | | [place] | | | | | | [address] | | | | | | | | +--------+ + + + + | 04/29/ | Appointment | Radiology | Cuong Joe, | | | 2019 | | | MD [address] | | | | | | [place] | | | | | | [address] | | | | | | | | +--------+ + + + + | 05/11/ | Office | Neurology | Reina Caraballo, | | | 2019 | Visit | | MD [address] | | | | | | [address] [place], [place] | | | | | | [address] | | | | | | [phone] | | | | | | | | +--------+ + + + + documented as of this encounter Visit Diagnoses Not on filedocumented in this encounter"
--- OUTSIDE RECORDS SUMMARY | ~2019-04-25 | XMS | Encounter Summary ---
Demographics + + + | Address | [address] | | | [place] [address] | + + + | Home Phone | | + + + | Preferred Language | Unknown | + + + | Marital Status | | + + + | Church Affiliation | Unknown | + + + | Race | Unknown | + + + | Ethnic Group | Unknown | + + + Author + + + | Author | [facility] | | | and [place]anth[place] | + + + | Organization | [facility] | | | and [place] | + + + | Address | Unknown | + + + | Phone | Unavailable | + + + Support + + + + + | Name | Relationship | Address | Phone | + + + + + | Arthur Mcduffie | ECON | [address] [facility] | | | | | [place] | | | | | [address] | | + + + + + | Uma Arellano | ECON | [address] | | | | | [place] [address] | | + + + + + Care Team Providers + +------+ + | Care X Ray Technician Name | Role | Phone | + +------+ + | Cuong Joe MD | PCP | | + +------+ + Reason for Visit + + + | Reason | Comments | + + + | Ankle Pain | | + + + Encounter Details +--------+---------+ + + + | Date | Type | Department | Care Team | Description | +--------+---------+ + + + | 05/28/ | Office | [facility] | Cuong Joe, | Sprain of left | | 2017 | Visit | [facility] [place] | [address] | ankle, unspecified | | | | [address] | [place] | ligament, initial | | | | [place], [place] | [address] | encounter (Primary | | | | [address] | | Dx) | | | | [phone] | | | +--------+---------+ + + + [...] + + + | Blood Pressure | 102/82 | 05/28/2016 8:54 AM | | | | | PST | | + + + + + | Pulse | 62 | 05/28/2016 8:54 AM | | | | | PST | | + + + + + | Temperature | 36.8 C (98.2 F) | 05/28/2016 8:54 AM | | | | | PST | | + + + + + | Respiratory Rate | 14 | 05/28/2016 8:54 AM | | | | | PST | | + + + + + | Oxygen Saturation | 98% | 05/28/2016 8:54 AM | | | | | PST | | + + + + + | Inhaled Oxygen | - | - | | | Concentration | | | | + + + + + | Weight | 75.8 kg (167 lb 1.6 | 05/28/2016 8:54 AM | | | | oz) | PST | | + + + + + | Height | 162.6 cm (5' 4") | 05/28/2016 8:54 AM | | | | | PST | | + + + + + | Body Mass Index | 28.68 | 05/28/2016 8:54 AM | | | | | PST | | + + + + + documented in this encounter Patient Instructions Patient Instructions [place], Cuong R, MD - 05/28/2016 9:17 AM PST BP 102/82 mmHg | Pulse 62 | Temp(Src) 36.8 C (98.2 F) (Temporal) | Resp 14 | Ht 1.626 m (5' 4") | Wt 75.796 kg (167 lb 1.6 oz) | BMI 28.67 kg/m2 | SpO2 98% | LMP 04/30/2016 (Appro ximate) Rest your ankle for the next 2 weeks as much as possible. Wear a compression wrap with activity. Elevate your leg when able. Spell the ABC's with your foot three times daily. Treating Ankle Sprains Treatment will depend on how bad your sprain is. For a severe sprain, healing may take 3 mo nths or more. Right after your injury: Use R.I.C.E. Rest: At first, keep weight off the ankle as much as you can. You may be given crutches to help you walk without putting weight on the ankle. Ice: Put an ice pack on the ankle for 15 minutes. Remove the pack and wait at least 30 m inutes. Repeat for up to 3 days. This helps reduce swelling. Compression: To reduce swelling and keep the joint stable, you may need to wrap the ankl e with an elastic bandage. For more severe sprains, you may need an ankle brace or a cast. Elevation: To reduce swelling, keep your ankle raised above your heart when you sit or l ie down. Medicine [facility] providermay suggest oral non-steroidal anti-inflammatory medicine (NSAID s), such as ibuprofen. This relieves the pain and helps reduce any swelling. Be sure to take your medicine as directed. Contrast baths After 3 days, soak your ankle in warm water for 30 seconds, then in cool water for 30 secon ds. Go back and forth for 5 minutes. Doing this every 2 hours will help keep the swelling do wn. Exercises After about 2 to 3 weeks, you may be given exercises to strengthen the ligaments and muscle s in the ankle. Doing these exercises will help prevent another ankle sprain. Exercises may include standing on your toes and then on your heels and doing ankle curls. Ankle curls Sit on the edge of a sturdy table or lie on your back. Pull your toes toward you. Then point them away from you. Repeat for 2 to 3 minutes. Date Last Reviewed: 01/22/201519993709-1171 [employer]. [address] [place] [address], [place] [address]. All righ ts reserved. This information is not intended as a substitute for professional medical care. Always follow your healthcare professional's instructions. documented in this encounter Progress Notes Cuong Joe MD - 05/28/2016 9:09 AM PSTFormatting of this note might be different fr om the original. Subjective: Patient ID: Tammy Mcduffie is a 45 y.o. female here for left ankle pain. HPI She rolled her left ankle 1 month ago, inverted. She was able to walk afterwards, but pain ful. She wrapped it and rested and pain was improving. Then played volleyball 2 days ago a nd pain worsened. Pain is located laterally and posterior. Worse with standing on ball of foot. Wrapping helps. Not much swelling. No bruising. Patient's medications, allergies, past medical, surgical, social and family histories were obtained and reviewed as appropriate. Review of Systems BP 102/82 mmHg | Pulse 62 | Temp(Src) 36.8 C (98.2 F) (Temporal) | Resp 14 | Ht 1.626 m (5' 4") | Wt 75.796 kg (167 lb 1.6 oz) | BMI 28.67 kg/m2 | SpO2 98% | LMP 04/30/2016 (Appro ximate) Objective: Physical Exam Constitutional: Very pleasant, well developed, NAD Cardiovascular: Intact distal pulses. Musculoskeletal: Subtle swelling of left lateral malleolus No knee, proximal leg tenderness. No malleolar tenderness. Mild tenderness of ATF ligaments Anterior drawer intact Strength 5/5 Neurological: Sensation intact to light cox monett Assessment: Tammy was seen today for ankle pain. Diagnoses and all orders for this visit: Sprain of left ankle, unspecified ligament, initial encounter - See AVS Art Joe MD Carlita Salter LP N - 05/28/2016 8:54 AM PSTPatient is here complaining of left ankle pain x1 month. Kirby richards signed by Carlita Schmidt LPN at 05/28/2016 9:19 AM PSTdocumented in this encounter Plan of Treatment +--------+ [...] [place] | | | | | | [address] | | | | | | | | +--------+ + + + + | 04/29/ | Appointment | Radiology | Cuong Joe, | | | 2019 | | | MD [address] | | | | | | [place] | | | | | | [address] | | | | | | | | +--------+ + + + + | 05/11/ | Office | Neurology | Reina Caraballo, | | | 2019 | Visit | | MD [address] | | | | | | [place], [place] | | | | | | [address] | | | | | | [phone] | | | | | | | | +--------+ + + + + documented as of this encounter Visit Diagnoses + + | Diagnosis | + + | Sprain of left ankle, unspecified ligament, initial encounter - Primary | + + documented in this encounter
--- OUTSIDE RECORDS SUMMARY | ~2019-04-25 | XMS | Encounter Summary ---
Demographics + + + | Address | [address] | | | [place] [address] | + + + | Home Phone | | + + + | Preferred Language | Unknown | + + + | Marital Status | | + + + | Nondenominational Affiliation | Unknown | + + + | Race | Unknown | + + + | Ethnic Group | Unknown | + + + Author + + + | Author | [facility] | | | and Srikanthana | + + + | Organization | [facility] | | | and Srikanthana | + + + | Address | Unknown | + + + | Phone | Unavailable | + + + Support + + + + + | Name | Relationship | Address | Phone | + + + + + | Arthur Mcduffie | ECON | [address] [facility] | | | | | [place] | | | | | [address] | | + + + + + | Uma Arellano | ECON | [address] [facility] | | | | | [place] [address] | | + + + + + Care Team Providers + +------+ + | Care Network Systems Consultant Name | Role | Phone | [...] | Specialty | Physical | Diagnoses | [place], | | | | Services | Therapy | Sacroiliac | Cuong Corrales MD | | | | Required | | dysfunction | [address] | | | | | | | [address] | | | | | | | [place] | | | | | | | [address] | | | | | | | Phone: | | | | | | | [phone] | | | | | | | Fax: | | | | | | | [phone] | | +--------+ + + + + + Reason for Visit + + + | Reason | Comments | + + + | New Patient | | + + + Encounter Details +--------+---------+ + + + | Date | Type | Department | Care Team | Description | +--------+---------+ + + + | 11/30/ | Office | [facility] | Cuong Joe, | Sacroiliac | | 2013 | Visit | [facility] | [address] | dysfunction (Primary | | | | [address] | [place] | Dx) | | | | [place] | [address] | | | | | [address] | | | | | | [phone] | | | +--------+---------+ + + + [...] + + + | Blood Pressure | 130/84 | 11/30/2012 3:24 PM | | | | | PDT | | + + + + + | Pulse | 76 | 11/30/2012 3:24 PM | | | | | PDT | | + + + + + | Temperature | 36.7 C (98.1 F) | 11/30/2012 3:24 PM | | | | | PDT | | + + + + + | Respiratory Rate | 16 | 11/30/2012 3:24 PM | | | | | PDT | | + + + + + | Oxygen Saturation | 98% | 11/30/2012 3:24 PM | | | | | PDT | | + + + + + | Inhaled Oxygen | - | - | | | Concentration | | | | + + + + + | Weight | 77.6 kg (171 lb) | 11/30/2012 3:24 PM | | | | | PDT | | + + + + + | Height | - | - | | + + + + + | Body Mass Index | 30.29 | 02/19/2012 10:57 AM | | | | | PDT | | + + + + + documented in this encounter Patient Instructions Patient Instructions Cuong Joe MD - 11/30/2012 4:11 PM PDTBP 130/84 | Pulse 76 | T emp 36.7 C (98.1 F) (Temporal) | Resp 16 | Wt 77.565 kg (171 lb) | SpO2 98% | LMP 2012 | ? No Anatomy of the Sacroiliac Joint There are two sacroiliac (SI) joints. They are in the very low back (buttocks area). There is one joint on either side of the pelvis. The SI joints link the sacrum to the ilium. The s acrum is a triangular bone at the bottom of the spine. The ilium is part of the pelvis. The SI joints are held in place by ligaments. Ligaments are strong tissue that link bone to bone . The joints do not move very much. But they do help with mobility. They help you flex, bend to the side, and twist. They also help bear the weight of your upper body. [id number] Barb Malin, [address] [place] [address], [place] [address]. All rights reserve d. This information is not intended as a substitute for professional medical care. Always fo llow your healthcare professional's instructions. BACK CARE TIPS These are things you can do to prevent a recurrence of acute back pain and to reduce sympto ms from chronic back pain: Maintain a healthy weight. If you are overweight, losing weight will help most types of back pain. Exercise is an important part of recovery from most types of back pain. The back is supp orted by the muscles behind and in front of the spine. This means both the back muscles and the abdominal muscles must be strengthened to provide better support for your spine. Swimming and brisk walking are good overall exercises to improve your fitness level. Practice safe lifting methods (below). Practice good posture when sitting, standing and walking. Avoid prolonged sitting. This puts more stress on the lower back than standing or walking. Wear quality shoes with sufficient arch support. Foot and ankle alignment can affect beth k symptoms. Women should avoid high heels. Therapeutic massage can help relieve acute and chronic back pain. During the first two days after an acute injury or flare-up of chronic back pain, apply an ice pack to the painful area for 20 minutes every 2-4 hours. This will reduce swelling an d pain. Heat (hot shower, hot bath, or heating pad) works well for muscle spasm. You can sta rt with ice, then switch to heat after two days. Some patients feel best alternating ice and heat treatments. Use the one method that feels the best to you. You may use acetaminophen (Tylenol) or ibuprofen (Motrin, Advil) to control pain, unless another medicine was prescribed. [NOTE: If you have chronic liver or kidney disease or ever had a stomach ulcer or GI bleeding, talk with your doctor before using these medicines.] LUMBAR STRETCH Here is a simple stretching exercise that will help relax muscle spasm and keep your back m ore limber. If exercise makes your back pain worse, don t do it. Lie on your back with your knees bent and both feet on the ground. Slowly raise your left knee to your chest as you flatten your lower back against the mary or. Hold for 5 seconds. Relax and repeat the exercise with your right knee. Do 10 of these exercises for each leg. SAFE LIFTING METHOD Don t bend over at the waist to lift an object off the floor. Instead, bend your knee s and hips in a squat. Keep your back and head upright. Hold the object close to your body, directly in front of you. Straighten your legs to lift the object. Lower the object to the floor in the reverse fashion. If you must slide something across the floor, push it. POSTURE TIPS SITTING Sit in chairs with straight backs or low-back support. Keep your knees a little higher than your hips. If necessary, use a low stool to prop your feet on, so your feet are resting on a solid surface. When driving, sit up straight. Adjust the seat forward so you are not leaning toward the [employer] wheel. A small pillow or rolled towel behind your lower back may help if you are dri ving long distances. STANDING When standing for long periods, shift most of your weight to one leg at a time. Alternate l egs every few minutes. SLEEPING The best way to sleep is on your side with your knees bent. Put a low pillow under your hea d to support your neck in a neutral spine position. Avoid thick pillows that bends your neck to one side. Put a pillow between your legs to further relax your lower back. If you sleep on your back, put pillows under your knees to support your legs in a slightly flexed positio n. Use a firm mattress. If your mattress sags, replace it, or use a 1/2-inch plywood board u nder the mattress to add support. FOLLOW UP with your doctor or as directed by our staff. [NOTE: If X-rays, a CT scan or an MRI scan were taken, they will be reviewed by a radiologi st. You will be notified of any new findings that may affect your care.] RETURN PROMPTLY or contact your doctor if any of the following occur: Pain becomes worse or spreads to your arms or legs Weakness or numbness in one or both arms or legs Loss of bowel or bladder control Numbness in the groin area [id number] [facility], [address] [place] [address], [place] [address]. All rights reserve d. This information is not intended as a substitute for professional medical care. Always fo llow your healthcare professional's instructions. documented in this encounter Progress Notes Cuong Joe MD - 11/30/2012 3:52 PM PDTFormatting of this note might be different fr om the original. Subjective: Patient ID: Tammy Mcduffie is a 42 y.o. female here to establish care and joint pain. HPI She has chronic intermittent right posterior hip pain described as "uncomfortable" pain "de ep in the butt area." Occasionally it is a "zinging pain" that radiates down her right leg to her knee. Overuse tends to exacerbate the pain (such as when they were packing), also fl ared after sitting in low lawn chair for long period. Chiropracty has helped in the past. Occasionally she'll take ibuprofen and ice which alleviate the pain. Today she has no pain. No fever, saddle paresthesias, bowel/bladder dysfunction, h/o back trauma. Patient's medications, allergies, past medical, surgical, social and family histories were reviewed and updated as appropriate. Review of Systems Constitutional: Negative for fever, chills, fatigue and unexpected weight change. HENT: Negative for congestion. Eyes: Negative for visual disturbance. Respiratory: Negative for cough, chest tightness and shortness of breath. Cardiovascular: Negative for chest pain and leg swelling. Gastrointestinal: Negative for nausea, vomiting, abdominal pain, diarrhea and constipation. Genitourinary: Negative for difficulty urinating. Occasional stress incontinence for which she is working with Dr Sebastian. Musculoskeletal: Negative for myalgias. See HPI Skin: Negative for rash. Neurological: Negative for seizures and headaches. See HPI Hematological: Negative for adenopathy. Psychiatric/Behavioral: Negative for dysphoric mood. BP 130/84 | Pulse 76 | Temp 36.7 C (98.1 F) (Temporal) | Resp 16 | Wt 77.565 kg (171 lb ) | SpO2 98% | LMP 11/05/2012 | ? No Objective: Physical Exam Constitutional: She is oriented to person, place, and time. Very pleasant, well developed, NAD HENT: Head: Normocephalic and atraumatic. Right Ear: External ear normal. Left Ear: External ear normal. Mouth/Throat: Oropharynx is clear and moist. Eyes: EOM are normal. Pupils are equal, round, and reactive to light. Neck: Neck supple. No thyromegaly present. Cardiovascular: Normal rate, regular rhythm, normal heart sounds and intact distal pulses. Exam reveals no gallop and no friction rub. No murmur heard. Pulmonary/Chest: Breath sounds normal. No respiratory distress. She has no wheezes. She has no rales. Abdominal: Soft. She exhibits no distension and no mass. There is no tenderness. There is n o rebound and no guarding. Musculoskeletal: She exhibits no edema. No spinal or paraspinal tenderness. No tenderness over SI joint - though she states t hat is typically where pain starts. ROM Full Hip flexion Hip IR: 25 degrees on right 35 degrees on left (nl 35 degrees) Hip ER: 45 degrees (nl 45 degrees) Strength Hip flexion, knee flex/ext, ankle flex/ext, great toe up/down 5/5 symmetric Lymphadenopathy: She has no cervical adenopathy. Neurological: She is alert and oriented to person, place, and time. No cranial nerve defici t. Patella and Achilles 2+ symmetric Neg straight leg raise Psychiatric: She has a normal mood and affect. Her behavior is normal. Thought content norm al. Assessment: Tammy was seen today for new patient. Diagnoses and associated orders for this visit: Sacroiliac dysfunction: Suspect her intermittent right low back pain is due to SI dysfunct ion. Less likely lumbar radiculopathy. She does have mild spondylosis seen on plain films ordered by chiropractor. - Educated on SI joint pain and red flags of back pain - Handout on stretches and exercises from [facility] reviewed. - Ambulatory referral to Physical Therapy Art Joe MD Annette Arnold - 09/2012 3:30 PM PDTPatient is ere today to establish care. Patient would like to discuss pawel int pain. documented in this encounter Plan of Treatment +--------+ + + + + | Date | Type | Specialty | Care Team | Description | +--------+ + + + + | 04/29/ | Hospital | Radiology | Cuong Joe, | | 2019 | Encounter | | MD [address]ina [address] | | | | | | [place] | | | | | | [phone] | | | | | | | | +--------+ + + + + | 04/29/ | Appointment | Radiology | Cuong Joe, | | | 2019 | | | MD [address] | | | | | | [place] | | | | | | [phone] | | | | | | | | +--------+ + + + + | 05/11/ | Office | Neurology | Reina Caraballo, | | 2019 | Visit | | MD Arnel [address] | | | | | | [place] | | | | | | [address] | | | | | | [phone] | | | | | | | | +--------+ + + + + + + +--------+ + + | Name | Type | Priori | Associated Diagnoses | Order Schedule | | | | ty | | | + + +--------+ + + | Ambulatory referral | Outpatient | Routin | Sacroiliac | Ordered: 11/30/2012 | | to Physical Therapy | Referral | e | dysfunction | | + + +--------+ + + documented as of this encounter Visit Diagnoses + + | Diagnosis | + + | Sacroiliac dysfunction - Primary Disorders of sacrum | + + documented in this encounter
--- OUTSIDE RECORDS SUMMARY | ~2019-04-25 | XMS | Encounter Summary ---
Demographics + + + | Address | [address] | | | [place] [address] | + + + | Home Phone | | + + + | Preferred Language | Unknown | + + + | Marital Status | | + + + | Restorationism Affiliation | Unknown | + + + | Race | Unknown | + + + | Ethnic Group | Unknown | + + + Author + + + | Author | [facility] | | | and [facility] | + + + | Organization | [facility] | | | and [facility] | + + + | Address | Unknown | + + + | Phone | Unavailable | + + + Support + + + + + | Name | Relationship | Address | Phone | + + + + + | Arthur Mcduffie | ECON | [address] | | | | | [place] | | | | | [address] | | + + + + + | Uma Arellano | ECON | [address] [facility] | | | | | [place] [address] | | + + + + + Care Team Providers + +------+ + | Care C2 Tactical Analysis Technician Name | Role | Phone | + +------+ + | Cuong Joe MD | PCP | | + +------+ + Reason for Referral Evaluate & Treat (Emergency) + + + [...] MARIUSZ VEE, | | | | | [place] | [address] | [place] [address] | | | | | [place] | [place], [place] | Phone: | | | | | [place] | [address] | [phone] | | | | | INJECTION, | Phone: | Fax: | | | | | [address] | [phone] | [phone] | | | | | INJECTION,TH | Fax: | | | | | | ERAP/PROPH/D | [phone] | | | | | | JACOB PENA | | | | | | | OR SUBCUT | | | + + + + + + + Reason for Visit + + + | Reason | Comments | + + + | Eye Pain | | + + + Encounter Details +--------+ + + + + | Date | Type | Department | Care Team | Description | +--------+ + + + + | 03/07/ | Emergency | [facility] | Oneil Rosas | Optic neuritis, | | 2019 | | [facility] | Fredrick Tan MD | right (Primary Dx) | | | | CENTER [address] | [address] | | | | | [place] | [place] | | | | | [address] | [phone] | | | | | [phone] | | | +--------+ + + + [...] + + + | Blood Pressure | 126/73 | 03/07/2019 9:44 PM | | | | | PST | | + + + + + | Pulse | 67 | 03/07/2019 9:44 PM | | | | | PST | | + + + + + | Temperature | 36.7 C (98 F) | 03/07/2019 7:25 PM | | | | | PST | | + + + + + | Respiratory Rate | 20 | 03/07/2019 7:55 PM | | | | | PST | | + + + + + | Oxygen Saturation | 97% | 03/07/2019 9:44 PM | | | | | PST | | + + + + + | Inhaled Oxygen | - | - | | | Concentration | | | | + + + + + | Weight | 77.1 kg (170 lb) | 03/07/2019 7:25 PM | | | | | PST | | + + + + + | Height | 162.6 cm (5' 4") | 03/07/2019 7:25 PM | | | | | PST | | + + + + + | Body Mass Index | 29.18 | 03/07/2019 7:25 PM | | | | | PST | | + + + + + documented in this encounter Discharge Instructions Instructions Oneil Rosas MD - 03/07/2019Please follow-up with Dr. Joe for further care. Return for severe worsening symptoms. documented in this encounter Medications at Time [...] [place] | | | | | | [address] | | | | | | | | +--------+ + + + + | 04/29/ | Appointment | Radiology | Cuong Joe, | | | 2019 | | | MD [address] | | | | | | [place] | | | | | | [address] | | | | | | | | +--------+ + + + + | 05/11/ | Office | Neurology | Reina Caraballo, | | | 2020 | Visit | | [address] | | | | | | [address] [place], [place] | | | | | | [address] | | | | | | [phone] | | | | | | | | +--------+ + + + + + + +--------+ + + | Name | Type | Priori | Associated Diagnoses | Order Schedule | | | | ty | | | + + +--------+ + + | [facility] | Outpatient | STAT | Optic neuritis, | Ordered: 03/07/2019 | | Services | Referral | | right | | + + +--------+ + + documented as of this encounter Procedures + +--------+ + + + | Procedure Name | Priori | Date/Time | Associated Diagnosis | Comments | | | ty | | | | + +--------+ + + + | NEUROMYELITIS OPTICA | Routin | 03/07/2019 | | Results for this | | AB | e | 10:44 PM | | procedure are in the | | | | PST | | results section. | + +--------+ + + + | CBC WITH | STAT | 03/07/2019 | | Results for this | | DIFFERENTIAL | | 10:44 PM | | procedure are in the | | | | PST | | results section. | + +--------+ + + + | ALBUMIN | Add-On | 03/07/2019 | | Results for this | | | | 10:44 PM | | procedure are in the | | | | PST | | results section. | + +--------+ + + + | COMPREHENSIVE | STAT | 03/07/2019 | | Results for this | | METABOLIC PANEL | | 10:44 PM | | procedure are in the | | | | PST | | results section. | + +--------+ + + + | MRI BRAIN AND ORBITS | STAT | 03/07/2019 | | Results for this | | W AND WO CONTRAST | | 9:01 PM | | procedure are in the | | | | PST | | results section. | + +--------+ + + + documented in this encounter Results Albumin (03/07/2019 10:44 PM PST) + +-------+ + + + | Component | Value | Ref Range | Performed | Pathologist | | | | | At | Signature | + +-------+ + + + | Albumin | 4.2 | 3.2 - 4.8 g/dL | [facility] | | | | | | [facility] | | [facility] | [facility]ICAL | | | | | | CENTER - | | | | | | LABORATORY | | + +-------+ + + + + + | Specimen | + + | Blood | + + + + + + + | Performing | Address | City/State/Zipcode | Phone Number | | Organization | | | | + + + + + | [facility] | [address] | [place] | [phone] | | [facility] | | [address] | | | - LABORATORY | | | | + + + + + Neuromyelitis Optica Ab (03/07/2019 10:44 PM PST) + + + + + + | Component | Value | Ref Range | Performed | Pathologist | | | | | At | Signature | + + + + + + | NMO-IGG | <1.5Comment: | 0.0 - 3.0 U/mL | REFERENCE | | | | | | LAB [facility] | | | | Negative: | | - BKR | | | | 0.0 - 3.0 | | | | | | | | | | | | Positive: | | | | | | >3.0 | | | | + + + + + + + + | Specimen | + + | Blood | + + + + + | Narrative | Performed At | + + + | Performed at: 01 - [facility] [address] [facility], | REFERENCE LAB | | [place], [place] [id number] Parts Person: Zach Patterson MD, Phone: | [facility] | | [phone] | | + + + + + + + + | Performing | Address | City/State/Zipcode | Phone Number | | Organization | | | | + + + + + | REFERENCE LAB | [address] | [place] [address] | [phone] | | [facility] | [address] | | | + + + + + Comprehensive Metabolic Panel (03/07/2019 10:44 PM PST) + + + + + + | Component | Value | Ref Range | Performed | Pathologist | | | | | At | Signature | + + + + + + | Na | 141 | 136 - 145 | [facility] | | | | | mmol/L | [facility] | | | | | | MEDICAL | | | | | | CENTER - | | | | | | LABORATORY | | + + + + + + | K | 3.6 | 3.4 - 5.1 | [facility] | | | | | mmol/L | [facility] | | | | | | MEDICAL | | | | | | CENTER - | | | | | | LABORATORY | | + + + + + + | Cl | 108 (H) | 98 - 107 mmol/L | [facility] | | | | | | [facility] | | | | | | MEDICAL | | | | | | CENTER - | | | | | | LABORATORY | | + + + + + + | CO2 | 26 | 20 - 31 mmol/L | [facility] | | | | | | [facility] | | | | | | MEDICAL | | | | | | CENTER - | | | | | | LABORATORY | | + + + + + + | Anion Gap | 7 | 3 - 16 mmol/L | [facility] | | | | | | [facility] | | | | | | MEDICAL | | | | | | CENTER - | | | | | | LABORATORY | | + + + + + + | Glucose | 90 | 60 - 106 mg/dL | [facility] | | | | | | [facility] | | | | | | [facility] | | | | | | CENTER - | | | | | | LABORATORY | | + + + + + + | BUN | 9 | 9 - 23 mg/dL | [facility] | | | | | | [facility] | | | | | | MEDICAL | | | | | | CENTER - | | | | | | LABORATORY | | + + + + + + | Creatinine | 0.71 | 0.55 - 1.02 | [facility] | | | | | mg/dL | [facility] | | | | | | MEDICAL | | | | | | CENTER - | | | | | | LABORATORY | | + + + + + + | eGFR if not | >60Comment: GLOMERULAR | >=60 | [facility] | | | | FILTRATION | mL/min/1.73m2 | [facility] | | | [facility]WAN[facility] | RATE,ESTIMATED | | MEDICAL | | | | mL/min/1.83k1Bxso than | | CENTER - | | [...] + + + + | Calcium | 8.7 | 8.7 - 10.4 | [facility] | | | | | mg/dL | [facility] | | | | | | MEDICAL | | | | | | CENTER - | | | | | | LABORATORY | | + + + + + + | Albumin | 4.1 | 3.2 - 4.8 g/dL | [facility] | | | | | | [facility] | | | | | | [facility] | | | | | | CENTER - | | | | | | LABORATORY | | + + + + + + | Bilirubin | 0.7 | 0.3 - 1.2 mg/dL | [facility] | | | Total | | | [facility] | | | | | | MEDICAL | | | | | | CENTER - | | | | | | LABORATORY | | + + + + + + | Total | 6.5 | 5.7 - 8.2 g/dL | [facility] | | | Protein | | | [facility] | | | | | | MEDICAL | | | | | | CENTER - | | | | | | LABORATORY | | + + + + + + | AST | 16 | 0 - 34 U/L | [facility] | | | | | | [facility] | | | | | | MEDICAL | | | | | | CENTER - | | | | | | LABORATORY | | + + + + + + | ALT | 16 | 10 - 49 U/L | [facility] | | | | | | [facility] | | | | | | MEDICAL | | | | | | CENTER - | | | | | | LABORATORY | | + + + + + + | Alkaline | 57 | 46 - 116 U/L | [facility] | | | Phosphatase | | | [facility] | | | | | | MEDICAL | | | | | | CENTER - | | | | | | LABORATORY | | + + + + + + | Globulin | 2.4 | 2.1 - 3.8 g/dL | [facility] | | | | | | [facility] | | | | | | MEDICAL | | | | | | CENTER - | | | | | | LABORATORY | | + + + + + + | Albumin/Preethi | 1.7 | 0.8 - 1.9 | [facility] | | | bulin Ratio | | | [facility] | | | | | | MEDICAL | | | | | | CENTER - | | | | | | LABORATORY | | + + + + + + | BUN/Creatin | 12.7 | | [facility] | | | ine Ratio | | | [facility] | | [...] [address] | [place] | [phone] | | [facility] | | [address] | | | - LABORATORY | | | | + + + + + CBC with Differential (03/07/2019 10:44 PM PST) + +-------+ + + + | Component | Value | Ref Range | Performed | Pathologist | | | | | At | Signature | + +-------+ + + + | WBC | 7.8 | 4.0 - 11.0 K/uL | [facility] | | | | | | [facility] | | | | | | MEDICAL | | | | | | CENTER - | | | | | | LABORATORY | | + +-------+ + + + | RBC | 4.47 | 3.70 - 5.20 | [facility] | | | | | M/uL | [facility] | | | | | | MEDICAL | | | | | | CENTER - | | | | | | LABORATORY | | + +-------+ + + + | Hemoglobin | 13.0 | 11.5 - 16.0 | [facility] | | | | | g/dL | [facility] | | | | | | MEDICAL | | | | | | CENTER - | | | | | | LABORATORY | | + +-------+ + + + | Hematocrit | 39.5 | 34.0 - 47.0 % | [facility] | | | | | | [facility] | | | | | | MEDICAL | | | | | | CENTER - | | | | | | LABORATORY | | + +-------+ + + + | MCV | 88.4 | 83.0 - 101.0 fL | [facility] | | | | | | [facility] | | | | | | MEDICAL | | | | | | CENTER - | | | | | | LABORATORY | | + +-------+ + + + | MCH | 29.1 | 28.0 - 35.0 pg | [facility] | | | | | | [facility] | | | | | | MEDICAL | | | | | | CENTER - | | | | | | LABORATORY | | + +-------+ + + + | MCHC | 32.9 | 32.0 - 36.0 | [facility] | | | | | g/dL | [facility] | | | | | | MEDICAL | | | | | | CENTER - | | | | | | LABORATORY | | + +-------+ + + + | RDW-CV | 13.0 | <15.0 % | [facility] | | | | | | [facility] | | | | | | MEDICAL | | | | | | CENTER - | | | | | | LABORATORY | | + +-------+ + + + | RDW-SD | 42.5 | 35.1 - 46.3 fL | [facility] | | | | | | [facility] | | | | | | MEDICAL | | | | | | CENTER - | | | | | | LABORATORY | | + +-------+ + + + | Platelet | 243 | 140 - 440 K/uL | [facility] | | | Count | | | [facility] | | | | | | MEDICAL | | | | | | CENTER - | | | | | | LABORATORY | | + +-------+ + + + | MPV | 10.4 | 6.5 - 12.4 fL | [facility] | | | | | | [facility] | | | | | | MEDICAL | | | | | | CENTER - | | | | | | LABORATORY | | + +-------+ + + + | % | 53.8 | 45.0 - 82.0 % | [facility] | | | Neutrophils | | | [facility] | | | | | | MEDICAL | | | | | | CENTER - | | | | | | LABORATORY | | + +-------+ + + + | % | 36.3 | 20.0 - 45.0 % | [facility] | | | Lymphocytes | | | [facility] | | | | | | MEDICAL | | | | | | CENTER - | | | | | | LABORATORY | | + +-------+ + + + | % Monocytes | 6.5 | 4.0 - 12.0 % | [facility] | | | | | | [facility] | | | | | | MEDICAL | | | | | | CENTER - | | | | | | LABORATORY | | + +-------+ + + + | % | 2.3 | 0.0 - 5.0 % | [facility] | | | Eosinophils | | | [facility] | | | | | | MEDICAL | | | | | | CENTER - | | | | | | LABORATORY | | + +-------+ + + + | % Basophils | 0.8 | 0.0 - 1.0 % | [facility] | | | | | | [facility] | | | | | | MEDICAL | | | | | | CENTER - | | | | | | LABORATORY | | + +-------+ + + + | % Immature | 0.3 | 0.0 - 0.4 % | [facility] | | | Granulocyte | | | [facility] | | | s | | | MEDICAL | | | | | | CENTER - | | | | | | LABORATORY | | + +-------+ + + + | Absolute | 4.20 | 1.80 - 8.50 | [facility] | | | Neutrophils | | K/uL | [facility] | | | | | | MEDICAL | | | | | | CENTER - | | | | | | LABORATORY | | + +-------+ + + + | Absolute | 2.83 | 0.60 - 3.20 | [facility] | | | Lymphocytes | | K/uL | [facility] | | | | | | MEDICAL | | | | | | CENTER - | | | | | | LABORATORY | | + +-------+ + + + | Absolute | 0.51 | 0.00 - 1.00 | [facility] | | | Monocytes | | K/uL | [facility] | | | | | | MEDICAL | | | | | | CENTER - | | | | | | LABORATORY | | + +-------+ + + + | Absolute | 0.18 | 0.00 - 0.40 | [facility] | | | Eosinophils | | K/uL | [facility] | | | | | | MEDICAL | | | | | | CENTER - | | | | | | LABORATORY | | + +-------+ + + + | Absolute | 0.06 | 0.00 - 0.10 | [facility] | | | Basophils | | K/uL | [facility] | | | | | | MEDICAL | | | | | | CENTER - | | | | | | LABORATORY | | + +-------+ + + + | Absolute | 0.02 | 0.00 - 0.03 | [facility] | | | Immature | | K/uL | [facility] | | | Granulocyte | | | MEDICAL | | | s | | | CENTER - | | | | | | LABORATORY | | + +-------+ + + + | % nRBC | 0 | 0 - 2 per 100 | [facility] | | | | | WBCs | [facility] | | | | | | MEDICAL | | | | | | CENTER - | | | | | | LABORATORY | | + +-------+ + + + | Absolute | 0.00 | 0.00 - 0.01 | [facility] | | | nRBC | | K/uL | [facility] | | | | | | MEDICAL | | | | | | CENTER - | | | | | | LABORATORY | | + +-------+ + + + + + | Specimen | + + | Blood | + + + + + + + | Performing | Address | City/State/Zipcode | Phone Number | | Organization | | | | + + + + + | [facility] | [address] | [place] | [phone] | | [facility] | | [address] | | | - LABORATORY | | | | + + + + + MRI Brain and Orbits w and wo Contrast (03/07/2019 9:01 PM PST) + + | Specimen | + + | | + + + + + | Impressions | Performed At | + + + | Findings are consistent with right optic neuritis. The | [facility] | | constellation of findings is very suspicious for a demyelinating | | | disorder. Dictated and Signed by: Nasim Edward MD | | | Electronically signed: 03/07/2019 9:41 PM | | + + + + + + | Narrative | Performed At | + + + | EXAM: MRI BRAIN AND ORBITS W AND WO CONTRAST dated 03/07/2019 7:46 | [facility] | | PM HISTORY: optic neuritis COMPARISON: None TECHNIQUE: | | | Multiplanar, multisequence imaging of the brain was performed in the | | | 3 T MR scanner prior to and following the uneventful intravenous | | | administration of 7.5 cc of Gadavist contrast. Dedicated orbital | | | imaging is performed. FINDINGS: Orbits: The globes and | | | retrobulbar are structures are symmetric. No extra-axial muscle | | | enlargement. No infiltration of the retrobulbar fat. There is an | | | area of slightly asymmetric altered signal in the right optic nerve. | | | This is associated with enhancement. Both optic nerves have a | | | somewhat undulating course. Other: There are no areas of | | | susceptibility weighted artifact to suggest abnormal hemosiderin | | | deposition or mineralization. No areas of restricted diffusion to | | | suggest acute or subacute ischemia. There are multifocal areas of | | | periventricular and subcortical white matter T2 and FLAIR | | | hyperintensity bilaterally. No cerebral or cerebellar atrophy. | | | There is no mass, mass effect, or midline shift. There are no | | | abnormal extra-axial fluid collections. The ventricles are normal | | | in size and configuration. The major intracranial flow voids are | | | visualized. There is a small focus of enhancement in the right | | | frontal lobe. The mastoid air cells are clear. There is mucosal | | | thickening in the maxillary sinuses. The posterior nasopharyngeal | | | and oropharyngeal soft tissues are unremarkable. The scalp and | | | skull are intact and are unremarkable. | | + + + + + | Procedure Note | + + | Howard, Rad Results In - 03/07/2019 9:44 PM PST EXAM: MRI BRAIN AND ORBITS W AND WO | | CONTRAST dated 03/07/2019 7:46 PMHISTORY: optic neuritisCOMPARISON: NoneTECHNIQUE: | | Multiplanar, multisequence imaging of the brain was performed in the3 T MR scanner prior | | to and following the uneventful intravenous administrationof 7.5 cc of Gadavist | | contrast. Dedicated orbital imaging is performed.FINDINGS: Orbits:The globes and | | retrobulbar are structures are symmetric. No extra-axial muscleenlargement. No | | infiltration of the retrobulbar fat. There is an area ofslightly asymmetric altered | | signal in the right optic nerve. This is associatedwith enhancement. Both optic nerves | | have a somewhat undulating course.Other:There are no areas of susceptibility weighted | | artifact to suggest abnormalhemosiderin deposition or mineralization. No areas of | | restricted diffusion tosuggest acute or subacute ischemia.There are multifocal areas of | | periventricular and subcortical white matter T2and FLAIR hyperintensity bilaterally. No | | cerebral or cerebellar atrophy. Thereis no mass, mass effect, or midline shift. There | | are no abnormal extra-axialfluid collections. The ventricles are normal in size and | | configuration. Themajor intracranial flow voids are visualized. There is a small focus | | ofenhancement in the right frontal lobe.The mastoid air cells are clear. There is | | mucosal thickening in the maxillarysinuses. The posterior nasopharyngeal and | | oropharyngeal soft tissues areunremarkable. The scalp and skull are intact and are | | unremarkable. IMPRESSION: Findings are consistent with right optic neuritis.The | | constellation of findings is very suspicious for a demyelinating disorder.Dictated and | | Signed by: Nasim Edward MD Electronically signed: 03/07/2019 9:41 PM | |There are no areas of susceptibility weighted artifact to suggest abnormal | |hemosiderin deposition or mineralization. No areas of restricted diffusion to | |suggest acute or subacute ischemia. | | | |There are multifocal areas of periventricular and subcortical white matter T2 | |and FLAIR hyperintensity bilaterally. No cerebral or cerebellar atrophy. There | |is no mass, mass effect, or midline shift. There are no abnormal extra-axial | |fluid collections. The ventricles are normal in size and configuration. The | |major intracranial flow voids are visualized. There is a small focus of | |enhancement in the right frontal lobe. | | | |The mastoid air cells are clear. There is mucosal thickening in the maxillary | |sinuses. The posterior nasopharyngeal and oropharyngeal soft tissues are | |unremarkable. The scalp and skull are intact and are unremarkable. | | | |IMPRESSION: | | | |Findings are consistent with right optic neuritis. | | | |The constellation of findings is very suspicious for a demyelinating disorder. | | | | | |Dictated and Signed by: Nasim Edward MD | | Electronically signed: 03/07/2019 9:41 PM | + + + +---------+ + + | Performing | Address | City/State/Zipcode | Phone Number | | Organization | | | | + +---------+ + + | [facility] | | | | + +---------+ + + documented in this encounter Visit Diagnoses + + | Diagnosis | + + | Optic neuritis, right - Primary Optic neuritis, unspecified | + + documented in this encounter Administered Medications + +--------+ +---------+------+------+ | Medication Order | MAR | Action | Dose | Rate | Site | | | Action | Date | | | | + +--------+ +---------+------+------+ | gadobutrol (GADAVIST) injection | Given | 03/07/20 | 7.5 mLs | | | | 7.5 mL 7.5 mL, Intravenous, | | 19 9:02 | | | | | ONCE PRN, Other, Starting Mon | | PM PST | | | | | 03/07/19 at 2102, For 1 dose, MRI | | | | | | + +--------+ +---------+------+------+ +---+---+ | | | +---+---+ + +---------+ + +-------+---+ | methylPREDNISolone sodium | New Bag | 03/07/20 | 1,000 mg | 116 | | | succinate (solu-MEDROL) 1,000 mg | | 19 10:48 | | mL/hr | | | in sodium chloride 0.9% 100 mL | | PM PST | | | | | IVPB 1,000 mg, Intravenous, | | | | | | | Administer over 60 Minutes, ONCE, | | | | | | | 03/07/19 at 2220, For 1 dose | | | | | | + +---------+ + +-------+---+ +---+---+ | | | +---+---+ documented in this encounter
--- OUTSIDE RECORDS SUMMARY | ~2019-04-25 | XMS | Encounter Summary ---
Demographics + + + | Address | [address] | | | [place] [address] | + + + | Home Phone | | + + + | Preferred Language | Unknown | + + + | Marital Status | Unknown | + + + | Scientology Affiliation | Unknown | + + + | Race | Unknown | + + + | Ethnic Group | Unknown | + + + Author + + + | Author | [facility] | + + + | Organization | [facility] | + + + | Address | Unknown | + + + | Phone | Unavailable | + + + Care Team Providers + +------+ + | Care Bookkeeping Machine Mechanic Name | Role | Phone | + +------+ + PCP | Unavailable | + +------+ + Encounter Details +--------+--------+ + + + | Date | Type | Department | Care Team | Description | +--------+--------+ + + + | 03/07/ | Intake | Transfer Center | | N/A | | 2019 | | [address] | | | | | | [place], | | | | | | [place] [address] | | | +--------+--------+ + + + Social History + +-------+ [...]
--- OUTSIDE RECORDS SUMMARY | ~2019-04-25 | XMS | Encounter Summary ---
Demographics + + + | Address | [address] | | | [place] [address] | + + + | Home Phone | | + + + | Preferred Language | Unknown | + + + | Marital Status | | + + + | Jew Affiliation | Unknown | + + + | Race | Unknown | + + + | Ethnic Group | Unknown | + + + Author + + + | Author | [facility] | | | and Srikanthana | + + + | Organization | [facility] | | | and Srikanthana | + + + | Address | Unknown | + + + | Phone | Unavailable | + + + Support + + + + + | Name | Relationship | Address | Phone | + + + + + | Arthur Mcduffie | ECON | [address] [address] | | | | | [place] | | | | | [address] | | + + + + + | Uma Arellano | ECON | [address] [facility] | | | | | [place] [address] | | + + + + + Care Team Providers + +------+ + | Care Blanket Washer Name | Role | Phone | + +------+ + | Cuong Joe MD | PCP | | + +------+ + Encounter Details +--------+ + + + + | Date | Type | Department | Care Team | Description | +--------+ + + + + | 02/26/ | Abstract | [facility] | Cuong Joe, | | | 2017 | | [facility] | [address] | | | | | [address] | [place] | | | | | [place] | [address] | | | | | [address] | | | | | | [phone] | | | +--------+ + + + [...] [place] | | | | | | [id number] | | | | | | | | +--------+ + + + + | 04/29/ | Appointment | Radiology | Cuong Joe, | | 2019 | | | [address] | | | | | | [place], [place] | | | | | | [address] | | | | | | | | +--------+ + + + + | 05/11/ | Office | Neurology | Reina Caraballo, | | | 2019 | Visit | | [address] | | | | | | [place], [place] | | | | | | [address] | | | | | | [phone] | | | | | | | | +--------+ + + + + documented as of this encounter Procedures + +--------+ + + + | Procedure Name | Priori | Date/Time | Associated Diagnosis | Comments | | | ty | | | | + +--------+ + + + | EXTERNAL LAB: TSH | Routin | 02/25/2018 | | Results for this | | | e | | | procedure are in the | | | | | | results section. | + +--------+ + + + | EXTERNAL LAB: | Routin | 02/25/2018 | | Results for this | | CHOLESTEROL, NON HDL | e | | | procedure are in the | | LP | | | | results section. | + +--------+ + + + | EXTERNAL LAB: | Routin | 02/25/2018 | | Results for this | | TRIGLYCERIDES | e | | | procedure are in the | | | | | | results section. | + +--------+ + + + | EXTERNAL LAB: | Routin | 02/25/2018 | | Results for this | | CHOLESTEROL, HDL | e | | | procedure are in the | | | | | | results section. | + +--------+ + + + | EXTERNAL LAB: | Routin | 02/25/2018 | | Results for this | | CHOLESTEROL, TOTAL | e | | | procedure are in the | | | | | | results section. | + +--------+ + + + | EXTERNAL LAB: | Routin | 02/25/2018 | | Results for this | | CHOLESTEROL, LDL | e | | | procedure are in the | | DIRECT | | | | results section. | + +--------+ + + + | EXTERNAL LAB: | Routin | 02/25/2018 | | Results for this | | CHOLESTEROL, LDL | e | | | procedure are in the | | | | | | results section. | + +--------+ + + + documented in this encounter Results External Lab: TSH (02/25/2018) + +-------+ + + + | Component | Value | Ref Range | Performed | Pathologist | | | | | At | Signature | + +-------+ + + + | TSH, | 3.94 | | | | | External | | | | | + +-------+ + + + + + | Specimen | + + | Blood | + + External Lab: Cholesterol, Non HDL LP (02/25/2018) + +-------+ + + + | Component | Value | Ref Range | Performed | Pathologist | | | | | At | Signature | + +-------+ + + + | Cholesterol | 113 | | REFERENCE | | | , Total, | | | LAB | | | Non HDL-C | | | [facility] | | | (LDL+VLDL), | | | | | | External | | | | | + +-------+ + + + + + | Specimen | + + | Blood | + + + + + + + | Performing | Address | City/State/Zipcode | Phone Number | | Organization | | | | + + + + + | REFERENCE LAB | [address] [facility] | [place] [address] | [phone] | | [facility] | | | | + + + + + | REFERENCE LAB | [address] [facility] | [place] [address] | [phone] | | [facility] | | | | + + + + + External Lab: Triglycerides (02/25/2018) + +-------+ + + + | Component | Value | Ref Range | Performed | Pathologist | | | | | At | Signature | + +-------+ + + + | Triglycerid | 79 | | REFERENCE | | | es, | | | LAB | | | External | | | [facility] | | + +-------+ + + + + + | Specimen | + + | Blood | + + + + + + + | Performing | Address | City/State/Zipcode | Phone Number | | Organization | | | | + + + + + | REFERENCE LAB | [address] | [place] [address] | [phone] | | [facility] | | | | + + + + + | REFERENCE LAB | [address] | [place] [address] | [phone] | | [facility] | | | | + + + + + External Lab: Cholesterol, HDL (02/25/2018) + +-------+ + + + | Component | Value | Ref Range | Performed | Pathologist | | | | | At | Signature | + +-------+ + + + | HDL | 44.6 | mg/dl | REFERENCE | | | Cholesterol | | | LAB | | | , External | | | [facility] | | + +-------+ + + + + + | Specimen | + + | Blood | + + + + + + + | Performing | Address | City/State/Zipcode | Phone Number | | Organization | | | | + + + + + | REFERENCE LAB | [facility] | [place] [address] | [phone] | | [facility] | | | | + + + + + | REFERENCE LAB | [address] | [place] [address] | [phone] | | [facility] | | | | + + + + + External Lab: Cholesterol, Total (02/25/2018) + +-------+ + + + | Component | Value | Ref Range | Performed | Pathologist | | | | | At | Signature | + +-------+ + + + | Cholesterol | 158 | mg/dl | REFERENCE | | | , Total, | | | LAB | | | External | | | [facility] | | + +-------+ + + + + + | Specimen | + + | Blood | + + + + + + + | Performing | Address | City/State/Zipcode | Phone Number | | Organization | | | | + + + + + | REFERENCE LAB | [address] | [place] [address] | [phone] | | [facility] | | | | + + + + + | REFERENCE LAB | [address] | [place] [address] | [phone] | | [facility] | | | | + + + + + External Lab: Cholesterol, LDL Direct (02/25/2018) + +-------+ + + + | Component | Value | Ref Range | Performed | Pathologist | | | | | At | Signature | + +-------+ + + + | LDL | 16 | | REFERENCE | | | Cholesterol | | | LAB | | | , Direct, | | | [facility] | | | External | | | | | + +-------+ + + + + + | Specimen | + + | Blood | + + + + + + + | Performing | Address | City/State/Zipcode | Phone Number | | Organization | | | | + + + + + | REFERENCE LAB | [address] [facility] | [place] [address] | [phone] | | [facility] | | | | + + + + + | REFERENCE LAB | [address] [facility] | [place] [address] | [phone] | | [facility] | | | | + + + + + External Lab: Cholesterol, LDL (02/25/2018) + +-------+ + + + | Component | Value | Ref Range | Performed | Pathologist | | | | | At | Signature | + +-------+ + + + | LDL | 98 | | REFERENCE | | | Cholesterol | | | LAB | | | , Direct, | | | [facility] | | | External | | | | | + +-------+ + + + + + | Specimen | + + | Blood | + + + + + + + | Performing | Address | City/State/Zipcode | Phone Number | | Organization | | | | + + + + + | REFERENCE LAB | [address] [facility] | [place] [address] | [phone] | | [facility] | | | | + + + + + | REFERENCE LAB | [address] [facility] | [place] [address] | [phone] | | [facility] | | | | + + + + + documented in this encounter Visit Diagnoses Not on filedocumented in this encounter"
--- OUTSIDE RECORDS SUMMARY | ~2019-04-25 | XMS | Encounter Summary ---
Demographics + + + | Address | [address] | | | [place] [address] | + + + | Home Phone | | + + + | Preferred Language | Unknown | + + + | Marital Status | | + + + | Hinduism Affiliation | Unknown | + + + | Race | Unknown | + + + | Ethnic Group | Unknown | + + + Author + + + | Author | [facility] | | | and Srikanthana | + + + | Organization | [facility] | | | and Srikanthana | + + + | Address | Unknown | + + + | Phone | Unavailable | + + + Support + + + + + | Name | Relationship | Address | Phone | + + + + + | Arthur Mcduffie | ECON | [address] | | | | | [place] | | | | | [address] | | + + + + + | Uma Arellano | ECON | [address] [facility] | | | | | [place] [address] | | + + + + + Care Team Providers + +------+ + | Care Sales Service Technician Name | Role | Phone | + +------+ + PCP | Unavailable | + +------+ + Encounter Details +--------+ + + + + | Date | Type | Department | Care Team | Description | +--------+ + + + + | 03/11/ | Hospital | [facility] | Александр Sebastian, | | | 1996 - | Encounter | [facility] | [address] | | | | | [facility] [address] | [place] | | | 03/12/ | | [address], | [place] [address] | | | 1996 | | [place] [address] | [phone] | | | | | [phone] | | | +--------+ + + + [...] [place] | | | | | | [address] | | | | | | | | +--------+ + + + + | 04/29/ | Appointment | Radiology | Cuong Joe, | | | 2019 | | | MD [address] | | | | | | [place] | | | | | | [address] | | | | | | | | +--------+ + + + + | 05/11/ | Office | Neurology | Reina Caraballo, | | | 2019 | Visit | | MD [address] | | | | | | [place], [place] | | | | | | [address] | | | | | | [phone] | | | | | | | | +--------+ + + + + documented as of this encounter Visit Diagnoses Not on filedocumented in this encounter"
--- OUTSIDE RECORDS SUMMARY | ~2019-04-25 | XMS | Encounter Summary ---
Demographics + + + | Address | [address] | | | [place] [address] | + + + | Home Phone | | + + + | Preferred Language | Unknown | + + + | Marital Status | | + + + | Alevism Affiliation | Unknown | + + + | Race | Unknown | + + + | Ethnic Group | Unknown | + + + Author + + + | Author | [facility] | | | and Srikanthana | + + + | Organization | [facility] | | | and Srikanthana | + + + | Address | Unknown | + + + | Phone | Unavailable | + + + Support + + + + + | Name | Relationship | Address | Phone | + + + + + | Arthur Mcduffie | ECON | [address] | | | | | [place] | | | | | [address] | | + + + + + | Uma Arellano | ECON | [address] [facility] | | | | | [place] [address] | | + + + + + Care Team Providers + +------+ + | Care Telephone Service Adviser Name | Role | Phone | + +------+ + | Cuong Joe MD | PCP | | + +------+ + Reason for Visit + + + | Reason | Comments | + + + | Medication Refill | | + + + Encounter Details +--------+--------+ + + + | Date | Type | Department | Care Team | Description | +--------+--------+ + + + | 08/28/ | Refill | [facility] | Cuong Joe, | Medication Refill | | 2017 | | MEDICINE [place] | [address] | | | | | [address] | [place] | | | | | [place] | [address] | | | | | [address] | | | | | | [phone] | | | +--------+--------+ + + + [...] [place] | | | | | | [address] | | | | | | | | +--------+ + + + + | 04/29/ | Appointment | Radiology | Cuong Joe, | | | 2019 | | | MD [address] | | | | | | [place] | | | | | | [address] | | | | | | | | +--------+ + + + + | 05/11/ | Office | Neurology | Reina Caraballo, | | | 2019 | Visit | | MD [address] | | | | | | [place] | | | | | | [address] | | | | | | [phone] | | | | | | | | +--------+ + + + + documented as of this encounter Visit Diagnoses + + | Diagnosis | + + | Postoperative hypothyroidism - Primary Postsurgical hypothyroidism | + + documented in this encounter"
--- OUTSIDE RECORDS SUMMARY | ~2019-04-25 | XMS | Encounter Summary ---
Demographics + + + | Address | [address] | | | [place] [address] | + + + | Home Phone | | + + + | Preferred Language | Unknown | + + + | Marital Status | | + + + | Scientology Affiliation | Unknown | + + + | Race | Unknown | + + + | Ethnic Group | Unknown | + + + Author + + + | Author | [facility] | | | and Srikanthana | + + + | Organization | [facility] | | | and Srikanthana | + + + | Address | Unknown | + + + | Phone | Unavailable | + + + Support + + + + + | Name | Relationship | Address | Phone | + + + + + | Arthur Mcduffie | ECON | [address] | | | | | [place] | | | | | [address] | | + + + + + | Uma Arellano | ECON | [address] | | | | | [place] [address] | | + + + + + Care Team Providers + +------+ + | Care Electric Vehicle Electrician Name | Role | Phone | + [...] Description | +--------+---------+ + + + | 10/12/ | Office | [facility] | Cuong Joe, | Wrist sprain, right, | | 2013 | Visit | [facility] | [address] | initial encounter | | | | [address] | [place] | (Primary Dx); | | | | [place] | [address] | Sacroiliac joint | | | | [address] | | dysfunction of both | | | | [phone] | | sides | +--------+---------+ + + + Social History [...] + + + | Blood Pressure | 110/88 | 10/12/2013 8:28 AM | | | | | PDT | | + + + + + | Pulse | 70 | 10/12/2013 8:28 AM | | | | | PDT | | + + + + + | Temperature | 36.9 C (98.5 F) | 10/12/2013 8:28 AM | | | | | PDT | | + + + + + | Respiratory Rate | 16 | 10/12/2013 8:28 AM | | | | | PDT | | + + + + + | Oxygen Saturation | - | - | | + + + + + | Inhaled Oxygen | - | - | | | Concentration | | | | + + + + + | Weight | 77.4 kg (170 lb 9.6 | 10/12/2013 8:28 AM | | | | oz) | PDT | | + + + + + | Height | - | - | | + + + + + | Body Mass Index | 30.22 | 09/15/2013 4:31 PM | | | | | PDT | | + + + + + documented in this encounter Patient Instructions Patient Instructions Cuong Joe MD - 10/12/2013 8:53 AM PDTBP 110/88 | Pulse 70 | T emp 36.9 C (98.5 F) (Temporal) | Resp 16 | Wt 77.384 kg (170 lb 9.6 oz) | LMP 09/26/2013 Please wear wrist splint nightly x 2 weeks. If not improving wear 24 hours per day x 2 wee ks. See me sooner if pain worsens. Please do the attached exercises for your SI joints. If not improving over 4 weeks, or lillian n worsens - please call me and we can refer to physical therapy. documented in this encounter Progress Notes Cuong Joe MD - 10/12/2013 8:39 AM PDTFormatting of this note might be different fr om the original. Subjective: Patient ID: Tammy Mcduffie is a 43 y.o. female here for right wrist pain and left h ip pain. HPI After playing volleyball her right wrist remained sore since July. Pain is intermittent. Pain is located at ulnar aspect. Pain is worse in the morning. Wrist extension and rotati on aggravate the pain. Pain is better with rest. No specific injury. No swelling, redness , weakness. Her hip improved significantly with PT until 1.5 months ago. She states she stopped exerci sing and walking which she thinks contributed to the worsening. Pain is located in posterio r hips (points to SI joints bilaterally). Pain does not radiate. No trauma. No paresthesi as, weakness, bowel/bladder dysfunction. Patient's medications, allergies, past medical, surgical, social and family histories were reviewed and updated as appropriate. Review of Systems See HPI BP 110/88 | Pulse 70 | Temp 36.9 C (98.5 F) (Temporal) | Resp 16 | Wt 77.384 kg (170 lb 9.6 oz) | LMP 09/26/2013 Objective: Physical Exam Constitutional: Very pleasant, well developed, NAD Musculoskeletal: UE: No wrist deformity. No forearm, wrist, or hand tenderness Negative quincy test, compression testing Full strength with wrist flex/ext, comfort station supervisor, ok sign, finger abduction. No pain with adduction , abduction Back: No spinal or paraspinal tenderness. Mild bilateral SI tenderness Full 5/5 strength in LE's iblaterally Neurological: Negative straight leg raise Patella, Achilles 2+ symmetric Sensation to light touch in LE's intact Assessment: Tammy was seen today for wrist pain. Diagnoses and associated orders for this visit: Wrist sprain, right, initial encounter: Suspect extensor carpi ulnaris tendinopathy. - Wrist splint. Will start by just wearing at night given symptoms worse in AM. Sacroiliac joint dysfunction of both sides - SI exercises from [facility] reviewed and provided Art Joe MD DaneaiCarlita arevalo LP N - 10/12/2013 8:26 AM PDTPatient is here complaining of right wrist pain since July.Elect ronically signed by Carlita Schmidt LPN at 10/12/2013 9:02 AM PDTdocumented in this encoun ter Plan of Treatment +--------+ + + + [...] [address]VE | | | | | | [place], [place] | | | | | | [address] | | | | | | | | +--------+ + + + + | 05/11/ | Office | Neurology | Reina Caraballo, | | | 2019 | Visit | | MD [address] | | | | | | [place], [place] | | | | | | [address] | | | | | | [phone] | | | | | | | | +--------+ + + + + documented as of this encounter Visit Diagnoses + + | Diagnosis | + + | Wrist sprain, right, initial encounter - Primary | + + | Sacroiliac joint dysfunction of both sides Disorders of sacrum | + + documented in this encounter"
--- OUTSIDE RECORDS SUMMARY | ~2019-04-25 | XMS | Encounter Summary ---
Demographics + + + | Address | [address] | | | [place] [address] | + + + | Home Phone | | + + + | Preferred Language | Unknown | + + + | Marital Status | | + + + | Cheondoism Affiliation | Unknown | + + + | Race | Unknown | + + + | Ethnic Group | Unknown | + + + Author + + + | Author | [facility] | | | and Srikanthana | + + + | Organization | [facility] | | | and Srikanthana | + + + | Address | Unknown | + + + | Phone | Unavailable | + + + Support + + + + + | Name | Relationship | Address | Phone | + + + + + | Arthur Mcduffie | ECON | [address] | | | | | [place] | | | | | [address] | | + + + + + | Uma Arellano | ECON | [address] [facility] | | | | | [place] [address] | | + + + + + Care Team Providers + +------+ + | Care Internet Developer Name | Role | Phone | + +------+ + PCP | Unavailable | + +------+ + Encounter Details +--------+ + + + + | Date | Type | Department | Care Team | Description | +--------+ + + + + | 08/26/ | Hospital | [facility] | | | | 2006 | Encounter | [facility] | | | | | | [address] | | | | | | [place], [place] | | | | | | [address] | | | | | | [phone] | | | +--------+ + + + [...] [place] | | | | | | [address] | | | | | | | | +--------+ + + + + | 04/29/ | Appointment | Radiology | Cuong Joe, | | | 2019 | | | [address] | | | | | | [place] | | | | | | [address] | | | | | | | | +--------+ + + + + | 05/11/ | Office | Neurology | Reina Caraballo, | | | 2019 | Visit | | MD [address] | | | | | | [place] | | | | | | [address] | | | | | | [phone] | | | | | | | | +--------+ + + + + documented as of this encounter Visit Diagnoses Not on filedocumented in this encounter"
--- OUTSIDE RECORDS SUMMARY | ~2019-04-25 | XMS | Encounter Summary ---
Demographics + + + | Address | [address] | | | [place] [address] | + + + | Home Phone | | + + + | Preferred Language | Unknown | + + + | Marital Status | | + + + | Uatsdin Affiliation | Unknown | + + + | Race | Unknown | + + + | Ethnic Group | Unknown | + + + Author + + + | Author | [facility] | | | and Srikanthana | + + + | Organization | [facility] | | | and Srikat[place]ana | + + + | Address | Unknown | + + + | Phone | Unavailable | + + + Support + + + + + | Name | Relationship | Address | Phone | + + + + + | Arthur Mcduffie | ECON | [address] | | | | | [place] | | | | | [address] | | + + + + + | Uma Arellano | ECON | [address] [facility] | | | | | [place] [address] | | + + + + + Care Team Providers + +------+ + | Care Carton Waxing Machine Operator Name | Role | Phone [...] | +--------+ + + + + | 02/25/ | Telephone | [facility] | Cuong Joe, | Medication Refill | | 2018 | | MEDICINE [place] | [address] | | | | | [address] | [place] | | | | | [place], [place] | [address] | | | | | [address] | | | | | | [phone] | | | +--------+ + + + [...] [place] | | | | | | [address] | | | | | | | | +--------+ + + + + | 04/29/ | Appointment | Radiology | Cuong Joe, | | | 2019 | | | MD [address] | | | | | | [place] | | | | | | [address] | | | | | | | | +--------+ + + + + | 05/11/ | Office | Neurology | Reina Caraballo, | | | 2019 | Visit | | MD [address] | | | | | | [address] [facility] | | | | | | [address] | | | | | | [phone] | | | | | | | | +--------+ + + + + documented as of this encounter Visit Diagnoses + + | Diagnosis | + + | Postoperative hypothyroidism Postsurgical hypothyroidism | + + documented in this encounter"
--- OUTSIDE RECORDS SUMMARY | ~2019-04-25 | XMS | Encounter Summary ---
Demographics + + + | Address | [address] | | | [place] [address] | + + + | Home Phone [...] + | Author | [facility] | | | and Srikanthana | + + + | Organization | [facility] | | | and Srikanth[place] | + + + | Address | Unknown | + + + | Phone | Unavailable | + + + Support + + + + + | Name | Relationship | Address | Phone | + + + + + | Arthur Mcduffie | ECON | [address] [facility] | | | | | [place] | | | | | [address] | | + + + + + | Uma Arellano | ECON | [address] | | | | | [place] [address] | | + + + + + Care Team Providers + +------+ + | Care Applications Programmer Name | Role | Phone | + +------+ + | Cuong Joe MD | PCP | | + +------+ + Reason for Visit +---------+ + | Reason | Comments | +---------+ + | Results | | +---------+ + Encounter Details +--------+ + + + + | Date | Type | Department | Care Team | Description | +--------+ + + + + | 09/20/ | Telephone | [facility] | Alba Rondon, | Results | | 2014 | | CARE [address] | MD [address] | | | | | [place] | [place] | | | | | [address] | [address] | | | | | [phone] | | | +--------+ + + + [...] [place] | | | | | | [address] | | | | | | | | +--------+ + + + + | 04/29/ | Appointment | Radiology | Cuong Joe, | | | 2019 | | | MD [address] | | | | | | [place] | | | | | | [address] | | | | | | | | +--------+ + + + + | 05/11/ | Office | Neurology | Reina Caraballo, | | | 2019 | Visit | | MD [address] | | | | | | [place] | | | | | | [address] | | | | | | [phone] | | | | | | | | +--------+ + + + + documented as of this encounter Visit Diagnoses Not on filedocumented in this encounter"
--- OUTSIDE RECORDS SUMMARY | ~2019-04-25 | XMS | Encounter Summary ---
Demographics + + + | Address | [address] | | | [place] [address] | + + + | Home Phone | | + + + | Preferred Language | Unknown | + + + | Marital Status | | + + + | Orthodox Affiliation | Unknown | + + + | Race | Unknown | + + + | Ethnic Group | Unknown | + + + Author + + + | Author | [facility] | | | and Srikanthana | + + + | Organization | [facility] | | | and Srikanthana | + + + | Address | Unknown | + + + | Phone | Unavailable | + + + Support + + + + + | Name | Relationship | Address | Phone | + + + + + | Arthur Mcduffie | ECON | [address] | | | | | [place] | | | | | [address] | | + + + + + | Uma Arellano | ECON | [address] [facility] | | | | | [place] [address] | | + + + + + Care Team Providers + +------+ + | Care Box Puller Name | Role | Phone | + +------+ + | Cuong Joe MD | PCP | | + +------+ + Encounter Details +--------+ + + + + | Date | Type | Department | Care Team | Description | +--------+ + + + + | 09/19/ | Orders Only | [facility] | Calli Shafer, | Diarrhea | | 2015 | | [facility] | [employer] | | | | | [address] | | | | | | [place] | | | | | | [address] | | | | | | [phone] | | | +--------+ + + + [...] 2019 | Encounter | | MD Angelina NOBLES | | | | | | [place] | | | | | | [address] | | | | | | | | +--------+ + + + + | 04/29/ | Appointment | Radiology | Cuong Joe, | | 2019 | | | [address] | | | | | | [place], [place] | | | | | | [address] | | | | | | | | +--------+ + + + + | 05/11/ | Office | Neurology | Reina Caraballo, | | 2019 | Visit | | [address] | | | | | | [place], [place] | | | | | | [address] | | | | | | [phone] | | | | | | | | +--------+ + + + + documented as of this encounter Results Clostridium difficile A and B EIA (09/19/2014 12:23 PM PDT) + + + + + + | Component | Value | Ref Range | Performed | Pathologist | | | | | At | Signature | + + + + + + | Clostridium | Negative | Negative | [facility] | | | Diff | | | [facility] | | | | | | [facility] | | | | | | [facility] - | | | | | | LABORATORY | | + + + + + + | Clostridium | NegativeComment: | | [facility] | | | Difficile | Negative for toxigenic | | [facility] | | | [facility] | Clostridium difficile | | MEDICAL | | | | [...] | [address] | [place] | [phone] | | [facility] | | [address] | | | - LABORATORY | | | | + + + + + documented in this encounter Visit Diagnoses + + | Diagnosis | + + | Diarrhea | + + documented in this encounter"
--- OUTSIDE RECORDS SUMMARY | ~2019-04-25 | XMS | Encounter Summary ---
Demographics + + + | Address | [address] | | | [place] [address] | + + + | Home Phone | | + + + | Preferred Language | Unknown | + + + | Marital Status | | + + + | Adventism Affiliation | Unknown | + + + | Race | Unknown | + + + | Ethnic Group | Unknown | + + + Author + + + | Author | [facility] | | | and Srikanthana | + + + | Organization | [facility] | | | and Srikanthana | + + + | Address | Unknown | + + + | Phone | Unavailable | + + + Support + + + + + | Name | Relationship | Address | Phone | + + + + + | Arthur Mcduffie | ECON | [address] [facility] | | | | | [place] | | | | | [address] | | + + + + + | Uma Arellano | ECON | [address] [facility] [facility] | | | | | [place] [address] | | + + + + + Care Team Providers + +------+ + | Care Electrical Engineering Professor Name | Role | Phone | + +------+ + | Narda Joe MD | PCP | | + +------+ + Reason for Visit + + + | Reason | Comments | + + + | Annual Exam | | + + + | Knee Pain | need a script for a brace for left knee | + + + | Hearing Problem | would like her ears checked. 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 More a sensation | + + + Encounter Details +--------+---------+ + + + | Date | Type | Department | Care Team | Description | +--------+---------+ + + + | 08/05/ | Office | [facility] | Narda Joe, | Preventative health | | 2019 | Visit | [facility] [place] | [address] | care (Primary Dx); | | | | [address] | [place] | Postnasal drip; | | | | [place] | [phone] | Postoperative | | | | [phone] | | hypothyroidism; | | | | [phone] | | Globus sensation; | | | | | | PCL injury, left, | | | | | | sequela; | | | | | | Palpitations; | | | | | | Bilateral hearing | | | | | | loss, unspecified | | | | | | hearing loss type | +--------+---------+ + + + Social History [...] + + + | Blood Pressure | 126/80 | 08/05/2018 2:48 PM | | | | | PDT | | + + + + + | Pulse | 70 | 08/05/2018 2:48 PM | | | | | PDT | | + + + + + | Temperature | 36.6 C (97.8 F) | 08/05/2018 2:48 PM | | | | | PDT | | + + + + + | Respiratory Rate | 16 | 08/05/2018 2:48 PM | | | | | PDT | | + + + + + | Oxygen Saturation | 98% | 08/05/2018 2:48 PM | | | | | PDT | | + + + + + | Inhaled Oxygen | - | - | | | Concentration | | | | + + + + + | Weight | 77.7 kg (171 lb 4.8 | 08/05/2018 2:48 PM | | | | oz) | PDT | | + + + + + | Height | - | - | | + + + + + | Body Mass Index | 29.38 | 07/15/2017 7:22 AM | | | | | PDT | | + + + + + documented in this encounter Patient Instructions Patient Instructions Narda Joe MD - 08/05/2018 2:45 PM PDTKeep up the good work! Start the flonase nasal spray. If the throat symptoms do not improve in 3-4 weeks, please let us know and we will get you in with Dr Lo. I suspect the palpitations are due to benign (not dangerous) PVCs (premature ventricular co ntractions). If they become more frequent or start coming on with exertion or are associate d with chest pain, shortness of breath, or light headedness - please follow-up with us. If the hearing worsens - let us know and we will get you in with an stonecutter hand. Repeat fasting labs in February Aim for: - 7-8 hours of sleep per night - At least 30 minutes of continuous brisk activity 5 days per week - A diet lower in carbohydrates and processed foods, higher in vegetables and lean protein s documented in this encounter Progress Notes Narda Joe MD - 08/05/2018 2:45 PM PDTFormatting of this note might be different fr om the original. Subjective: Patient ID: Tammy Mcduffie is a 48 y.o. female who is here today for Annual Exam; K nee Pain (need a script for a brace for left knee); Hearing Problem (would like her ears anibal cked. 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 would like evaluated); and S hortness of Breath (in high school use to get sob but hasn't had any episode until recently. 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 She continues to have instability with mitchell nting her feet so she wears a hinged brace with physical activities. No pain. No new injur ies. She uses [facility]. She needs new brace. 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 Worse with a lot of background solis se. No tinnitus (unless she drinks a lot of caffeine). Clump of drainage in throat x ~4 months. Feels like there is deep postnasal drip that is h anselmo to cough up. No fever, sinus pain, hoarseness, heartburn. She does feel like she has b een dealing with some anxiety. She is s/p Right tali-thyroidectomy in 2017. She felt a fluttering in her chest the other day. She took a deep breath and it resolved. Lasted a few seconds. No obvious triggers. No fever, light headedness, SOB, CP, edema, ca lf pain. She exercises with volleyball once per week, exercise video 3 times per weeks, and snowmobi les. Activity does not cause palpitations, CP, SOB. She states she had a normal Pap 03/2018 and [facility] Patient's medications, allergies, past medical, surgical, social and family histories were obtained and reviewed as appropriate. Review of Systems Constitutional: Negative for fatigue, fever and unexpected weight change. No drenching NS HENT: Negative for trouble swallowing (no dysphagia). Eyes: Negative for visual disturbance (wears glasses. Last eye exam 6 months ago). Respiratory: Negative for cough, chest tightness and shortness of breath. Cardiovascular: Negative for chest pain and leg swelling. Gastrointestinal: Negative for abdominal pain, blood in stool, constipation, diarrhea, naus ea and vomiting. Endocrine: Negative for cold intolerance, heat intolerance, polydipsia and polyuria. Genitourinary: Negative for dysuria, hematuria and vaginal discharge. Menstrual problem: re gular periods. Skin: Negative for rash. Sees Dr Perla. Had exam today. No concerning moles/rashes Neurological: Negative for headaches. Hematological: Negative for adenopathy. Psychiatric/Behavioral: Negative for dysphoric mood. She has some anxiety with worse. But nothing concerning to her. Objective: BP 126/80 | Pulse 70 | Temp 36.6 C (97.8 F) (Temporal) | Resp 16 | Wt 77.7 kg (171 lb 4.8 oz) | LMP 07/14/2018 | SpO2 98% | BMI 29.38 kg/m Physical Exam Constitutional: She is oriented to person, place, and time. Very pleasant, well developed, NAD HENT: Head: Normocephalic and atraumatic. Right Ear: External ear normal. Left Ear: External ear normal. Mouth/Throat: Oropharynx is clear and moist. Eyes: Pupils are equal, round, and reactive to light. EOM are normal. Neck: Neck supple. No thyromegaly present. Cardiovascular: [...] no guarding. Musculoskeletal: She exhibits no edema. Lymphadenopathy: She has no cervical adenopathy. Neurological: She is alert and oriented to person, place, and time. No cranial nerve defici t. Psychiatric: She has a normal mood and affect. Her behavior is normal. Thought content norm al. Results for orders placed or performed in visit on 08/05/18 ECG 12 lead Result Value Ref Range INTERPRETATION TEXT Normal sinus rhythm with sinus arrhythmia Normal ECG No previous ECGs available Confirmed by CATIA ESPINO, NARDA ([id number]) on 08/06/2018 7:44:43 AM Assessment & Plan: Tammy was seen today for annual exam, knee pain, hearing problem, other and shortness of breath. Diagnoses and all orders for this visit: Preventative health care: BMI a touch high. BP fine. [facility] mamm[facility] U[facility] at [facility] - will confirm. Discussed colonoscopy now (ACS) vs 50 (USPSTF) - she prefers 50. No d epression, substance abuse. Vaccines UTD - Diet, exercise, sleep hygiene Postnasal drip - fluticasone (FLONASE) 50 mcg/nasal spray; 2 sprays by Nasal route Daily. Postoperative hypothyroidism - Continue levothyroxine - Labs as ordered Globus sensation: Suspect due to PND - Treat PND with flonase. If not improving refer to ENT PCL injury, left, sequela - (KNEE BRACE) MISC; CTI PCL Knee Brace. GEE 99 months Palpitations: Suspect PVCs or PAC's. No red flag s/s. - Discussed [employer]/event monitor. Instead will monitor at this time Bilateral hearing loss, unspecified hearing loss type - Mild. She declined audiology evaluation Return in about 1 year (around 08/06/2019), or if symptoms worsen or fail to improve. Art Joe MD documented in this e ncounter Plan of Treatment +--------+ + + + + | Date | Type | Specialty | Care Team | Description | +--------+ + + + + | 04/29/ | Hospital | Radiology | Narda Joe, | | | 2019 | Encounter | | [address] | | | | | | [place] | | | | | | [address] | | | | | | | | +--------+ + + + + | 04/29/ | Appointment | Radiology | Narda Joe, | | | 2019 | | | [address] | | | | | | [place], [place] | | | | | | [address] | | | | | | | | +--------+ + + + + | 05/11/ | Office | Neurology | Reina Caraballo, | | | 2019 | Visit | | [address] | | | | | | [place], [place] | | | | | | [address] | | | | | | [phone] | | | | | | | | +--------+ + + + + documented as of this encounter Procedures + +--------+ + + + | Procedure Name | Priori | Date/Time | Associated Diagnosis | Comments | | | ty | | | | + +--------+ + + + | ECG 12 LEAD | Routin | 08/05/2018 | Palpitations | Results for this | | | e | 3:42 PM | | procedure are in the | | | | PDT | | results section. | + +--------+ + + + | EXTERNAL LAB: PAP | Routin | 04/23/2018 | | Results for this | | SMEAR | e | | | procedure are in the | | | | | | results section. | + +--------+ + + + | [facility] EXTERNAL IMAGE | Routin | 04/23/2018 | | Results for this | | | e | | | procedure are in the | | | | | | results section. | + +--------+ + + + documented in this encounter Results ECG 12 lead (08/05/2018 3:42 PM PDT) + + + + + + | Component | Value | Ref Range | Performed | Pathologist | | | | | At | Signature | + + + + + + | VENTRICULAR | 63 | BPM | [facility] | | | RATE EKG | | | | | + + + + + + | ATRIAL RATE | 63 | BPM | [facility] | | + + + + + + | P-R | 156 | ms | [facility] | | | INTERVAL | | | | | + + + + + + | QRS | 68 | ms | [facility] | | | DURATION | | | | | + + + + + + | Q-T | 448 | ms | [facility] | | | INTERVAL | | | | | + + + + + + | Q-T | 458 | ms | [facility] | | | INTERVAL | | | | | | (CORRECTED) | | | | | + + + + + + | P WAVE AXIS | 47 | degrees | [facility] | | + + + + + + | QRS AXIS | 8 | degrees | [facility] | | + + + + + + | T AXIS | 47 | degrees | [facility] | | + + + + + + | INTERPRETAT | Normal sinus rhythm with | | [facility] | | | ION TEXT | sinus arrhythmiaNormal | | | | | | ECGNo previous ECGs | | | | | | availableConfirmed by | | | | | | NARDA JOE MD | | | | | | ([id number]) on 08/06/2018 | | | | | | 7:44:43 AM | | | | + + + + + + + + | Specimen | + + | | + + + + + | Narrative | Performed At | + + + | | | + + + + +---------+ + + | Performing | Address | City/State/Zipcode | Phone Number | | Organization | | | | + +---------+ + + | [facility] | | | | + +---------+ + + External Lab: PAP Smear (04/23/2018) + + + + + + | Component | Value | Ref Range | Performed | Pathologist | | | | | At | Signature | + + + + + + | Pap Smear, | No evidence of | | | | | External | intraepithelial lesion | | | | | | or malignancyComment: | | | | | | HPV negative | | | | + + + + + + [facility] External Image (04/23/2018) + + + + + + | Component | Value | Ref Range | Performed | Pathologist | | | | | At | Signature | + + + + + + | EXT | 1-Negative | | | | | MAMMOGRAPHY | | | | | + + + + + + documented in this encounter Visit Diagnoses + + | Diagnosis | + + | Preventative health care - Primary Routine general medical examination at a health | | care facility | + + | Postnasal drip | + + | Postoperative hypothyroidism Postsurgical hypothyroidism | + + | Globus sensation Gastrointestinal malfunction arising from mental factors | + + | PCL injury, left, sequela | + + | Palpitations | + + | Bilateral hearing loss, unspecified hearing loss type | + + documented in this encounter
--- OUTSIDE RECORDS SUMMARY | ~2019-04-25 | XMS | Encounter Summary ---
Demographics + + + | Address | [address] | | | [place] [address] | + + + | Home Phone | | + + + | Preferred Language | Unknown | + + + | Marital Status | | + + + | Jainism Affiliation | Unknown | + + + | Race | Unknown | + + + | Ethnic Group | Unknown | + + + Author + + + | Author | [facility] | | | and Srikanthana | + + + | Organization | [facility] | | | and Srikanthana | + + + | Address | Unknown | + + + | Phone | Unavailable | + + + Support + + + + + | Name | Relationship | Address | Phone | + + + + + | Arthur Mcduffie | ECON | [address] | | | | | [place] | | | | | [address] | | + + + + + | Uma Arellano | ECON | [address] | | | | | [place] [address] | | + + + + + Care Team Providers + +------+ + | Care Casting Director Name | Role | Phone | + +------+ + | Cuong Joe MD | PCP | | + +------+ + Reason for Referral Evaluate & Treat (Emergency) +--------+ + + + + + | Status | Reason | Specialty | Diagnoses / | Referred By | Referred To | | | | | Procedures | Contact | Contact | +--------+ + + + + + | Closed | Second | Neurology | Diagnoses | [place], | [facility] | | | Opinion | | Optic | Cuong Corrales MD | NEUROLOGY | | | | | neuritis, | [address] | [address] | | | | | right | [address] | [address] | | | | | | [place] | [address] | | | | | | [address] | [place], [place] | | | | | | Phone: | [phone] | | | | | | [phone] | Phone: | | | | | | Fax: | [phone] | | | | | | [phone] | Fax: | | | | | | | [phone] | +--------+ + + + + + Reason for Visit + + + | Reason | Comments | + + + | ED Follow-up | eye | + + + | Referral | needs a referral to a neurologist for her eye | | (PreAuthorization) | | + + + Encounter Details +--------+---------+ + + + | Date | Type | Department | Care Team | Description | +--------+---------+ + + + | 03/08/ | Office | [facility] | Cuong Joe, | Optic neuritis, | | 2019 | Visit | [facility] [place] | [address] | right (Primary Dx); | | | | [address] | [place] | Gastroesophageal | | | | [place] | [phone] | reflux disease, | | | | [address] | | esophagitis presence | | | | [phone] | | not specified; | | | | | | Insomnia, | | | | | | unspecified type; | | | | | | Postoperative | | | | | | hypothyroidism | +--------+---------+ + + + Social History [...] + + + | Blood Pressure | 122/86 | 03/08/2019 8:57 AM | | | | | PST | | + + + + + | Pulse | 89 | 03/08/2019 8:57 AM | | | | | PST | | + + + + + | Temperature | 36.1 C (96.9 F) | 03/08/2019 8:57 AM | | | | | PST | | + + + + + | Respiratory Rate | 16 | 03/08/2019 8:57 AM | | | | | PST | | + + + + + | Oxygen Saturation | 98% | 03/08/2019 8:57 AM | | | | | PST [...] Instructions Patient Instructions Cuong Joe MD - 03/08/2019 8:45 AM PSTKeep up the great work. Have the Solumedrol infusions for the next [address] Joe will talk with [facility] about whether or not they want you to take prednisone (pill steroid) after the Solumedrol infusions are completed. Take the omeprazole EVERY morning to help prevent heartburn while on the high dose steroid. Use the clonazepam as needed at night for anxiety/insomnia/agitation that may be associated with the steroids. If you do not hear from [facility] by end of day - please follow-up with us. Recheck thyroid levels in April. Electronically signed by Cuong Joe MD at 019 9:42 AM PST documented in this encounter Progress Notes Cuong Joe MD - 03/08/2019 8:45 AM PSTFormatting of this note might be different fr om the original. Subjective: Patient ID: Tammy Mcduffie is a 48 y.o. female who is here today for ED Follow-up ( eye) and Referral (PreAuthorization) (needs a referral to a neurologist for her eye) HPI Developed right eye pain 9 days ago after working in the garden. She thought it was a sinu s infection. Pain was severe with any big eye movements. Evaluated in - recommended opt ometry examination. The next day she had a de león film over her right eye. She was evaluated by Dr Pettit 2 days ago who referred her to Dr Brown yesterday. He sent her to the ER [facility] emergent MRI. MRI showed signs of optic neuritis. [facility] neurology consulted. She started SoluMedrol 1000 mg IV daily last night. She didn't sleep very long last night, but otherwi se tolerated well. Subjectively she feels the de león film of vision is less thick, but vision is still dulled and less crisp. No fever, NS, diplopia, weakness, paresthesias (other than right arm gets numb if she sleeps awkwardly), bowel/bladder dysfunction, rash. She states she was advised to have a neurologist perform her LP. She was without levothyroxine for a couple days prior to TSH check. She is taking levothyr oxine consistently. Patient's medications, allergies, past medical, surgical, social and family histories were obtained and reviewed as appropriate. Current Outpatient Medications on File Prior to Visit Medication Sig Dispense Refill Elastic Bandages & Supports (KNEE BRACE) MISC CTI PCL Knee Brace. GEE 99 months 1 each 0 levothyroxine (SYNTHROID) 75 mcg tablet Take 1 tablet by mouth every morning (before br eakfast). For low thyroid 60 tablet 0 Current Facility-Administered Medications on File Prior to Visit Medication Dose Route Frequency Provider Last Rate Last Dose [COMPLETED] gadobutrol (GADAVIST) injection 7.5 mL 7.5 mL Intravenous Once PRN Oneil Rosas MD 7.5 mL at 03/07/192101 [COMPLETED] methylPREDNISolone sodium succinate (solu-MEDROL) 1,000 mg in sodium chlori de 0.9% 100 mL IVPB 1,000 mg Intravenous Once Oneil Rosas MD Stopped at 1 05/07/18 2351 Review of Systems Objective: BP 122/86 | Pulse 89 | Temp 36.1 C (96.9 F) (Temporal) | Resp 16 | LMP 02/25/2019 | SpO2 98% Physical Exam Constitutional: She is oriented to person, place, and time. Very pleasant, well developed, NAD Eyes: Pupils are equal, round, and reactive to light. EOM are normal. Right eye exhibits no discharge. Left eye exhibits no discharge. EOMI but pain with extremes of range of motion in all directions with right eye Neck: Neck supple. No thyromegaly present. Cardiovascular: Normal rate, regular rhythm, normal heart sounds and intact distal pulses. Exam reveals no gallop and no friction rub. No murmur heard. Pulmonary/Chest: Breath sounds normal. No respiratory distress. She has no wheezes. She has no rales. Musculoskeletal: General: No edema. Lymphadenopathy: She has no cervical adenopathy. Neurological: She is alert and oriented to person, place, and time. No cranial nerve defici t. No visits with results within 1 Day(s) from this visit. Latest known visit with results is: Admission on 03/07/2019, Discharged on 03/07/2019 Component Date Value Ref Range Status WBC 03/07/2019 7.8 4.0 - 11.0 K/uL Final RBC 03/07/2019 4.47 3.70 - 5.20 M/uL Final Hemoglobin 03/07/2019 13.0 11.5 - 16.0 g/dL Final Hematocrit 03/07/2019 39.5 34.0 - 47.0 % Final MCV 03/07/2019 88.4 83.0 - 101.0 fL Final MCH 03/07/2019 29.1 28.0 - 35.0 pg Final MCHC 03/07/2019 32.9 32.0 - 36.0 g/dL Final RDW-CV 03/07/2019 13.0 <15.0 % Final RDW-SD 03/07/2019 42.5 35.1 - 46.3 fL Final Platelet Count 03/07/2019 243 140 - 440 K/uL Final MPV 03/07/2019 10.4 6.5 - 12.4 fL Final % Neutrophils 03/07/2019 53.8 45.0 - 82.0 % Final % Lymphocytes 03/07/2019 36.3 20.0 - 45.0 % Final % Monocytes 03/07/2019 6.5 4.0 - 12.0 % Final % Eosinophils 03/07/2019 2.3 0.0 - 5.0 % Final % Basophils 03/07/2019 0.8 0.0 - 1.0 % Final % Immature Granulocytes 03/07/2019 0.3 0.0 - 0.4 % Final Absolute Neutrophils 03/07/2019 4.20 1.80 - 8.50 K/uL Final Absolute Lymphocytes 03/07/2019 2.83 0.60 - 3.20 K/uL Final Absolute Monocytes 03/07/2019 0.51 0.00 - 1.00 K/uL Final Absolute Eosinophils 03/07/2019 0.18 0.00 - 0.40 K/uL Final Absolute Basophils 03/07/2019 0.06 0.00 - 0.10 K/uL Final Absolute Immature Granulocytes 03/07/2019 0.02 0.00 - 0.03 K/uL Final % nRBC 03/07/2019 0 0 - 2 per 100 WBCs Final Absolute nRBC 03/07/2019 0.00 0.00 - 0.01 K/uL Final Na 03/07/2019 141 136 - 145 mmol/L Final K 03/07/2019 3.6 3.4 - 5.1 mmol/L Final Cl 03/07/2019 108* 98 - 107 mmol/L Final CO2 03/07/2019 26 20 - 31 mmol/L Final Anion Gap 03/07/2019 7 3 - 16 mmol/L Final Glucose 03/07/2019 90 60 - 106 mg/dL Final BUN 03/07/2019 9 9 - 23 mg/dL Final Creatinine 03/07/2019 0.71 0.55 - 1.02 mg/dL Final eGFR if not 03/07/2019 >60 >=60 mL/min/1.73m2 Final GLOMERULAR FILTRATION RATE,ESTIMATED mL/min/1.73m2 Less than 60 Chronic kidney disease,if found over a 3-month period. Less than 15 Kidney failure For Americans,multiply the calculated GFR by 1.21. Calcium 03/07/2019 8.7 8.7 - 10.4 mg/dL Final Albumin 03/07/2019 4.1 3.2 - 4.8 g/dL Final Bilirubin Total 03/07/2019 0.7 0.3 - 1.2 mg/dL Final Total Protein 03/07/2019 6.5 5.7 - 8.2 g/dL Final AST 03/07/2019 16 0 - 34 U/L Final ALT 03/07/2019 16 10 - 49 U/L Final Alkaline Phosphatase 03/07/2019 57 46 - 116 U/L Final Globulin 03/07/2019 2.4 2.1 - 3.8 g/dL Final Albumin/Globulin Ratio 03/07/2019 1.7 0.8 - 1.9 Final BUN/Creatinine Ratio 03/07/2019 12.7 Final Albumin 03/07/2019 4.2 3.2 - 4.8 g/dL Final MRI Brain and Orbits w wo contrast Orbits: The globes and retrobulbar are structures are symmetric. No extra-axial muscle enlargement. No infiltration of the retrobulbar fat. There is an area of slightly asymmetric altered signal in the right optic nerve. This is associated with enhancement. Both optic nerves have a somewhat undulating course. Other: There are no areas of susceptibility weighted artifact to suggest abnormal hemosiderin deposition or mineralization. No areas of restricted diffusion to suggest acute or subacute ischemia. There are multifocal areas of periventricular and subcortical white matter T2 and FLAIR hyperintensity bilaterally. No cerebral or cerebellar atrophy. There is no mass, mass effect, or midline shift. There are no abnormal extra-axial fluid collections. The ventricles are normal in size and configuration. The major intracranial flow voids are visualized. There is a small focus of enhancement in the right frontal lobe. The mastoid air cells are clear. There is mucosal thickening in the maxillary sinuses. The posterior nasopharyngeal and oropharyngeal soft tissues are unremarkable. The scalp and skull are intact and are unremarkable. IMPRESSION: Findings are consistent with right optic neuritis. The constellation of findings is very suspicious for a demyelinating disorder. Dictated and Signed by: Nasim Edward MD Electronically signed: 03/07/2019 9:41 PM Assessment & Plan: 1. Optic neuritis, right: Possibly postinfectious. No h/o DM. Symptoms already appear to be improving - Educated on optic neuritis, treatment, complications, risk of recurrence, increased risk of MS - Educated on side effects of high dose steroid treatments - I did speak with [facility] consult line regardin. Lumbar puncture. Per conversation with Dr Rosas in ER - recommendation was for lumbar p uncture with CSF testing of protein, glucose, oligoclonal bands, and an NMO antibodies of CS F (LAB [id number] in [facility]). Patient states she was advised to defer this until she was evaluated at [facility]. Neurology consultation states that labs are very provider dependent and recommend ed deferring LP until evaluated at [facility]. However, when [facility] calls to schedule her consultat ion - I did advise Tammy to ask the specific provider she will be seeing if they desire L P prior to appointment. 2. Prednisone taper after solumedrol: They agreed that I should start prednisone taper x 2 weeks upon completion of Solumedrol 1000 mg daily x 5 days (first dose was 03/07/19). Pre dnisone 1 mg/kg/day x 11 days, then 20 mg x 1 day, then 10 mg x 2 days, then stop. - Neurology, External - AMB Referral with [facility] - clonazePAM (KLONOPIN) 0.5 mg tablet; Take 1 tablet by mouth nightly as needed for Anxiety or Insomnia for up to 21 days. While on steroids Dispense: 21 tablet; Refill: 0 - predniSONE (DELTASONE) 10 mg tablet; Starting 03/12/19: Take 7 tablets by mouth daily for 11 days, then take 2 tablets by mouth daily for 1 day, then take 1 tablet by mouth for 2 days, then stop 2. Gastroesophageal reflux disease, esophagitis presence not specified - omeprazole (PRILOSEC) 20 mg capsule; Take 1 capsule by mouth every morning (before breakf ast) for 21 days. To be taken while on steroids Dispense: 21 capsule; Refill: 0 3. Insomnia, unspecified type - clonazePAM (KLONOPIN) 0.5 mg tablet; Take 1 tablet by mouth nightly as needed for Anxiety or Insomnia for up to 21 days. While on steroids Dispense: 21 tablet; Refill: 0 4. Postoperative hypothyroidism - Recheck TSH in ~6 weeks and adjust levothyroxine if necessary Return in about 1 month (around 04/07/2019). Art Joe MD documented in this e [...] [place] | | | | | | [address] | | | | | | | | +--------+ + + + + | 04/29/ | Appointment | Radiology | Cuong Joe, | | | 2019 | | | [address] | | | | | | [place] | | | | | | [address] | | | | | | | | +--------+ + + + + | 05/11/ | Office | Neurology | Reina Caraballo, | | | 2019 | Visit | | MD [address] [place] | | | | | | [address] [place] | | | | | | [address] | | | | | | [phone] | | | | | | | | +--------+ + + + + + + +--------+ + + | Name | Type | Priori | Associated Diagnoses | Order Schedule | | | | ty | | | + + +--------+ + + | Neurology, External | Outpatient | STAT | Optic neuritis, | Ordered: 03/08/2019 | | - AMB Referral | Referral | | right | | + + +--------+ + + documented as of this encounter Visit Diagnoses + + | Diagnosis | + + | Optic neuritis, right - Primary Optic neuritis, unspecified | + + | Gastroesophageal reflux disease, esophagitis presence not specified | + + | Insomnia, unspecified type | + + | Postoperative hypothyroidism Postsurgical hypothyroidism | + + documented in this encounter"
--- OUTSIDE RECORDS SUMMARY | ~2019-04-25 | XMS | Encounter Summary ---
Demographics + + + | Address | [address] | | | [place] [address] | + + + | Home Phone | | + + + | Preferred Language | Unknown | + + + | Marital Status | | + + + | Alevism Affiliation | Unknown | + + + | Race | Unknown | + + + | Ethnic Group | Unknown | + + + Author + + + | Author | [facility] | | | and Srikanthana | + + + | Organization | [facility] | | | and Srikanthana | + + + | Address | Unknown | + + + | Phone | Unavailable | + + + Support + + + + + | Name | Relationship | Address | Phone | + + + + + | Arthur Mcduffie | ECON | [address] | | | | | [place] | | | | | [address] | | + + + + + | Uma Arellano | ECON | [address] [facility] | | | | | [place] [address] | | + + + + + Care Team Providers + +------+ + | Care Project Scientist Name | Role | Phone | + +------+ + PCP | Unavailable | + +------+ + Encounter Details +--------+ + + + + | Date | Type | Department | Care Team | Description | +--------+ + + + + | 05/13/ | Hospital | [facility] | H[place], | | | 2008 | Encounter | [facility] | Oneil Del Valle MD [address] | | | | | [place] [address] | [facility] | | | | | [place], [place] | [place] [address] | | | | | [address] | [phone] | | | | | [phone] | | | +--------+ + + + [...] [place] | | | | | | [address] | | | | | | | | +--------+ + + + + | 04/29/ | Appointment | Radiology | Cuong Joe, | | | 2019 | | | MD [address] | | | | | | [place] | | | | | | [address] | | | | | | | | +--------+ + + + + | 05/11/ | Office | Neurology | Reina Caraballo, | | | 2019 | Visit | | MD [address] [place] | | | | | | [place] | | | | | | [address] | | | | | | [phone] | | | | | | | | +--------+ + + + + documented as of this encounter Visit Diagnoses Not on filedocumented in this encounter"
--- OUTSIDE RECORDS SUMMARY | ~2019-04-25 | XMS | Encounter Summary ---
Demographics + + + | Address | [address] | | | [place] [address] | + + + | Home Phone [...] Author | [facility] | | | and Srikanthana | + + + | Organization | [facility] | | | and Srikanthana | + + + | Address | Unknown | + + + | Phone | Unavailable | + + + Support + + + + + | Name | Relationship | Address | Phone | + + + + + | Arthur Mcduffie | ECON | [address] | | | | | [place] | | | | | [address] | | + + + + + | Uma Arellaon | ECON | [address] | | | | | [place] [address] | | + + + + + Care Team Providers + +------+ + | Care Air Cargo Specialist Supervisor Name | Role | Phone | [...] | +--------+ + + + + | 07/13/ | Telephone | [facility] | Cuong Joe, | DME | | 2019 | | [facility] | [address] | | | | | [address] | [place] | | | | | [place] | [address] | | | | | [address] | | | | | | [phone] | | | +--------+ + + + [...] [place] | | | | | | [address] | | | | | | | | +--------+ + + + + | 04/29/ | Appointment | Radiology | Cuong Joe, | | | 2019 | | | MD [address] | | | | | | [place] | | | | | | [address] | | | | | | | | +--------+ + + + + | 05/11/ | Office | Neurology | Reina Caraballo, | | | 2019 | Visit | | MD [address] [place] | | | | | | [place] | | | | | | [address] | | | | | | [phone] | | | | | | | | +--------+ + + + + documented as of this encounter Visit Diagnoses Not on filedocumented in this encounter"
--- OUTSIDE RECORDS SUMMARY | ~2019-04-25 | XMS | Encounter Summary ---
Demographics + + + | Address | [address] | | | [place] [address] | + + + | Home Phone | | + + + | Preferred Language | Unknown | + + + | Marital Status | | + + + | Sikhism Affiliation | Unknown | + + + | Race | Unknown | + + + | Ethnic Group | Unknown | + + + Author + + + | Author | [facility] | | | and Srikanthana | + + + | Organization | [facility] | | | and Srikanthana | + + + | Address | Unknown | + + + | Phone | Unavailable | + + + Support + + + + + | Name | Relationship | Address | Phone | + + + + + | Arthur Mcduffie | ECON | [address] [facility] | | | | | [place] | | | | | [address] | | + + + + + | Uma Arellano | ECON | [address] [facility] | | | | | [place] [address] | | + + + + + Care Team Providers + +------+ + | Care Heavy Threader Name | Role | Phone | + +------+ + | Cuong Joe MD | PCP | | + +------+ + Encounter Details +--------+ + + + + | Date | Type | Department | Care Team | Description | +--------+ + + + + | 11/09/ | Hospital | [facility] | Cuong Joe, | Wrist pain, right | | 2013 | Encounter | [facility] | [address] | | | | | [address] [place] | [place], [place] | | | | | [place] | [address] | | | | | [address] | | | | | | [phone] | | | +--------+ + + + [...] at Time of Discharge + + + +---------+--------+ + | Medication | Sig | Dispensed | Refills | Start | End Date | | | | | | Date | | + + + +---------+--------+ + | Calcium Carbonate | Take 2 tablets by | | 0 | | | | Antacid (TUMS ULTRA | mouth Daily. | | | | 9 | | 1000 PO)Indications: | | | | | | | Sacroiliac | | | | | | | dysfunction | | | | | | + + + +---------+--------+ + documented as of this encounter Plan [...] [place] | | | | | | [id number] | | | | | | | | +--------+ + + + + | 04/29/ | Appointment | Radiology | Cuong Joe, | | | 2019 | | | MD [address] | | | | | | [place] | | | | | | [address] | | | | | | | | +--------+ + + + + | 05/11/ | Office | Neurology | Reina Caraballo, | | | 2019 | Visit | | MD [address] [place] | | | | | | [place], [place] | | | | | | [address] | | | | | | [phone] | | | | | | | | +--------+ + + + + documented as of this encounter Procedures + +--------+ + + + | Procedure Name | Priori | Date/Time | Associated Diagnosis | Comments | | | ty | | | | + +--------+ + + + | XR WRIST RIGHT 3 + | Routin | 11/09/2013 | Wrist pain, right | Results for this | | VW | e | 9:43 AM | | procedure are in the | | | | PDT | | results section. | + +--------+ + + + documented in this encounter Results XR Wrist Right 3 [...] + | MISCELLANEOUS LAB | | | [phone] | + +---------+ + + | MISCELANIOUS LAB | | | [phone] | + +---------+ + + documented in this encounter Visit Diagnoses + + | Diagnosis | + + | Wrist pain, right Pain in joint, forearm | + + documented in this encounter"
--- OUTSIDE RECORDS SUMMARY | ~2019-04-25 | XMS | Encounter Summary ---
Demographics + + + | Address | [address] | | | [place] [address] | + + + | Home Phone | | + + + | Preferred Language | Unknown | + + + | Marital Status | | + + + | Anabaptism Affiliation | Unknown | + + + | Race | Unknown | + + + | Ethnic Group | Unknown | + + + Author + + + | Author | [facility] | | | and Srikanthana | + + + | Organization | [facility] | | | and Srikanthana | + + + | Address | Unknown | + + + | Phone | Unavailable | + + + Support + + + + + | Name | Relationship | Address | Phone | + + + + + | Arthur Mcduffie | ECON | [address] [facility] | | | | | [place] | | | | | [address] | | + + + + + | Uma Arellano | ECON | [address] [facility] | | | | | [place] [address] | | + + + + + Care Team Providers + +------+ + | Care Engineering Program Analyst Name | Role | Phone | + +------+ + | Cuong Joe MD | PCP | | + +------+ + Encounter Details +--------+ + + + + | Date | Type | Department | Care Team | Description | +--------+ + + + + | 09/19/ | Orders Only | [facility] | Griselda Elias, | Diarrhea | | 2015 | | MED CTR LABORATORY | Roller Repairer | | | | | [address] | | | | | | [place] | | | | | | [address] | | | | | | [phone] | | | +--------+ + + + [...] [place] | | | | | | [address] | | | | | | | | +--------+ + + + + | 04/29/ | Appointment | Radiology | Cuong Joe, | | | 2019 | | | [address] | | | | | | [place], [place] | | | | | | [address] | | | | | | | | +--------+ + + + + | 05/11/ | Office | Neurology | Reina Caraballo, | | | 2019 | Visit | | [address] [place] | | | | | | [place], [place] | | | | | | [address] | | | | | | [phone] | | | | | | | | +--------+ + + + + documented as of this encounter Procedures + +--------+ + + + | Procedure Name | Priori | Date/Time | Associated Diagnosis | Comments | | | ty | | | | + +--------+ + + + | CLOSTRIDIUM | Routin | 09/19/2014 | Diarrhea | Results for this | | DIFFICILE A AND B | e | 12:23 PM | | procedure are in the | | EIA | | PDT | | results section. | + +--------+ + + + documented in this encounter Results Clostridium difficile A and B EIA (09/19/2014 12:23 PM PDT) + + + + + + | Component | Value | Ref Range | Performed | Pathologist | | | | | At | Signature | + + + + + + | Clostridium | Negative | Negative | [facility] | | | Diff | | | [facility] | | | [facility] | | [facility] - | | | | | | LAB[facility]ATORY | | + + + + + + | Clostridium | NegativeComment: | | [facility] | | | Difficile | Negative for toxigenic | | [facility] | | | [facility] | Clostridium [...] | + + + + + | [facility] | [address] | [place] | [phone] | | [facility] | | [address] | | | - LABORATORY | | | | + + + + + documented in this encounter Visit Diagnoses + + | Diagnosis | + + | Diarrhea | + + documented in this encounter"
--- OUTSIDE RECORDS SUMMARY | ~2019-04-25 | XMS | Encounter Summary ---
Demographics + + + | Address | [address] | | | [place] [address] | + + + | Home Phone [...] + | Author | [facility] | | | and Srikanthana | + + + | Organization | [facility] | | | and Srikanthana | + + + | Address | Unknown | + + + | Phone | Unavailable | + + + Support + + + + + | Name | Relationship | Address | Phone | + + + + + | Arthur Mcduffie | ECON | [address] | | | | | [place] | | | | | [address] | | + + + + + | Uma Arellano | ECON | [address] [facility] | | | | | [place] [address] | | + + + + + Care Team Providers + +------+ + | Care Decorator Lighting Fixtures Name | Role | Phone | + +------+ + | Cuong Joe MD | PCP | | + +------+ + Encounter Details +--------+ + + + + | Date | Type | Department | Care Team | Description | +--------+ + + + + | 05/31/ | Abstract | [facility] | Cuong Joe, | | | 2015 | | [facility]. [facility] | [address] | | | | | [address] | [place] | | | | | [place] | [address] | | | | | [address] | | | | | | [phone] | | | +--------+ + + + [...] 2020 | Encounter | | MD [address] [facility] | | | | | | [place] | | | | | | [address] | | | | | | | | +--------+ + + + + | 04/29/ | Appointment | Radiology | Cuong Joe, | | 2019 | | | [address] | | | | | | [place], [place] | | | | | | [address] | | | | | | | | +--------+ + + + + | 05/11/ | Office | Neurology | Reina Caraballo, | | | 2019 | Visit | | [address] | | | | | | [place], [place] | | | | | | [address] | | | | | | [phone] | | | | | | | | +--------+ + + + + documented as of this encounter Procedures + +--------+ + + + | Procedure Name | Priori | Date/Time | Associated Diagnosis | Comments | | | ty | | | | + +--------+ + + + | EXTERNAL LAB: PAP | Routin | 03/31/2013 | | Results for this | | SMEAR | e | | | procedure are in the | | | | | | results section. | + +--------+ + + + documented in this encounter Results External Lab: PAP Smear (03/31/2013) + + + + + + | Component | Value | Ref Range | Performed | Pathologist | | | | | At | Signature | + + + + + + | Pap Smear, | No evidence of | | EXTERNAL | | | External | intraepithelial lesion | | LAB | | | | or malignancyComment: | | | | | | HPV Negative | | | | + + + + + + + + | Resulting Agency Comment | + + | [facility] | + + + +---------+ + + | Performing | Address | City/State/Zipcode | Phone Number | | Organization | | | | + +---------+ + + | EXTERNAL LAB | | | | + +---------+ + + documented in this encounter Visit Diagnoses Not on filedocumented in this encounter"
--- OUTSIDE RECORDS SUMMARY | ~2019-04-25 | XMS | Encounter Summary ---
Demographics + + + | Address | [address] | | | [place] [address] | + + + | Home Phone | | + + + | Preferred Language | Unknown | + + + | Marital Status | | + + + | Confucianist Affiliation | Unknown | + + + | Race | Unknown | + + + | Ethnic Group | Unknown | + + + Author + + + | Author | [facility] | | | and Srikanthana | + + + | Organization | [facility] | | | and Srikanthana | + + + | Address | Unknown | + + + | Phone | Unavailable | + + + Support + + + + + | Name | Relationship | Address | Phone | + + + + + | Arthur Mcduffie | ECON | [address] | | | | | [place] | | | | | [address] | | + + + + + | Uma Arellano | ECON | [address] [facility] | | | | | [place] [address] | | + + + + + Care Team Providers + +------+ + | Care Chro Name | Role | Phone | + [...] | | | | Diagnoses | | Teresita, | | | | | | | Everett Del Valle MD | | | | | 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 | | [place], | | | | | thyroid | | [place] [address] | | | | | nodule and | | Phone: | | | | | without | | [phone] | | | | | thyroid | | Fax: | | | | | storm | | [phone] | | | | | Thyrotoxicos | [...] | | | | | | | MI THYROID | | | | | | | LOBECTOMY,UN | | | | | | | ILAT | | | +--------+--------+ + + + + Encounter Details +--------+ + + + + | Date | Type | Department | Care Team | Description | +--------+ + + + + | 10/15/ | Anesthesia | ZULEIKA HERNANDEZ | GageJennie, | | | 2016 | Event | [facility] | DO [address] | | | | | [address] | [place] | | | | | [place] | [address] | | | | | [address] | | | | | | [phone] | | | +--------+ + + + + Anesthesia Record + + + + + | Procedure Name | Responsible | Anesthesia Start | Anesthesia Stop Time | | | Anesthesiologist | Time | | + + + + + | Right | Jennie Almonte DO | 10/15/16 1147 | 10/15/16 1352 | | Alban-Thyroidectomy | | | | | (Right Neck) | | | | + + + + + +----+---+ + + | Da | T | Event | Comment | | te | i | | | | | m | | | | | e | | | +----+---+ + + | 06 | 1 | | | | /2 | 1 | | | | 1/ | 1 | | | | 20 | 5 | | | | 17 | | | | +----+---+ + + | | 1 | An Checkout | Pre-use anesthesia machine/equipment checkout. | | | 1 | | | | | 4 | | | | | 7 | | | +----+---+ + + | | 1 | An Start | Reassessment prior to anesthesia induction/procedure. | | | 1 | | | | | 4 | | | | | 7 | | | +----+---+ + + | | 1 | Preoxygenat | | | | 1 | ed | | | | 4 | | | | | 7 | | | +----+---+ + + | | 1 | Pre-Procedu | | | | 1 | ral Timeout | | | | 4 | Completed | | | | 9 | | | +----+---+ + + | | 1 | An | | | | 1 | Induction | | | | 4 | | | | | 9 | | | +----+---+ + + | | 1 | An | | | | 1 | Intubation | | | | 5 | | | | | 0 | | | +----+---+ + + | | 1 | AN Bite | | | | 2 | Block | | | | 0 | | | | | 5 | | | +----+---+ + + | | 1 | Henderson | | | | 2 | 43-degrees | | | | 0 | | | | | 6 | | | +----+---+ + + | | 1 | First | | | | 2 | Inc/Proc St | | | | 0 | | | | | 7 | | | +----+---+ + + | | 1 | Breathing | | | | 3 | Spontaneous | | | | 4 | ly | | | | 7 | | | +----+---+ + + | | 1 | Oropharynx | | | | 3 | Suctioned | | | | 4 | | | | | 7 | | | +----+---+ + + | | 1 | Extubated | | | | 3 | Awake | | | | 4 | | | | | 8 | | | +----+---+ + + | | 1 | an stop | | | | 3 | data | | | | 4 | | | | | 8 | | | +----+---+ + + | | 1 | An Stop | Patient handed off to recovery nurse. | | | 5 | | | | | 2 | | | +----+---+ + + +------+ | Meds | +------+ + +---------+ | Name | Total | + +---------+ | midazolam | 2 mg | + +---------+ | fentaNYL injection (2 mL) | 200 mcg | + +---------+ | propofol (DIPRIVAN) injection | 150 mg | | (bolus) (20 mL) | | + +---------+ | lidocaine 2% | 80 mg | + +---------+ | succinylcholine | 100 mg | + +---------+ | ondansetron | 4 mg | + +---------+ | dexamethasone | 10 mg | + +---------+ | LR (Infusion) | 900 mL | + +---------+ + + | Name | + + | N2O Flow Rate (L/Min) | + + | O2 Flow Rate (L/Min) | + + | Insp O2 | + + | Exp SEV | + + | Air Flow Rate (L/Min) | + + + + | No blood administrations on file. | + + +--------+ + + + | Type | Details | Placement | Removal | +--------+ + + + | Periph | 10/15/16; 1045; Left; Mid; | 10/15/16 1045 by | 10/15/16 1528 by | | eral | Forearm; qxpf-len-dgvopy catheter | Alexa Salazar RN | Lavinia Manning RN | | IV | system; 18 gauge, 1 1/2 in | | | | | length; distraction, topical | | | | | anesthetic spray applied, | | | | | tolerated well, appears | | | | | comfortable; no longer indicated; | | | | | 10/15/16; 1528 | | | +--------+ + + + | Airway | Placement Date: 10/15/16; | 10/15/16 1150 by | 10/15/16 1348 by | | | Placement Time: 1150 (created via | Jennie Almonte DO | Jennie Almonte DO | | | procedure documentation); Mask | | | | | Ventilation: EZ; Airway Grade: 1; | | | | | Successful Technique: Mac; | | | | | Laryngoscope Blade Size: 3; | | | | | Attempts: 1; Airway Type: | | | | | endotracheal; Size: 6.5; Airway | | | | | Tube Secured At: 20; Trauma: | | | | | none; Other Equipment: stylette; | | | | | Placement Check: exhaled CO2 | | | | | detection device, bilateral chest | | | | | rise, suprasternal notch | | | | | palpation; Removal Date: | | | | | 10/15/16; Removal Time: 1348 | | | +--------+ + + + | Read | 10/15/16; 1235; neck; 07/20/18 | 10/15/16 1235 by | 07/20/18 1342 by | | only - | (Completed/Removed by Utility); | Connie Massey RN | User Epic | | | 1342 (Completed/Removed by | | | | Incisi | Utility) | | | | on | | [...] [place] | | | | | | [address] | | | | | | | | +--------+ + + + + | 04/29/ | Appointment | Radiology | Cuong Joe, | | | 2019 | | | MD [address] | | | | | | [place] | | | | | | [address] | | | | | | | | +--------+ + + + + | 05/11/ | Office | Neurology | Reina Caraballo, | | | 2019 | Visit | | MD [address] | | | | | | [place] | | | | | | [address] | | | | | | [phone] | | | | | | | | +--------+ + + + + documented as of this encounter Procedures + +--------+ + + + | Procedure Name | Priori | Date/Time | Associated Diagnosis | Comments | | | ty | | | | + +--------+ + + + | ANE AIRWAY NOTE | Routin | 10/15/2016 | | Results for this | | | e | 12:11 PM | | procedure are in the | | | | PDT | | results section. | + +--------+ + + + documented in this encounter Results Anesthesia Airway Note (10/15/2016 12:11 PM PDT) + + + | Narrative | Performed At | + + + | Jennie Almonte DO 10/15/2016 12:11 Anesthesia | | | Airway Placement 10/15/2016 11:50 Preprocedure check: patient | | | identified, oxygen, airway assessed, suction, airway equipment | | | checked and patient reassessment prior to induction Mask ventilation: | | | easy Successful technique: Mac Laryngoscope blade size: 3 | | | Airway grade: 1 (Full view of glottis) Other equipment: stylette | | | Attempts: 1 Airway type: endotracheal Size: 6.5 Cuffed: cuffed | | | Route, reference point: right side of mouth Tube depth: 20 cm Tube | | | secured with: adhesive tape Trauma: none Tube placement | | | verification: bilateral chest rise, carbon dioxide detection and | | | suprasternal notch palpation Performing provider: JENNIE ALMONTE | | | MAYRA Electronically Signed by: Jennie Almonte DO | | | ESig date/time: 10/15/2016 12:11 | | | | | + + + + + | Procedure Note | + + | Jennie Almonte DO - 10/15/2016 12:11 PM PDT Anesthesia Airway Placement10/15/2016 | | 11:50Preprocedure check: patient identified, oxygen, airway assessed, suction, airway | | equipment checked and patient reassessment prior to inductionMask ventilation: | | easySuccessful technique: MacLaryngoscope blade size: 3 Airway grade: 1 (Full view of | | glottis)Other equipment: styletteAttempts: 1Airway type: endotrachealSize: 6.5Cuffed: | | cuffedRoute, reference point: right side of mouthTube depth: 20 cmTube secured with: | | adhesive tapeTrauma: noneTube placement verification: bilateral chest rise, carbon | | dioxide detection and suprasternal notch palpationPerforming provider: JENNIE ALMONTE | | GABRIELElectronically Signed by: Jennie Almonte DO | | ESig date/time: 10/15/2016 12:11 | |Airway type: endotracheal | |Size: 6.5 | |Cuffed: cuffed | |Route, reference point: right side of mouth | |Tube depth: 20 cm | |Tube secured with: adhesive tape | |Trauma: none | |Tube placement verification: bilateral chest rise, carbon dioxide detection and suprasterna l notch palpation | |Performing provider: JENNIE ALMONTE | | | | | |Electronically Signed by: Jennie Almonte DO ESi date/time : 10/15/2016 12:11 | | | + + documented in this encounter Visit Diagnoses Not on filedocumented in this encounter Administered Medications + +--------+ +-------+------+------+ | Medication Order | MAR | Action | Dose | Rate | Site | | | Action | Date | | | | + +--------+ +-------+------+------+ | dexamethasone (DECADRON) 10 | Given | 10/16/19 | 10 mg | | | | mg/mL injection Intravenous, | | 17 11:49 | | | | | PRN, Starting 10/15/16 at | | AM PDT | | | | | 1149, Anesthesia Intra-op | | | | | | + +--------+ +-------+------+------+ +---+---+ | | | +---+---+ + +-------+ +--------+---+---+ | fentaNYL (PF) injection | Given | 10/16/19 | 50 mcg | | | | Intravenous, PRN, Pain, Starting | | 17 1:19 | | | | | 10/15/16 at 1156, Anesthesia | | PM PDT | | | | | Intra-op | | | | | | + +-------+ +--------+---+---+ +-------+ +--------+---+---+ | Given | 10/16/19 | 50 mcg | | | | | 17 12:30 | | | | | | PM PDT | | | | +-------+ +--------+---+---+ | Given | 10/16/19 | 25 mcg | | | | | 17 12:10 | | | | | | PM PDT | | | | +-------+ +--------+---+---+ +---+---+ | | | +---+---+ + +---------+ +---+---+---+ | lactated ringers (LR) infusion | New Bag | 10/16/19 | | | | | Intravenous, CONTINUOUS PRN, | | 17 11:46 | | | | | Starting 10/15/16 at 1146, | | AM PDT | | | | | Anesthesia Intra-op | | | | | | + +---------+ +---+---+---+ +---+---+ | | | +---+---+ + +-------+ +-------+---+---+ | lidocaine (PF) 2% injection | Given | 10/16/19 | 80 mg | | | | Intravenous, PRN, Starting Thu | | 17 11:49 | | | | | 10/15/16 at 1149, Anesthesia | | AM PDT | | | | | Intra-op | | | | | | + +-------+ +-------+---+---+ +---+---+ | | | +---+---+ + +-------+ +------+---+---+ | midazolam (VERSED) 1 mg/mL | Given | 10/16/19 | 2 mg | | | | injection Intravenous, PRN, | | 17 11:47 | | | | | Anxiety, Starting Thu10/15/16 at | | AM PDT | | | | | 1147, Anesthesia Intra-op | | | | | | + +-------+ +------+---+---+ +---+---+ | | | +---+---+ + +-------+ +------+---+---+ | ondansetron (ZOFRAN) injection | Given | 10/16/19 | 4 mg | | | | Intravenous, PRN, Nausea, | | 17 11:49 | | | | | Vomiting, Starting Thu10/15/16 at | | AM PDT | | | | | 1149, Anesthesia Intra-op | | | | | | + +-------+ +------+---+---+ +---+---+ | | | +---+---+ + +-------+ +--------+---+---+ | propofol (DIPRIVAN) injection | Given | 10/16/19 | 150 mg | | | | Intravenous, PRN, Starting Thu | | 17 11:49 | | | | | 10/15/16 at 1149, Anesthesia | | AM PDT | | | | | Intra-op | | | | | | + +-------+ +--------+---+---+ +---+---+ | | | +---+---+ + +-------+ +--------+---+---+ | succinylcholine (ANECTINE) | Given | 10/16/19 | 100 mg | | | | injection Intravenous, PRN, | | 17 11:49 | | | | | Starting 10/15/16 at 1149, | | AM PDT | | | | | Anesthesia Intra-op | | | | | | + +-------+ +--------+---+---+ +---+---+ | | | +---+---+ documented in this encounter"
--- OUTSIDE RECORDS SUMMARY | ~2019-04-25 | XMS | Encounter Summary ---
Demographics + + + | Address | [address] | | | [place] [address] | + + + | Home Phone | | + + + | Preferred Language | Unknown | + + + | Marital Status | | + + + | Confucianist Affiliation | Unknown | + + + | Race | Unknown | + + + | Ethnic Group | Unknown | + + + Author + + + | Author | [facility] | | | and S[place]anth[place] | + + + | Organization | [facility] | | | and [place]anth[place] | + + + | Address | Unknown | + + + | Phone | Unavailable | + + + Support + + + + + | Name | Relationship | Address | Phone | + + + + + | Arthur Mcduffie | ECON | [address] [facility] | | | | | [place] | | | | | [address] | | + + + + + | Uma Arellano | ECON | [address] [facility] | | | | | [place] [address] | | + + + + + Care Team Providers + +------+ + | Care Charging Car Operator Name | Role | Phone | + +------+ + | Cuong Joe MD | PCP | | + +------+ + Reason for Visit + + + | Reason | Comments | + + + | Medication Question | | + + + Encounter Details +--------+ + + + + | Date | Type | Department | Care Team | Description | +--------+ + + + + | 05/25/ | Telephone | [facility] | Cuong Joe, | Medication Question | | 2019 | | MEDICINE [place] | [address] | | | | | [address] | [place] | | | | | [place] | [address] | | | | | [address] | | | | | | [phone] | | | +--------+ + + + [...] [place] | | | | | | [address] | | | | | | | | +--------+ + + + + | 04/29/ | Appointment | Radiology | Cuong Joe, | | | 2019 | | | MD [address] | | | | | | [place] | | | | | | [address] | | | | | | | | +--------+ + + + + | 05/11/ | Office | Neurology | Reina Caraballo, | | | 2019 | Visit | | MD [address] | | | | | | [place] | | | | | | [address] | | | | | | [phone] | | | | | | | | +--------+ + + + + documented as of this encounter Visit Diagnoses Not on filedocumented in this encounter"
--- OUTSIDE RECORDS SUMMARY | ~2019-04-25 | XMS | Encounter Summary ---
Demographics + + + | Address | [address] | | | [place] [address] | + + + | Home Phone [...] | Author | [facility] | | | and Srikanthana | + + + | Organization | [facility] | | | and Srikanthana | + + + | Address | Unknown | + + + | Phone | Unavailable | + + + Support + + + + + | Name | Relationship | Address | Phone | + + + + + | Arthur Mcduffie | ECON | [address] | | | | | [place] | | | | | [address] | | + + + + + | Uma Arellano | ECON | [address] [facility] | | | | | [place] [address] | | + + + + + Care Team Providers + +------+ + | Care Phlebotomy Technician Name | Role | Phone | + +------+ + | Cuong Joe MD | PCP | | + +------+ + Reason for Visit + + + | Reason | Comments | + + + | Appointment Question | | + + + | Medication | | | Management | | + + + Encounter Details +--------+ + + + + | Date | Type | Department | Care Team | Description | +--------+ + + + + | 03/17/ | Telephone | [facility] | Cuong Joe, | Appointment | | 2019 | | MEDICINE [place] | [address] | Question; Medication | | | | [address] | [place] | Management | | | | [place] | [id number] | | | | | [address] | | | | | | [phone] | | | +--------+ + + + [...] [place] | | | | | | [address] | | | | | | | | +--------+ + + + + | 04/29/ | Appointment | Radiology | Cuong Joe, | | | 2019 | | | MD [address] | | | | | | [place] | | | | | | [address] | | | | | | | | +--------+ + + + + | 05/11/ | Office | Neurology | Reina Caraballo, | | | 2019 | Visit | | MD [address] [place] | | | | | | [place], [place] | | | | | | [address] | | | | | | [phone] | | | | | | | | +--------+ + + + + documented as of this encounter Visit Diagnoses Not on filedocumented in this encounter"
--- OUTSIDE RECORDS SUMMARY | ~2019-04-25 | XMS | Encounter Summary ---
Demographics + + + | Address | [address] | | | [place] [address] | + + + | Home Phone | | + + + | Preferred Language | Unknown | + + + | Marital Status | | + + + | Hindu Affiliation | Unknown | + + + | Race | Unknown | + + + | Ethnic Group | Unknown | + + + Author + + + | Author | [facility] | | | and Srikanthana | + + + | Organization | [facility] | | | and [place] | + + + | Address | Unknown | + + + | Phone | Unavailable | + + + Support + + + + + | Name | Relationship | Address | Phone | + + + + + | Arthur Mcduffie | ECON | [address] | | | | | [place] | | | | | [address] | | + + + + + | Uma Arellano | ECON | [address] [facility] | | | | | [place] [address] | | + + + + + Care Team Providers + +------+ + | Care Computer Education Teacher Name | Role | Phone | + +------+ + PCP | Unavailable | + +------+ + Encounter Details +--------+ + + + + | Date | Type | Department | Care Team | Description | +--------+ + + + + | 01/07/ | Abstract | [facility] | [facility] | | | 2012 | | Conversion Location | SR | | | | | [phone] | | | +--------+ + + + [...] + + + | Blood Pressure | 134/78 | 11/19/2009 12:00 AM | | | | | PDT | | + + + + + | Pulse | - | - | | + + + + + | Temperature | - | - | | + + + + + | Respiratory Rate | - | - | | + + + + + | Oxygen Saturation | - | - | | + + + + + | Inhaled Oxygen | - | - | | | Concentration | | | | + + + + + | Weight | 73.9 kg (163 lb) | 11/19/2009 12:00 AM | | | | | PDT | | + + + + + | Height | 160 cm (5' 3") | 11/19/2009 12:00 AM | | | | | PDT | | + + + + + | Body Mass Index | 28.87 | 11/19/2009 12:00 AM | | | | | PDT | | + + + + + documented in this encounter Plan of Treatment [...] [place] | | | | | | [address] | | | | | | | | +--------+ + + + + | 04/29/ | Appointment | Radiology | Cuong Joe, | | | 2019 | | | MD [address] | | | | | | [place] | | | | | | [address] | | | | | | | | +--------+ + + + + | 05/11/ | Office | Neurology | Reina Caraballo, | | | 2019 | Visit | | MD [address] | | | | | | [place] | | | | | | [address] | | | | | | [phone] | | | | | | | | +--------+ + + + + documented as of this encounter Visit Diagnoses Not on filedocumented in this encounter
--- OUTSIDE RECORDS SUMMARY | ~2019-04-25 | XMS | Encounter Summary ---
Demographics + + + | Address | [address] | | | [place] [address] | + + + | Home Phone | | + + + | Preferred Language | Unknown | + + + | Marital Status | | + + + | Yarsanism Affiliation | Unknown | + + + | Race | Unknown | + + + | Ethnic Group | Unknown | + + + Author + + + | Author | [facility] | | | and Srikanthana | + + + | Organization | [facility] | | | and [place] | + + + | Address | Unknown | + + + | Phone | Unavailable | + + + Support + + + + + | Name | Relationship | Address | Phone | + + + + + | Arthur Mcduffie | ECON | [address] | | | | | [place] | | | | | [address] | | + + + + + | Uma Arellano | ECON | [address] [facility] | | | | | [place] [address] | | + + + + + Care Team Providers + +------+ + | Care Stone Mill Operator Name | Role | Phone | + +------+ + PCP | Unavailable | + +------+ + Encounter Details +--------+ + + + + | Date | Type | Department | Care Team | Description | +--------+ + + + + | 08/14/ | Hospital | [facility] | Nick Cerrato | | | 2009 | Encounter | MED CTR XRAY [address] [facility] | | | | | [place] | [place], [place] | | | | | [place] [address] | [address] | | | | | [phone] | | | +--------+ + + + [...] [place] | | | | | | [address] | | | | | | | | +--------+ + + + + | 04/29/ | Appointment | Radiology | Cuong Joe, | | | 2019 | | | MD [address] | | | | | | [place] | | | | | | [address] | | | | | | | | +--------+ + + + + | 05/11/ | Office | Neurology | Reina Caraballo, | | | 2019 | Visit | | MD [address] [place] | | | | | | [address] [place], [place] | | | | | | [address] | | | | | | [phone] | | | | | | | | +--------+ + + + + documented as of this encounter Visit Diagnoses Not on filedocumented in this encounter"
--- OUTSIDE RECORDS SUMMARY | ~2019-04-25 | XMS | Clinical Summary ---
Demographics + + + | Address | [address] | | | [place] [address] | + + + | Home Phone | | + + + | Preferred Language | Unknown | + + + | Marital Status | Unknown | + + + | Congregational Affiliation | Unknown | + + + | Race | Unknown | + + + | Ethnic Group | Unknown | + + + Author + + + | Author | [facility] | + + + | Organization | [facility] | + + + | Address | Unknown | + + + | Phone | Unavailable | + + + Care Team Providers + +------+ + | Care Pattern Drafter Name | Role | Phone | + +------+ + PCP | Unavailable | + +------+ + Source Comments LUIS is fully live on both EpicCare Ambulatory and EpicCare InPatient.[facility] Allergies Not on File Medications Not on file Active Problems Not on file Encounters +--------+ + + + + | Date | Type | Specialty | Care Team | Description | +--------+ + + + + | 03/09/ | Abstract | Neurology | Unknown | | | 2018 | | | | | +--------+ + + + + | 03/07/ | Telephone | Neurology | [place], | Optic neuritis | | 2018 | | | MD Mario | | +--------+ + + + + | 03/07/ | Intake | | | N/A | | 2018 | | | | | +--------+ + + + + from Last 3 Months Social History + +-------+ +--------+------+ | Tobacco [...] recent travel history available. | + + Last Filed Vital Signs Not on file Plan of Treatment + + + + + | Health Maintenance | Due Date | Last Done | Comments | + + + + + | Influenza (Flu) | | 01/25/2017, 02/26/2016, | | | vaccination (#1) | 9 | 01/25/2013 | | + + + + + | Pneumococcal | Aged Out | | No longer eligible | | vaccination | | | based on patient's | | | | | age to complete this | | | | | topic | + + + + + Results Not on filefrom Last 3 Months"
--- OUTSIDE RECORDS SUMMARY | ~2019-04-25 | XMS | Encounter Summary ---
Demographics + + + | Address | [address] | | | [place] [address] | + + + | Home Phone | | + + + | Preferred Language | Unknown | + + + | Marital Status | | + + + | Episcopalian Affiliation | Unknown | + + + | Race | Unknown | + + + | Ethnic Group | Unknown | + + + Author + + + | Author | [facility] | | | and [place] | + + + | Organization | [facility] | | | and [place] | + + + | Address | Unknown | + + + | Phone | Unavailable | + + + Support + + + + + | Name | Relationship | Address | Phone | + + + + + | Arthur Mcduffie | ECON | [address] | | | | | [place] | | | | | [address] | | + + + + + | Uma Arellano | ECON | [address] | | | | | [place] [address] | | + + + + + Care Team Providers + +------+ + | Care Funeral Home Assistant Name | Role | Phone | + [...] | | | | thyroid | | [place] [address] | | | | | nodule and | | Phone: | | | | | without | | [phone] | | | | | thyroid | | Fax: | | | | | storm | | [phone] | | | | | Thyrotoxicos | [...] | | | | | | | [place] THYROID | | | | | | | LOBECTOMY,UN | | | | | | | ILAT | | | +--------+--------+ + + + + Encounter Details +--------+ + + + + | Date | Type | Department | Care Team | Description | +--------+ + + + + | 10/15/ | Hospital | [facility] | Everett Lo | | | 2017 | Encounter | MED CTR OR INTRA OP | MD Eligio [address] | | | | | [address] | [place], [place] | | | | | [place], [place] | [id number] | | | | | [address] | | | | | | [phone] | | | +--------+ + + + [...] the pa rathyroid glands. Date Last Reviewed: 12/09/[id number] [employer]. [address] [place] [address], [place] [address]. All righ ts reserved. This information is [...] [place] | | | | | | [address] | | | | | | | | +--------+ + + + + | 04/29/ | Appointment | Radiology | Cuong Joe, | | | 2019 | | | [address] | | | | | | [place], [place] | | | | | | [address] | | | | | | | | +--------+ + + + + | 05/11/ | Office | Neurology | Reina Caraballo, | | | 2019 | Visit | | MD Arnel [address] | | | | | | [address] [place], [place] | | | | | | [address] | | | | | | [phone] | | | | | | | [...] | 1.010, 1.015, | | | | [place], | | 1.020, 1.025 | | | [...] SPECIMEN(S): A RIGHT THYROID LOBE SPECIMEN SOURCE: [facility] | | THYROID LOBE CLINICAL HISTORY: [...] | | | seen. As part of [facility] Quality Improvement Program, | | | this case was reviewed by another member of our pathology staff. | | | CLR:JVR:[facility]:C2NR GROSS DESCRIPTION: The specimen is received in [...] | dominant nodule present in cassettes (A2-A7). CLR:[facility] MICROSCOPIC | | | EXAMINATION: Histologic sections of all submitted blocks are examined | | | by light microscopy. These findings, together with the gross | | | examination, support the pathologic diagnosis. PERFORMING LABORATORY: | | | Tissue processing and slide preparation were performed by [facility] | | | [employer], [address], [place] [address] | | | (Armature Balancer: Keith Baer M.D.; IA#: [id number]). | | | Professional interpretation was performed by [facility], [address], [place] [address] (Armature Balancer: Keith | | | Mir Baer; RENEE#: [id number]). Diagnostician: Curtis | | | Destiney Graves [...] glucose < 50, | | | Starting 10/15/16 at 1016, | | | Repeat in [...] if SBP <90., Starting | | | Thu10/15/16 at 1328, Hold if HR > | | | 100. Maximum total dose 20mg., | | | Recovery/Phase I | | + +---+ | | | + +---+ | glycopyrrolate (ROBINUL) | | | injection 0.2 mg 0.2 mg, | | | Intravenous, PRN, Bradycardia, | | | For HR <50, Starting Thu10/15/16 | | | at 1328, For 2 [...] | mL/hr | | | CONTINUOUS, Starting 10/15/16 | | PM PDT | | | [...] | | | | PRN, Nausea, Starting 10/15/16 | | PM PDT | | | [...] PRN, | | | Nausea, Vomiting, Starting Thu | | | 10/15/16 at 1328, For [...]
--- OUTSIDE RECORDS SUMMARY | ~2019-04-25 | XMS | Encounter Summary ---
Demographics + + + | Address | [address] | | | [place] [address] | + + + | Home Phone | | + + + | Preferred Language | Unknown | + + + | Marital Status | | + + + | Latter Day Affiliation | Unknown | + + + | Race | Unknown | + + + | Ethnic Group | Unknown | + + + Author + + + | Author | [facility] | | | and Srikanthana | + + + | Organization | [facility] | | | and Srikanthana | + + + | Address | Unknown | + + + | Phone | Unavailable | + + + Support + + + + + | Name | Relationship | Address | Phone | + + + + + | Arthur Mcduffie | ECON | [address] [facility] | | | | | [place] | | | | | [address] | | + + + + + | Uma Arellano | ECON | [address] [facility] | | | | | [place] [address] | | + + + + + Care Team Providers + +------+ + | Care Editing Internship Name | Role | Phone | + +------+ + | Cuong Joe MD | PCP | | + +------+ + Reason for Referral Diagnostic/Screening (Routine) + +--------+ + + + + | Status | Reason | Specialty | Diagnoses / | Referred By | Referred To | | | | | Procedures | Contact | Contact | + +--------+ + + + + | Authorized | | Radiology | Diagnoses | [place], | [facility] | | | | | Optic | Cuong Corrales MD | [address] | | | | | neuritis, | [address] | [place], | | | | | right | [address]VE [place] | [place] | | | | | Multiple | [place] | [address] | | | | | sclerosis | [address] | Phone: | | | | | (HCC) | Phone: | [phone] | | | | | Procedures | [phone] | Fax: | | | | | MRI Cervical | Fax: | [phone] | | | | | Spine w wo | [phone] | | | | | | Contrast | | | + +--------+ + + + + Diagnostic/Screening (Routine) + +--------+ + + + + | Status | Reason | Specialty | Diagnoses / | Referred By | Referred To | | | | | Procedures | Contact | Contact | + +--------+ + + + + | Authorized | | Radiology | Diagnoses | [place], | [facility] | | | | | Optic | Cuong Corrales MD | [address] | | | | | neuritis, | [address] | [place], | | | | | right | [address]VE [place] | [place] | | | | | Multiple | [place], [place] | [address] | | | | | sclerosis | [address] | Phone: | | | | | (HCC) | Phone: | [phone] | | | | | Procedures | [phone] | Fax: | | | | | MRI Thoracic | Fax: | [phone] | | | | | Spine w wo | [phone] | | | | | | Contrast | | | + +--------+ + + + + Reason for Visit + + + | Reason | Comments | + + + | Eye Problem | started having problems again with her eyes. Wanted to catch it | | | early | + + + Encounter Details +--------+---------+ + + + | Date | Type | Department | Care Team | Description | +--------+---------+ + + + | 03/28/ | Office | [facility] | Cuong Joe, | Optic neuritis, | | 2019 | Visit | [facility] | [address] | right (Primary Dx); | | | | [address] | [place] | Multiple sclerosis | | | | [place] | [address] | ([facility]); Screen for | | | | [address] | | sexually transmitted | | | | [phone] | | diseases; | | | | | | Postoperative [...] + + + | Blood Pressure | 138/72 | 03/28/2019 1:40 PM | | | | | PST | | + + + + + | Pulse | 67 | 03/28/2019 1:40 PM | | | | | PST | | + + + + + | Temperature | 36.7 C (98 F) | 03/28/2019 1:40 PM | | | | | PST | | + + + + + | Respiratory Rate | 16 | 03/28/2019 1:40 PM | | | | | PST | | + + + + + | Oxygen Saturation | 99% | 03/28/2019 1:40 PM | | | | | PST | | + + + + + | Inhaled Oxygen | - | - | | | Concentration | | | | + + + + + | Weight | 79.2 kg (174 lb 9.7 | 03/28/2019 1:40 PM | | | | oz) | PST | | + + + + + | Height | - | - | | + + + + + | Body Mass Index | 29.97 | 03/07/2019 7:25 PM | | | | | PST | | + + + + + documented in this encounter Patient Instructions Patient Instructions Cuong Joe MD - 03/28/2019 1:45 PM PSTHave the IV solumedrol i nfusion today, tomorrow and Thursday. - start the medrol dosepak as prescribed. If your eye pain worsens or you develop vision loss - please follow-up with us right away. documented in this encounter Progress Notes Cuong Joe MD - 03/28/2019 1:45 PM PSTFormatting of this note might be different fr om the original. Subjective: Patient ID: Tammy Mcduffie is a 48 y.o. female who is here today for Eye Problem (s tarted having problems again with her eyes. Wanted to catch it early) HPI She completed prednisone taper 5 days ago. Yesterday she developed pain in right eye with extreme ROM in any direction. She saw her cold rolling machine setter today who recommended she follow-up w carlos kumar. She met with Dr Brown 03/23. No fever, vision changes, URI symptoms, muscle pain/spasms, paresthesias, clumsiness. Patient's medications, allergies, past medical, surgical, social and family histories were obtained and reviewed as appropriate. Review of Systems Objective: BP 138/72 | Pulse 67 | Temp 36.7 C (98 F) (Temporal) | Resp 16 | Wt 79.2 kg (174 lb 9.7 oz) | SpO2 99% | BMI 29.97 kg/m Vision Screening (03/28/2019) Edited by: Ruby Pacheco LPN Right eye Left eye Both eyes With correction 20/13 20/13 20/10 Physical Exam Constitutional: Very pleasant, well developed, NAD HENT: Mouth/Throat: No oropharyngeal exudate. Eyes: Pupils are equal, round, and reactive to light. EOM are normal. Right eye exhibits no discharge. Left eye exhibits no discharge. No scleral icterus. Full ROM but pain in right eye at extremes in all directions Neurological: No cranial nerve deficit. Appointment on 03/28/2019 Component Date Value Ref Range Status TSH 03/28/2019 3.63 0.36 - 3.74 uIU/mL Final ESR 03/28/2019 8 <20 mm/hr Final C-Reactive Protein 03/28/2019 <2.0 0.0 - 9.0 mg/L Final WBC 03/28/2019 8.3 4.0 - 11.0 K/uL Final RBC 03/28/2019 4.72 3.70 - 5.20 M/uL Final Hemoglobin 03/28/2019 14.1 11.5 - 16.0 g/dL Final Hematocrit 03/28/2019 42.9 34.0 - 47.0 % Final MCV 03/28/2019 90.9 83.0 - 101.0 fL Final MCH 03/28/2019 29.9 28.0 - 35.0 pg Final MCHC 03/28/2019 32.9 32.0 - 36.0 g/dL Final RDW-CV 03/28/2019 13.9 <15.0 % Final RDW-SD 03/28/2019 47.5* 35.1 - 46.3 fL Final Platelet Count 03/28/2019 213 140 - 440 K/uL Final MPV 03/28/2019 10.5 6.5 - 12.4 fL Final % Neutrophils 03/28/2019 65.6 45.0 - 82.0 % Final % Lymphocytes 03/28/2019 26.7 20.0 - 45.0 % Final % Monocytes 03/28/2019 5.1 4.0 - 12.0 % Final % Eosinophils 03/28/2019 1.7 0.0 - 5.0 % Final % Basophils 03/28/2019 0.5 0.0 - 1.0 % Final % Immature Granulocytes 03/28/2019 0.4 0.0 - 0.4 % Final Absolute Neutrophils 03/28/2019 5.44 1.80 - 8.50 K/uL Final Absolute Lymphocytes 03/28/2019 2.21 0.60 - 3.20 K/uL Final Absolute Monocytes 03/28/2019 0.42 0.00 - 1.00 K/uL Final Absolute Eosinophils 03/28/2019 0.14 0.00 - 0.40 K/uL Final Absolute Basophils 03/28/2019 0.04 0.00 - 0.10 K/uL Final Absolute Immature Granulocytes 03/28/2019 0.03 0.00 - 0.03 K/uL Final Na 03/28/2019 140 136 - 145 mmol/L Final K 03/28/2019 3.7 3.5 - 5.1 mmol/L Final Cl 03/28/2019 102 98 - 107 mmol/L Final CO2 03/28/2019 31 21 - 32 mmol/L Final Anion Gap 03/28/2019 7 2 - 16 mmol/L Final Glucose 03/28/2019 111* 74 - 106 mg/dL Final BUN 03/28/2019 10 7 - 18 mg/dL Final Creatinine 03/28/2019 0.83 0.55 - 1.02 mg/dL Final eGFR if not 03/28/2019 >60 >=60 mL/min/1.73m2 Final GLOMERULAR FILTRATION RATE,ESTIMATED mL/min/1.73m2 Less than 60 Chronic kidney disease,if found over a 3-month period. Less than 15 Kidney failure For Americans,multiply the calculated GFR by 1.21. Calcium 03/28/2019 9.0 8.5 - 10.1 mg/dL Final BUN/Creatinine Ratio 03/28/2019 12.0 Final Assessment & Plan: 1. Optic neuritis, right: MRI brain 03/07/19 c/w right optic neuritis and also with small focus of enhancement in the right frontal lobe concerning for MS. Symptoms improved s/p Lynda umedrol 1000 mg daily x 5 days (first dose was 03/07/19) and prednisone taper (1 mg/kg/day x 11 days, then 20 mg x 1 day, then 10 mg x 2 days, then stop). However eye pain has returne d since stopping prednisone. I did review patient with [facility] neurology on-call Dr Mcnulty. She reviewed MRI and is suspicious of MS. She recommended MRI cervical and thoracic spine t o better evaluate for MS and recommended repeating a shorter course steroids: Solumedrol 10 00 mg IV x 3 days followed by medrol dosepak. Greatly appreciate their assistance. Dr Richard ho would like additional labs prior to their consultation in April. Greatly appreciate t jeffir assistance. NMO-IgG ab is negative. TSH is normal. No h/o DM2. - Solumedrol 1000 mg IV x 3 days - Then medrol dosepak. - methylPREDNISolone (MEDROL DOSEPAK) 4 mg tablet; Follow package directions. Dispense: 21 tablet; Refill: 0 - Dr Mcnulty also recommended Vitamin D 2,000 IU daily - FU with Dr Brown as scheduled - Establish with Dr Caraballo as scheduled - MRI Thoracic Spine w wo Contrast; Future - MRI Cervical Spine w wo Contrast; Future - Vitamin B-12; Future - Borrelia Burgdorferi Ab, w/Reflex to Western Blot; Future - Rapid Plasma Reagin, Qual; Future - ARI Panel, Quant; Future - Sjogrens Ab, Quant; Future - DNA Double-Stranded Ab, IgG; Future - HIV AG/AB, 4th Gen, Reflex; Future - Angiotensin I Converting Enzyme; [facility] - [facility]; Future (Anti-myelin oligodendrocyte glycoprotein (anti-MOG) antibody i n blood) - Vitamin D, Deficiency Screen (25-Hydroxy); Future 2. Multiple sclerosis (HCC) - MRI Thoracic Spine w wo Contrast; Future - MRI Cervical Spine w wo Contrast; Future - methylPREDNISolone (MEDROL DOSEPAK) 4 mg tablet; Follow package directions. Dispense: 21 tablet; Refill: 0 - Vitamin B-12; Future - Borrelia Burgdorferi Ab, w/Reflex to Western Blot; Future - Rapid Plasma Reagin, Qual; Future - ARI Panel, Quant; Future - Sjogrens Ab, Quant; Future - DNA Double-Stranded Ab, IgG; Future - HIV AG/AB, 4th Gen, Reflex; Future - Angiotensin I Converting Enzyme; [facility] - [facility]; Future - Vitamin D, Deficiency Screen (25-Hydroxy); Future Hypothyroidism - Continue levothyroxine 75 mcg daily Screen for STI - HIV, RPR Return in about 2 weeks (around 04/11/2019). Art Joe MD documented in this e [...] [place] | | | | | | [address] | | | | | | | | +--------+ + + + + | 04/29/ | Appointment | Radiology | Cuong Joe, | | | 2019 | | | MD [address] | | | | | | [place] | | | | | | [address] | | | | | | | | +--------+ + + + + | 05/11/ | Office | Neurology | Reina Caraballo, | | | 2019 | Visit | | MD [address] | | | | | | [place] | | | | | | [address] | | | | | | [phone] | | | | | | | | +--------+ + + + + + +---------+--------+ + + | Name | Type | Priori | Associated Diagnoses | Order Schedule | | | | ty | | | + +---------+--------+ + + | MRI Thoracic Spine w | Imaging | Routin | Optic neuritis, | Expected: | | wo Contrast | | e | right Multiple | 03/28/2019, Expires: | | | | | sclerosis (HCC) | 03/28/2020 | + +---------+--------+ + + | MRI Cervical Spine w | Imaging | Routin | Optic neuritis, | Expected: | | wo Contrast | | e | right Multiple | 03/28/2019, Expires: | | | | | sclerosis (HCC) | 03/28/2020 | + +---------+--------+ + + documented as of this encounter Results Vitamin D, Deficiency Screen (25-Hydroxy) (03/30/2019 9:46 AM PST) + +--------+ + + + | Component | Value | Ref Range | Performed | Pathologist | | | | | At | Signature | + +--------+ + + + | Vitamin D, | 29 (L) | 30 - 100 ng/mL | [facility] | | | 25 Hydroxy | | | [facility] | | [...] + | [facility] | [address] | [place], [place] | [phone] | | [facility] | | [address] | | | - LABORATORY | | [...] + | Performed at: 01 - [facility] [address] [facility], | REFERENCE LAB | | [place], [place] [id number] Mobile Home Servicer: Zach Patterson MD, Phone: | [facility] | | [phone] | | + + + + + + + + | Performing | Address | City/State/Zipcode | Phone Number | | Organization | | | | + + + + + | REFERENCE LAB | [address] | [place] [address] | [phone] | | [facility] | Drive [...] + + | Performed at: 01 - [facility] [address], | REFERENCE LAB | | [place], [place] [id number] Mobile Home Servicer: Chacorta Vela MD, Phone: | [facility] | | [phone] | | + + + + + + + + | Performing | Address | City/State/Zipcode | Phone Number | | Organization | | | | + + + + + | REFERENCE LAB | [address] [facility] [address] | [place] [address] | [phone] | | [facility] | Drive [...] [address], | REFERENCE LAB | | [place] [id number] Mobile Home Servicer: Perlita Dunn MD, Phone: | [facility] | | [phone] | | + + + + + + + + | Performing | Address | City/State/Zipcode | Phone Number | | Organization | | | | + + + + + | REFERENCE LAB | [address] | [place] [address] | [phone] | | [facility] | [address] | | | + + + + + ARI Panel, Quant (03/30/2019 9:46 AM PST) + + + [...] + + + + + + | PARKING INSPECTOR | <0.2 | 0.0 - 0.9 AI [...] + + + + + | Perla PARKING INSPECTOR | <0.2 | 0.0 - 0.9 AI [...] [address], | REFERENCE LAB | | [place] [id number] Mobile Home Servicer: Perlita Dunn MD, Phone: | [facility] | | [phone] | | + + + + + + + + | Performing | Address | City/State/Zipcode | Phone Number | | Organization | | | | + + + + + | REFERENCE LAB | [address] | [place] [address] | [phone] | | [facility] | [address] | | | + + + + + Rapid Plasma Meet Mccauley (03/30/2019 9:46 AM PST) + + + + + + | Component | Value | Ref Range | Performed | Pathologist | | | | | At | Signature | + + + + + + | Rapid | Non-Reactive | Non-Reactive | [facility] | | | Plasma | | | [facility] | | | Reagin | | | [...] [address] | [place] | [phone] | | [facility] | | [address] | | | - LABORATORY | | | | + + + + + Borrelia Burgdorferi Absamaria/Reflex to Western Blot (03/30/2019 9:46 AM PST) [...] | Performed at: 01 - [facility] [address] [address], | REFERENCE LAB | | [place] [id number] Mobile Home Servicer: Zach Patterson MD, Phone: | [facility] | | [phone] | | + + + + + + + + | Performing | Address | City/State/Zipcode | Phone Number | | Organization | | | | + + + + + | REFERENCE LAB | [address] | [place] [address] | [phone] | | [facility] | [address] | | | + + + + + Vitamin B-12 03/30/2019 9:46 AM PST) + + + + + + | Component | Value | Ref Range | Performed | Pathologist | | | | | At | Signature | + + + + + + | VITAMIN | 435Comment: DEFICIENT: | 156 - 672 pg/mL | [facility] | | | B-12 | <145 | | [facility] | | | | pg/mLINDETERMINATE: | | [...] [address] | [place] | [phone] | | [facility] | | [address] | | | - LABORATORY | | | | + + + + + Basic Metabolic Panel (03/28/2019 2:15 PM PST) + + + + + + | Component | Value | Ref Range | Performed | Pathologist | | | | | At | Signature | + + + + + + | Na | 140 | 136 - 145 | [facility] | | | | | mmol/L | [facility] | | | | | | [facility] | | | | | | [facility]ARK | | | | | | LABORATORY | | + + + + + + | K | 3.7 | 3.5 - 5.1 | [facility] | | | | | mmol/L | [facility] | | | | | | [facility]ICAL | | | | | | [facility]ARK | | | | | | LABORATORY | | + + + + + + | Cl | 102 | 98 - 107 mmol/L | [facility] | | | | | | [facility] | | | | | | [facility] | | | | | | [facility]ARK | | | | | | LABORATORY | | + + + + + + | CO2 | 31 | 21 - 32 mmol/L | [facility] | | | | | | [facility] | | | | | | [facility] | | | | | | PARK | | | | | | LABORATORY | | + + + + + + | Anion Gap | 7 | 2 - 16 mmol/L | [facility] | | | | | | [facility] | | | | | | [facility] | | | | | | PARK | | | | | | LABORATORY | | + + + + + + | Glucose | 111 (H) | 74 - 106 mg/dL | [facility] | | | | | | [facility] | | | | | | [facility]ICAL | | | | | | PARK | | | | | | LABORATORY | | + + + + + + | BUN | 10 | 7 - 18 mg/dL | [facility] | | | | | | [facility] | | | | | | [facility] | | | | | | [facility]ARK | | | | | | LABORATORY | | + + + + + + | Creatinine | 0.83 | 0.55 - 1.02 | [facility] | | | | | mg/dL | [facility] | | | | | | MEDICAL | | | | | | PARK | | | | | | LABORATORY | | + + + + + + | eGFR if not | >60Comment: GLOMERULAR | >=60 | [facility] | | | | FILTRATION | mL/min/1.73m2 | [facility] | | | LAO | RATE,ESTIMATED | | MEDICAL | | | | mL/min/1.82k3Ljum than | | PARK | | | | 60 Chronic kidney [...] + + + + | Calcium | 9.0 | 8.5 - 10.1 | [facility] | | | | | mg/dL | [facility] | | | | | | [facility]ICAL | | | | | | [facility]ARK | | | | | | LABORATORY | | + + + + + + | BUN/Creatin | 12.0 | | [facility] | | | ine Ratio | | | [facility] | | | | | | [facility]ICAL | | | | | | PARK | | | | | | LABORATORY | | + + + + + + + + | Specimen | + + | Blood | + + + + + + + | Performing | Address | City/State/Zipcode | Phone Number | | Organization | | | | + + + + + | [facility] | [address] | [place] | [phone] | | [facility] | | [address] | | | [facility] | | | | + + + + + CBC with Differential (03/28/2019 2:15 PM PST) + + + + + + | Component | Value | Ref Range | Performed | Pathologist | | | | | At | Signature | + + + + + + | WBC | 8.3 | 4.0 - 11.0 K/uL | [facility] | | | | | | [facility] | | | | | | [facility] | | | | | | [facility] | | | | | | LABORATORY | | + + + + + + | RBC | 4.72 | 3.70 - 5.20 | [facility] | | | | | M/uL | [facility] | | | | | | [facility] | | | | | | [facility]ARK | | | | | | LABORATORY | | + + + + + + | Hemoglobin | 14.1 | 11.5 - 16.0 | [facility] | | | | | g/dL | [facility] | | | | | | [facility]ICAL | | | | | | PARK | | | | | | LABORATORY | | + + + + + + | Hematocrit | 42.9 | 34.0 - 47.0 % | [facility] | | | | | | [facility] | | | | | | [facility] | | | | | | [facility]ARK | | | | | | LABORATORY | | + + + + + + | MCV | 90.9 | 83.0 - 101.0 fL | [facility] | | | | | | [facility] | | | | | | [facility] | | | | | | [facility]ARK | | | | | | LABORATORY | | + + + + + + | MCH | 29.9 | 28.0 - 35.0 pg | [facility] | | | | | | [facility] | | | | | | [facility] | | | | | | [facility]ARK | | | | | | LABORATORY | | + + + + + + | MCHC | 32.9 | 32.0 - 36.0 | [facility] | | | | | g/dL | [facility] | | | | | | [facility] | | | | | | PARK | | | | | | LABORATORY | | + + + + + + | RDW-CV | 13.9 | <15.0 % | [facility] | | | | | | [facility] | | | | | | [facility] | | | | | | PARK | | | | | | LABORATORY | | + + + + + + | RDW-SD | 47.5 (H) | 35.1 - 46.3 fL | [facility] | | | | | | [facility] | | | | | | [facility] | | | | | | PARK | | | | | | LABORATORY | | + + + + + + | Platelet | 213 | 140 - 440 K/uL | [facility] | | | Count | | | [facility] | | | | | | [facility] | | | | | | PARK | | | | | | LABORATORY | | + + + + + + | MPV | 10.5 | 6.5 - 12.4 fL | [facility] | | | | | | [facility] | | | | | | [facility] | | | | | | PARK | | | | | | LABORATORY | | + + + + + + | % | 65.6 | 45.0 - 82.0 % | [facility] | | | Neutrophils | | | [facility] | | | | | | [facility] | | | | | | PARK | | | | | | LABORATORY | | + + + + + + | % | 26.7 | 20.0 - 45.0 % | [facility] | | | Lymphocytes | | | [facility] | | | | | | [facility] | | | | | | PARK | | | | | | LABORATORY | | + + + + + + | % Monocytes | 5.1 | 4.0 - 12.0 % | [facility] | | | | | | [facility] | | | | | | [facility] | | | | | | [facility]ARK | | | | | | LABORATORY | | + + + + + + | % | 1.7 | 0.0 - 5.0 % | [facility] | | | Eosinophils | | | [facility] | | | | | | [facility] | | | | | | PARK | | | | | | LABORATORY | | + + + + + + | % Basophils | 0.5 | 0.0 - 1.0 % | [facility] | | | | | | [facility] | | | | | | [facility] | | | | | | PARK | | | | | | LABORATORY | | + + + + + + | % Immature | 0.4 | 0.0 - 0.4 % | [facility] | | | Granulocyte | | | [facility] | | | s | | | MEDICAL | | | | | | PARK | | | | | | LABORATORY | | + + + + + + | Absolute | 5.44 | 1.80 - 8.50 | [facility] | | | Neutrophils | | K/uL | [facility] | | | | | | [facility] | | | | | | [facility] | | | | | | LABORATORY | | + + + + + + | Absolute | 2.21 | 0.60 - 3.20 | [facility] | | | Lymphocytes | | K/uL | [facility] | | | | | | [facility] | | | | | | PARK | | | | | | LABORATORY | | + + + + + + | Absolute | 0.42 | 0.00 - 1.00 | [facility] | | | Monocytes | | K/uL | [facility] | | | | | | [facility] | | | | | | PARK | | | | | | LABORATORY | | + + + + + + | Absolute | 0.14 | 0.00 - 0.40 | [facility] | | | Eosinophils | | K/uL | [facility] | | | | | | [facility] | | | | | | PARK | | | | | | LABORATORY | | + + + + + + | Absolute | 0.04 | 0.00 - 0.10 | [facility] | | | Basophils | | K/uL | [facility] | | | | | | [facility] | | | | | | PARK | | | | | | LABORATORY | | + + + + + + | Absolute | 0.03 | 0.00 - 0.03 | [facility] | | | Immature | | K/uL | [facility] | | | Granulocyte | | | MEDICAL | | | s | | | PARK | | | | | | LABORATORY | | + + + + + + + + | Specimen | + + | Blood | + + + + + + + | Performing | Address | City/State/Zipcode | Phone Number | | Organization | | | | + + + + + | [facility] | [address] | [place] | [phone] | | [facility] | | [address] | | | [facility] | | | | + + + + + C-Reactive Protein (03/28/2019 2:15 PM PST) + +-------+ + + + | Component | Value | Ref Range | Performed | Pathologist | | | | | At | Signature | + +-------+ + + + | C-Reactive | <2.0 | 0.0 - 9.0 mg/L | [facility] | | | Protein | | | [facility] | | | | | | [facility] | | | | | | [facility] | | | | | | LABORATORY | | + +-------+ + + + + + | Specimen | + + | Blood | + + + + + + + | Performing | Address | City/State/Zipcode | Phone Number | | Organization | | | | + + + + + | [facility] | [address] | [place] | [phone] | | [facility] | | [address] | | | [facility] | | | | + + + + + Sedimentation Rate (03/28/2019 2:15 PM PST) + +-------+ + + + | Component | Value | Ref Range | Performed | Pathologist | | | | | At | Signature | + +-------+ + + + | ESR | 8 | <20 mm/hr | [facility] | | | | | | [facility] | | | | | | [facility] | | | | | | [facility] | | | | | | LABORATORY | | + +-------+ + + + + + | Specimen | + + | Blood | + + + + + + + | Performing | Address | City/State/Zipcode | Phone Number | | Organization | | | | + + + + + | [facility] | [address] | [place] | [phone] | | [facility] | | [address] | | | [facility] | | | | + + + + + documented in this encounter Visit Diagnoses + + | Diagnosis | + + | Optic neuritis, right - Primary Optic neuritis, unspecified | + + | Multiple sclerosis (HCC) Multiple sclerosis | + + | Screen for sexually transmitted diseases Screening examination for venereal disease | + + | Postoperative hypothyroidism Postsurgical hypothyroidism | + + documented in this encounter"
--- OUTSIDE RECORDS SUMMARY | ~2019-04-25 | XMS | Encounter Summary ---
Demographics + + + | Address | [address] | | | [place] [address] | + + + | Home Phone | | + + + | Preferred Language | Unknown | + + + | Marital Status | | + + + | Mandaeism Affiliation | Unknown | + + + | Race | Unknown | + + + | Ethnic Group | Unknown | + + + Author + + + | Author | [facility] | | | and [facility] | + + + | Organization | [facility] | | | and [facility] | + + + | Address | Unknown | + + + | Phone | Unavailable | + + + Support + + + + + | Name | Relationship | Address | Phone | + + + + + | Arthur Mcduffie | ECON | [address] [facility] | | | | | [place] | | | | | [address] | | + + + + + | Uma Arellano | ECON | [address] [facility] | | | | | [place] [address] | | + + + + + Care Team Providers + +------+ + | Care Staff Respiratory Therapist Name | Role | Phone | + [...] | +--------+ + + + + | 03/16/ | Telephone | [facility] | Cuong Joe, | Referral | | 2019 | | [facility] [place] | [address] | | | | | [address] | [place] | | | | | [place] | [address] | | | | | [address] | | | | | | [phone] | | | +--------+ + + + [...] [place] | | | | | | [address] | | | | | | | | +--------+ + + + + | 04/29/ | Appointment | Radiology | Cuong Joe, | | | 2019 | | | MD [address] | | | | | | [place] | | | | | | [address] | | | | | | | | +--------+ + + + + | 05/11/ | Office | Neurology | Reina Caraballo, | | | 2019 | Visit | | MD [address] | | | | | | [place], [place] | | | | | | [address] | | | | | | [phone] | | | | | | | | +--------+ + + + + documented as of this encounter Visit Diagnoses Not on filedocumented in this encounter"
--- OUTSIDE RECORDS SUMMARY | ~2019-04-25 | XMS | Encounter Summary ---
Demographics + + + | Address | [address] | | | [place] [address] | + + + | Home Phone | | + + + | Preferred Language | Unknown | + + + | Marital Status | | + + + | Congregational Affiliation | Unknown | + + + | Race | Unknown | + + + | Ethnic Group | Unknown | + + + Author + + + | Author | [facility] | | | and [facility] | + + + | Organization | [facility] | | | and [place] | + + + | Address | Unknown | + + + | Phone | Unavailable | + + + Support + + + + + | Name | Relationship | Address | Phone | + + + + + | Arthur Mcduffie | ECON | [address] [facility] | | | | | [place] | | | | | [address] | | + + + + + | Uma Arellano | ECON | [address] | | | | | [place] [address] | | + + + + + Care Team Providers + +------+ + | Care Electrical Wirer Name | Role | Phone | + [...] Description | +--------+--------+ + + + | 02/25/ | Refill | [facility] | Cuong Joe, | Medication Refill | | 2019 | | [facility] [place] | [address] | | | | | [address] | [place] | | | | | [place] | [address] | | | | | [address] | | | | | | [phone] | | | +--------+--------+ + + + [...] [place] | | | | | | [address] | | | | | | | | +--------+ + + + + | 04/29/ | Appointment | Radiology | Cuong Joe, | | | 2019 | | | MD [address] | | | | | | [place] | | | | | | [address] | | | | | | | | +--------+ + + + + | 05/11/ | Office | Neurology | Reina Caraballo, | | | 2019 | Visit | | MD [address] [place] | | | | | | [place] | | | | | | [address] | | | | | | [phone] | | | | | | | | +--------+ + + + + documented as of this encounter Results TSH (03/28/2019 2:15 PM PST) + +-------+ + + + | Component | Value | Ref Range | Performed | Pathologist | | | | | At | Signature | + +-------+ + + + | TSH | 3.63 | 0.36 - 3.74 | [facility] | | | | | uIU/mL | [facility] | | | | | [...] | + + + + + | [facility] | [address] | [place] | [phone] | | [facility] | | [address] | | | [facility] | | | | + + + + + documented in this encounter Visit Diagnoses + + | Diagnosis | + + | Postoperative hypothyroidism Postsurgical hypothyroidism | + + documented in this encounter"
--- OUTSIDE RECORDS SUMMARY | ~2019-04-25 | XMS | Clinical Summary ---
Demographics + + + | Address | [address] | | | [place] [address] | + + + | Home Phone | | + + + | Preferred Language | Unknown | + + + | Marital Status | | + + + | Latter Day Affiliation | Unknown | + + + | Race | Unknown | + + + | Ethnic Group | Unknown | + + + Author + + + | Author | [facility] | | | and S[facility]anthana | + + + | Organization | [facility] | | | and Srikanthana | + + + | Address | Unknown | + + + | Phone | Unavailable | + + + Support + + + + + | Name | Relationship | Address | Phone | + + + + + | Arthur Mcduffie | ECON | [address] | | | | | [place] | | | | | [address] | | + + + + + | Uma Arellano | ECON | [address] | | | | | [place] [address] | | + + + + + Care Team Providers + +------+ + | Care Real Estate Photographer Name | Role | Phone | + +------+ + | Cuong Joe MD | PCP | | + +------+ + Allergies + + + + + + | Active Allergy | Reactions | Severity | Noted | Comments | | | | | Date | | + + + + + + | Adhesive & Tape | Rash | Low | 07/13/19 | | | | | | 16 | | + + + + + + | Hydrocodone | Nausea And Vomiting | Medium | 07/13/19 | | | | | | 16 | | + + + + + + Medications + + + +---------+------+------+-------+ | Medication | Sig | Dispensed | Refills | Star | End | Statu | | | | | | t | Date | s | | | | | | Date | | | + + + +---------+------+------+-------+ | Elastic Bandages & | CTI PCL Knee Brace. | 1 each | 0 | 04/1 | | Activ | | Supports (KNEE | GEE 99 months | | | / | | e | | BRACE) | | | | 19 | | | | MISCIndications: PCL | | | | | | | | injury, left, | | | | | | | | sequela | | | | | | | + + + +---------+------+------+-------+ | methylPREDNISolone | Follow package | 21 | 0 | 12/0 | | Activ | | (MEDROL DOSEPAK) 4 | directions. | tablet | | 2/20 | | e | | mg | | | | 19 | | | | tabletIndications: | | | | | | | | Optic neuritis, | | | | | | | | right, Multiple | | | | | | | | sclerosis (HCC) | | | | | | | + + + +---------+------+------+-------+ | levothyroxine | Take 1 tablet by | 90 | 3 | 12/0 | | Activ | | (SYNTHROID) 75 mcg | mouth every morning | tablet | | 2/20 | | e | | tabletIndications: | (before breakfast). | | | 19 | | | | Postoperative | For low thyroid | | | | | | | hypothyroidism | | | | | | | + + + +---------+------+------+-------+ | cholecalciferol | Take 2 tablets by | 180 | 3 | 12/0 | | Activ | | (VITAMIN D-3) 25 mcg | mouth Daily. Vitamin | each | | 2/20 | | e | | (1,000 units) | D supplement. | | | 19 | | | | tabletIndications: | | | | | | | | Optic neuritis, | | | | | | | | right, Multiple | | | | | | | | sclerosis (HCC) | | | | | | | + + + +---------+------+------+-------+ | levothyroxine | Take 1 tablet by | 60 | 0 | 11/0 | 12/0 | Disco | | (SYNTHROID) 75 mcg | mouth every morning | tablet | | 7/20 | 2/20 | ntinu | | tabletIndications: | (before breakfast). | | | 19 | 19 | ed | | Postoperative | For low thyroid | | | | | (Reor | | hypothyroidism | | | | | | shad) | + + + +---------+------+------+-------+ | predniSONE | Starting 03/12/19: | 81 | 0 | 11/1 | 12/0 | Disco | | (DELTASONE) 10 mg | Take 7 tablets by | tablet | | 2/20 | 2/20 | ntinu | | tabletIndications: | mouth daily for 11 | | | 19 | 19 | ed | | Optic neuritis, | days, then take 2 | | | | | (Ther | | right | tablets by mouth | | | | | apy | | | daily for 1 day, | | | | | compl | | | then take 1 tablet | | | | | eted) | | | by mouth for 2 days, | | | | | | | | then stop | | | | | | + + + +---------+------+------+-------+ | cholecalciferol | Take 1 tablet by | 90 each | 3 | 12/0 | 12/0 | Disco | | (VITAMIN D-3) 25 mcg | mouth Daily. Vitamin | | | 2/20 | 2/20 | ntinu | | (1,000 units) | D supplement. | | | 19 | 19 | ed | | tabletIndications: | | | | | | (Reor | | Optic neuritis, | | | | | | shad) | | right, Multiple | | | | | | | | sclerosis (HCC) | | | | | | | + + + +---------+------+------+-------+ Active Problems + + + | Problem | Noted Date | + + + | Optic neuritis, right | 03/08/2019 | + + + | PCL injury, left, sequela | 08/05/2018 | + + + | Postoperative hypothyroidism | 03/02/2017 | + + + + + | Overview: 09/2016: Dr Lo hemithyroidectomy. Follicular | | adenoma | + + + + + | Preventative health care | 11/29/2012 | + + + + + | Overview: Pap: 02/25/[address] Sebastian. | | | | Mammogram: 02/25/[address] Sebastian. | | | | Colon | | - Start age 50 | + + Encounters +--------+ + + + + | Date | Type | Specialty | Care Team | Description | +--------+ + + + + | 03/30/ | Hospital | Infusion Therapy | Cuong Joe, | Optic neuritis, | | 2018 | Encounter | | MD | right (Primary Dx); | | | | | | Multiple sclerosis | | | | | | ([facility]); Screen for | | | | | | sexually transmitted | | | | | | diseases | +--------+ + + + + | 03/29/ | Hospital | Infusion Therapy | Cuong Joe, | Optic neuritis, | | 2018 | Encounter | | MD | right (Primary Dx) | +--------+ + + + + | 03/28/ | Hospital | Infusion Therapy | Cuong Joe, | Optic neuritis, | | 2018 | Encounter | | MD | right (Primary Dx) | +--------+ + + + + | 03/28/ | Office | Family Medicine | Cuong Joe, | Optic neuritis, | | 2018 | Visit | | MD | right (Primary Dx); | | | | | | Multiple sclerosis | | | | | | ([facility]); Screen for | | | | | | sexually transmitted | | | | | | diseases; | | | | | | Postoperative | | | | | | hypothyroidism | +--------+ + + + + | 03/28/ | Orders Only | Family Medicine | Cuong Joe, | Optic neuritis, | | 2018 | | | MD | right; Multiple | | | | | | sclerosis ([facility]) | +--------+ + + + + | 03/28/ | Telephone | Neurology | Darwin Sahu, | Lab Order (to | 2018 | | | Occ Ther | Tatyana) | +--------+ + + + + | 03/28/ | Telephone | Neurology | Darwin Sahu, | Lab Order | | 2018 | | | Occ Ther | | +--------+ + + + + | 03/28/ | Telephone | Family Medicine | Cuong Joe, | Other (optic | 2018 | | | MD | neuritis) | +--------+ + + + + | 03/18/ | Telephone | Neurology | Reina Caraballo, | Labs Only; Other | | 2018 | | | MD | (new patient) | +--------+ + + + + | 03/17/ | Office | Family Medicine | Cuong Joe, | Optic neuritis, | | 2018 | Visit | | | right (Primary Dx) | +--------+ + + + + | 03/17/ | Telephone | Family Medicine | Cuong Joe, | Appointment | | 2018 | | | | Question; Medication | | | | | | Management | +--------+ + + + + | 03/16/ | Telephone | Family Medicine | Cuong Joe, | Referral | | 2018 | | | MD | | +--------+ + + + + | 03/11/ | Hospital | Infusion Therapy | Oneil Rosas | Optic neuritis, | | 2018 | Encounter | | Fredrick Tan MD | right (Primary Dx) | +--------+ + + + + | 03/11/ | Telephone | Family Medicine | Cuong Joe, | Referral (Follow up) | | 2019 | | | | | +--------+ + + + + | 03/10/ | Hospital | Infusion Therapy | Oneil Rosas | Optic neuritis, | | 2018 | Encounter | | Fredrick Tan MD | right (Primary Dx) | +--------+ + + + + | 03/09/ | Hospital | Infusion Therapy | Oneil Rosas | Optic neuritis, | | 2018 | Encounter | | Fredrick Tan MD | right (Primary Dx) | +--------+ + + + + | 03/09/ | Telephone | Family Medicine | Cuong Joe, | Referral | | 2018 | | | | (PreAuthorization) | | | | | | (Neurology) | +--------+ + + + + | 03/08/ | Hospital | Infusion Therapy | Oneil Rosas | Optic neuritis, | | 2018 | Encounter | | Fredrick Tan MD | (Primary Dx) | +--------+ + + + + | 03/08/ | Office | Family Medicine | Cuong Joe, | Optic neuritis, | | 2018 | Visit | | | (Primary Dx); | | | | | | Gastroesophageal | | | | | | reflux disease, | | | | | | esophagitis presence | | | | | | not specified; | | | | | | Insomnia, | | | | | | unspecified type; | | | | | | Postoperative | | | | | | hypothyroidism | +--------+ + + + + | 03/08/ | Abstract | Family Medicine | Cuong Joe, | | | 2018 | | | | | +--------+ + + + + | 03/07/ | Emergency | Emergency Medicine | Oneil Rosas | Optic neuritis, | | 2018 | | | Fredrick Tan MD | right (Primary Dx) | +--------+ + + + + | 02/25/ | Refill | Family Medicine | Cuong Joe, | Medication Refill | | 2018 | | | | | +--------+ + + + + from Last 3 Months Immunizations + + + + | Name | Administration Dates | Next Due | + + + + | INFLUENZA PF | 01/25/2017 | | | QUAD(PED/ADOL/ADULT) | | | | ,PSKT or VIAL | | | + + + + | INFLUENZA PF | 02/26/2016, 01/25/2013 | | | TRIVALENT(PED/ADOL/A | | | | AUBREY SANON | | | + + + + | TDAP, (ADOL/ADULT) | 04/27/2010 | | + + + + Family History + + +------+ + | Medical History | Relation | Name | Comments | + + +------+ + | No known problems | Brother | | | + + +------+ + | Heart attack | Father | | | + + +------+ + | Aneurysm | Mother | | Cerebral | + + +------+ + | High blood pressure | Mother | | | + + +------+ + | High cholesterol | Mother | | | + + +------+ + | Breast cancer | Neg Hx | | | + + +------+ + | Colon cancer | Neg Hx | | | + + +------+ + | Ovarian cancer | Neg Hx | | | + + +------+ + + +------+ + + | Relation | Name | Status | Comments | + +------+ + + | Brother | | Alive | | + +------+ + + | Daughter | | Alive | | + +------+ + + | Father | | | [place] | | | | (Age | | | | | 40s) | | + +------+ + + | Mother | | Alive | | + +------+ + + | Sister | | Alive | | + +------+ + + | Sister | | Alive | | + +------+ + + | Son | | Alive | | + +------+ + + Social History + +-------+ +--------+------+ [...] | + + Last Filed Vital Signs + + + [...] | | + + + + + Plan of Treatment +--------+ + + + + | Date | Type | Specialty | Care Team | Description | +--------+ + + + + | 04/29/ | Hospital | Radiology | Cuong Jeo, | | | 2020 | Encounter | | MD Angelina NOBLES | | | | | | [place] | | | | | | [address] | | | | | | | | +--------+ + + + + | 04/29/ | Appointment | Radiology | Cuong Joe, | | | 2019 | | | [address] | | | | | | [place] | | | | | | [address] | | | | | | | | +--------+ + + + + | 05/11/ | Office | Neurology | Reina Caraballo, | | | 2019 | Visit | | MD [address]nel [address] | | | | | | [place] | | | | | | [address] | | | | | | [phone] | | | | | | | | +--------+ + + + + + + + + + | Health Maintenance | Due Date | Last Done | Comments | + + + + + | Breast Cancer | | 04/23/2018 | | | Screening | 9 | | | + + + + + | Vaccine: | | 04/27/2010 | | | Dtap/Tdap/Td (2 - | 1 | | | | Td) | | | | + + + + + | Cervical Cancer | | 04/23/2018, 03/31/2013, | | | Screening (Pap) | 3 | 02/25/2013 | | + + + + + | Vaccine: Influenza | Completed | 01/26/2019, 01/26/2018, | | | | | 01/30/2017, Additional history | | | | | exists | | + + + + + Procedures + +--------+ + + + | Procedure Name | Priori | Date/Time | Associated Diagnosis | Comments | | | ty | | | | + +--------+ + + + | IMAGING REPORT - | | 04/23/2019 | | Results for this | | EXTERNAL SCAN | | 12:00 AM | | procedure are in the | | | | PST | | results section. | + +--------+ + + + | BORRELIA BURGDORFERI | Routin | 03/30/2019 | Optic neuritis, | Results for this | | AB, WESTERN BLOT | e | 9:46 AM | right Multiple | procedure are in the | | | | PST | sclerosis (HCC) | results section. | + +--------+ + + + | DNA DOUBLE-STRANDED | Routin | 03/30/2019 | Optic neuritis, | Results for this | | AB, IGG | e | 9:46 AM | right Multiple | procedure are in the | | | | PST | sclerosis ([facility]) | results section. | + +--------+ + + + | HIV AG/AB, 4TH GEN, | Routin | 03/30/2019 | Optic neuritis, | Results for this | | REFLEX | e | 9:46 AM | right Multiple | procedure are in the | | | | PST | sclerosis ([facility]) | results section. | | | | [...] | | | | PST | sclerosis ([facility]) | results section. | | | | | Screen for sexually | | | | | | transmitted diseases | | + +--------+ + + + | VITAMIN B-12 | Routin | 03/30/2019 | Optic neuritis, | Results for this | | | e | 9:46 AM | right Multiple | procedure are in the | | | | PST | sclerosis ([facility]) | results section. | + +--------+ + + + | VITAMIN D, | Routin | 03/30/2019 | Optic neuritis, | Results for this | | DEFICIENCY SCREEN | e | 9:46 AM | right Multiple | procedure are in the | | (25-HYDROXY) | | PST | sclerosis ([facility]) | results section. | + +--------+ + + + | ANGIOTENSIN I | Routin | 03/30/2019 | Optic neuritis, | Results for this | | CONVERTING ENZYME | e | 9:46 AM | right Multiple | procedure are in the | | | | PST | sclerosis ([facility]) | results section. | + +--------+ + + + | ARI PANEL, QUANT | Routin | 03/30/2019 | Optic neuritis, | Results for this | | | e | 9:46 AM | right Multiple | procedure are in the | | | | PST | sclerosis (HCC) | results section. | + +--------+ + + + | MISC LAB REFERRAL | Routin | 03/30/2019 | | Results for this | | | e | 9:45 AM | | procedure are in the | | | | PST | | results section. | + +--------+ + + + | BASIC METABOLIC | Routin | 03/28/2019 | Optic neuritis, | Results for this | | PANEL | e | 2:15 PM | right | procedure are in the | | | | PST | | results section. | + +--------+ + + + | CBC WITH | Routin | 03/28/2019 | Optic neuritis, | Results for this | | DIFFERENTIAL | e | 2:15 PM | right | procedure are in the | | | | PST | | results section. | + +--------+ + + + | C-REACTIVE PROTEIN | STAT | 03/28/2019 | Optic neuritis, | Results for this | | | | 2:15 PM | right | procedure are in the | | | | PST | | results section. | + +--------+ + + + | SEDIMENTATION RATE | STAT | 03/28/2019 | Optic neuritis, | Results for this | | | | 2:15 PM | right | procedure are in the | | | | PST | | results section. | + +--------+ + + + | TSH | Routin | 03/28/2019 | Postoperative | Results for this | | | e | 2:15 PM | hypothyroidism | procedure are in the | | [...] | + +--------+ + + + | LABS - EXTERNAL SCAN | | 02/24/2019 | | Results for this | | | | 12:00 AM | | procedure are [...] | + +--------+ + + + | LABS - EXTERNAL SCAN | | 02/22/2019 | | Results for this | | | | 12:00 AM | | procedure are [...] +--------+ + + + | EXTERNAL LAB: BUN | Routin | 02/22/2019 | | Results [...] section. | + +--------+ + + + from Last 3 Months Results IMAGING REPORT - EXTERNAL SCAN (04/23/2019 12:00 AM PST) + + + | Narrative | Performed At | + + + | Ordered by an | | | unspecified provider. | | + + + HIV AG/AB, 4th Gen, [...] + | Performed at: 01 - [facility] [place] [address], | REFERENCE LAB | | [place], [place] [id number] National Recruiter: Chacorta Vela MD, Phone: | [facility] | | [phone] | | + + + + + + + + | Performing | Address | City/State/Zipcode | Phone Number | | Organization | | | | + + + + + | REFERENCE LAB | [address] | [place] [address] | [phone] | | [facility] | Drive [...] + + + + + + | SAMPLE HAND | <0.2 | 0.0 - 0.9 AI [...] + + + + + | Perla SAMPLE HAND | <0.2 | 0.0 - 0.9 AI [...] [address], | REFERENCE LAB | | [place] [id number] National Recruiter: Perlita Dunn MD, Phone: | [facility] | | [phone] | | + + + + + + + + | Performing | Address | City/State/Zipcode | Phone Number | | Organization | | | | + + + + + | REFERENCE LAB | [address] | [place] [address] | [phone] | | [facility] | Drive [...] DEFICIENT: | 156 - 672 pg/mL | [facility] | | | B-12 | <145 | | [facility] | | | | pg/mLINDETERMINATE: | | [...] [address] | [place] | [phone] | | [facility] | | [address] | | | - LABORATORY | | [...] | [address] | | | [facility] | | [...] + + | [facility] | [address] | [place] | [phone] | | [facility] | | [address] | | | - LABORATORY | | | | + + + + + Borrelia Burgdorferi Ab w/Reflex to Western Blot (03/30/2019 9:46 AM [...] | Performed at: 01 - [facility] [address] [facility], | REFERENCE LAB | | [place] [id number] National Recruiter: Zach Patterson MD, Phone: | [facility] | | [phone] | | + + + + + + + + | Performing | Address | City/State/Zipcode | Phone Number | | Organization | | | | + + + + + | REFERENCE LAB | [address] | [place] [address] | [phone] | | [facility] | [address] | | | + [...] - Christian [facility] [address] [place] [address], | REFERENCE LAB | | [place] [id number] National Recruiter: Perlita Dunn MD, Phone: | [facility] | | [phone] | | + + + + + + + + | Performing | Address | City/State/Zipcode | Phone Number | | Organization | | | | + + + + + | REFERENCE LAB | [address] | [place] [address] | [phone] | | [facility] | [address] | | | + + + + + Rapid Plasma Reagin, Meet (03/30/2019 9:46 AM PST) + + + [...] | + + + + + | [facility] [facility] | [address] | [place] | [phone] | | [facility] | | [address] | | | - LABORATORY | | [...] Par[facility]iz [facility]son, | REFERENCE LAB | | [place], [place] [id number] National Recruiter: Zach Patterson MD, Phone: | [facility] | | [phone] | | + + + + + + + + | Performing | Address | City/State/Zipcode | Phone Number | | Organization | | | | + + + + + | REFERENCE LAB | [address] | [place] [address] | [phone] | | [facility] | [address] | | | + + + + + Misc Lab Referral (03/30/2019 9:45 AM PST) + [...] + + + | REFERENCE LAB | [address] | [place] [address] | [phone] | | [facility] | [address] | | | + + + + + Sedimentation Rate (03/28/2019 2:15 PM PST) + +-------+ + + + | Component | Value | Ref Range | Performed | Pathologist | | | | | At | Signature | + +-------+ + + + | ESR | 8 | <20 mm/hr | [facility] | | | | | [...] + + | [facility] | [address] | [place] | [phone] | | [facility] | | [address] | | | [facility] | | | | + + + + + CBC with Differential (03/28/2019 2:15 PM PST)Only the most recent of 2 results within the time period is included. + + + + + + | [...] + + | [facility] | [address] | [place] | [phone] | | [facility] | | [address] | | | [facility] | | [...] + + + | [facility] | [address] | [place] | [phone] | | [facility] | | [address] | | | [facility] | | | | + + + + + TSH (03/28/2019 2:15 PM PST) + +-------+ + + + | Component | Value | Ref Range | Performed | Pathologist | | | | | At | Signature | + +-------+ + + + | TSH | 3.63 | 0.36 - 3.74 | [facility] | | | | | uIU/mL | [facility] | | | | | | [...] + + + + + | [facility] | [address] | [place] | [phone] | | [facility] | | [address] | | | [facility] | | [...] [facility] | | | | | | [facility] | | | | | | MEDICAL | | | | | | [facility] | | | | | | LABORATORY | | + + + + + + | Creatinine | 0.83 | 0.55 - 1.02 | [facility] | | | | | mg/dL | [facility] | | | | | | MEDICAL | | | | | | [facility]ARK | | | | | | LABORATORY | | + + + + + + | eGFR if not | >60Comment: GLOMERULAR | >=60 | [facility] | | | | FILTRATION | mL/min/1.73m2 | [facility] | | | [place] | RATE,ESTIMATED | | MEDICAL | | | | mL/min/1.23m2Rrvu than | | PARK | | | [...] | + + + + + | [facility] | [address] | [place] | [phone] | | [facility] | | [address] | | | [facility] | | [...] [facility], | REFERENCE LAB | | [place], [place] [id number] National Recruiter: Zach Patterson MD, Phone: | [facility] | | [phone] | | + + + + + + + + | Performing | Address | City/State/Zipcode | Phone Number | | Organization | | | | + + + + + | REFERENCE LAB | [address] | [place] [address] | [phone] | | [facility] | [address] | | | + + + + + Albumin (03/07/2019 10:44 PM PST) + +-------+ + + + | Component | Value | Ref Range | Performed | Pathologist | | | | | At | Signature | + +-------+ + + + | Albumin | 4.2 | 3.2 - 4.8 g/dL | [facility] | | | | [...] + | [facility] [facility] | [address] | [place] | [phone] | | [facility] | | [address] | | | - LABORATORY | | | | + + + + + Comprehensive Metabolic Panel (03/07/2019 10:44 PM PST)Only the most recent of 2 results wi thin the time period is included. + + + + + + | [...] | | | | | mg/dL | [facility] | | | | | | MEDICAL | | | | | | CENTER - | | | | | | LABORATORY | | + + + + + + | eGFR if not | >60Comment: GLOMERULAR | >=60 | [facility] | | | | FILTRATION | mL/min/1.73m2 | [facility] | | | [place] | RATE,ESTIMATED | | MEDICAL | | | | mL/min/1.84l6Mycu than | | CENTER - | | [...] | 8.7 | 8.7 - 10.4 | [facility] | | | | | mg/dL | [facility] | | | | | | MEDICAL | | | | | | CENTER - | | | | | | LABORATORY | | + + + + + + | Albumin | 4.1 | 3.2 - 4.8 g/dL | [facility] | | | | [...] ST. | [address] | [place] | [phone] | | [facility] | | [address] | | | - LABORATORY | | [...] | + +---------+ + + External Lab: BESS (02/24/2019) + +-------+ + + + | [...] | [address] | [place] [address] | [phone] | | [facility] | | | | + + + + + | REFERENCE LAB | [facility] | [place] [address] | [phone] | | [facility] | | | | + + + + + LABS - EXTERNAL SCAN (02/24/2019 12:00 AM PDT)Only the most recent of 2 results within the time period is included. + + + | Narrative | Performed At | + + + | Ordered by an | | | unspecified provider. | | + + + CBC no Differential (02/24/2019) + +-------+ + [...] + + | REFERENCE LAB | [address] [facility] | [place] [address] | [phone] | | [facility] | | | | + + + + + | REFERENCE LAB | [address] [facility] [facility] | [place] [address] | [phone] | | [facility] | | | | [...] + + | REFERENCE LAB | [address] [facility] | [place] [address] | [phone] | | [facility] | | | | + + + + + | REFERENCE LAB | [address] [facility] | [place] [address] | [phone] | | [facility] | | | | [...] + + | REFERENCE LAB | [address] [facility] | [place] [address] | [phone] | | [facility] | | | | + + + + + | REFERENCE LAB | [address] [facility] | [place] [address] | [phone] | | [facility] | | | | + + + + + External Lab: SLY (02/22/2019) + +-------+ + + + | Component | Value | Ref Range | Performed | Pathologist | | | | | At | Signature | + +-------+ + + + | AST, | 13 | 13 - 39 | REFERENCE | | | External | | | LAB | | | | | | [facility] | | + +-------+ + + + + + + + + | Performing | Address | City/State/Zipcode | Phone Number | | Organization | | | | + + + + + | REFERENCE LAB | [address] | [place] [address] | [phone] | | [facility] | | | | + + + + + | REFERENCE LAB | [address] [facility] | [place] [address] | [phone] | | [facility] | | | | [...] | [address] | [place] [address] | [phone] | | [facility] | | | | + + + + + | REFERENCE LAB | [address] | [place] [address] | [phone] | | [facility] | | | | [...] + + + | REFERENCE LAB | [facility] | [place] [address] | [phone] | | [facility] | | | | + + + + + | REFERENCE LAB | [facility] | [place] [address] | [phone] | | [facility] | | | | [...] | [address] | [place] [address] | [phone] | | [facility] | | | | + + + + + | REFERENCE LAB | [address] | [place] [address] | [phone] | | [facility] | | | | [...] + + | REFERENCE LAB | [address] [facility] | [place] [address] | [phone] | | [facility] | | | | + + + + + | REFERENCE LAB | [address] [facility] | [place] [address] | [phone] | | [facility] | | | | [...] + + | REFERENCE LAB | [address] [facility] | [place] [address] | [phone] | | [facility] | | | | + + + + + | REFERENCE LAB | [address] [facility] | [place] [address] | [phone] | | [facility] | | | | [...] + + + | REFERENCE LAB | [address] | [place] [address] | [phone] | | [facility] | | | | + + + + + | REFERENCE LAB | [address] [facility] | [place] [address] | [phone] | | [facility] | | | | [...] + + + | REFERENCE LAB | [facility] | [place] [address] | [phone] | | [facility] | | | | + + + + + | REFERENCE LAB | [address] [place] [address] [address] | [place] [address] | [phone] | | [facility] | | | | [...] + + | REFERENCE LAB | [address] [facility] | [place] [address] | [phone] | | [facility] | | | | + + + + + | REFERENCE LAB | [address] [facility] | [place] [address] | [phone] | | [facility] | | | | [...] | REFERENCE LAB | [address] | [place] [address] | [phone] | | [facility] | | | | + + + + + | REFERENCE LAB | [address] | [place] [address] | [phone] | | [facility] | | | | [...] + + | REFERENCE LAB | [address] [facility] | [place] [address] | [phone] | | [facility] | | | | + + + + + | REFERENCE LAB | [address] | [place] [address] | [phone] | | [facility] | | | | [...] + | REFERENCE LAB | [address] | [place] [address] | [phone] | | [facility] | | | | + + + + + | REFERENCE LAB | [address] | [place] [address] | [phone] | | [facility] | | | | [...] + + | REFERENCE LAB | [address] [facility] | [place] [address] | [phone] | | [facility] | | | | + + + + + | REFERENCE LAB | [address] [facility] | [place] [address] | [phone] | | [facility] | | | | + + + + + from Last 3 Months Insurance + +--------+ +--------+ + +------+ | Payer | Benefi | Subscriber | Effect | Phone | Address | Type | | | t Plan | ID | riaz | | | | | | / | | Dates | | | | | | Group | | | | | | + +--------+ +--------+ + +------+ | [employer] | MOD[employer] | [id number] | | [phone] | [address] | PPO | | | [employer] | | [address] | [phone] | | | | [place] | | esent | | [place], | | | | [place] | | | | [place] [address] | | + +--------+ +--------+ + +------+ | [facility] | PHP | [id number] | 04/27/19 | [phone] | | PPO | | PLAN | PEBB | | 18-Pre | 5 | | | | | PROV | | sent | | | | | | CHOICE | | | | | | + +--------+ +--------+ + +------+ + +--------+ +--------+ + + | Guarantor Name | Accoun | Relation to | Date | Phone | Billing Address | | | t Type | Patient | of | | | | | | | | | | + +--------+ +--------+ + + | Tammy Mcduffie | Person | Self [birth year] | [address] | | [place] | [place] | | 1970 | [phone] | [place] [address] | | | bharti | | | 1 (Home) | | | | | | | [phone] | | | | | | | 1 (Work) | | + +--------+ +--------+ + + | Tammy Mcduffie | Person | Self [birth year] | [address] | | [place] | [place] | | 1970 | [phone] | [place] [address] | | | bharti | | | 1 (Home) | | + +--------+ +--------+ + + Advance Directives + + + + + | Type | Date Recorded | Patient | Explanation | | | | Postulant | | + + + + + | Power of | | | | | Tag Meter Operator | | | | + + + + + | Advance | 03/07/2019 | | | | Directive | 7:33 PM | | | + + + + + + + + + + | Code Status | Date | Date | Comments | | | Activated | Inactivated | | + + + + + | Full Code | 10/15/2016 | 10/15/2016 | | | | 2:14 PM | 5:58 PM | | + + + + + + + + +---+ | | | | | + + + +---+ | Full Code | 07/16/2015 | 07/16/2015 | | | | 12:36 PM | 3:25 PM | | + + + +---+
--- OUTSIDE RECORDS SUMMARY | ~2019-04-25 | XMS | Encounter Summary ---
Demographics + + + | Address | [address] | | | [place] [address] | + + + | Home Phone [...] + + | Author | [facility] | | | and Srikanthana | + + + | Organization | [facility] | | | and Srikanthana | + + + | Address | Unknown | + + + | Phone | Unavailable | + + + Support + + + + + | Name | Relationship | Address | Phone | + + + + + | Arthur Mcduffie | ECON | [address] [facility] | | | | | [place] | | | | | [address] | | + + + + + | Uma Arellano | ECON | [address] | | | | | [place] [address] | | + + + + + Care Team Providers + +------+ + | Care Equal Opportunity Specialist Name | Role | Phone | [...] | | | | menorrhagia | | [phone] | | | | | History of | | [place] | | | | | [place]ag[place] | | [place] | | | | | [Z87.42] | | [place] | | | | | Procedures | | [address] | | | | | [place] | | Phone: | | | | | HYSTEROSCOPY | | [phone] | | | | | ,W/RONY BX | | Fax: | | | | | | | [phone] | +--------+--------+ + + + + Encounter Details +--------+ + + + + | Date | Type | Department | Care Team | Description | +--------+ + + + + | 03/21/ | Hospital | [facility] | Александр Sebastian, | | | 2016 | Encounter | MED CTR OR INTRA OP | [id number] | | | | | [address] | [facility] [place] | | | | | [place], [place] | [place] [address] | | | | | [address] | [phone] | | | | | [phone] | | | +--------+ + + + [...] + + + | Blood Pressure | 148/77 | 07/16/2015 1:00 PM | | | | | PDT | | + + + + + | Pulse | 50 | 07/16/2015 1:00 PM | | | | | PDT | | + + + + + | Temperature | 36.5 C (97.7 F) | 07/16/2015 12:00 PM | | | | | PDT | | + + + + + | Respiratory Rate | 12 | 07/16/2015 1:00 PM | | | | | PDT | | + + + + + | Oxygen Saturation | 99% | 07/16/2015 1:00 PM | | | | | PDT | | + + + + + | Inhaled Oxygen | - | - | | | Concentration | | | | + + + + + | Weight | 77.5 kg (170 lb 13.7 | 07/16/2015 8:00 AM | | | | oz) | PDT | | + + + + + | Height | 162.6 cm (5' 4") | 07/16/2015 8:00 AM | | | | | PDT | | + + + + + | Body Mass Index | 29.33 | 07/16/2015 8:00 AM | | | | | PDT | | + + + + + documented in this encounter Discharge Instructions Instructions Migdalia Ellis RN - 07/16/2015Formatting of this note might be different f rom the original. Endometrial Ablation Endometrial ablation is an outpatient surgery that can reduce or stop heavy menstrual bleed ing.Ablation destroys the lining of the uterus.This surgery is for women who do not want to have any more children and who have not yet entered menopause.It should not be used by women withendometrial hyperplasia or cancer of the uterus.Treatment takes less than a n hour, and you can go home later that day. Preparing for surgery You may be given medicine by mouth or injection for a few weeks or months before your ab lation. This thins the lining of the uterus and reduces bleeding. Your health care provider may recommend other procedures to check the inside of your kenaitze michaela before the ablation is done. The day before surgery, you may be given medicine or a special substance (laminaria) may be put into your cervix (the opening to the uterus). This widens the opening. To help prevent problems with anesthesia, do not eat or drink anything 10 hours before s urgery. Your surgery Destroying the lining with heat, freezing, or electric current prevents the lining from claus wing back. You ll be given anesthesia so you stay comfortable and relaxed and feel no pain during surgery. Then, your uterus may be filled with fluid. This puts pressure on the lining to help red uce bleeding. It also allows your health care providerto see inside your uterus. Next your health care providerputs a small telescope-like instrument through the cervi x. This scope may be connected to a video monitor. This helps your health care providersee and control the ablation process. At the end of the scope, a device using heat, freezing, o r electric current destroys the uterine lining. Instead of the scope, your health care provi dermkonrad use a device that both expands and destroys the uterine lining. After being inserte d into your uterus, it also uses heat or other energy to destroy the lining. Your health car e providerwill choose the device that s best for you. Your recovery You may have cramping or aching in your abdomen after surgery. Your health care provider can give you pain medicine. You may also have a bloody or watery discharge or bleeding for days or weeks. Use sanita ry pads, not tampons. Don t have sexual intercourse or play active sports for 2 weeks after surgery. You can likely return to work in 2 days. Ask your health care provider about using contraception after an ablation. Your health care providerwill see you in about 6 weeks to be sure you re healing wel l. Call your health care providerif you have any of the following after surgery: Persistent or increased abdominal pain Shortness of breath Heavy vaginal bleeding Fever over 100.4F (38C)or chills Nausea Frequent urination for 24 hours 4397-[address] [employer] [place] [address], [place] [address]. All righ ts reserved. This information is not intended as a substitute for professional medical care. Always follow your healthcare professional's instructions. Discharge Instructions: After Your Surgery You ve just had surgery. During surgery you were given medicine called anesthesia to keep you relaxed and free of pain. After surgery you may have some pain or nausea. This is commo n. Here are some tips for feeling better and getting well after surgery. Stay on schedule with your medication. Going home Your doctor or nurse will show you how to take care of yourself when you go home. He or she will also answer your questions. Have an adult family member or friend drive you home. For the first 24 hours after your surgery: Do not drive or use heavy equipment. Do not make important decisions or sign legal papers. Do not drink alcohol. Have someone stay with you, if needed. He or she can watch for problems and help keep yo u safe. Be sure to go to all follow-up visits with your doctor. And rest after your surgery for as long as your doctor tells you to. Coping with pain If you have pain after surgery, pain medicine will help you feel better. Take it as told, brigida efore pain becomes severe. Also, ask your doctor or pharmacist about other ways to control p ain. This might be with heat, ice, or relaxation. And follow any other instructions your shannon geon or nurse gives you. Tips for taking pain medicine To get the best relief possible, remember these points: Pain medicines can upset your stomach. Taking them with a little food may help. Most pain relievers taken by mouth need at least 20 to 30 minutes to start to work. Taking medicine on a schedule can help you remember to take it. Try to time your medicin e so that you can take it before starting an activity. This might be before you get dressed, go for a walk, or sit down for dinner. Constipation is a common side effect of pain medicines. Call your doctor before taking a ny medicines such as laxatives or stool softeners to help ease constipation. Also ask if you should skip any foods. Drinkinglots of fluids andeating foodssuch as fruits and veget miles that are high in fiber can also help. Remember, do not take laxatives unless your surg devyn has prescribed them. Drinking alcohol and taking pain medicine can cause dizziness and slow your breathing. I t can even be deadly. Do not drink alcohol while taking pain medicine. Pain medicine can make you react more slowly to things. Do not drive or run machinery wh ile taking pain medicine. Your health care providermay tell you to take acetaminophen to help ease your pain. Ask h im or her how much you are supposed to take each day. Acetaminophen or other pain relievers may interact with your prescription medicines or other impf-ftj-ezlqcgb (OTC) drugs. Some pr escription medicines have acetaminophen and other ingredients.Using both prescription and OTC acetaminophenfor paincan cause you to overdose. Readthe labels on your OTC medicin eswith care. This will help youto clearly know the list of ingredients, how much to take , and anywarnings. It may also help you not take too muchacetaminophen.If you have que stions or do not understand the information, ask your pharmacist or health care provider to explain it to you before you take the OTC medicine. Managing nausea Some people have an upset stomach after surgery. This is often because of anesthesia, pain, or pain medicine, or the stress of surgery. These tips will help you handle nausea and eat healthy foods as you get better. If you were on a special food plan before surgery, ask your doctor if you should follow it while you get better. These tips may help: Do not push yourself to eat. Your body will tell you when to eat and how much. Start off with clear liquids and soup. They are easier to digest. Next try semi-solid foods, such as mashed potatoes, applesauce, and gelatin, as you feel ready. Slowly move to solid foods. Don t eat fatty, rich, or spicy foods at first. Do not force yourself to have 3 large meals a day. Instead eat smaller amounts more ofte n. Take pain medicines with a small amount of solid food, such as crackers or toast, to anthony id nausea. Call your surgeon if You still have pain an hour after taking medicine. The medicine may not be strong enough . You feel too sleepy, dizzy, or groggy. The medicine may be too strong. You have side effects like nausea, vomiting, or skin changes, such as rash, itching, or hives. If you have obstructive sleep apnea You were given anesthesia medicine during surgery to keep you comfortable and free of pain. After surgery, you may have more apnea spells because of this medicine and other medicines you were given. The spells may last longer than usual. At home: Keep using the continuous positive airway pressure (CPAP) device when you sleep. Unless your health care provider tells you not to, use it when you sleep, day or night. CPAP is a c ommon device used to treat obstructive sleep apnea. Talk with your provider before taking any pain medicine, muscle relaxants, or sedatives. Your provider will tell you about the possible dangers of taking these medicines. [id number] [employer]. [address] [place] [address], [place] [address]. All righ ts reserved. This information is not intended as a substitute for professional medical care. Always follow your healthcare professional's instructions. documented in this encounter Medications at Time of Discharge + + + +---------+--------+ + | Medication | Sig | Dispensed | Refills | Start | End Date | | | | | | Date | | + + + +---------+--------+ + | acetaminophen | Take 500-1,000 mg by | | 0 | | | | (TYLENOL) 500 mg | mouth every 6 hours | | | | 7 | | tablet | as needed for Pain. | | | | | + + [...] [place] | | | | | | [address] | | | | | | | | +--------+ + + + + | 05/11/ | Office | Neurology | Ilya Reina, | | | 2019 | Visit | | MD Arnel ENGLAND | | | | | | [place], [place] | | | | | | [address] | | | | | | [phone] | | | | | | | | +--------+ + + + + documented as of this encounter Procedures + +--------+ + + + | Procedure Name | Priori | Date/Time | Associated Diagnosis | Comments | | | ty | | | | + +--------+ + + + | ABLATION ENDOMETRIUM | | 07/16/2015 | Excessive and | | | DONNA | | 11:07 AM | frequent | | | | | PDT | menstruation with | | | | | | irregular cycle | | + +--------+ + + + | DILATION AND | | 07/16/2015 | Excessive and | | | CURETTAGE / | | 11:07 AM | frequent | | | HYSTEROSCOPY | | PDT | menstruation with | | | | | | irregular cycle | | + +--------+ + + + | CBC NO DIFFERENTIAL | STAT | 07/16/2015 | | Results for this | | | | 9:10 AM | | procedure are in the | | | | PDT | | results section. | + +--------+ + + + | URINALYSIS WITH | Routin | 07/16/2015 | | Results for this | | MICROSCOPIC WITH | e | 8:48 AM | | procedure are in the | | CULTURE IF INDICATED | | PDT | | results section. | + +--------+ + + + | POCT TEST, | Routin | 07/16/2015 | | Results for this | | URINE, QUAL | e | 8:43 AM | | procedure are in the | | | | PDT | | results section. | + +--------+ + + + | SURGICAL PATHOLOGY | Routin | 07/16/2015 | | Results for this | | EXAM | e | 12:00 AM | | procedure are in the | | | | PDT | | results section. | + +--------+ + + + documented in this encounter Results CBC no Differential (07/16/2015 9:10 AM PDT) + + + + + + | Component | Value | Ref Range | Performed | Pathologist | | | | | At | Signature | + + + + + + | WBC | 5.3 | 4.0 - 11.0 K/uL | [facility] | | | | | | [facility] | [facility] - | | | | | | LAB[facility]ATORY | | + + + + + + | RBC | 4.99 | 3.70 - 5.20 | [facility] | | | | | M/uL | [facility] | | | | | | [facility] | | | | | | [facility] - | | | | | | LABORATORY | | + + + + + + | Hemoglobin | 11.1 (L) | 11.5 - 16.0 | [facility] | | | | | g/dL | [facility] | | | | | | [facility] | | | | | | [facility] - | | | | | | LABORATORY | | + + + + + + | Hematocrit | 35.5 | 34.0 - 47.0 % | [facility] | | | | | | [facility] | | | | | | [facility] | | | | | | [facility] - | | | | | | LABORATORY | | + + + + + + | MCV | 71.2 (L) | 83.0 - 101.0 fL | [facility] | | | | | | [facility] | | | | | | [facility] | | | | | | [facility] - | | | | | | LABORATORY | | + + + + + + | MCH | 22.2 (L) | 28.0 - 35.0 pg | [facility] | | | | | | [facility] | | | | | | [facility] | | | | | | [facility] - | | | | | | LABORATORY | | + + + + + + | MCHC | 31.1 (L) | 32.0 - 36.0 | [facility] | | | | | g/dL | [facility] | | | | | | [facility] | | | | | | [facility] - | | | | | | LABORATORY | | + + + + + + | RDW-CV | 18.5 (H) | <15.0 % | [facility] | | | | | | [facility] | | | | | | [facility] | | | | | | [facility] - | | | | | | LABORATORY | | + + + + + + | Platelet | 234 | 140 - 440 K/uL | [facility] | | | Count | | | [facility] | | | | | | [facility] | [facility] | | | | [facility] - | | | | | | LABORATORY | | + + + + + + | MPV | 9.3 | fL | [facility] | | | | | [...] [address] | [place] | [phone] | | [facility] | | [address] | | | - LABORATORY | | | | + + + + + Urinalysis with Microscopic with Culture if Indicated (07/16/2015 8:48 AM PDT) + + + + + + | Component | Value | Ref Range | Performed | Pathologist | | | | | At | Signature | + + + + + + | Color | Straw | Light Yellow, | [facility] | | | | | Yellow, Straw | [facility] | | | | | | [facility] | | | | | | [facility] - | | | | | | LABORATORY | | + + + + + + | Clarity | Hazy | | [facility] | | | | | | [facility] | | | | | [facility] | | | | | | [facility] - | | | | | | LABORATORY | | + + + + + + | pH, Urine | 6.0 | 5.0 - 8.0 | [facility] | | | | | | [facility] | | | | | | [facility] | | | | | | [facility] - | | | | | | LABORATORY | | + + + + + + | Specific | 1.004 | 1.001 - 1.030 | [facility] | | | [place] | | | [facility] | | | | | | [facility] | | | | | | CENTER - | | | | | | LABORATORY | | + + + + + + | Protein, | Negative | Negative | [facility] | | | Urine | | | [facility] | | | | | | [facility] | | | | | | CENTER - | | | | | | LABORATORY | | + + + + + + | Blood, | Moderate (A) | Negative | [facility] | | | Urine | | | [facility] | | | | | | [facility] | | | | | | CENTER - | | | | | | LABORATORY | | + + + + + + | Glucose, | Negative | Negative | [facility] | | | Urine | | | [facility] | | | | | | [facility] | | | | | | C[facility] - | | | | | | LABORATORY | | + + + + + + | Ketones, | Negative | Negative | [facility] | | | Urine | | | [facility] | | | | | | [facility] | | | | | | C[facility] - | | | | | | LABORATORY | | + + + + + + | Bilirubin, | Negative | Negative | [facility] | | | Urine | | | [facility] | | | | | | [facility] | | | | | | CENTER - | | | | | | LABORATORY | | + + + + + + | Nitrite, | Negative | Negative | [facility] | | | Urine | | | [facility] | | | | | | [facility] | | | | | | CENTER - | | | | | | LABORATORY | | + + + + + + | Leukocyte | Trace (A) | Negative | [facility] | | | Esterase, | | | [facility] | | | Urine | | | MEDICAL | | | | | | CENTER - | | | | | | LABORATORY | | + + + + + + | Urobilinoge | Negative | < 0.2 mg/dL, | [facility] | | | n, Urine | | 1.0 mg/dL, 4.0 | [facility] | | | | | mg/dL, Normal, | MEDICAL | | | | | 1.0 E.U./dL, | CENTER - | | | | | 0.2 E.U./dL, | LABORATORY | | | | | 0.2 mg/dL, | | | | | | Negative, 1 | | | | | | mg/dL, <2.0 | | | | | | mg/dL | | | + + + + + + | WBC UA | 2-5 (A) | 0 - 2 /HPF | [facility] | | | | | | [facility] | | | | | | [facility] | | | | | | CENTER - | | | | | | LABORATORY | | + + + + + + | RBC UA | 0-2 | 0 - 2 /HPF | [facility] | | | | | | [facility] | | | | | | [facility] | | | | | | CENTER - | | | | | | LABORATORY | | + + + + + + | SQUAMOUS | 50-100 (A) | 0 - 2 /LPF | [facility] | | | EPITHELIAL | | | [facility] | | | UA | | | MEDICAL | | | | | | CENTER - | | | | | | LABORATORY | | + + + + + + | BACTERIA UA | 1+ (A) | Negative /HPF | [facility] | | | | | | [facility] | | | | | | [facility] | | | | | | CENTER - | | | | | | LABORATORY | | + + + + + + | URINE | Urine Culture Not | | [facility] | | | COMMENT | Indicated | | [facility] | | | | | | [facility] | | | | | | CENTER - | | | | | | LABORATORY | | + + + + + + + + | Specimen | + + | Urine - Urine | | specimen obtained by | | clean catch | | procedure (specimen) | + + + + + + + | Performing | Address | City/State/Zipcode | Phone Number | | Organization | | | | + + + + + | [facility] | [address] | [place] | [phone] | | [facility] | | [address] | | | - LABORATORY | | | | + + + + + POCT Test, Urine, Qual (07/16/2015 8:43 AM PDT) + + + + + [...] | 1.010, 1.015, | | | | [place], | | 1.020, 1.025 | | | | POC | | | | | + + + + + + | Internal QC | Acceptable | | | | + + + + + + | Lot Number | [id number] | | | | + + + + + + | Expiration | 2016- | | | | | Date | | | | | + + + + + + + + | Specimen | + + | Urine specimen | | (specimen) | + + Surgical Pathology Exam (07/16/2015 12:00 AM PDT) + + | Specimen | + + | | + + + + + | Narrative | Performed At | + + + | SPECIMEN(S): A ENDOMETRIAL CURETTINGS SPECIMEN SOURCE: [facility] | | ENDOMETRIAL CURETTINGS CLINICAL HISTORY: N92.1 (excessive and | [facility] | | frequent menstruation with irregular cycle) FINAL PATHOLOGIC | | | DIAGNOSIS: Endometrium, curettings: - Fragments of proliferative | | | phase endometrium. COMMENT: The specimen consists of benign | | | proliferative phase endometrium without significant abnormality. | | | There is no evidence of hyperplasia or carcinoma. Chronic | | | endometritis, intrastromal fibrin or products of conception are not | | | identified. [facility]:C2NR GROSS DESCRIPTION: The specimen | | | received in formalin labeled "Herburger, endometrial curettage" | | | consists of multiple fragments of de león-spencer tissue with clotted blood | | | measuring 3 cm in greatest aggregate dimension, totally submitted in | | | one cassette. [facility] MICROSCOPIC EXAMINATION: Histologic | | | sections of all submitted blocks are examined by light microscopy. | | | These findings, together with the gross examination, support the | | | pathologic diagnosis. PERFORMING LABORATORY: Tissue processing | | | and slide preparation were performed by [facility], [address], [place] [address] (Supervisor Anodizing: Keith | | | Mir Baer; CLIA#: [id number]). Professional interpretation was | | | performed by [facility], [address] | | | [place] [address] (Supervisor Anodizing: Keith Baer M.D.; CLIA#: | | | [id number]). Diagnostician: Abdiel Murcia MD Pathologist | | | Electronically Signed 07/17/2015 | | + + + + +---------+ + + | Performing | Address | City/State/Zipcode | Phone Number | | Organization | | | | + +---------+ + + | [facility] | | | | | [facility] | | | | + +---------+ + + documented in this encounter Visit Diagnoses Not on filedocumented in this encounter Administered Medications + +---------+ +------+-------+------+ | Medication Order | MAR | Action | Dose | Rate | Site | | | Action | Date | | | | + +---------+ +------+-------+------+ | lactated ringers (LR) infusion | New Bag | 07/16/19 | | 100 | | | at 10-100 mL/hr, Intravenous, | | 16 9:11 | | mL/hr | | | CONTINUOUS, Starting 07/16/15 | | AM PDT | | | | | at 0900, TKO. Use this instead of | | | | | | | NS unless dialysis patient., | | | | | | | Pre-op | | | | | | + +---------+ +------+-------+------+ +---+---+ | | | +---+---+ + +---------+ +---------+---+ + | scopolamine (TRANSDERM-SCOP) 1 | Patch | 07/16/19 | 1 patch | | [facility] | | mg/3 days 1 patch 1 patch, | Applied | 16 9:16 | | | nd Right | | Transdermal, PRN, adult patients | | AM PDT | | | | | with history of PONV, Starting | | | | | | | 07/16/15 at 0838, For 1 dose, | | | | | | | PRN for adult patients with | | | | | | | history of PONV. Hold for | | | | | | | patients with glaucoma, dementia, | | | | | | | altered mental status, or | | | | | | | history of allergy to | | | | | | | Scopolamine. Apply to mastoid | | | | | | | process behind ear., Pre-op | | | | | | + +---------+ +---------+---+ + +---+---+ | | | +---+---+ documented in this encounter
--- OUTSIDE RECORDS SUMMARY | ~2019-04-25 | XMS | Encounter Summary ---
Demographics + + + | Address | [address] | | | [place] [address] | + + + | Home Phone | | + + + | Preferred Language | Unknown | + + + | Marital Status | | + + + | Evangelical Affiliation | Unknown | + + + | Race | Unknown | + + + | Ethnic Group | Unknown | + + + Author + + + | Author | [facility] | | | and Srikanthana | + + + | Organization | [facility] | | | and Srikanthana | + + + | Address | Unknown | + + + | Phone | Unavailable | + + + Support + + + + + | Name | Relationship | Address | Phone | + + + + + | Arthur Mcduffie | ECON | [address] | | | | | [place] | | | | | [address] | | + + + + + | Uma Arellano | ECON | [address] | | | | | [place] [address] | | + + + + + Care Team Providers + +------+ + | Care Machinery Repair Maintenance Supervisor Name | Role | Phone | [...] | | neuritis, | Edward | [address] [place] | | | | | right DrWilly | MD Dominick | [place], | | | | | Tatyana | [address] | [place] [address] | | | | | Solumedrol | [facility] | Phone: | | | | | IV X 4 Days | [place] | [phone] | | | | | Optic | [address] | Fax: | | | | | Neuritis | Phone: | [phone] | | | | | Procedures | [phone] | | | | | | [place] | Fax: | | | | | | METHYLPREDNI | [phone] | | | | | | SOLONE | | | | | | | INJECTION, | | | | | | | 125 MG [place] | | | | | | | [...] + + | 03/11/ | Hospital | [facility] | Oneil Rosas | Optic neuritis, | | 2019 | Encounter | MED CTR OP INFUSION | Fredrick Tan MD | right (Primary Dx) | | | | [address] | [address] | | | | | [place] | [place] | | | | | [address] | [phone] | | | | | [phone] | | | +--------+ + + + [...] + + + | Blood Pressure | 160/81 | 03/11/2019 12:19 PM | | | | | PST | | + + + + + | Pulse | 52 | 03/11/2019 12:19 PM | | | | | PST | | + + + + + | Temperature | 36.6 C (97.9 F) | 03/11/2019 10:41 AM | | | | | PST | | + + + + + | Respiratory Rate | 18 | 03/11/2019 12:19 PM | | | | | PST | | + + + + + | Oxygen Saturation | 98% | 03/11/2019 12:19 PM | | | | | PST [...] documented as of this encounter Progress Notes Hamida Klein RN - 03/11/2019 12:25 PM PST Vitals: 03/11/19 1041 03/11/19 1219 BP: (!) 172/91 160/81 Pulse: 58 52 Resp: 18 18 Temp: 36.6 C (97.9 F) TempSrc: Oral SpO2: 99% 98% Administrations This Visit methylPREDNISolone sodium succinate (solu-MEDROL) 1,000 mg in sodium chloride 0.9% 250 mL IVPB Admin Date 03/11/2019 Action New Bag Dose 1000 mg Rate 266 mL/hr Route Intravenous Administered By Marika Sevilla RN Monitored throughout treatment; treatment completed without untoward effects from medicatio n noted. Visits complete will follow up with PCP. Verbalizes understanding of plan of care. VS stable. Discharged ambulatory to home in stable condition. Electronically signed by: Hamida Klein RN 03/11/2019 12:46 PM Marika Govea RN - 1 05/11/2018 11:00 AM PST Vitals: 03/11/19 1041 BP: (!) 172/91 Pulse: 58 Resp: 18 Temp: 36.6 C (97.9 F) Tammy Mcduffie received into room 440, independent ambulation accompanied by her fr iend. States here for Solumedrol infusion. Reports no change in condition, [facility]. Alert, oriented x 4, cooperative. Electronically signed by: Marika Sevilla RN 03/11/2019 11:03 AM documented in this enc ounter [...] [place] | | | | | | [address] | | | | | | | | +--------+ + + + + | 04/29/ | Appointment | Radiology | Cuong Joe, | | | 2019 | | | MD [address] | | | | | | [place] | | | | | | [address] | | | | | | | | +--------+ + + + + | 05/11/ | Office | Neurology | Reina Caraballo, | | 2019 | Visit | | MD Arnel [address] | | | | | | [place] | | | | | | [address] | | | | | | [phone] | | | | | | | [...] | methylPREDNISolone sodium | New Bag | 03/11/20 | 1,000 mg | 266 | | | succinate (solu-MEDROL) 1,000 mg | | 19 11:17 | | mL/hr | | | in sodium chloride 0.9% 250 mL | | AM PST | | | | | IVPB 1,000 mg, Intravenous, | | | | | | | Administer over 60 Minutes, ONCE, | | | | | | | 03/11/19 at 1105, For 1 dose | | | | | | + +---------+ + +-------+------+ +---+---+ | | | +---+---+ documented in this encounter"
--- OUTSIDE RECORDS SUMMARY | ~2019-04-25 | XMS | Encounter Summary ---
Demographics + + + | Address | [address] | | | [place] [address] | + + + | Home Phone | | + + + | Preferred Language | Unknown | + + + | Marital Status | | + + + | Religion Affiliation | Unknown | + + + | Race | Unknown | + + + | Ethnic Group | Unknown | + + + Author + + + | Author | [facility] | | | and Srikanthana | + + + | Organization | [facility] | | | and Srikanthana | + + + | Address | Unknown | + + + | Phone | Unavailable | + + + Support + + + + + | Name | Relationship | Address | Phone | + + + + + | Arthur Mcduffie | ECON | [address] | | | | | [place] | | | | | [address] | | + + + + + | Uma Arellano | ECON | [address] | | | | | [place] [address] | | + + + + + Care Team Providers + +------+ + | Care Tour Bus Driver/Guide Name | Role | Phone | + +------+ + | Cuong Joe MD | PCP | | + +------+ + Reason for Visit + + + | Reason | Comments | + + + | Shoulder Pain | | + + + | Knee Problem | | + + + Encounter Details +--------+ + + + + | Date | Type | Department | Care Team | Description | +--------+ + + + + | 02/25/ | Telephone | [facility] | Cuong Joe, | Shoulder Pain; Knee | | 2016 | | [facility] [place] | [address] | Problem | | | | [address] | [place] | | | | | [place] | [address] | | | | | [address] | | | | | | [phone] | | | +--------+ + + + [...] [place] | | | | | | [address] | | | | | | | | +--------+ + + + + | 04/29/ | Appointment | Radiology | Cuong Joe, | | | 2019 | | | MD [address] | | | | | | [place] | | | | | | [address] | | | | | | | | +--------+ + + + + | 05/11/ | Office | Neurology | Reina Caraballo, | | 2019 | Visit | | MD Arnel [address] | | | | | | [address] [place] | | | | | | [address] | | | | | | [phone] | | | | | | | | +--------+ + + + + documented as of this encounter Visit Diagnoses Not on filedocumented in this encounter"
--- OUTSIDE RECORDS SUMMARY | ~2019-04-25 | XMS | Encounter Summary ---
Demographics + + + | Address | [address] | | | [place] [address] | + + + | Home Phone | | + + + | Preferred Language | Unknown | + + + | Marital Status | Unknown | + + + | Sabianist Affiliation | Unknown | + + + | Race | Unknown | + + + | Ethnic Group | Unknown | + + + Author + + + | Author | [facility] | + + + | Organization | [facility] | + + + | Address | Unknown | + + + | Phone | Unavailable | + + + Care Team Providers + +------+ + | Care Child Welfare Manager Name | Role | Phone | + +------+ + PCP | Unavailable | + +------+ + Encounter Details +--------+ + + + + | Date | Type | Department | Care Team | Description | +--------+ + + + + | 03/09/ | Abstract | Neurology at | Unknown . | | | 2018 | | [facility] | | | | | | Healing [address] | | | | | | [place] Mailcode: | | | | | | [facility] | | | | | | Health and Healing, | | | | | | Building | | | | | | [place], [place] | | | | | | [address] | | | | | | [phone] | | | +--------+ + + + [...]
--- OUTSIDE RECORDS SUMMARY | ~2019-04-25 | XMS | Encounter Summary ---
Demographics + + + | Address | [address] | | | [place] [address] | + + + | Home Phone | | + + + | Preferred Language | Unknown | + + + | Marital Status | | + + + | Restorationism Affiliation | Unknown | + + + | Race | Unknown | + + + | Ethnic Group | Unknown | + + + Author + + + | Author | [facility] | | | and Srikanthana | + + + | Organization | [facility] | | | and Srikanthana | + + + | Address | Unknown | + + + | Phone | Unavailable | + + + Support + + + + + | Name | Relationship | Address | Phone | + + + + + | Arthur Mcduffie | ECON | [address] [facility] | | | | | [place] | | | | | [address] | | + + + + + | Uma Arellano | ECON | [address] [facility] | | | | | [place] [address] | | + + + + + Care Team Providers + +------+ + | Care Director Of Midwifery/Staff Midwife Name | Role | Phone | + [...] | | neuritis, | Edward | [address] | | | | | right DrWilly | MD Dominick | [place], | | | | | Tatyana | [address] | [place] [address] | | | | | Solumedrol | [facility] | Phone: | | | | | IV X 4 Days | [place] | [phone] | | | | | Optic | [address] | Fax: | | | | | Neuritis | Phone: | [phone] | | | | | Procedures | [phone] | | | | | | [place] | Fax: | | | | | | METHYLPREDNI | [phone] | | | | | | SOLONE | | | | | | | INJECTION, | | | | | | | 125 MG [place] | | | | | | | [...] + + | 03/10/ | Hospital | [facility] | Oneil Rosas | Optic neuritis, | | 2019 | Encounter | MED CTR OP INFUSION | Fredrick Tan MD | right (Primary Dx) | | | | [address] | [address] | | | | | [place] | [place] | | | | | [address] | [phone] | | | | | [phone] | | | +--------+ + + + [...] + + + | Blood Pressure | 149/84 | 03/10/2019 12:30 PM | | | | | PST | | + + + + + | Pulse | 55 | 03/10/2019 12:30 PM | | | | | PST | | + + + + + | Temperature | 36.3 C (97.3 F) | 03/10/2019 10:38 AM | | | | | PST | | + + + + + | Respiratory Rate | 18 | 03/10/2019 12:30 PM | | | | | PST | | + + + + + | Oxygen Saturation | 100% | 03/10/2019 12:30 PM | | | | | PST [...] documented as of this encounter Progress Notes Yari Patricio RN - 03/10/2019 12:00 PM PST Vitals: 03/10/19 1038 03/10/19 1230 BP: 141/67 149/84 Pulse: 70 55 Resp: 18 18 Temp: 36.3 C (97.3 F) TempSrc: Oral SpO2: 99% 100% Administrations This Visit methylPREDNISolone sodium succinate (solu-MEDROL) 1,000 mg in sodium chloride 0.9% 250 mL IVPB Admin Date 03/10/2019 Action New Bag Dose 1000 mg Rate 266 mL/hr Route Intravenous Administered By Db Cantrell RN Monitored throughout treatment; treatment completed without untoward effects from medicatio n noted. Next visit Thursday am. Verbalizes understanding of plan of care. VS stable. Discharg ed ambulatory to home in stable condition. Electronically signed by: Yari Patricio RN 03/10/2019 3:17 PM Yari Adrian RN - 1 05/10/2018 10:30 AM PST Vitals: 03/10/19 1038 BP: 141/67 Pulse: 70 Resp: 18 Temp: 36.3 C (97.3 F) Tammy Mcduffie received into room 440, independent ambulation accompanied by self. States here for Solumedrol infusion. Reports no change in condition, plan of care since last MD visit. Alert, oriented x 4, cooperative. Electronically signed by: Yari Patricio RN 03/10/2019 10:49 AM documented in this enc ounter Plan [...] [place] | | | | | | [address] | | | | | | | | +--------+ + + + + | 04/29/ | Appointment | Radiology | Cuong Joe, | | | 2019 | | | MD [address] | | | | | | [place] | | | | | | [address] | | | | | | | | +--------+ + + + + | 05/11/ | Office | Neurology | Reina Caraballo, | | | 2019 | Visit | | MD Arnel EN[place] | | | | | | [place] | | | | | | [address] | | | | | | [phone] | | | | | | | [...] | methylPREDNISolone sodium | New Bag | 03/10/20 | 1,000 mg | 266 | | | succinate (solu-MEDROL) 1,000 mg | | 19 11:22 | | mL/hr | | | in sodium chloride 0.9% 250 mL | | AM PST | | | | | IVPB 1,000 mg, Intravenous, | | | | | | | Administer over 60 Minutes, ONCE, | | | | | | | Cara 03/10/19 at 1055, For 1 dose | | | | | | + +---------+ + +-------+------+ +---+---+ | | | +---+---+ documented in this encounter"
--- OUTSIDE RECORDS SUMMARY | ~2019-04-25 | XMS | Encounter Summary ---
Demographics + + + | Address | [address] | | | [place] [address] | + + + | Home Phone [...] | [facility] | | | and Srikanthana | + + + | Organization | [facility] | | | and Srikanthana | + + + | Address | Unknown | + + + | Phone | Unavailable | + + + Support + + + + + | Name | Relationship | Address | Phone | + + + + + | Arthur Mcduffie | ECON | [address] | | | | | [place] | | | | | [address] | | + + + + + | Uma Arellano | ECON | [address] | | | | | [place] [address] | | + + + + + Care Team Providers + +------+ + | Care Wealth Management Advisor Name | Role | Phone | + [...] | | | | menorrhagia | | [address] | | | | | History of | | [place] | | | | | [place] | | [place] | | | | | [Z87.42] | | [place] | | | | | Procedures | | [address] | | | | | [place] | | Phone: | | | | | HYSTEROSCOPY | | [phone] | | | | | ,W/RONY BX | | Fax: | | | | | | | [phone] | +--------+--------+ + + + + Encounter Details +--------+---------+ + + + | Date | Type | Department | Care Team | Description | +--------+---------+ + + + | 07/15/ | Surgery | [facility] | Александр Sebastian, | Hysteroscopy D&C + | | 2015 | | MED CTR OR INTRA OP | [address] | | | | | [address] | [place] | | | | | [place], [place] | [place] [address] | | | | | [address] | [phone] | | | | | [phone] | | | +--------+---------+ + + + [...] procedures to check the inside of your navajo michaela before the ablation is done. The [...] of the scope, your health care provi dermay use a device that both expands and [...] chills Nausea Frequent urination for 24 hours 9316-8212 [employer]. [address] [place] [address], [place] [address]. All righ ts reserved. This information is [...] feel better. Take it as told, brigida whalen pain becomes severe. Also, ask your doctor [...] interact with your prescription medicines or other rueg-ggf-daazunx (OTC) drugs. Some pr escription medicines have [...] the possible dangers of taking these medicines. 8726-4789 [employer]. [address] [place] [address], [place] [address]. All righ ts reserved. This information is [...] [place] | | | | | | [address] | | | | | | | | +--------+ + + + + | 04/29/ | Appointment | Radiology | Cuong Joe, | | | 2019 | | | MD [address] | | | | | | [place] | | | | | | [address] | | | | | | | | +--------+ + + + + | 05/11/ | Office | Neurology | Reina Caraballo, | | | 2019 | Visit | | MD Arnel [place] | | | | | | [place], [place] | | | | | | [address] | | | | | | [phone] | | | | | | | | +--------+ + + + + documented as of this encounter Procedures + +--------+ + + + | Procedure Name | Priori | Date/Time | Associated Diagnosis | Comments | | | ty | | | | + +--------+ + + + | ABLATION ENDOMETRIUM | | 07/16/2015 | Excessive and | | | NOVASURE | | 11:07 AM | frequent | [...] 5.3 | 4.0 - 11.0 K/uL | [facility] | | | | | | [facility]. [...] | | | | | | [facility] | | | | | | MEDICAL [...] [address] | [place] | [phone] | | [facility] | | [address] | | | - LABORATORY | | [...] - 1.030 | [place] | | | [place] | | | [facility] | | [...] [address] | [place] | [phone] | | [facility] | | [address] | | | - LABORATORY | | [...] | 1.010, 1.015, | | | | [place], | | 1.020, 1.025 | | | | POC | | | | | + + + + + + | Internal QC | Acceptable | | | | + + + + + + | Lot Number | [id number] | | | | + + + + + + | Expiration | 2017- | | | | | Date | [...] conception are not | | | identified. TWK:[facility]:C2NR GROSS DESCRIPTION: The specimen | | | received in formalin labeled "Herburger, endometrial curettage" | | | consists of multiple fragments of de león-spencer tissue with clotted blood | | | measuring 3 cm in greatest aggregate dimension, totally submitted in | | | one cassette. [facility] MICROSCOPIC EXAMINATION: Histologic | | | sections of all submitted blocks are examined by light microscopy. | | | These findings, together with the gross examination, support the | | | pathologic diagnosis. PERFORMING LABORATORY: Tissue processing | | | and slide preparation were performed by [employer], [address] | | [employer] [address] [address] (Auto Body Repair Estimator: Keith | | | Mir Baer; CLIA#: [id number]). Professional interpretation was | | | performed by [facility], [address] | | | [place] [address] (Auto Body Repair Estimator: Keith Baer M.D.; CLIA#: | | | [id number]). Diagnostician: Abdiel Murcia MD Pathologist | | [...] + | Diagnosis | + + | Excessive and frequent menstruation with irregular cycle Excessive or frequent | | menstruation | + + documented in this encounter [...]
--- OUTSIDE RECORDS SUMMARY | ~2019-04-25 | XMS | Encounter Summary ---
Demographics + + + | Address | [address] | | | [place] [address] | + + + | Home Phone | | + + + | Preferred Language | Unknown | + + + | Marital Status | | + + + | Confucianist Affiliation | Unknown | + + + | Race | Unknown | + + + | Ethnic Group | Unknown | + + + Author + + + | Author | [facility] | | | and Srikanthana | + + + | Organization | [facility] | | | and Srikanthana | + + + | Address | Unknown | + + + | Phone | Unavailable | + + + Support + + + + + | Name | Relationship | Address | Phone | + + + + + | Arthur Mcduffie | ECON | [address] [facility] | | | | | [place] | | | | | [address] | | + + + + + | Uma Arellano | ECON | [address] | | | | | [place] [address] | | + + + + + Care Team Providers + +------+ + | Care Noodle Maker Name | Role | Phone | + +------+ + | Cuong Joe MD | PCP | | + +------+ + Reason for Visit +---------+ + | Reason | Comments | +---------+ + | Results | | +---------+ + Encounter Details +--------+ + + + + | Date | Type | Department | Care Team | Description | +--------+ + + + + | 09/22/ | Telephone | [facility] | Alba Rondon, | Results | | 2014 | | CARE [address] | MD [address] | | | | | [place] | [place] | | | | | [address] | [address] | | | | | [phone] | | | +--------+ + + + [...] [place] | | | | | | [address] | | | | | | | | +--------+ + + + + | 04/29/ | Appointment | Radiology | Cuong Joe, | | | 2019 | | | MD [address] | | | | | | [place] | | | | | | [address] | | | | | | | | +--------+ + + + + | 05/11/ | Office | Neurology | Reina Caraballo, | | | 2019 | Visit | | MD Arnel [place] | | | | | | [place] | | | | | | [address] | | | | | | [phone] | | | | | | | | +--------+ + + + + documented as of this encounter Visit Diagnoses Not on filedocumented in this encounter"
--- OUTSIDE RECORDS SUMMARY | ~2019-04-25 | XMS | Encounter Summary ---
Demographics + + + | Address | [address] | | | [place] [address] | + + + | Home Phone | | + + + | Preferred Language | Unknown | + + + | Marital Status | | + + + | Mandaen Affiliation | Unknown | + + + | Race | Unknown | + + + | Ethnic Group | Unknown | + + + Author + + + | Author | [facility] | | | and Srikanthana | + + + | Organization | [facility] | | | and Srikanthana | + + + | Address | Unknown | + + + | Phone | Unavailable | + + + Support + + + + + | Name | Relationship | Address | Phone | + + + + + | Arthur Mcduffie | ECON | [address] [facility] | | | | | [place] | | | | | [address] | | + + + + + | Uma Arellano | ECON | [address] | | | | | [place] [address] | | + + + + + Care Team Providers + +------+ + | Care Laborer Wood Preserving Plant Name | Role | Phone | + +------+ + | Cuong Joe MD | PCP | | + +------+ + Reason for Visit + + + | Reason | Comments | + + + | Labs Only | | + + + | Other | new patient | + + + Encounter Details +--------+ + + + + | Date | Type | Department | Care Team | Description | +--------+ + + + + | 03/18/ | Telephone | [facility] | Reina Caraballo, | Labs Only; Other | | 2019 | | NEUROLOGY [address] | [address] | (new patient) | | | | [address] | [place], [place] | | | | | [place], [place] | [address] | | | | | [address] | [phone] | | | | | [phone] | | | +--------+ + + + [...] [place] | | | | | | [address] | | | | | | | | +--------+ + + + + | 04/29/ | Appointment | Radiology | Cuong Joe, | | | 2019 | | | MD [address] | | | | | | [place] | | | | | | [address] | | | | | | | | +--------+ + + + + | 05/11/ | Office | Neurology | Reina Caraballo, | | | 2019 | Visit | | MD Arnel [address] | | | | | | [place] | | | | | | [address] | | | | | | [phone] | | | | | | | | +--------+ + + + + documented as of this encounter Visit Diagnoses Not on filedocumented in this encounter"
--- OUTSIDE RECORDS SUMMARY | ~2019-04-25 | XMS | Encounter Summary ---
Demographics + + + | Address | [address] | | | [place] [address] | + + + | Home Phone | | + + + | Preferred Language | Unknown | + + + | Marital Status | | + + + | Catholic Affiliation | Unknown | + + + | Race | Unknown | + + + | Ethnic Group | Unknown | + + + Author + + + | Author | [facility] | | | and Srikanthana | + + + | Organization | [facility] | | | and Srikanthana | + + + | Address | Unknown | + + + | Phone | Unavailable | + + + Support + + + + + | Name | Relationship | Address | Phone | + + + + + | Arthur Mcduffie | ECON | [address] [facility] | | | | | [place] | | | | | [address] | | + + + + + | Uma Arellano | ECON | [address] [facility] | | | | | [place] [address] | | + + + + + Care Team Providers + +------+ + | Care Child Life Therapist Name | Role | Phone | [...] | | neuritis, | Edward | [address] | | | | | right DrWilly | MD Dominick | [place], | | | | | Tatyana | [address] | [place] [address] | | | | | Solumedrol | [facility] | Phone: | | | | | IV X 4 Days | [place] | [phone] | | | | | Optic | [address] | Fax: | | | | | Neuritis | Phone: | [phone] | | | | | Procedures | [phone] | | | | | | [place] | Fax: | | | | | | METHYLPREDNI | [phone] | | | | | | SOLONE | | | | | | | INJECTION, | | | | | | | 125 MG AL | | | | | | | [...] + + | 03/29/ | Hospital | [facility] | [place], | Optic neuritis, | | 2019 | Encounter | [facility] | MD [address] | right (Primary Dx) | | | | [address] | [place] | | | | | [place] | [address] | | | | | [address] | | | | | | [phone] | | | +--------+ + + + [...] + + + | Blood Pressure | 154/70 | 03/29/2019 1:33 PM | | | | | PST | | + + + + + | Pulse | 82 | 03/29/2019 1:33 PM | | | | | PST | | + + + + + | Temperature | 35.6 C (96.1 F) | 03/29/2019 11:42 AM | | | | | PST | | + + + + + | Respiratory Rate | 18 | 03/29/2019 1:33 PM | | | | | PST | | + + + + + | Oxygen Saturation | 97% | 03/29/2019 1:33 PM | | | | | PST [...] encounter Progress Notes Marika Sevilla RN - 03/29/2019 12:00 PM PST Vitals: 03/29/19 1142 03/29/19 1333 BP: 151/80 154/70 Pulse: 106 82 Resp: 18 18 Temp: 35.6 C (96.1 F) TempSrc: Oral SpO2: 97% 97% Administrations This Visit methylPREDNISolone sodium succinate (solu-MEDROL) 1,000 mg in sodium chloride 0.9% 250 mL IVPB Admin Date 03/29/2019 Action New Bag Dose 1000 mg Rate 266 mL/hr Route Intravenous Administered By Dianna Brooke RN Monitored throughout treatment; treatment completed without untoward effects from medicatio n noted. Next visit tomorrow. Verbalizes understanding of plan of care. VS stable. Discharge d ambulatory to home in stable condition. Electronically signed by: Marika Sevilla RN 03/29/2019 2:15 PM Bakari, Dianna Pappas RN - 03/29/2019 12:00 PM PST Vitals: 03/29/19 1142 BP: 151/80 Pulse: 106 Resp: 18 Temp: 35.6 C (96.1 F) Tammy Mcduffie received into room 443, independent ambulation accompanied by self. States here for solumedrol infusion. Reports no change in condition, plan of care since last MD visit. Alert, oriented x 4, cooperative. Electronically signed by: Dianna Brooke RN 03/29/2019 11:52 AMElectronically robert d by Dianna Brooke RN at 03/29/2019 11:52 AM PSTdocumented in this encounter Plan of [...] [place] | | | | | | [id number] | | | | | | | | +--------+ + + + + | 04/29/ | Appointment | Radiology | [place], | | | 2019 | | | [address] | | | | | | [place], [place] | | | | | | [address] | | | | | | | | +--------+ + + + + | 05/11/ | Office | Neurology | Reina Caraballo, | | | 2019 | Visit | | [address] | | | | | | [address] [place], [place] | | | | | | [address] | | | | | | [phone] | | | | | | | [...] | methylPREDNISolone sodium | New Bag | 03/29/20 | 1,000 mg | 266 | | | succinate (solu-MEDROL) 1,000 mg | | 19 12:26 | | mL/hr | | | in sodium chloride 0.9% 250 mL | | PM PST | | | | | IVPB 1,000 mg, Intravenous, | | | | | | | Administer over 60 Minutes, ONCE, | | | | | | | 03/29/19 at 1205, For 1 dose | | | | | | + +---------+ + +-------+------+ +---+---+ | | | +---+---+ documented in this encounter"
--- OUTSIDE RECORDS SUMMARY | ~2019-04-25 | XMS | Encounter Summary ---
Demographics + + + | Address | [address] | | | [place] [address] | + + + | Home Phone | | + + + | Preferred Language | Unknown | + + + | Marital Status | | + + + | Sikh Affiliation | Unknown | + + + | Race | Unknown | + + + | Ethnic Group | Unknown | + + + Author + + + | Author | [facility] | | | and Srikanthana | + + + | Organization | [facility] | | | and Srikanthana | + + + | Address | Unknown | + + + | Phone | Unavailable | + + + Support + + + + + | Name | Relationship | Address | Phone | + + + + + | Arthur Mcduffie | ECON | [address] [facility] | | | | | [place] | | | | | [address] | | + + + + + | Uma Arellano | ECON | [address] | | | | | [place] [address] | | + + + + + Care Team Providers + +------+ + | Care Device Test Engineer Name | Role | Phone | [...] + + | 12/20/ | Telephone | [facility] | [place], | DME | | 2019 | | [facility] | [address] | | | | | [address] | [place] | | | | | [place] | [address] | | | | | [address] | | | | | | [phone] | | | +--------+ + + + [...] [place] | | | | | | [address] | | | | | | | | +--------+ + + + + | 04/29/ | Appointment | Radiology | [place], | | | 2019 | | | [address] | | | | | | [place] | | | | | | [address] | | | | | | | | +--------+ + + + + | 05/11/ | Office | Neurology | Reina Caraballo, | | | 2019 | Visit | | MD [address] | | | | | | [place] | | | | | | [address] | | | | | | [phone] | | | | | | | | +--------+ + + + + documented as of this encounter Visit Diagnoses Not on filedocumented in this encounter"
[2019-04-25] MEDS ORDERED: LEVOTHYROXINE75 MCG PO (20:25)
[2019-04-25] MEDS ORDERED: VITAMIN D22000 UNIT PO (20:26)
[2019-04-25] MEDS ORDERED: CEPHALEXIN500 MG PO (21:08)
[2019-04-25] MEDS ORDERED: NORCO 5-325 TA1 EACH PO (21:10)
== END 2019-04-25 21:47 | disposition home or self-care (01) ==
LOC: ED 20:12
PROC: 3E0T3BZ Introduction of Anesthetic Agent into Peripheral Nerves and Plexi, Percutaneous Approach (ICD-10-PCS; principal; 2019-04-25)
DX: S60.452A Superficial foreign body of right middle finger, initial encounter (principal); E03.9 Hypothyroidism, unspecified; Z23 Encounter for immunization; Z91.048 Other nonmedicinal substance allergy status; Z79.899 Other long term (current) drug therapy; W27.3XXA Contact with needle (sewing), initial encounter
CPT/HCPCS: 64450; 73140; 90471; 90715; 99283-25; A9270